=== PATIENT | male | born 1950 | race Caucasian/White ===

== ENCOUNTER 2021-08-15 19:56 | Emergency (ER) | payer MEDICARE, OTHER, SELFPAY ==
[2021-08-15 19:56] VITALS: O2SAT 96
[2021-08-15 19:57] VITALS: BP 183/82; PULSE 117; RESP 25; TEMP 37.1; O2SAT 86; BMI 25.9
--- NOTE | 2021-08-15 20:15 | EKG12_ITS ---
Test Reason : CP Blood Pressure : / mmHG Vent. Rate : 101 BPM Atrial Rate : 101 BPM P-R Int : 126 ms QRS Dur : 088 ms QT Int : 340 ms P-R-T Axes : 077 084 077 degrees QTc Int : 440 ms Sinus tachycardia with occasional Premature ventricular complexes and Fusion complexes Otherwise normal ECG Confirmed by RULA HAND, NABIL ([id number]), news videotape editor JEN TORRES ([id number]) on 08/18/2021 11:39:58 AM Referred By: CINDY Confirmed By:NABIL HORTA MD
--- NOTE | 2021-08-15 20:15 | CT_ITS ---
STUDY: CTA CHEST REASON FOR EXAM: Male, 70 years old. chest pain RADIATION DOSAGE (If Supplied By Facility): CTDIvol = ( 11.62 ) mGy, DLP = ( 501.28 ) mGycm TECHNIQUE: The examination was performed with the intravenous administration of IV 100mL Isovue-370. Post-processing of the angiographic images was performed, with multiplanar reformation and 3D reconstruction. Individualized dose optimization techniques were used for this CT. COMPARISON: None. FINDINGS: Adequate density of contrast in pulmonary arteries but with moderate motion; limited, but diagnostic exam. No pulmonary artery filling defect to suggest pulmonary embolism. There is no evidence of right heart strain. Normal size heart. No pericardial fluid. No mediastinal or hilar lymphadenopathy. No mass or filling defect. No bronchiectasis. No peribronchial thickening. There are increased lung volumes with flattening of the diaphragms suggesting air trapping. There is advanced centrilobular emphysematous disease seen throughout the lungs. While assessment is limited by motion, there is a roughly 6.5 cm area of ill-defined groundglass attenuation in the left lower lobe. In the right upper lobe, axial image 198 of 270, there is a 5 x 7 mm suspicious nodule. Consider pulmonary consultation and three-month follow-up CT chest. Thyroid gland and base of the neck are within normal limits. No axillary lymphadenopathy. No fracture or focal osseous lesion. Upper abdomen is notable for a 10 mm hypodensity left hepatic lobe. CT/CTA Chest W/WO Contrast IMPRESSION: No pulmonary embolism. Suspicious 5 x 7 mm nodule right upper lobe. Consider pulmonary consultation and three-month follow-up CT chest. Left lower lobe roughly 6.5 cm diameter area of ill-defined groundglass attenuation. Assessment is limited due to motion. This may represent asymmetric atelectasis however infectious etiology is not excluded. Electronically Signed: Tanner uJdd DO at 23:35 EST ,
--- NOTE | 2021-08-15 20:18 | EDS_ITS ---
HPI History of Present Illness Chief Complaint: Chest Pain Narrative Narrative: Patient is a 70-year-old male with past medical history of COPD/emphysema who wears oxygen at night. He also has a history of paroxysmal atrial fibrillation and takes Xarelto. Patient states that over the past 2 to 3 days has been having to wear his oxygen throughout the day because if he does not his pulse ox will drop into the 80s. He states approximate 1 hour prior to arrival he developed sharp right sided chest pain. He states that there is no radiation of the pain and he denies any nausea vomiting or diaphoresis associated with this. He states that he is fully vaccinated against Covid and has no known exposures and states he has not been sick in any way prior to the symptoms beginning. At this time based on the sudden onset of pain in the worsening shortness of breath requiring oxygen 24/01 he presents for evaluation. [facility] Medical History Abdominal pain Arthritis History of prostate cancer Home Medications Lactobacills gasseri-Bifidobac bifidum,longum 1.5 billion cell capsule cap PO DAILY cap 03/22/19 [History Last Taken Unknown] beta carotene 10,000 unit capsule 10,000 unit PO DAILY 03/22/19 [History Last Taken Unknown] multivitamin 1 cap PO DAILY 03/22/19 [History Last Taken Unknown] [id number] [Breztri Aerosphere] 2 inh INHALATION BID 08/15/21 [History Last Taken Unknown] metoprolol succinate 50 mg PO DAILY 08/15/21 [History Last Taken Unknown] rivaroxaban [Xarelto] 20 mg PO DAILY 08/15/21 [History Last Taken Unknown] roflumilast [Daliresp] 500 mcg PO DAILY 08/15/21 [History Last Taken Unknown] doxycycline hyclate 100 mg PO BID 10 Days #20 cap 08/16/21 [Rx Last Taken Unknown] oxycodone-acetaminophen [Percocet] 1 tab PO Q6H PRN 3 Days #12 tab 08/16/21 [Rx Last Taken Unknown] Allergy/AdvReac Type Severity Reaction Status Date / Time gabapentin AdvReac Other Verified 08/15/21 21:18 melatonin AdvReac Other Verified 08/15/21 21:18 Surgical History (Updated 03/22/19 @ 13:32 by Beatriz Gurrola) History of appendectomy History of hernia repair History of prostatectomy History of tonsillectomy Social History (Updated 03/23/19 @ 12:[address] Agusto Lima MD) Smoking Status: Former smoker alcohol intake: never substance use type: does not use ROS ROS ED Constitutional Constitutional ED: Denies chills or fever(s) ENT ENT ED: Denies sore throat Cardiovascular Cardiovascular: Reports chest pain Respiratory/Chest Respiratory/Chest: Reports cough and dyspnea Gastrointestinal Gastrointestinal: Denies abdominal pain, diarrhea, nausea or vomiting Genitourinary Genitourinary ED: Denies dysuria Musculoskeletal Musculoskeletal: Denies myalgias Integumentary Denies rash Neurologic Neurologic: Denies headache(s) Hematologic/Lymphatic Hematologic/Lymphatic: Reports easy bleeding and easy bruising EXAM Physical Exam Const Vital Signs: 08/15/21 19:56 08/15/21 19:57 08/15/21 20:14 Temperature 98.7 F Temperature Source Temporal Pulse Rate 117 H Respiratory Rate 25 H Respiratory Effort Short of Breath Labored Respiratory Pattern Tachypnea Blood Pressure 183/82 H Blood Pressure Mean 115 Pulse Ox 96 86 Oxygen Delivery Method Nasal Cannula Nasal Cannula Oxygen Flow Rate (L/min) 3 2 08/15/21 20:32 08/15/21 20:38 08/15/21 21:19 Temperature Temperature Source Pulse Rate 97 101 H 94 Respiratory Rate 97 H 27 H Respiratory Effort Respiratory Pattern Normal Blood Pressure 134/80 H 131/67 H Blood Pressure Mean 88 Pulse Ox 94 Oxygen Delivery Method Nasal Cannula Oxygen Flow Rate (L/min) 3 08/15/21 23:08 Temperature Temperature Source Pulse Rate 94 Respiratory Rate 26 H Respiratory Effort Respiratory Pattern Blood Pressure 95/64 Blood Pressure Mean 74 Pulse Ox 96 Oxygen Delivery Method Nasal Cannula Oxygen Flow Rate (L/min) 3 Positive well nourished and well developed General Appearance ED: well developed HEENT Reports moist mucous membranes HEENT Narrative: No tongue or lip swelling no oral lesions no airway edema or compromise Eyes PERRL and EOMs intact bilaterally Neck supple and no JVD Resp Resp Narrative: Patient is in moderate respiratory distress with tachypnea and accessory muscle use. Breath sounds are diminished throughout with diffuse expiratory wheeze. Cardio regular rhythm Rate: tachycardic and other Other Details: Tachycardic rate with regular rhythm. There is an occasional ectopic beat noted. Radial pulses are +2-4 bilaterally GI normal to inspection, nondistended, normoactive bowel sounds, non-tender, non- distended and no masses GI Narrative: No voluntary guarding or rigidity no pulsatile mass or fluid wave noted. Auscultation: normoactive bowel sounds Palpation: soft Extremity normal to inspection Extremity Narrative: No asymmetric edema no pitting edema negative Homans' sign bilaterally Neuro oriented x3 and CN's II-XII intact bilaterally Sensorium / Orientation: alert Motor Exam: strength 5/5 throughout Psych mental status grossly normal Skin no rashes or lesions noted MDM MDM MDM Narrative Medical decision making narrative: Patient presented to the ER with a low pulse ox but states that he does wear oxygen at night and has been wearing it during the day secondary to severe COPD/emphysema. He has a history of paroxysmal A. fib and is currently on a blood thinner. He denied any trauma or sick symptoms but had right-sided chest pain and there was concern that he has a breakthrough pulmonary embolus or dissection or even a pneumothorax from a ruptured bleb because of his history of emphysema/COPD. I performed basic laboratory studies which show no clinically significant findings with a normal initial and delta troponin. The CTA revealed no pulmonary embolus dissection or pneumothorax. It did show a right sided lung nodule in the area where he has pain as well as groundglass opacities in the left lower lobe. Because of the groundglass opacities I did check a Covid test which is negative. At this time he is satting well on his oxygen and does not have physical exam changes or vital sign changes to suggest sepsis. We discussed possible admission to the hospital because of his recurrent chest pain despite negative troponins. Patient states that he is feeling better at this time after the pain medication and would prefer to go home at this time and follow-up with his facility attendant as the work- up today does not show a pneumothorax pulmonary embolus dissection or obvious cardiac damage. Therefore patient will be placed on doxycycline because of the groundglass opacities concerning for bacterial pneumonia but as he has oxygen at home to keep his pulse ox greater than 90% and states he has had improvement of his pain he will be discharged and can return if symptoms are not controlled with outpatient therapy Lab Data Attestation: I reviewed the patient's lab results. Labs: Laboratory Results - last 24 hr 08/15/21 08/15/21 08/15/21 20:00 20:00 20:00 WBC 11.4 H RBC 5.11 Hgb 15.4 Hct 43.8 MCV 85.7 MCH 30.1 MCHC 35.2 RDW Std Deviation 45.3 H RDW Coeff of Gladis 14.6 Plt Count 330 MPV 8.8 Immature Gran % (Auto) 0.400 Neut % (Auto) 77.4 H Lymph % (Auto) 11.9 L [place] % (Auto) 7.8 Eos % (Auto) 2.2 Baso % (Auto) 0.3 Absolute Neuts (auto) 8.8 H Absolute Lymphs (auto) 1.36 Nucleated RBC % 0 PT 13.7 INR 1.1 APTT 39.6 H Sodium 137 Potassium 4.2 Chloride 101 Carbon Dioxide 32.0 Anion Gap 4 L BUN 18 Creatinine 1.03 Estim Creat Clear Calc 75.34 Est GFR (MDRD) Af Amer 92 Est GFR (MDRD) Non-Af 76 BUN/Creatinine Ratio 17.5 Glucose 107 H Calcium 9.6 Troponin I High Sens 5 B-Natriuretic Peptide 08/15/21 08/15/21 20:00 21:56 WBC RBC Hgb Hct MCV MCH MCHC RDW Std Deviation RDW Coeff of Gladis Plt Count MPV Immature Gran % (Auto) Neut % (Auto) Lymph % (Auto) [place] % (Auto) Eos % (Auto) Baso % (Auto) Absolute Neuts (auto) Absolute Lymphs (auto) Nucleated RBC % PT INR APTT Sodium Potassium Chloride Carbon Dioxide Anion Gap BUN Creatinine Estim Creat Clear Calc Est GFR (MDRD) Af Amer Est GFR (MDRD) Non-Af BUN/Creatinine Ratio Glucose Calcium Troponin I High Sens 4 B-Natriuretic Peptide 84.0 Radiography Diagnostic Testing: Clinical Impression(s) from Imaging Studies Chest CTA 08/15/21 20:15 IMPRESSION: No pulmonary embolism. Suspicious 5 x 7 mm nodule right upper lobe. Consider pulmonary consultation and three-month follow-up CT chest. Left lower lobe roughly 6.5 cm diameter area of ill-defined groundglass attenuation. Assessment is limited due to motion. This may represent asymmetric atelectasis however infectious etiology is not excluded. Electronically Signed: Tanner Judd DO at 23:35 EST , Discharge Plan Triage Chief Complaint: Chest Pain ED Provider: Campos Eaton Dx/Rx/DC Orders Clinical Impression: Lung mass, Nonspecific chest pain Instructions: ED Chest Pain, Uncertain Cause, ED Pulmonary Nodule, Solitary Prescriptions: New doxycycline hyclate 100 mg capsule 100 mg PO BID 10 Days Qty: 20 RF: 0 oxycodone-acetaminophen [Percocet] 5-325 mg tablet 1 tab PO Q6H PRN (Reason: pain) 3 Days Qty: 12 RF: 0 No Action multivitamin capsule capsule 1 cap PO DAILY RF: 0 beta carotene 10,000 unit capsule 10,000 unit PO DAILY RF: 0 Trusper 1.5 billion cell capsule PO DAILY RF: 0 Daliresp 500 mcg Tablet 500 mcg PO DAILY RF: 0 Xarelto 20 mg Tablet 20 mg PO DAILY RF: 0 metoprolol succinate 50 mg Capsule,Sprinkle,Er 24hr 50 mg PO DAILY RF: 0 Breztri Aerosphere 160-9-4.8 mcg/actuation Hfa Aerosol Inhaler 2 inh INHALATION BID RF: 0 Primary Care Provider: London Ltot Referrals: London Lott MD [Primary Care Provider] - Disposition Disposition: Home, Self Care
[2021-08-15 20:24] LABS: Absolute Lymphocyte Count 1.36 X10^3/uL (0.83-4.51); Absolute Neutrophil Count 8.8 X10^3/uL (2.0-7.7); Basophil# 0.03 X10^3/uL; Basophil% 0.3 % (0-1); Eosinophil# 0.25 X10^3/uL; Eosinophils% 2.2 % (0-5); Hematocrit 43.8 % (40-54); Hemoglobin 15.4 g/dL (13.0-16.5); Lymphocyte # 1.36 X10^3/ul (0.83-4.51); Lymphocyte % 11.9 % (19-41); Mean Corp Hgb Conc 35.2 g/dL (32-36); Mean Corpuscular Hgb 30.1 pg (27.0-32.0); Mean Corpuscular Volume 85.7 fL (80-94); Mean Platelet Vol. 8.8 fl (6.2-12.0); Monocyte# 0.89 X10^3/uL; Monocyte% 7.8 % (0-10); NRBC Flagged by Analyzer 0 % (0-5); Neutrophil # 8.84 X10^3/uL (2.7-7.7); Neutrophil % 77.4 % (47-70); Platelet Count 330 K/mm3 (150-450); RBC Distribution Width CV 14.6 % (11.6-14.6); RBC Distribution Width SD 45.3 fl (35.1-43.9); Red Blood Count 5.11 M/mm3 (4.6-6.2); White Blood Count 11.4 K/mm3 (4.4-11.0)
[2021-08-15] MEDS: Albuterol 2.5 MG/3 ML VIAL.NEB. INHALATION (20:27)
[2021-08-15] MEDS: MethylPREDNISolone 125 MG/2 ML Vial IV (20:27)
[2021-08-15] MEDS: Ipratropium/Albuterol Sulfate 3 ML AMPUL.NEB INHALATION (20:27)
[2021-08-15 20:28] LABS: International Normalized Ratio 1.1; Prothrombin Time (Protime)PT. 13.7 SECONDS (11.7-14.9)
[2021-08-15 20:30] LABS: Partial Thromboplast Time 39.6 Seconds (24.1-36.2)
[2021-08-15 20:32] VITALS: PULSE 97; RESP 97
[2021-08-15 20:36] LABS: Anion Gap 4 (5-15); BUN 18 mg/dL (7-18); BUN/Creat Ratio 17.5 RATIO (10-20); Calcium,Total 9.6 mg/dL (8.5-10.1); Chloride 101 mmol/L (98-107); Creatinine, Serum 1.03 mg/dL (0.70-1.30); EST Glomerular Filtration Rate 76 mL/min (>60); Est Glom Filt Rate - Afr Amer 92 mL/min (>60); Estimated Creatinine Clearance 75.34 ml/min; Glucose 107 mg/dL (74-106); Potassium 4.2 mmol/L (3.5-5.1); Sodium Level 137 mmol/L (136-145); Troponin-I HS 5 pg/mL (3.0-78.0)
[2021-08-15 20:38] VITALS: BP 134/80; PULSE 101
[2021-08-15] MEDS: Nitroglycerin SL (ED/IMG/CATH) 0.4 MG TABLET SL (20:38)
[2021-08-15] MEDS: Ondansetron 4 MG/2 ML Vial IV (21:14)
[2021-08-15] MEDS: Morphine 4 MG/ML Syringe IV ×2 (21:16→23:07)
[2021-08-15 21:19] VITALS: BP 131/67; PULSE 94; RESP 27; O2SAT 94
[2021-08-15 22:24] LABS: Troponin-I HS 4 pg/mL (3.0-78.0)
[2021-08-15 23:08] VITALS: BP 95/64; PULSE 94; RESP 26; O2SAT 96
[2021-08-16] MEDS: Ondansetron 4 MG/2 ML Vial IV (00:04)
[2021-08-16] MEDS: HYDROmorphone 1 MG/ML Syringe IV (00:06)
[2021-08-16 01:46] VITALS: BP 100/84; PULSE 78; RESP 18; O2SAT 95
[2021-08-16] MEDS: Doxycycline 100 MG CAPSULE PO (01:46)
== END 2021-08-16 01:56 | disposition home or self-care (01) ==
PROVIDERS: Emergency Provider Emergency Medicine; PCP Family Medicine; Visit Provider Emergency Medicine
DX: R91.8 Other nonspecific abnormal finding of lung field (principal); J43.9 Emphysema, unspecified; I48.0 Paroxysmal atrial fibrillation; R07.9 Chest pain, unspecified; R06.02 Shortness of breath; M19.90 Unspecified osteoarthritis, unspecified site; Z79.01 Long term (current) use of anticoagulants; Z79.899 Other long term (current) drug therapy; Z87.891 Personal history of nicotine dependence
CPT/HCPCS: 71275; 80048; 83880; 84484; 85025; 85610; 85730; 87426; 93005; 94640; 96361; 96374; 96375; 96376; 99285; J7040; Q9967; A4216; J2405

== ENCOUNTER 2021-12-27 22:44 | Inpatient (IN) | payer MEDICARE, OTHER, SELFPAY ==
[2021-12-27 22:45] VITALS: BP 137/86; PULSE 99; RESP 20; TEMP 36.6; O2SAT 96; BMI 24.4
--- NOTE | 2021-12-27 23:29 | CT_ITS ---
EXAM: CT ABDOMEN AND PELVIS WITH INTRAVENOUS CONTRAST CLINICAL INDICATION: diffuse abd pain, n/v TECHNIQUE: Helically acquired images were obtained of the abdomen and pelvis with intravenous contrast. This CT exam was performed using one or more of the following dose reduction techniques: automated exposure control, adjustment of the mA and/or kV according to patient size, and/or use of iterative reconstruction technique. This report was created using COTA report generation technology. CONTRAST: IV 75mL Isovue-300 COMPARISON: None. FINDINGS: LOWER THORAX: Unremarkable. Lung bases are clear. No cardiomegaly. No significant pericardial effusion. ABDOMEN: LIVER: Unremarkable. Homogeneous. No focal mass. GALLBLADDER AND BILE DUCTS: Multiple gallstones. No gallbladder distention or wall edema. No intra- or extrahepatic biliary ductal dilation. PANCREAS: Stranding/fluid adjacent to the body and tail of the pancreas tracking down the retroperitoneum. No focal cystic or solid mass. SPLEEN: Unremarkable. Normal size without focal cystic or solid mass. ADRENALS: Unremarkable. No nodules. KIDNEYS AND URETERS: Unremarkable. Normal renal size and position. No hydronephrosis. STOMACH AND BOWEL: Partial colectomy, with a left abdominal wall colostomy. No stomach or bowel distention. PELVIS: APPENDIX: Appendectomy. BLADDER: Unremarkable. REPRODUCTIVE: Prostatectomy. ABDOMEN and PELVIS: INTRAPERITONEAL SPACE: Unremarkable. No ascites or other fluid collection. No free air. BONES/JOINTS: Unremarkable. No suspicious lytic or blastic abnormality. SOFT TISSUES: Unremarkable. No discrete abdominal or pelvic wall hernia. VASCULATURE: Unremarkable. Abdominal aorta is non-dilated. LYMPH NODES: Unremarkable. No enlarged lymph nodes. CT/Abdomen/Pelvis W IV Cont ONLY IMPRESSION: 1. Stranding/fluid adjacent to the body and tail of the pancreas tracking down the retroperitoneum. Findings likely indicate mild pancreatitis. 2. Partial colectomy, with a left abdominal wall colostomy. 3. Multiple gallstones. Electronically Signed: Dashawn Coronado MD at 0:39 EDT ,
--- NOTE | 2021-12-27 23:30 | EDS_ITS ---
HPI HPI - GI History of Present Illness Chief Complaint: Abd Pain Informant: patient Abdominal Pain/Flank Pain Onset: Today (Around 20 hours) Context: Sudden Onset (While sleeping, woke him up) Timing: Continuous Quality: Aching Location: Diffuse (More lower abdomen) Current Severity: Moderate Maximum Severity: Moderate Worsened by: Nothing Relieved by: Nothing Nausea/Vomiting/Emesis GI Symptom: Positive for Nausea and Vomiting Onset: Today (Earlier in the course of pain) Quality: Positive for Nonbilious; Negative for Blood streaks, Coffee ground or Hematemesis Diarrhea/Melena/Hematochezia GI Symptom: Negative for Diarrhea, Melena or Hematochezia Associated Symptoms Associated Symptoms: Positive for Dysuria; Negative for Frequency, Hematuria or Urgency Narrative Narrative: Patient has had lower abdominal pain all day it has progressively worsened, he is on Xarelto but has had no bleeding in his colostomy bag nor emesis. Had colostomy because of diverticulitis and had to have about 20 cm of colon removed last year as a result. He states tonight, it hurts worse in his lower abdomen to urinate, with a little bit of burning, no hematuria. Has only had a small amount of output from his colostomy today, this is unusual for him. Not passing flatus into it. Diagnosed with a COPD exacerbation recently, he has been on prednisone and an antibiotic for the past 2 or 3 days, slowly improving, no symptoms are getting worse, had a chest x-ray that was negative for pneumonia. [facility] Medical History Abdominal pain Arthritis History of prostate cancer Home Medications multivitamin 1 cap PO DAILY 03/22/19 [History Last Taken Unknown] budesonide 160 mcg-glycopyr 9 mcg-formot 4.8 mcg/actuation HFA inhaler (Breztri Aerosphere) 2 inh inhalation BID 08/15/21 [History Last Taken Unknown] metoprolol succinate 50 mg capsule sprinkle, ext. release 24 hr 50 mg PO DAILY 08/15/21 [History Last Taken Unknown] rivaroxaban 20 mg tablet (Xarelto) 20 mg PO DAILY 08/15/21 [History Last Taken Unknown] roflumilast 500 mcg tablet (Daliresp) 500 mcg PO DAILY 08/15/21 [History Last Taken Unknown] amoxicillin 875 mg-potassium clavulanate 125 mg tablet 1 tab PO BID 12/27/21 [History Last Taken Unknown] prednisone 10 mg tablet 60 mg PO DAILY 12/27/21 [History Last Taken Unknown] Allergy/AdvReac Type Severity Reaction Status Date / Time gabapentin AdvReac Other Verified 12/27/21 22:47 melatonin AdvReac Other Verified 12/27/21 22:47 Surgical History History of appendectomy History of hernia repair History of prostatectomy History of tonsillectomy Social History Smoking Status: Former smoker alcohol intake: never substance use type: does not use ROS ROS ED Constitutional Constitutional ED: Denies chills or fever(s) Eyes Eyes: Denies change in vision or diplopia ENT ENT ED: Denies rhinorrhea or sore throat Cardiovascular Cardiovascular: Denies chest pain or palpitations Respiratory/Chest Respiratory/Chest: Reports cough, dyspnea on exertion and wheezing Gastrointestinal Gastrointestinal: Reports abdominal pain, nausea, vomiting and other Details: Decreased colostomy output today ; Denies diarrhea Genitourinary Genitourinary ED: Reports dysuria; Denies hematuria Musculoskeletal Musculoskeletal: Denies back pain or neck pain Integumentary Denies abscess or rash Neurologic Neurologic: Denies headache(s), paresthesias or weakness Psychiatric Psychiatric: Denies anxiety or suicidal thoughts EXAM Physical Exam Const Vital Signs: 12/27/21 22:45 12/28/21 01:11 Temperature 97.8 F Temperature Source Temporal Pulse Rate 99 66 Respiratory Rate 20 H 18 Blood Pressure 137/86 H 163/87 H Blood Pressure Mean 103 112 Pulse Ox 96 97 Oxygen Delivery Method Nasal Cannula Room Air Oxygen Flow Rate (L/min) 3 Positive well nourished and well developed General Appearance ED: well developed and NAD HEENT Reports moist mucous membranes normocephalic and atraumatic Eyes PERRL and EOMs intact bilaterally Neck full ROM and supple Resp normal respiratory effort and clear to auscultation bilaterally Resp Narrative: Diminished breath sounds throughout, symmetric, trachea midline, no distress Effort and Inspection: able to speak in complete sentences Cardio regular rate, regular rhythm and no murmurs GI GI Narrative: Mild distention. Diffusely tender. No guarding or rebound tenderness. Colostomy site benign. Auscultation: hypoactive bowel sounds Palpation: soft Back/Spine no CVA tenderness General Back: other FROM Extremity normal to inspection General Extremety ED: Negative for edema, pulses abnormal or tenderness General Extremity: Negative for edema or pulses abnormal Neuro oriented x3, CN's II-XII intact bilaterally and no sensory deficits noted Sensorium / Orientation: awake and alert Motor Exam: strength 5/5 throughout Skin no rashes or lesions noted and no wounds MDM MDM MDM Narrative Medical decision making narrative: Labs show significant leukocytosis of 24.9 in addition to elevated liver enzymes and a lipase of 3880, I obtained a CT before knowing any of these results more because I was worried about the possibility of a small bowel obstruction but instead it shows signs of pancreatitis as well as cholelithiasis. His bilirubin is 1.2 which is slightly abnormal, I do not have an old measurement for him, but I suspect this is most likely gallstone pancreatitis. Patient was empirically given Zosyn after his pain improved with morphine. Also treated with IV fluids and Zofran. Discussed w/ surgery Dr. Bruno, who will see the patient in consultation and suggest that if the patient truly does not have acute cholecystitis, then treating his pancreatitis medically and having an ERCP done initially would be indicated and then he typically offers a cholecystectomy to the patient during this hospitalization. Right now GI is not on-call but it is 1 AM and we confirmed that they will be available later today for consultation for ERCP. Discussed with hospitalist. Lab Data Attestation: I reviewed the patient's lab results. Labs: Laboratory Results - last 24 hr 12/27/21 12/27/21 12/27/21 23:10 23:10 23:10 WBC 24.9 H RBC 5.13 Hgb 15.3 Hct 46.6 MCV 90.8 MCH 29.8 MCHC 32.8 RDW Std Deviation 49.0 H RDW Coeff of Gladis 14.8 H Plt Count 321 MPV 9.6 Immature Gran % (Auto) 0.600 Neut % (Auto) 92.8 H Lymph % (Auto) 1.5 L [place] % (Auto) 4.9 Eos % (Auto) 0.0 Baso % (Auto) 0.2 Absolute Neuts (auto) 23.1 H Absolute Lymphs (auto) 0.37 L Nucleated RBC % 0 Anisocytosis 1+ Sodium 139 Potassium 4.4 Chloride 105 Carbon Dioxide 25.0 Anion Gap 9 BUN 35 H Creatinine 1.47 H Estim Creat Clear Calc 52.06 Est GFR (MDRD) Af Amer 61 Est GFR (MDRD) Non-Af 50 L BUN/Creatinine Ratio 23.8 H Glucose 180 H Calcium 9.6 Total Bilirubin 1.20 H AST 237 H ALT 887 H Alkaline Phosphatase 139 H Total Protein 7.7 Albumin 3.9 Globulin 3.8 Albumin/Globulin Ratio 1.0 Lipase 3880 H Urine Color Yellow Urine Clarity Clear Urine pH 5.0 Ur Specific [place] 1.020 Urine Protein 30 H Urine Glucose (UA) Normal Urine Ketones 5 H Urine Occult Blood 10 H Urine Nitrite Negative Urine Bilirubin 1 H Urine Urobilinogen Normal Ur Leukocyte Esterase 25 H Urine RBC 0-5 SEEN Urine WBC 0-5 SEEN Ur Squamous Epith Cells 0 SEEN Urine Bacteria 1+ Urine Mucus 0 SEEN Radiography Diagnostic Testing: Clinical Impression(s) from Imaging Studies Abdomen/Pelvis CT 12/27/21 23:29 IMPRESSION: 1. Stranding/fluid adjacent to the body and tail of the pancreas tracking down the retroperitoneum. Findings likely indicate mild pancreatitis. 2. Partial colectomy, with a left abdominal wall colostomy. 3. Multiple gallstones. Electronically Signed: Dashawn Coronado MD at 0:39 EDT , Discharge Plan Triage Chief Complaint: Abd Pain ED Provider: Faustino Muhammad Dx/Rx/DC Orders Clinical Impression: Acute gallstone pancreatitis, Cholelithiasis, FANTASMA (acute kidney injury) Prescriptions: No Action multivitamin capsule capsule 1 cap PO DAILY Daliresp 500 mcg Tablet 500 mcg PO DAILY Xarelto 20 mg Tablet 20 mg PO DAILY metoprolol succinate 50 mg Capsule,Sprinkle,Er 24hr 50 mg PO DAILY Breztri Aerosphere 160-9-4.8 mcg/actuation Hfa Aerosol Inhaler 2 inh INHALATION BID prednisone 10 mg tablet 60 mg PO DAILY Label Comments: take 60 mg daily x 4 days amoxicillin-pot clavulanate 875-125 mg tablet 1 tab PO BID Label Comments: TAKE 1 TABLET BY MOUTH TWICE A DAY FOR 10 DAYS Rx Instructions: started 6/24 for 5 days Primary Care Provider: London Lott Referrals: London Lott MD [Primary Care Provider] - Disposition Disposition: Acute Care Hospital [facility]
[2021-12-27 23:36] LABS: Mucous, Urine 0 SEEN /hpf (<or=2+); Squamous Epithelial Cells - UA 0 SEEN /hpf (0-5)
[2021-12-27] MEDS: 0.9% Normal Saline 1,000 ML 1000 ML IV (23:41)
[2021-12-27] MEDS: Morphine 4 MG/ML Syringe IV (23:41)
[2021-12-27] MEDS: Ondansetron 4 MG/2 ML Vial IV (23:41)
[2021-12-27 23:49] LABS: Color, Urine Yellow (Yellow); Glucose, Dipstick Normal (Normal); Ketone-Dipstick 5 mg/dl (Negative); Leukocyte Esterase-Dipstick 25 /ul (Negative); Nitrite-Dipstick Negative (Negative); Occult Blood-Urine 10 /ul (Negative); Protein-Dipstick 30 mg/dl (Negative); Urine Clarity Clear (Clear); Urine Urobilinogen Normal (Normal)
[2021-12-27 23:52] LABS: Absolute Lymphocyte Count 0.37 X10^3/uL (0.83-4.51); Absolute Neutrophil Count 23.1 X10^3/uL (2.0-7.7); Basophil# 0.04 X10^3/uL; Basophil% 0.2 % (0-1); Eosinophil# 0.01 X10^3/uL; Hematocrit 46.6 % (40-54); Hemoglobin 15.3 g/dL (13.0-16.5); Lymphocyte # 0.37 X10^3/ul (0.83-4.51); Lymphocyte % 1.5 % (19-41); Mean Corp Hgb Conc 32.8 g/dL (32-36); Mean Corpuscular Hgb 29.8 pg (27.0-32.0); Mean Corpuscular Volume 90.8 fL (80-94); Mean Platelet Vol. 9.6 fl (6.2-12.0); Monocyte# 1.21 X10^3/uL; Monocyte% 4.9 % (0-10); NRBC Flagged by Analyzer 0 % (0-5); Neutrophil # 23.07 X10^3/uL (2.7-7.7); Neutrophil % 92.8 % (47-70); POSITIVE DIFFERENTIAL YES; Platelet Count 321 K/mm3 (150-450); RBC Distribution Width CV 14.8 % (11.6-14.6); Red Blood Count 5.13 M/mm3 (4.6-6.2); White Blood Count 24.9 K/mm3 (4.4-11.0)
[2021-12-27 23:58] LABS: AST(SGOT) 237 U/L (15-37); Alanine Aminotransfer ALT/SGPT 887 U/L (16-61); Albumin, Serum 3.9 g/dL (3.2-5.0); Alkaline Phosphatase 139 U/L (45-117); Anion Gap 9 (5-15); BUN 35 mg/dL (7-18); BUN/Creat Ratio 23.8 RATIO (10-20); Calcium,Total 9.6 mg/dL (8.5-10.1); Chloride 105 mmol/L (98-107); Creatinine, Serum 1.47 mg/dL (0.70-1.30); EST Glomerular Filtration Rate 50 mL/min (>60); Est Glom Filt Rate - Afr Amer 61 mL/min (>60); Estimated Creatinine Clearance 52.06 ml/min; Globulin 3.8 g/dL (2.2-4.2); Glucose 180 mg/dL (74-106); Lipase 3880 U/L (73-393); Potassium 4.4 mmol/L (3.5-5.1); Protein, Total 7.7 g/dL (6.4-8.2); Sodium Level 139 mmol/L (136-145)
[2021-12-28] VITALS (14 sets, daily range): BP systolic 123–163; BP diastolic 75–97; PULSE 63–103; RESP 18–24; TEMP 36.6–36.8; O2SAT 94–98; BMI 24.5
[2021-12-28 00:01] LABS: Differential Indicated SCAN CRITERIA MET
[2021-12-28 00:02] LABS: Urine Bilirubin Dipstick 1 mg/dL (Negative)
[2021-12-28 00:07] LABS: Anisocytosis 1+
[2021-12-28 00:11] LABS: White Blood Cells 0-5 SEEN /hpf (0-5)
[2021-12-28 00:12] LABS: Bacteria 1+ /hpf (None Seen); Red Blood Cells-Urine 0-5 SEEN /hpf (0-5)
[2021-12-28] MEDS: Morphine 4 MG/ML Syringe IV (01:39)
--- NOTE | 2021-12-28 01:59 | PCM.HP.STD ---
HPI - General General Date of Admission: 12/28/21 Date of Service: 12/28/21 Chief Complaint: Abdominal pain HPI Narrative NABIL SORENSEN, is a 71 M who presents with abdominal pain. Pain began 3 AM on the . Described it as umbilical. Was hoping it would go away but when it did not he eventually sought attention in the emergency room. He had a CAT scan that showed stranding/fluid adjacent to the body and tail of the pancreas tracking down the retroperitoneum. Findings likely indicative of pancreatitis. Did show multiple gallstones but no mention of cholecystitis. Emergency room physician spoke with Dr. Bruno, general surgery, and recommended ultrasound. Patient has never had pancreatitis before that he is aware of. His last consumption of alcohol was about a week ago and typically drinks very sporadically. Patient was seen in the [facility] emergency room this past Tuesday for a COPD flare and was started on Augmentin as well as 60 mg of prednisone. Recently patient underwent a trial procedure [facility] for a pulmonary procedure where they sprayed something in his oxygen. Patient thinks he received therapy but he does not know if he got the placebo or not. Patient is on oxygen and does get short of breath with activity but he feels that he is at his baseline. Patient is on 3 L of oxygen at home continuously. [facility] Medical History (Updated 12/28/21 @ 02:[address] Sanjay Patel, ) Abdominal pain Arthritis COPD (chronic obstructive pulmonary disease) History of prostate cancer Paroxysmal atrial fibrillation Home Medications multivitamin 1 cap PO DAILY 03/22/19 [History Last Taken Unknown] budesonide 160 mcg-glycopyr 9 mcg-formot 4.8 mcg/actuation HFA inhaler (Breztri Aerosphere) 2 inh inhalation BID 08/15/21 [History Last Taken Unknown] metoprolol succinate 50 mg capsule sprinkle, ext. release 24 hr 50 mg PO DAILY 08/15/21 [History Last Taken Unknown] rivaroxaban 20 mg tablet (Xarelto) 20 mg PO DAILY 08/15/21 [History Last Taken Unknown] roflumilast 500 mcg tablet (Daliresp) 500 mcg PO DAILY 08/15/21 [History Last Taken Unknown] amoxicillin 875 mg-potassium clavulanate 125 mg tablet 1 tab PO BID 12/27/21 [History Last Taken Unknown] prednisone 10 mg tablet 60 mg PO DAILY 12/27/21 [History Last Taken Unknown] Allergy/AdvReac Type Severity Reaction Status Date / Time gabapentin AdvReac Other Verified 12/27/21 22:47 melatonin AdvReac Other Verified 12/27/21 22:47 Family History (Updated 12/28/21 @ 02:[address] Sanjay Patel DO) Father COPD (chronic obstructive pulmonary disease) Surgical History (Updated 12/28/21 @ 02:[address] Sanjay Patel DO) History of appendectomy History of colostomy History of hernia repair History of prostatectomy History of tonsillectomy S/P partial colectomy Social History (Updated 12/28/21 @ 02:[address] Sanjay Ptael DO) Smoking Status: Former smoker alcohol intake: current alcohol intake frequency: holidays/special occasions only Alcohol type: beer substance use type: does not use ROS ROS Narrative All review of systems were negative except as mentioned above in the history of present illness and the other review of systems. Vital Signs Vital Signs Vital Signs: 12/27/21 22:45 12/28/21 01:11 12/28/21 01:40 Temperature 36.6 C 36.7 C Temperature Source Temporal Oral Pulse Rate 99 66 87 Respiratory Rate 20 H 18 20 H Blood Pressure 137/86 H 163/87 H 141/75 H Blood Pressure Mean 103 112 97 Pulse Ox 96 97 98 Oxygen Delivery Method Nasal Cannula Room Air Nasal Cannula Oxygen Flow Rate (L/min) 3 3 Weight Weight: 81.647 kg Body Mass Index (BMI) 24.4 Physical Exam Const alert and no apparent distress Constitutional Narrative: No respiratory distress. No conversational dyspnea. General Appearance: cooperative HEENT normocephalic and head/scalp atraumatic Eyes Eyes Narrative: No icterus Neck no lymphadenopathy Neck Narrative: No thyromegaly Resp Resp Narrative: Diminished throughout but clear. Cardio regular rate, regular rhythm, S1 normal heart sound and S2 normal heart sound GI GI Narrative: Slightly distended but not taut. Normal bowel sounds. Diffuse mild tenderness but more prominent in the epigastrium. Extremity normal to inspection Skin Skin Narrative: No rashes, sores. Neuro moves all extremities Sensorium / Orientation: awake and alert Psych affect normal Results Lab / Micro Data Attestation: I reviewed the patient's lab results. Result Diagrams: 12/27/21 23:10 12/27/21 23:10 Labs: Laboratory Results - last 24 hr 12/27/21 23:10: WBC 24.9 H, RBC 5.13, Hgb 15.3, Hct 46.6, MCV 90.8, MCH 29.8, MCHC 32.8, RDW Std Deviation 49.0 H, RDW Coeff of Gladis 14.8 H, Plt Count 321, MPV 9.6, Immature Gran % (Auto) 0.600, Neut % (Auto) 92.8 H, Lymph % (Auto) 1.5 L, [place] % (Auto) 4.9, Eos % (Auto) 0.0, Baso % (Auto) 0.2, Absolute Neuts (auto) 23.1 H, Absolute Lymphs (auto) 0.37 L, Nucleated RBC % 0, Anisocytosis 1+ 12/27/21 23:10: Sodium 139, Potassium 4.4, Chloride 105, Carbon Dioxide 25.0, Anion Gap 9, BUN 35 H, Creatinine 1.47 H, Estim Creat Clear Calc 52.06, Est GFR (MDRD) Af Amer 61, Est GFR (MDRD) Non-Af 50 L, BUN/Creatinine Ratio 23.8 H, Glucose 180 H, Calcium 9.6, Total Bilirubin 1.20 H, AST 237 H, ALT 887 H, Alkaline Phosphatase 139 H, Total Protein 7.7, Albumin 3.9, Globulin 3.8, Albumin/Globulin Ratio 1.0, Lipase 3880 H 12/27/21 23:10: Urine Color Yellow, Urine Clarity Clear, Urine pH 5.0, Ur Specific [place] 1.020, Urine Protein 30 H, Urine Glucose (UA) Normal, Urine Ketones 5 H, Urine Occult Blood 10 H, Urine Nitrite Negative, Urine Bilirubin 1 H, Urine Urobilinogen Normal, Ur Leukocyte Esterase 25 H, Urine RBC 0-5 SEEN, Urine WBC 0-5 SEEN, Ur Squamous Epith Cells 0 SEEN, Urine Bacteria 1+, Urine Mucus 0 SEEN Radiology Impression Abdomen/Pelvis CT 12/27/21 23:29 IMPRESSION: 1. Stranding/fluid adjacent to the body and tail of the pancreas tracking down the retroperitoneum. Findings likely indicate mild pancreatitis. 2. Partial colectomy, with a left abdominal wall colostomy. 3. Multiple gallstones. Electronically Signed: Dashawn Coronado MD at 0:39 EDT , Assessment & Plan Assessment/Plan (1) Acute gallstone pancreatitis: (2) Leukocytosis: (3) COPD (chronic obstructive pulmonary disease): PLAN: Plan 1. Acute pancreatitis Suspect gallstone but no clear evidence at this time of choledocholithiasis. Doubtful that this is alcohol but the patient and his state that he does not drink often at all. Plan: IV fluids Pain control, antiemetics Dr. Bruno was contacted through the emergency room and recommended ultrasound. Ultrasound will be ordered. Consultations to gastroenterology as well as general surgery. There is no acute surgical needs at this time. Did discuss with the patient and his depending on the results of the ultrasound he may require an MRCP, and ERCP and a possible cholecystectomy. 2. Leukocytosis Patient was treated for COPD exacerbation at [facility] and was put on Augmentin as well as 60 mg of prednisone. I suspect this is related with the steroids but will follow-up with labs. 3. COPD Unclear stage but patient is on chronic oxygen. He does have dyspnea on exertion but this is his baseline. Patient is medically stabilized from a COPD perspective to proceed with procedures. He is certainly high risk for intubation given his COPD. I did review his CAT scan of his abdomen pelvis and cut the lower portions of his lungs and he does have significant bleb formation due to COPD. Patient states that he has never taken 60 mg prednisone in the past and actually reached out to his windows architect who stated that would be okay to continue. Plan: Continue with his home meds I will change prednisone to 40mg daily. Patient is already taking 2 days worth of 60 mg prednisone for patient 3 more days of 40 mg prednisone and then afterwards you can discontinue the prednisone. As needed albuterol. 4. Paroxysmal atrial fibrillation Stable Plan: Continue with metoprolol Hold rivaroxaban in anticipation of potential procedures. His last dose of rivaroxaban was in the morning on the 26. 5. VTE prophylaxis: SCDs 6. CODE STATUS: Addressed with the patient. Patient is full CODE STATUS. Charges/Coding Visit Charges Inpatient E&M: 33101 Init Hosp L3
--- NOTE | 2021-12-28 02:03 | US_ITS ---
STUDY: ABDOMINAL ULTRASOUND - RIGHT UPPER QUADRANT REASON FOR VISIT: Male, 71 years old pancreatitis. History of gallstones. TECHNIQUE: Ultrasound evaluation of the right upper quadrant was performed with real-time and static steen-scale imaging. TECHNICAL QUALITY: Adequate. COMPARISON: Comparison is made with prior CT scan dated 12/28/2021. FINDINGS: Liver: The liver measures 17.1 cm. There is a heterogeneous echogenicity of the liver. The bile ducts are within normal limits. There is hepatic color flow. The direction of portal flow is hepatopetal. There is no demonstrated mass lesion. Gallbladder: There is a distended gallbladder. The gallbladder wall is thickened and measures 6 mm. There is a negative sonographic Mota''s sign. There is no pericholecystic fluid. There are multiple echogenic structures within the gallbladder, consistent with multiple gallstones. Common Bile Duct (C.B.D.): The common bile duct measures 7 mm. Pancreas: Normal size of the head, body and tail of the pancreas. There is increased echogenicity of the pancreas. There is no demonstrated pancreatic mass or cyst. Right Kidney: Normal size of the right kidney. The right kidney measures 11.3 cm x 5.9 cm x 5.3 cm. Normal renal cortex. The right cortex measures 1.5 cm. There is no demonstrated renal mass or cyst. There is no right hydronephrosis. US/Abdomen Limited IMPRESSION: Distended gallbladder with multiple gallstones in the gallbladder wall thickening. Heterogeneous echotexture of the liver. Electronically Signed: Lexx Nguyen MD at 10:00 EDT ,
[2021-12-28] MEDS: oxyCODONE 5 MG Tablet 10 MG PO ×2 (02:25→12:44)
[2021-12-28] MEDS: Acetaminophen 325 MG Tablet 650 MG PO ×2 (02:25→12:44)
[2021-12-28] MEDS: 0.9% Normal Saline 1,000 ML 150 ML IV ×3 (02:29→15:39)
[2021-12-28] MEDS: Morphine 2 MG/ML Syringe IV ×5 (05:09→23:34)
[2021-12-28] MEDS: Ipratropium/Albuterol Sulfate 3 ML AMPUL.NEB INHALATION ×3 (05:14→19:29)
[2021-12-28 06:09] LABS: Absolute Neutrophil Count 23.3 X10^3/uL (2.0-7.7); Basophil# 0.04 X10^3/uL; Basophil% 0.2 % (0-1); Hematocrit 45.6 % (40-54); Hemoglobin 14.6 g/dL (13.0-16.5); Lymphocyte % 1.2 % (19-41); Mean Corpuscular Hgb 29.4 pg (27.0-32.0); Mean Corpuscular Volume 91.8 fL (80-94); Mean Platelet Vol. 9.2 fl (6.2-12.0); Monocyte% 4.8 % (0-10); NRBC Flagged by Analyzer 0 % (0-5); Neutrophil # 23.32 X10^3/uL (2.7-7.7); POSITIVE DIFFERENTIAL YES; Platelet Count 265 K/mm3 (150-450); RBC Distribution Width CV 14.8 % (11.6-14.6); Red Blood Count 4.97 M/mm3 (4.6-6.2); White Blood Count 25.1 K/mm3 (4.4-11.0)
[2021-12-28 06:15] LABS: Differential Indicated SCAN CRITERIA MET
[2021-12-28 06:39] LABS: ALB/GLOB Ratio 0.9 RATIO (0.9-2.4); AST(SGOT) 148 U/L (15-37); Alanine Aminotransfer ALT/SGPT 706 U/L (16-61); Albumin, Serum 3.4 g/dL (3.2-5.0); Alkaline Phosphatase 123 U/L (45-117); Anion Gap 8 (5-15); BUN 31 mg/dL (7-18); BUN/Creat Ratio 30.1 RATIO (10-20); Calcium,Total 8.8 mg/dL (8.5-10.1); Chloride 108 mmol/L (98-107); Creatinine, Serum 1.03 mg/dL (0.70-1.30); EST Glomerular Filtration Rate 76 mL/min (>60); Est Glom Filt Rate - Afr Amer 92 mL/min (>60); Estimated Creatinine Clearance 74.29 ml/min; Globulin 3.6 g/dL (2.2-4.2); Glucose 137 mg/dL (74-106); Potassium 4.4 mmol/L (3.5-5.1); Sodium Level 139 mmol/L (136-145)
[2021-12-28] MEDS: Metoprolol(XL)Succ 50 MG Tablet PO (08:10)
[2021-12-28] MEDS: predniSONE 20 MG Tablet 40 MG PO (08:10)
[2021-12-28] MEDS: Ondansetron 4 MG/2 ML Vial IV (08:36)
--- NOTE | 2021-12-28 09:14 | CON.PCM.SX_ITS ---
Assessment & Plan Assessment/Plan (1) Acute gallstone pancreatitis: PLAN: I have been consulted in conjunction with Dr. Bruno, who evaluated the patient in conjunction with myself present. Patient has an extensive abdominal surgical history. He presented with abdominal pain secondary to gallstone pancreatitis for which he has never been symptomatic from. He has a significant pulmonary history for which he wears 3 L of oxygen for. It is in the patient's best interest to have a cholecystectomy once he is resolved of the pancreatitis to avoid future episodes. Patient is a high risk operative candidate with his last abdominal surgery lasting [address] Bruno will decide if the patient is a good surgical candidate for a cholecystectomy during this hospitalization or electively in the future. Plan for NPO status until abdominal pain has resolved than will proceed with clear liquids. Proceed with bowel rest and monitored IV fluids. We will continue to closely monitor this patient. Patient has had the opportunity to ask and have questions answered. Patient verbally understands and agrees with the plan. Thank you for allowing us to participate in this patient's care. HPI Consult Data Date of Consult: 12/28/21 HPI Narrative Reason for Consultation: Gallstone pancreatitis HPI Narrative: NABIL SORENSEN, is a 71 M who presents to the ED with abdominal pain. Patient stated the onset of his abdominal pain was approximately 0300 AM on Tuesday morning. He noted that he vomited around 0700 AM after he attempted to eat solid food. He noted vomiting again around 0900 AM following eating. He noted the remaining of the day he ate section supervisor foods and liquids and was tolerating well. He noted the abdominal pain continued to increase in intensity enough to proceed to the ED. Patient denies previous having abdominal pain such as this. He denies history of gallbladder disease. He is currently in a COPD cryotherapy treatment trial and is unsure if he is receiving the treatment or a placebo. He was evaluated in the ED at [facility] on 12/25 for chest pain and worsening shortness of breath. He was diagnosed with exacerbation of COPD and treated with 60 mg prednisone and Augmentin currently. 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 He stated to their office that he was having abdominal pain and was unsure if this was related to the trial or the prednisone he was taking. Pulmonology office denies either of those and agreed with the COPD exacerbation. They had recommended if his abdominal pain worsens to proceed to the ED. Patient is currently on 3 liters of O2 at home via nasal canula. Patient's orange picker machine operator is at [facility] [place]. Patient states he does all of his doctoring at [facility]. Patient recently had a large surgical procedure for diverticulitis with a [address] Mcnela at [facility] had performed a laparoscopic converted to open left colectomy and low anterior resection with end colostomy. Laparoscopic mobilization of the splenic flexure. Extensive lysis of adhesions. Cystoscopy and bilateral ureteral stent placement on 05/18/21 for recurrent diverticulitis with high-grade rectosigmoid obstruction. This procedure was 7 hours in length. Patient states he has recovered well from the surgery. Patient states for the last day, he has not noted any stool or flatus within the stoma bag. He notes other abdominal surgeries include open prostatectomy in 2004, in the early 70's an appendectomy, and he believes an inguinal hernia repair. Patient also notes a cardiac history of Atrial flutter and atrial fibrillation. His vice president of contracts is in [place]. He has recently had a transthoracic ECHO co mpleted on 12/24/21 which demonstrated technically difficult exam due to body habitus and COPD/SOB, left ventricle is small. EF 55%. Indeterminate left ventricular diastolic dysfunction. Right ventricle normal in size and systolic function. Patient is currently maintained on Xarelto. His last dose of the medication was on Tuesday. he stated he took the medication yesterday morning, however he vomited the medication up. CT scan of the ab/pel demonstrated Mild pancreatitis with stranding/fluid adjacent to the body and tail of the pancreas tracking down the retroperitoneum. multiple gallstones. partial colectomy with left abdominal wall colostomy. RUQ u/s completed and demonstrated distended gallbladder with thickened wall at 6 mm. Negative Mota's sign. No pericholecystic fluid. Multiple gallstones. WBC 24.9-->25.1, Neut 92.8--> 93.0, Total Bili 1.20--> 1.10, AST 237--> 148, ALT 887--> 706, Alk phos 139--> 123. Lipase on admission 3880. [facility] Medical History Abdominal pain Arthritis COPD (chronic obstructive pulmonary disease) History of prostate cancer Paroxysmal atrial fibrillation Home Medications multivitamin 1 cap PO DAILY vitamin 03/22/19 [History Last Taken 12/27/21] budesonide 160 mcg-glycopyr 9 mcg-formot 4.8 mcg/actuation HFA inhaler (Breztri Aerosphere) 2 inh inhalation BID copd 08/15/21 [History Last Taken 12/27/21] metoprolol succinate 50 mg capsule sprinkle, ext. release 24 hr 50 mg PO DAILY heart 08/15/21 [History Last Taken 12/27/21] rivaroxaban 20 mg tablet (Xarelto) 20 mg PO DAILY blood thinner 08/15/21 [History Last Taken 12/27/21] roflumilast 500 mcg tablet (Daliresp) 500 mcg PO DAILY Check with primary doctor 08/15/21 [History Last Taken 12/27/21] amoxicillin 875 mg-potassium clavulanate 125 mg tablet 1 tab PO BID atb 12/27/21 [History Last Taken 12/27/21] prednisone 10 mg tablet 60 mg PO DAILY steroid 12/27/21 [History Last Taken 12/27/21] Allergy/AdvReac Type Severity Reaction Status Date / Time gabapentin AdvReac Other Verified 12/27/21 22:47 melatonin AdvReac Other Verified 12/27/21 22:47 Family History (Updated 12/28/21 @ 02:[address] Sanjay Patle DO) Father COPD (chronic obstructive pulmonary disease) Surgical History History of appendectomy History of colostomy History of hernia repair History of prostatectomy History of tonsillectomy S/P partial colectomy Social History (Updated 12/28/21 @ 02:[address] Sanjay Patel DO) Smoking Status: Former smoker alcohol intake: current alcohol intake frequency: holidays/special occasions only Alcohol type: beer substance use type: does not use ROS Constitutional Constitutional: Reports fatigue; Denies anorexia, chills, fever(s), headache(s), weight gain or weight loss Eyes Eyes: Reports systems reviewed and no addt'l complaints, except as documented ENT HEENT: Reports systems reviewed and no addt'l complaints, except as documented; Denies abnormal hearing, dysphagia, epistaxis, facial pain, hearing loss, nasal congestion, nasal discharge, neck pain, sinus pain or sinus pressure Cardiovascular Cardiovascular: Reports systems reviewed and no addt'l complaints, except as documented; Denies chest pain, chest pain at rest, chest pain with activity, dyspnea, palpitations or syncope Respiratory/Chest Respiratory/Chest: Reports systems reviewed and no addt'l complaints, except as documented, shortness of breath at rest and shortness of breath with exertion; Denies cough, dyspnea, productive cough or wheezing Gastrointestinal Gastrointestinal: Reports systems reviewed and no addt'l complaints, except as documented, abdominal pain, change in bowel habits, nausea and vomiting; Denies bloating, coffee ground emesis, constipation, diarrhea, dysphagia, hematemesis, hematochezia, melena or rectal bleeding Genitourinary Genitourinary: Reports systems reviewed and no addt'l complaints, except as documented, dysuria and hematuria; Denies change in urinary stream, difficulty urinating, flank pain, genital pain, urinary frequency, urinary incontinence or urinary urgency Musculoskeletal Musculoskeletal: Reports systems reviewed and no addt'l complaints, except as documented; Denies abnormal gait, back pain, difficulty walking, joint pain, joint swelling, limited range of motion, muscle spasms, muscle weakness or numbness Integumentary Integumentary: Reports systems reviewed and no addt'l complaints, except as documented; Denies jaundice, new lesions, non-healing lesions, rash or skin ulcer Neurologic Neurologic: Reports systems reviewed and no addt'l complaints, except as documented; Denies abnormal gait, dizziness, focal weakness, loss of vision, num bness, paresthesias, tingling or weakness Psychiatric Psychiatric: Reports systems reviewed and no addt'l complaints, except as documented; Denies anxiety or depression Endocrine Endocrinology: Reports systems reviewed and no addt'l complaints, except as documented; Denies flushing, heat intolerance or palpitations Hematologic/Lymphatic Hematologic/Lymphatic: Reports systems reviewed and no addt'l complaints, except as documented, easy bleeding and easy bruising Allergic/Immunologic Allergic/Immunologic: Reports systems reviewed and no addt'l complaints, except as documented Physical Exam Const alert and oriented x3 Constitutional Narrative: Patient laying in bed having pain. HEENT normocephalic Eyes PERRL Neck full ROM, supple and no JVD Lymph Lymphatic: no lymphadenopathy noted Resp Resp Narrative: Short of breath with sentences. On oxygen via nasal canula 3L. Auscultation: diminished lung sounds bilateral lower Cardio Rate: regular rate Rhythm: regular rhythm GI Inspection: abdominal distention and ostomy present Auscultation: hypoactive bowel sounds Palpation: tender other (generalized) and guarding Back/Spine no CVA tenderness Extremity normal to inspection Skin no rashes or lesions noted Neuro CN's II-XII intact bilaterally Psych mental status grossly normal and affect normal Lab / Micro Data Result Diagrams: 12/28/21 05:35 12/28/21 05:35 Labs: Laboratory Results - last 24 hr 12/27/21 23:10: WBC 24.9 H, RBC 5.13, Hgb 15.3, Hct 46.6, MCV 90.8, MCH 29.8, MCHC 32.8, RDW Std Deviation 49.0 H, RDW Coeff of Gladis 14.8 H, Plt Count 321, MPV 9.6, Immature Gran % (Auto) 0.600, Neut % (Auto) 92.8 H, Lymph % (Auto) 1.5 L, [place] % (Auto) 4.9, Eos % (Auto) 0.0, Baso % (Auto) 0.2, Absolute Neuts (auto) 23.1 H, Absolute Lymphs (auto) 0.37 L, Nucleated RBC % 0, Anisocytosis 1+ 12/27/21 23:10: Sodium 139, Potassium 4.4, Chloride 105, Carbon Dioxide 25.0, Anion Gap 9, BUN 35 H, Creatinine 1.47 H, Estim Creat Clear Calc 52.06, Est GFR (MDRD) Af Amer 61, Est GFR (MDRD) Non-Af 50 L, BUN/Creatinine Ratio 23.8 H, Glucose 180 H, Calcium 9.6, Total Bilirubin 1.20 H, AST 237 H, ALT 887 H, Alkaline Phosphatase 139 H, Total Protein 7.7, Albumin 3.9, Globulin 3.8, Albumin/Globulin Ratio 1.0, Lipase 3880 H 12/27/21 23:10: Urine Color Yellow, Urine Clarity Clear, Urine pH 5.0, Ur Specific [place] 1.020, Urine Protein 30 H, Urine Glucose (UA) Normal, Urine Ketones 5 H, Urine Occult Blood 10 H, Urine Nitrite Negative, Urine Bilirubin 1 H, Urine Urobilinogen Normal, Ur Leukocyte Esterase 25 H, Urine RBC 0-5 SEEN, Urine WBC 0-5 SEEN, Ur Squamous Epith Cells 0 SEEN, Urine Bacteria 1+, Urine Mucus 0 SEEN 12/28/21 05:35: WBC 25.1 H, RBC 4.97, Hgb 14.6, Hct 45.6, MCV 91.8, MCH 29.4, MCHC 32.0, RDW Std Deviation 50.0 H, RDW Coeff of Gladis 14.8 H, Plt Count 265, MPV 9.2, Immature Gran % (Auto) 0.800, Neut % (Auto) 93.0 H, Lymph % (Auto) 1.2 L, [place] % (Auto) 4.8, Eos % (Auto) 0.0, Baso % (Auto) 0.2, Absolute Neuts (auto) 23.3 H, Absolute Lymphs (auto) 0.30 L, Nucleated RBC % 0 12/28/21 05:35: Sodium 139, Potassium 4.4, Chloride 108 H, Carbon Dioxide 23.0, Anion Gap 8, BUN 31 H, Creatinine 1.03, Estim Creat Clear Calc 74.29, Est GFR (MDRD) Af Amer 92, Est GFR (MDRD) Non-Af 76, BUN/Creatinine Ratio 30.1 H, Glucose 137 H, Calcium 8.8, Total Bilirubin 1.10 H, AST 148 H, ALT 706 H, Alkaline Phosphatase 123 H, Total Protein 7.0, Albumin 3.4, Globulin 3.6, Albumin/Globulin Ratio 0.9 Radiology Impression Abdomen/Pelvis CT 12/27/21 23:29 IMPRESSION: 1. Stranding/fluid adjacent to the body and tail of the pancreas tracking down the retroperitoneum. Findings likely indicate mild pancreatitis. 2. Partial colectomy, with a left abdominal wall colostomy. 3. Multiple gallstones. Electronically Signed: Dashawn Coronado MD at 0:39 EDT ,
[2021-12-28] MEDS: ROFLUMILAST 500 MCG TABLET PO (09:21)
--- NOTE | 2021-12-28 10:54 | PCM.PN.HOSP ---
Subjective Subjective Doing well today, no issues overnight. Belly pain is little bit better today. Total bilirubin and AST and ALT are improving slowly Objective Data Objective Data Vital Signs: Vital Signs Temp Pulse Resp BP Pulse Ox 98.2 F 98 22 H 141/97 H 95 12/28/21 09:24 12/28/21 09:24 12/28/21 09:24 12/28/21 09:24 12/28/21 09:24 Oxygen Flow Rate (L/min) 3 Oxygen Delivery Method Nasal Cannula Weight: 181 lb 3 oz Body Mass Index (BMI) 24.5 Intake & Output: Intake and Output for Last 24 Hours 12/27/21 12/28/21 12/29/21 03:59 03:59 03:59 Intake Total 1050 / 1050 980 / 980 Output Total 500 / 500 Balance 1050 / 1050 480 / 480 Lab / Micro Data Result Diagrams: 12/28/21 05:35 12/28/21 05:35 Labs: Laboratory Results - last 24 hr 12/27/21 23:10: WBC 24.9 H, RBC 5.13, Hgb 15.3, Hct 46.6, MCV 90.8, MCH 29.8, MCHC 32.8, RDW Std Deviation 49.0 H, RDW Coeff of Gladis 14.8 H, Plt Count 321, MPV 9.6, Immature Gran % (Auto) 0.600, Neut % (Auto) 92.8 H, Lymph % (Auto) 1.5 L, [place] % (Auto) 4.9, Eos % (Auto) 0.0, Baso % (Auto) 0.2, Absolute Neuts (auto) 23.1 H, Absolute Lymphs (auto) 0.37 L, Nucleated RBC % 0, Anisocytosis 1+ 12/27/21 23:10: Sodium 139, Potassium 4.4, Chloride 105, Carbon Dioxide 25.0, Anion Gap 9, BUN 35 H, Creatinine 1.47 H, Estim Creat Clear Calc 52.06, Est GFR (MDRD) Af Amer 61, Est GFR (MDRD) Non-Af 50 L, BUN/Creatinine Ratio 23.8 H, Glucose 180 H, Calcium 9.6, Total Bilirubin 1.20 H, AST 237 H, ALT 887 H, Alkaline Phosphatase 139 H, Total Protein 7.7, Albumin 3.9, Globulin 3.8, Albumin/Globulin Ratio 1.0, Lipase 3880 H 12/27/21 23:10: Urine Color Yellow, Urine Clarity Clear, Urine pH 5.0, Ur Specific [place] 1.020, Urine Protein 30 H, Urine Glucose (UA) Normal, Urine Ketones 5 H, Urine Occult Blood 10 H, Urine Nitrite Negative, Urine Bilirubin 1 H, Urine Urobilinogen Normal, Ur Leukocyte Esterase 25 H, Urine RBC 0-5 SEEN, Urine WBC 0-5 SEEN, Ur Squamous Epith Cells 0 SEEN, Urine Bacteria 1+, Urine Mucus 0 SEEN 12/28/21 05:35: WBC 25.1 H, RBC 4.97, Hgb 14.6, Hct 45.6, MCV 91.8, MCH 29.4, MCHC 32.0, RDW Std Deviation 50.0 H, RDW Coeff of Gladis 14.8 H, Plt Count 265, MPV 9.2, Immature Gran % (Auto) 0.800, Neut % (Auto) 93.0 H, Lymph % (Auto) 1.2 L, [place] % (Auto) 4.8, Eos % (Auto) 0.0, Baso % (Auto) 0.2, Absolute Neuts (auto) 23.3 H, Absolute Lymphs (auto) 0.30 L, Nucleated RBC % 0 12/28/21 05:35: Sodium 139, Potassium 4.4, Chloride 108 H, Carbon Dioxide 23.0, Anion Gap 8, BUN 31 H, Creatinine 1.03, Estim Creat Clear Calc 74.29, Est GFR (MDRD) Af Amer 92, Est GFR (MDRD) Non-Af 76, BUN/Creatinine Ratio 30.1 H, Glucose 137 H, Calcium 8.8, Total Bilirubin 1.10 H, AST 148 H, ALT 706 H, Alkaline Phosphatase 123 H, Total Protein 7.0, Albumin 3.4, Globulin 3.6, Albumin/Globulin Ratio 0.9 Radiography Diagnostic Testing: Radiology Impression Abdomen/Pelvis CT 12/27/21 23:29 IMPRESSION: 1. Stranding/fluid adjacent to the body and tail of the pancreas tracking down the retroperitoneum. Findings likely indicate mild pancreatitis. 2. Partial colectomy, with a left abdominal wall colostomy. 3. Multiple gallstones. Electronically Signed: Dashawn Coronado MD at 0:39 EDT , Abdomen Ultrasound 12/28/21 02:03 IMPRESSION: Distended gallbladder with multiple gallstones in the gallbladder wall thickening. Heterogeneous echotexture of the liver. Electronically Signed: Lexx Nguyen MD at 10:00 EDT , Physical Exam Const alert, oriented x3 and no apparent distress General Appearance: cooperative HEENT normocephalic and moist oral mucous membranes Eyes PERRL, EOMs intact bilaterally and conjunctivae normal Neck supple and no JVD Resp normal respiratory effort, no retractions, no use of accessory muscles and clear to auscultation bilaterally Auscultation: Negative for crackles, rales, rhonchi or wheezes Cardio regular rate, regular rhythm, S1 normal heart sound, S2 normal heart sound and no murmurs GI soft to palpation and non-distended; Negative for hepatosplenomegaly GI Narrative: Ostomy in place Palpation: tender epigastric Extremity no clubbing, cyanosis or edema Skin no rashes or lesions noted Neuro no focal motor deficits and no sensory deficits noted Psych affect normal Appearance: appropriate Assessment & Plan Assessment/Plan (1) Acute gallstone pancreatitis: (2) Leukocytosis: (3) COPD (chronic obstructive pulmonary disease): PLAN: Plan 1 pancreatitis likely secondary to gallstones ? On CT scan there are multiple gallstones and sludge in his gallbladder ? Abdominal ultrasound is pending ? Continue with IV fluids as well as pain medications ? GI and general surgery have been consulted no immediate plans for surgical intervention at this time ? Currently on Zosyn secondary to a leukocytosis and possible source of cholecystitis 2. COPD ? He is on chronic oxygen at 3 L nasal cannula ? He is on prednisone as an outpatient, continue with 40 mg p.o. daily, he was on 60 mg of prednisone as an outpatient for 2 days which may explain why he has such an elevated white count ? Continue with breathing treatments 3. Paroxysmal A. fib ? Can continue his metoprolol ? Have to hold his Xarelto secondary to possible intervention DVT: SCDs Charges/Coding Visit Charges Inpatient E&M: 48441 Subs Hosp L2
--- NOTE | 2021-12-28 12:35 | CASEMGMT ---
KATI RAMIREZ Assessment: Face to Face with pt for initial transition planning/care coordination assessment. KATI RAMIREZ introduced self and role at [facility], pt voices understanding and consents to assessment. Pt is A/O x4 and answers all questions appropriately at this time. Pt lying in bed with eye mask on and oxygen in no distress. at bedside. Care providers, pharmacy, and demographics verified/updated. Admitting Dx: pancreatitis PCP:Kaylie Specialists:Casimiro cardio [facility]; matt Chandler who is the head of the treatment trial he is part of at [facility]; CHOLO Nava; matt Mac Preferred Pharmacy: [facility] Insurance: [employer] Prescription Benefit: yes LW/HPOA: Pt has a LW/DPOA and his DPOA is Glory Hart. LNOK: Glory Hart, ; Luis Daniel Quiroz, brother Living Arrangements: Pt lives with in a two story house with 2-3 steps to enter with a rail. Pt reports he is I in ADL's and denies concerns at home. Transportation: Pt drives self and denies concerns with transportation. DME/HHC/SNF: Pt has oxygen through [employer], states he wears 3L cont. Will call to verify. Pt has an [employer] portable concentrator as well as a portable tank. Pt also has a w/c that he uses when out and about. Pt denies hx of HHC of SNF stays. Pt states no concerns with going home at time of dc. Pt is agreement. Pt states no further concerns/needs. CM to follow. Advised pt to ask CM if any further question/concerns/needs arise, voices understanding. Pt Goal: Home Plan: Home
[2021-12-28] MEDS: HYDROmorphone 1 MG/ML Syringe IV ×2 (12:59→17:03)
--- NOTE | 2021-12-28 13:40 | PCM.CONS.GEN ---
Assessment & Plan Assessment/Plan (1) Acute gallstone pancreatitis: PLAN: The differential diagnosis for his pancreatitis would include choledocholithiasis resulting from cholecystitis causing obstruction at the level of the common bile duct. His LFTs are improving along with his liver enzymes so I suspect that he likely passed a stone. Also on a different diagnosis would be prednisone induced pancreatitis. His hematocrit is improving slowly and we have 40 to 24 hours to get it down 30% therefore I will increase his IV fluids up to 200 cc an hour. I would recommend stopping prednisone therapy and caution anticoagulation in the setting of moderate to severe acute pancreatitis. (2) Cholelithiasis: PLAN: He is seeing surgery regarding need for cholecystectomy. I will let them decide when to perform a cholecystectomy. (3) Leukocytosis: PLAN: Leukocytosis in the setting of acute pancreatitis in a patient on prednisone therapy is higher risk for pancreatic necrosis. I recommend to continue antibiotic therapy. Repeat CT scan to evaluate his pancreatitis. Monitor lipase, amylase, CRP, lactate, ESR and LDH. HPI Consult Data Date of Consult: 12/28/21 HPI Narrative Reason for Consultation: pancreatitis HPI Narrative: NABIL SORENSEN, is a 71 M who presents with abdominal pain. ?He has a past medical history of COPD/emphysema who wears oxygen at night.? He also has a history of paroxysmal atrial fibrillation and takes Xarelto.? Patient has had lower abdominal pain all day it has progressively worsened, he is on Xarelto but has had no bleeding in his colostomy bag nor emesis.? Had colostomy because of diverticulitis and had to have about 20 cm of colon removed last year as a result.? He has a colostomy as a result of that perforation. He states tonight, it hurts worse in his lower abdomen to urinate, with a little bit of burning, no hematuria.? Has only had a small amount of output from his colostomy today, this is unusual for him.? Not passing flatus into it. Diagnosed with a COPD exacerbation recently, he has been on prednisone and an antibiotic for the past 2 or 3 days, slowly improving, no symptoms are getting worse, had a chest x-ray that was negative for pneumonia. His laboratory analysis did show a cholestatic hepatitis with elevated bilirubin, AST, ALT and alkaline phosphatase. Today his liver enzymes and liver function tests are improving. He had a CT scan of the abdomen pelvis that showed multiple stones in his gallbladder without ductal dilation. It did show a double duct sign on his CT scan abdomen pelvis along with pancreatitis. Also noted was that his white blood cell count was significantly elevated at 24.9 with a normal platelet count and hemoglobin. His hematocrit was 40% and BUN over creatinine ratio was 32 to 0.8. Patient does not drink any alcohol except on a rare occasion. He was recently started on prednisone therapy. At this time he still having a lot of pain and he rates it at a 8 out of 10 in the left upper and left lower quadrant radiating into the midline. [facility] Medical History Abdominal pain Arthritis COPD (chronic obstructive pulmonary disease) History of prostate cancer Paroxysmal atrial fibrillation Home Medications multivitamin 1 cap PO DAILY vitamin 03/22/19 [History Last Taken 12/27/21] budesonide 160 mcg-glycopyr 9 mcg-formot 4.8 mcg/actuation HFA inhaler (Breztri Aerosphere) 2 inh inhalation BID copd 08/15/21 [History Last Taken 12/27/21] metoprolol succinate 50 mg capsule sprinkle, ext. release 24 hr 50 mg PO DAILY heart 08/15/21 [History Last Taken 12/27/21] rivaroxaban 20 mg tablet (Xarelto) 20 mg PO DAILY blood thinner 08/15/21 [History Last Taken 12/27/21] roflumilast 500 mcg tablet (Daliresp) 500 mcg PO DAILY Check with primary doctor 08/15/21 [History Last Taken 12/27/21] amoxicillin 875 mg-potassium clavulanate 125 mg tablet 1 tab PO BID atb 12/27/21 [History Last Taken 12/27/21] prednisone 10 mg tablet 60 mg PO DAILY steroid 12/27/21 [History Last Taken 12/27/21] Allergy/AdvReac Type Severity Reaction Status Date / Time gabapentin AdvReac Other Verified 12/27/21 22:47 melatonin AdvReac Other Verified 12/27/21 22:47 Family History (Updated 12/28/21 @ 02:[address] Sanjay Patel DO) Father COPD (chronic obstructive pulmonary disease) Surgical History History of appendectomy History of colostomy History of hernia repair History of prostatectomy History of tonsillectomy S/P partial colectomy Social History (Updated 12/28/21 @ 02:[address] Sanjay Patel, DO) Smoking Status: Former smoker alcohol intake: current alcohol intake frequency: holidays/special occasions only Alcohol type: beer substance use type: does not use ROS Constitutional Constitutional: Reports fatigue; Denies anorexia, chills, fever(s), headache(s), weight gain or weight loss Eyes Eyes: Reports systems reviewed and no addt'l complaints, except as documented ENT HEENT: Reports systems reviewed and no addt'l complaints, except as documented; Denies abnormal hearing, dysphagia, epistaxis, facial pain, hearing loss, nasal congestion, nasal discharge, neck pain, sinus pain or sinus pressure Cardiovascular Cardiovascular: Reports systems reviewed and no addt'l complaints, except as documented; Denies chest pain, chest pain at rest, chest pain with activity, dyspnea, palpitations or syncope Respiratory/Chest Respiratory/Chest: Reports systems reviewed and no addt'l complaints, except as documented, shortness of breath at rest and shortness of breath with exertion; Denies cough, dyspnea, productive cough or wheezing Gastrointestinal Gastrointestinal: Reports systems reviewed and no addt'l complaints, except as documented, abdominal pain, change in bowel habits, nausea and vomiting; Denies bloating, coffee ground emesis, constipation, diarrhea, dysphagia, hematemesis, hematochezia, melena or rectal bleeding Genitourinary Genitourinary: Reports systems reviewed and no addt'l complaints, except as documented, dysuria and hematuria; Denies change in urinary stream, difficulty urinating, flank pain, genital pain, urinary frequency, urinary incontinence or urinary urgency Musculoskeletal Musculoskeletal: Reports systems reviewed and no addt'l complaints, except as documented; Denies abnormal gait, back pain, difficulty walking, joint pain, joint swelling, limited range of motion, muscle spasms, muscle weakness or numbness Integumentary Integumentary: Reports systems reviewed and no addt'l complaints, except as documented; Denies jaundice, new lesions, non-healing lesions, rash or skin ulcer Neurologic Neurologic: Reports systems reviewed and no addt'l complaints, except as documented; Denies abnormal gait, dizziness, focal weakness, loss of vision, numbness, paresthesias, tingling or weakness Psychiatric Psychiatric: Reports systems reviewed and no addt'l complaints, except as documented; Denies anxiety or depression Endocrine Endocrinology: Reports systems reviewed and no addt'l complaints, except as documented; Denies flushing, heat intolerance or palpitations Hematologic/Lymphatic Hematologic/Lymphatic: Reports systems reviewed and no addt'l complaints, except as documented, easy bleeding and easy bruising Allergic/Immunologic Allergic/Immunologic: Reports systems reviewed and no addt'l complaints, except as documented Physical Exam Const alert, oriented x3 and no apparent distress General Appearance: cooperative HEENT normocephalic and moist oral mucous membranes Eyes PERRL, EOMs intact bilaterally and conjunctivae normal Neck supple and no JVD Resp normal respiratory effort, no retractions, no use of accessory muscles and clear to auscultation bilaterally Auscultation: Negative for crackles, rales, rhonchi or wheezes Cardio regular rate, regular rhythm, S1 normal heart sound, S2 normal heart sound and no murmurs GI soft to palpation and non-distended; Negative for hepatosplenomegaly GI Narrative: Ostomy in place Palpation: tender epigastric Extremity no clubbing, cyanosis or edema Skin no rashes or lesions noted Neuro no focal motor deficits and no sensory deficits noted Psych affect normal Appearance: appropriate Lab / Micro Data Result Diagrams: 12/28/21 05:35 12/28/21 05:35 Labs: Laboratory Results - last 24 hr 12/27/21 23:10: WBC 24.9 H, RBC 5.13, Hgb 15.3, Hct 46.6, MCV 90.8, MCH 29.8, MCHC 32.8, RDW Std Deviation 49.0 H, RDW Coeff of Gladis 14.8 H, Plt Count 321, MPV 9.6, Immature Gran % (Auto) 0.600, Neut % (Auto) 92.8 H, Lymph % (Auto) 1.5 L, [place] % (Auto) 4.9, Eos % (Auto) 0.0, Baso % (Auto) 0.2, Absolute Neuts (auto) 23.1 H, Absolute Lymphs (auto) 0.37 L, Nucleated RBC % 0, Anisocytosis 1+ 12/27/21 23:10: Sodium 139, Potassium 4.4, Chloride 105, Carbon Dioxide 25.0, Anion Gap 9, BUN 35 H, Creatinine 1.47 H, Estim Creat Clear Calc 52.06, Est GFR (MDRD) Af Amer 61, Est GFR (MDRD) Non-Af 50 L, BUN/Creatinine Ratio 23.8 H, Glucose 180 H, Calcium 9.6, Total Bilirubin 1.20 H, AST 237 H, ALT 887 H, Alkaline Phosphatase 139 H, Total Protein 7.7, Albumin 3.9, Globulin 3.8, Albumin/Globulin Ratio 1.0, Lipase 3880 H 12/27/21 23:10: Urine Color Yellow, Urine Clarity Clear, Urine pH 5.0, Ur Specific [place] 1.020, Urine Protein 30 H, Urine Glucose (UA) Normal, Urine Ketones 5 H, Urine Occult Blood 10 H, Urine Nitrite Negative, Urine Bilirubin 1 H, Urine Urobilinogen Normal, Ur Leukocyte Esterase 25 H, Urine RBC 0-5 SEEN, Urine WBC 0-5 SEEN, Ur Squamous Epith Cells 0 SEEN, Urine Bacteria 1+, Urine Mucus 0 SEEN 12/28/21 05:35: WBC 25.1 H, RBC 4.97, Hgb 14.6, Hct 45.6, MCV 91.8, MCH 29.4, MCHC 32.0, RDW Std Deviation 50.0 H, RDW Coeff of Gladis 14.8 H, Plt Count 265, MPV 9.2, Immature Gran % (Auto) 0.800, Neut % (Auto) 93.0 H, Lymph % (Auto) 1.2 L, [place] % (Auto) 4.8, Eos % (Auto) 0.0, Baso % (Auto) 0.2, Absolute Neuts (auto) 23.3 H, Absolute Lymphs (auto) 0.30 L, Nucleated RBC % 0 12/28/21 05:35: Sodium 139, Potassium 4.4, Chloride 108 H, Carbon Dioxide 23.0, Anion Gap 8, BUN 31 H, Creatinine 1.03, Estim Creat Clear Calc 74.29, Est GFR (MDRD) Af Amer 92, Est GFR (MDRD) Non-Af 76, BUN/Creatinine Ratio 30.1 H, Glucose 137 H, Calcium 8.8, Total Bilirubin 1.10 H, AST 148 H, ALT 706 H, Alkaline Phosphatase 123 H, Total Protein 7.0, Albumin 3.4, Globulin 3.6, Albumin/Globulin Ratio 0.9 Radiology Impression Abdomen/Pelvis CT 12/27/21 23:29 IMPRESSION: 1. Stranding/fluid adjacent to the body and tail of the pancreas tracking down the retroperitoneum. Findings likely indicate mild pancreatitis. 2. Partial colectomy, with a left abdominal wall colostomy. 3. Multiple gallstones. Electronically Signed: Dashawn Coronado MD at 0:39 EDT , Abdomen Ultrasound 12/28/21 02:03 IMPRESSION: Distended gallbladder with multiple gallstones in the gallbladder wall thickening. Heterogeneous echotexture of the liver. Electronically Signed: Lexx Nguyen MD at 10:00 EDT , Charges/Coding Visit Charges Inpatient E&M: 28045 Init Hosp L3
[2021-12-28] MEDS: 0.9% Saline Lock 10 ML Syringe IV ×2 (20:31→23:34)
[2021-12-28] MEDS: 0.9% Normal Saline 1,000 ML 125 ML IV (20:34)
[2021-12-28] MEDS: Albuterol 2.5 MG/3 ML VIAL.NEB. INHALATION (23:06)
[2021-12-29] VITALS (20 sets, daily range): BP systolic 97–149; BP diastolic 69–90; PULSE 58–162; RESP 17–30; TEMP 36.5–36.9; O2SAT 92–100
[2021-12-29] MEDS: Ondansetron 4 MG/2 ML Vial IV ×2 (00:08→19:27)
[2021-12-29] MEDS: 0.9% Saline Lock 10 ML Syringe IV ×3 (00:08→08:54)
[2021-12-29] MEDS: Morphine 2 MG/ML Syringe IV ×2 (02:27→08:54)
[2021-12-29] MEDS: 0.9% Normal Saline 1,000 ML 125 ML IV ×2 (04:39→17:27)
[2021-12-29] MEDS: Acetaminophen 325 MG Tablet 650 MG PO ×2 (04:47→14:35)
[2021-12-29] MEDS: oxyCODONE 5 MG Tablet 10 MG PO ×2 (04:48→14:35)
[2021-12-29] MEDS: Albuterol 2.5 MG/3 ML VIAL.NEB. INHALATION (05:08)
[2021-12-29 06:11] LABS: Absolute Lymphocyte Count 0.31 X10^3/uL (0.83-4.51); Basophil# 0.08 X10^3/uL; Basophil% 0.2 % (0-1); Hematocrit 44.9 % (40-54); Hemoglobin 14.2 g/dL (13.0-16.5); Lymphocyte # 0.31 X10^3/ul (0.83-4.51); Lymphocyte % 0.8 % (19-41); Mean Corp Hgb Conc 31.6 g/dL (32-36); Mean Corpuscular Hgb 29.8 pg (27.0-32.0); Mean Corpuscular Volume 94.3 fL (80-94); Mean Platelet Vol. 9.5 fl (6.2-12.0); Monocyte% 5.3 % (0-10); NRBC Flagged by Analyzer 0 % (0-5); Neutrophil # 35.04 X10^3/uL (2.7-7.7); Neutrophil % 92.4 % (47-70); POSITIVE COUNT YES; POSITIVE DIFFERENTIAL YES; Platelet Count 282 K/mm3 (150-450); RBC Distribution Width CV 15.2 % (11.6-14.6); RBC Distribution Width SD 52.6 fl (35.1-43.9); Red Blood Count 4.76 M/mm3 (4.6-6.2); White Blood Count 37.9 K/mm3 (4.4-11.0)
[2021-12-29 06:14] LABS: Differential Indicated SCAN CRITERIA MET
[2021-12-29 06:28] LABS: Anisocytosis 1+
[2021-12-29 06:37] LABS: ALB/GLOB Ratio 0.8 RATIO (0.9-2.4); AST(SGOT) 46 U/L (15-37); Alanine Aminotransfer ALT/SGPT 414 U/L (16-61); Albumin, Serum 3.1 g/dL (3.2-5.0); Alkaline Phosphatase 95 U/L (45-117); Anion Gap 5 (5-15); BUN 25 mg/dL (7-18); Calcium,Total 8.7 mg/dL (8.5-10.1); Chloride 113 mmol/L (98-107); Creatinine, Serum 0.93 mg/dL (0.70-1.30); EST Glomerular Filtration Rate 86 mL/min (>60); Est Glom Filt Rate - Afr Amer 104 mL/min (>60); Estimated Creatinine Clearance 82.28 ml/min; Globulin 3.9 g/dL (2.2-4.2); Glucose 179 mg/dL (74-106); Potassium 4.5 mmol/L (3.5-5.1); Sodium Level 143 mmol/L (136-145)
--- NOTE | 2021-12-29 07:36 | CT_ITS ---
STUDY: CT ABDOMEN AND PELVIS WITH CONTRAST REASON FOR EXAM: Male, 71 years old. Severe pancreatitis. Elevated liver enzymes. Prior partial colectomy and colostomy. RADIATION DOSAGE (If Supplied By Facility): CTDIvol = ( 14.69 ) mGy, DLP = ( 998.51 ) mGycm TECHNIQUE: Transaxial images were obtained from the dome of the diaphragm to the symphysis pubis without oral contrast. IV 75mL Isovue-370 was administered. Sagittal and coronal images were reconstructed. Individualized dose optimization techniques were used for this CT. COMPARISON: Comparison is made with prior study dated 12/28/2021. FINDINGS: Mild increased markings at the lung bases suggest bibasilar atelectasis. Tiny left pleural effusion. Coronary artery calcification. There is decreased attenuation of the liver consistent with steatosis. Small amount of perihepatic fluid. There are multiple gallstones. Normal spleen. There is diffuse enlargement of the pancreas with ruben-pancreatic edema suggesting acute pancreatitis. Normal bilateral adrenal glands. Normal right kidney. Normal left kidney. Normal visualized stomach. Normal small intestine. A colostomy is seen in the mid anterior abdominal wall. Fat herniation is seen at the level of the stoma. There is non-visualization of the appendix. There is diffuse atherosclerotic calcification of the abdominal aorta, without a demonstrated aneurysm. Normal inferior vena cava. Normal retroperitoneum. Normal urinary bladder. Small amount of free fluid is seen in the pelvis. The patient is status post prostatectomy. Normal abdominal wall. There are mild degenerative changes of the visualized lumbar spine. CT/Abdomen/Pelvis W IV Cont ONLY IMPRESSION: Pancreatic enlargement with diffuse increased markings in the surrounding peripancreatic fat in keeping with acute pancreatitis. The inflammatory changes of progressed as compared to prior study. Fatty infiltration of the liver. Cholelithiasis. 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 Electronically Signed: Lexx Nguyen MD at 9:11 EDT ,
--- NOTE | 2021-12-29 08:03 | PN_ITS ---
Subjective Subjective Patient still has a lot of abdominal pain. His pain medicine was increased overnight in increased his IV fluids. He is still urinating well but he not had any bowel movements. Objective Data Objective Data Vital Signs: Vital Signs Temp Pulse Resp BP Pulse Ox 97.7 F L 99 20 H 154/91 H 98 12/29/21 02:24 12/29/21 05:09 12/29/21 05:09 12/28/21 20:18 12/29/21 02:24 Oxygen Flow Rate (L/min) 3 Oxygen Delivery Method Nasal Cannula Weight: 181 lb 3 oz Body Mass Index (BMI) 24.5 Intake & Output: Intake and Output for Last 24 Hours 12/27/21 12/28/21 12/29/21 23:59 23:59 23:59 Intake Total 3803.75 / 3803.75 1060 / 1060 Output Total 1350 / 1700 650 / 650 Balance 2453.75 / 2103.75 410 / 410 Lab / Micro Data Result Diagrams: 12/29/21 05:36 12/29/21 05:36 Labs: Laboratory Results - last 24 hr 12/29/21 05:36: WBC 37.9 H*, RBC 4.76, Hgb 14.2, Hct 44.9, MCV 94.3 H, MCH 29.8, MCHC 31.6 L, RDW Std Deviation 52.6 H, RDW Coeff of Gladis 15.2 H, Plt Count 282, MPV 9.5, Immature Gran % (Auto) 1.300 H, Neut % (Auto) 92.4 H, Lymph % (Auto) 0.8 L, [place] % (Auto) 5.3, Eos % (Auto) 0.0, Baso % (Auto) 0.2, Absolute Neuts (auto) 35.0 H, Absolute Lymphs (auto) 0.31 L, Nucleated RBC % 0, Diff Path Review May foll, Anisocytosis 1+ 12/29/21 05:36: Sodium 143, Potassium 4.5, Chloride 113 H, Carbon Dioxide 25.0, Anion Gap 5, BUN 25 H, Creatinine 0.93, Estim Creat Clear Calc 82.28, Est GFR (MDRD) Af Amer 104, Est GFR (MDRD) Non-Af 86, BUN/Creatinine Ratio 27.0 H, Glucose 179 H, Calcium 8.7, Total Bilirubin 1.10 H, AST 46 H, ALT 414 H, Alkaline Phosphatase 95, Total Protein 7.0, Albumin 3.1 L, Globulin 3.9, Albumin/Globulin Ratio 0.8 L Radiography Diagnostic Testing: Radiology Impression Abdomen Ultrasound 12/28/21 02:03 IMPRESSION: Distended gallbladder with multiple gallstones in the gallbladder wall thickening. Heterogeneous echotexture of the liver. Electronically Signed: Lexx Nguyen MD at 10:00 EDT , Physical Exam Const alert, oriented x3 and no apparent distress General Appearance: cooperative HEENT normocephalic and moist oral mucous membranes Eyes PERRL, EOMs intact bilaterally and conjunctivae normal Neck supple and no JVD Resp normal respiratory effort, no retractions, no use of accessory muscles and clear to auscultation bilaterally Auscultation: Negative for crackles, rales, rhonchi or wheezes Cardio regular rate, regular rhythm, S1 normal heart sound, S2 normal heart sound and no murmurs GI soft to palpation and non-distended; Negative for hepatosplenomegaly GI Narrative: Ostomy in place Palpation: tender epigastric Extremity no clubbing, cyanosis or edema Skin no rashes or lesions noted Neuro no focal motor deficits and no sensory deficits noted Psych affect normal Appearance: appropriate Assessment & Plan Assessment/Plan (1) Acute gallstone pancreatitis: PLAN: Acute gallstone pancreatitis of the working diagnosis for his pancreatitis. Also on the differential diagnosis would be prednisone induced acute pancreatitis., Hemorrhagic transformation (due to his underlying anticoagulation need) and increased IV fluids we will order repeat CAT scan today to look for any signs of necrosis or abscess. (2) Cholelithiasis: PLAN: Patient is being seen by general surgery for management of his c holelithiasis. He remains on the biotic therapy. (3) Leukocytosis: PLAN: Significant increase in leukocytosis. I do not think this reaction. Multiple SIRS criteria and possible sepsis criteria. We will need to get blood cultures and I agree with including a CT of the chest Or chest x-ray (4) FANTASMA (acute kidney injury): PLAN: Acute kidney injury in the setting of chronic kidney disease secondary to SIRS reaction from acute pancreatitis, steroid and volume depletion. Charges/Coding Visit Charges Inpatient E&M: 32790 Subs Hosp L3
--- NOTE | 2021-12-29 08:25 | RAD_ITS ---
STUDY: X-RAY CHEST REASON FOR EXAM: Male, 71 years old. Tachypnea TECHNIQUE: AP and lateral views of the chest. COMPARISON: None. FINDINGS: There is blunting of the left costophrenic angle suggestive of a tiny left pleural effusion. Increased markings in the lingular segment of the left upper lobe as well as in the right midlung suggestive of possible scarring and/or atelectasis. Hyperinflation. Normal size heart. Normal mediastinum and marychuy. Normal visualized pulmonary arteries. There is atherosclerotic calcification of the aortic arch with tortuosity. Normal visualized thoracic spine. Normal visualized ribs, clavicles, and shoulders. There is no demonstrated abnormality of the visualized soft tissue structures of the upper abdomen. RAD/Chest PA and Lateral IMPRESSION: Blunting of the left costophrenic angle with increased markings in the lingular segment of the left upper lobe as well as in the right midlung. This is suggestive of scarring and/or atelectasis. Electronically Signed: Lexx Nguyen MD at 8:47 EDT ,
[2021-12-29] MEDS: predniSONE 20 MG Tablet 40 MG PO (09:00)
[2021-12-29] MEDS: ROFLUMILAST 500 MCG TABLET PO (09:00)
[2021-12-29] MEDS: Metoprolol(XL)Succ 50 MG Tablet PO (09:00)
[2021-12-29 10:27] LABS: LDH 428 U/L (87-241); Lipase 297 U/L (73-393)
[2021-12-29 10:31] LABS: Erythrocyte Sedimentation Rate 34 mm/hr (0-20)
--- NOTE | 2021-12-29 10:58 | PN.HOSP_ITS ---
Subjective Subjective Had some worsening with symptoms and his white count jumped to 37.9, he feels well from a breathing standpoint and so we will stop his steroids of this can worsen pancreatitis Objective Data Objective Data Vital Signs: Vital Signs Temp Pulse Resp BP Pulse Ox 97.7 F L 93 20 H 149/69 H 97 12/29/21 09:06 12/29/21 09:06 12/29/21 09:06 12/29/21 09:06 12/29/21 09:06 Oxygen Flow Rate (L/min) 3 Oxygen Delivery Method Nasal Cannula Weight: 181 lb 3 oz Body Mass Index (BMI) 24.5 Intake & Output: Intake and Output for Last 24 Hours 12/28/21 12/29/21 12/30/21 03:59 03:59 03:59 Intake Total 1050 / 1050 2753.75 / 2753.75 1751.17 / 1751.17 Output Total 1700 / 1700 550 / 550 Balance 1050 / 1050 1053.75 / 1053.75 1201.17 / 1201.17 Lab / Micro Data Result Diagrams: 12/29/21 05:36 12/29/21 05:36 Labs: Laboratory Results - last 24 hr 12/29/21 05:36: WBC 37.9 H*, RBC 4.76, Hgb 14.2, Hct 44.9, MCV 94.3 H, MCH 29.8, MCHC 31.6 L, RDW Std Deviation 52.6 H, RDW Coeff of Gladis 15.2 H, Plt Count 282, MPV 9.5, Immature Gran % (Auto) 1.300 H, Neut % (Auto) 92.4 H, Lymph % (Auto) 0.8 L, [place] % (Auto) 5.3, Eos % (Auto) 0.0, Baso % (Auto) 0.2, Absolute Neuts (auto) 35.0 H, Absolute Lymphs (auto) 0.31 L, Nucleated RBC % 0, Diff Path Review May foll, Anisocytosis 1+ 12/29/21 05:36: Sodium 143, Potassium 4.5, Chloride 113 H, Carbon Dioxide 25.0, Anion Gap 5, BUN 25 H, Creatinine 0.93, Estim Creat Clear Calc 82.28, Est GFR (MDRD) Af Amer 104, Est GFR (MDRD) Non-Af 86, BUN/Creatinine Ratio 27.0 H, Glucose 179 H, Calcium 8.7, Total Bilirubin 1.10 H, AST 46 H, ALT 414 H, Alkaline Phosphatase 95, Total Protein 7.0, Albumin 3.1 L, Globulin 3.9, Albumin/Globulin Ratio 0.8 L 12/29/21 05:36: ESR 34 H 12/29/21 05:36: Lactate Dehydrogenase 428 H, C-React Prot Ext Range 211.00 H, Lipase 297 Radiography Diagnostic Testing: Radiology Impression Abdomen/Pelvis CT 12/29/21 07:36 IMPRESSION: Pancreatic enlargement with diffuse increased markings in the surrounding peripancreatic fat in keeping with acute pancreatitis. The inflammatory changes of progressed as compared to prior study. Fatty infiltration of the liver. Cholelithiasis. 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 Electronically Signed: Lexx Nguyen MD at 9:11 EDT , Chest X-Ray 12/29/21 08:25 IMPRESSION: Blunting of the left costophrenic angle with increased markings in the lingular segment of the left upper lobe as well as in the right midlung. This is suggestive of scarring and/or atelectasis. Electronically Signed: Lexx Nguyen MD at 8:47 EDT , Physical Exam Narrative Const alert, oriented x3 and no apparent distress General Appearance: cooperative HEENT normocephalic and moist oral mucous membranes Eyes PERRL, EOMs intact bilaterally and conjunctivae normal Neck supple and no JVD Resp normal respiratory effort, no retractions, no use of accessory muscles Auscultation: Diminished, negative for crackles, rales, rhonchi or wheezes Cardio regular rate, regular rhythm, S1 normal heart sound, S2 normal heart sound and no murmurs GI soft to palpation and non-distended; Negative for hepatosplenomegaly GI Narrative: Ostomy in place Palpation: tender epigastric Extremity no clubbing, cyanosis or edema Skin no rashes or lesions noted Neuro no focal motor deficits and no sensory deficits noted Psych affect normal Appearance: appropriate Assessment & Plan Assessment/Plan (1) Acute gallstone pancreatitis: (2) Leukocytosis: (3) COPD (chronic obstructive pulmonary disease): PLAN: Plan 1 pancreatitis likely secondary to gallstones ? On CT scan there are multiple gallstones and sludge in his gallbladder, repeat CT scan shows slightly worsening pancreatitis ? Ultrasound with gallbladder wall thickening ? Continue with meropenem ? Given the level of inflammation would not be surprised if he has some ileus going forward ? Continue with IV fluids as well as pain medications ? GI and general surgery have been consulted no immediate plans for surgical intervention at this time 2. COPD ? He is on chronic oxygen at 3 L nasal cannula ? Given the worsening in his pancreatitis we will hold his prednisone and continue with DuoNebs ? Continue with breathing treatments 3. Paroxysmal A. fib ? Can continue his metoprolol ? Have to hold his Xarelto secondary to possible intervention DVT: SCDs Charges/Coding Visit Charges Inpatient E&M: 16867 Subs Hosp L2
[2021-12-29 11:07] LABS: Bacteria 0 SEEN /hpf (None Seen); Mucous, Urine 0 SEEN /hpf (<or=2+); Red Blood Cells-Urine 0 SEEN /hpf (0-5); Squamous Epithelial Cells - UA 0 SEEN /hpf (0-5); White Blood Cells 0 SEEN /hpf (0-5)
[2021-12-29 11:08] LABS: Color, Urine Yellow (Yellow); Glucose, Dipstick Normal (Normal); Ketone-Dipstick Negative (Negative); Leukocyte Esterase-Dipstick Negative /ul (Negative); Nitrite-Dipstick Negative (Negative); Occult Blood-Urine 50 /ul (Negative); Protein-Dipstick 100 mg/dl (Negative); Urine Bilirubin Dipstick Negative (Negative); Urine Clarity Clear (Clear); Urine Urobilinogen Normal (Normal)
[2021-12-29] MEDS: HYDROmorphone 1 MG/ML Syringe IV (11:22)
[2021-12-29] MEDS: DiphenhydrAMINE 50 MG/ML Syringe 12.5 MG IV (11:23)
--- NOTE | 2021-12-29 11:24 | PN.SURG_ITS ---
Subjective Subjective Patient seen and examined during AM rounds. He is found sitting upright in bed, but complains of progression of his abdominal pain. He characterizes this as the worst in his life. He denies any true respiratory difficulty, but states when he takes a deep breath his abdomen tightens and this forces him to take more shallow breaths. He denies any bowel movements overnight. Objective Data Objective Data Vital Signs: Vital Signs Temp Pulse Resp BP Pulse Ox 97.7 F L 93 20 H 149/69 H 97 12/29/21 09:06 12/29/21 09:06 12/29/21 09:06 12/29/21 09:06 12/29/21 09:06 Oxygen Flow Rate (L/min) 3 Oxygen Delivery Method Nasal Cannula Weight: 181 lb 3 oz Body Mass Index (BMI) 24.5 Intake & Output: Intake and Output for Last 24 Hours 12/27/21 12/28/21 12/29/21 23:59 23:59 23:59 Intake Total 3803.75 / 3803.75 1751.17 / 1751.17 Output Total 1350 / 1700 900 / 900 Balance 2453.75 / 2103.75 851.17 / 851.17 Lab / Micro Data Result Diagrams: 12/29/21 05:36 12/29/21 05:36 Labs: Laboratory Results - last 24 hr 12/29/21 05:36: WBC 37.9 H*, RBC 4.76, Hgb 14.2, Hct 44.9, MCV 94.3 H, MCH 29.8, MCHC 31.6 L, RDW Std Deviation 52.6 H, RDW Coeff of Gladis 15.2 H, Plt Count 282, MPV 9.5, Immature Gran % (Auto) 1.300 H, Neut % (Auto) 92.4 H, Lymph % (Auto) 0.8 L, [place] % (Auto) 5.3, Eos % (Auto) 0.0, Baso % (Auto) 0.2, Absolute Neuts (auto) 35.0 H, Absolute Lymphs (auto) 0.31 L, Nucleated RBC % 0, Diff Path Review May foll, Anisocytosis 1+ 12/29/21 05:36: Sodium 143, Potassium 4.5, Chloride 113 H, Carbon Dioxide 25.0, Anion Gap 5, BUN 25 H, Creatinine 0.93, Estim Creat Clear Calc 82.28, Est GFR (MDRD) Af Amer 104, Est GFR (MDRD) Non-Af 86, BUN/Creatinine Ratio 27.0 H, Glucose 179 H, Calcium 8.7, Total Bilirubin 1.10 H, AST 46 H, ALT 414 H, Alkaline Phosphatase 95, Total Protein 7.0, Albumin 3.1 L, Globulin 3.9, Albumin/Globulin Ratio 0.8 L 12/29/21 05:36: ESR 34 H 12/29/21 05:36: Lactate Dehydrogenase 428 H, C-React Prot Ext Range 211.00 H, Lipase 297 12/29/21 10:55: Urine Color Yellow, Urine Clarity Clear, Urine pH 5.0, Ur Specific [place] 1.020, Urine Protein 100 H, Urine Glucose (UA) Normal, Urine Ketones Negative, Urine Occult Blood 50 H, Urine Nitrite Negative, Urine Bilirubin Negative, Urine Urobilinogen Normal, Ur Leukocyte Esterase Negative, Urine RBC 0 SEEN, Urine WBC 0 SEEN, Ur Squamous Epith Cells 0 SEEN, Urine Bacteria 0 SEEN, Urine Mucus 0 SEEN Radiography Diagnostic Testing: Radiology Impression Abdomen/Pelvis CT 12/29/21 07:36 IMPRESSION: Pancreatic enlargement with diffuse increased markings in the surrounding peripancreatic fat in keeping with acute pancreatitis. The inflammatory changes of progressed as compared to prior study. Fatty infiltration of the liver. Cholelithiasis. 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 Electronically Signed: Lexx Nguyen MD at 9:11 EDT , Chest X-Ray 12/29/21 08:25 IMPRESSION: Blunting of the left costophrenic angle with increased markings in the lingular segment of the left upper lobe as well as in the right midlung. This is suggestive of scarring and/or atelectasis. Electronically Signed: Lexx Nguyen MD at 8:47 EDT , Physical Exam Const oriented x3 Constitutional Narrative: Mild to moderate distress from abdominal discomfort Resp Resp Narrative: Tachypneic, but all lung hou are clear of any wheezes rales or rhonchi's with auscultation GI GI Narrative: Mild abdominal distention, tender to palpation primarily in right lower and right upper quadrants. Patient has mild voluntary guarding. Assessment & Plan Assessment/Plan (1) Acute gallstone pancreatitis: PLAN: This is a 71-year-old male hospital day 2 for management of gallstone pancreatitis. Over the last 24 hours he has experienced an acute exacerbation of his abdominal discomfort. This has been met with a rise of his white count to now 38,000. In discussions with gastroenterology, we shared a mutual concern for development of pancreatic necrosis. Therefore a CT of the abdomen and pelvi s was obtained stat. This returned as consistent with progression of his pancreatitis, but in my independent review of the imaging the pancreas parenchyma all appears viable. There is some corresponding progression of his abdominal ascites along with this finding. He has some gastric distention, but the small bowel does not exhibit an ileus pattern. There is some distention of the gallbladder, but there is not a significant area of edema immediately about it. Lastly he does have some stool within the cecum and ascending colon. Given these developments, we will hold off any plans for surgical intervention at this time and we will continue to follow patient's abdominal exams. Recommend: ? Continued empiric antibiotic coverage for enterics ? Continue judicious fluid resuscitation ? Continue n.p.o. status ? Repeat CMP and CBC in a.m.
[2021-12-29 11:25] LABS: Lactic Acid 1.5 mmol/L (0.4-1.9)
--- NOTE | 2021-12-29 12:11 | CHAPLAIN ---
Type of Pastoral Visit _x__ Initial Visit ___ Follow-up Visit ___ On-call Visit ___ General Patient Visit ___ Spiritual Assessment ___ Family Conference ___ Bereavement ___ Rapid Response ___ Code Blue ___ Other (describe below) Pastoral Care Referral From _x__ Patient _x__ Family ___ Nurse ___ Physician ___ Lead Enterprise Architect ___ [place] _x__ Other (describe below) Sacrament/Intervention _x__ Active listening ___ Anointing ___ Restorationism ___ Bereavement ___ Communion ___ Valentina exploration ___ _x__ Life review _x__ Prayer ___ Reconciliation ___ Sacrament of Sick _x__ Supportive presence ___ Wedding ___ Other (describe below) Pastoral Comments contacted by spouse and by clergy of patient to make visit; gave presence and prayer; spouse was in the room and more interactive as patient stated I just can't talk much right now; pt concern is for reduced pain and need for sleep
[2021-12-29 13:20] LABS: Pathologist Review Reviewed
[2021-12-29] MEDS: Ipratropium/Albuterol Sulfate 3 ML AMPUL.NEB INHALATION (14:44)
[2021-12-29] MEDS: 0.9% Normal Saline 1,000 ML 999 ML IV (16:10)
--- NOTE | 2021-12-29 16:52 | EKG12_ITS ---
Test Reason : V TACH Blood Pressure : / mmHG Vent. Rate : 164 BPM Atrial Rate : 250 BPM P-R Int : 000 ms QRS Dur : 098 ms QT Int : 280 ms P-R-T Axes : 000 052 090 degrees QTc Int : 462 ms Atrial fibrillation with premature ventricular or aberrantly conducted complexes Poor R wave progression Abnormal ECG Confirmed by RULA HAND, NABIL ([id number]), photographic editor JEN TORRES ([id number]) on 12/31/2021 11:10:18 AM Referred By: JANIS Confirmed By:NABIL HORTA MD
--- NOTE | 2021-12-29 16:53 | EKG12_ITS ---
Test Reason : V TACH Blood Pressure : / mmHG Vent. Rate : 259 BPM Atrial Rate : 259 BPM P-R Int : 000 ms QRS Dur : 098 ms QT Int : 170 ms P-R-T Axes : 231 059 203 degrees QTc Int : 353 ms Atrial flutter Poor R wave progression Abnormal ECG Confirmed by RULA HAND, NABIL ([id number]), video tape editor JEN TORRES ([id number]) on 12/31/2021 11:10:43 AM Referred By: JANIS Confirmed By:NABIL HORTA MD
--- NOTE | 2021-12-29 16:57 | PCM.PN.BLA ---
Progress Note Called to patient's bedside secondary to not feeling well and increased work of breathing. On arrival he his lower extremities were mottled and it we had difficulty getting a pulse so immediate bolus was started and we attempt to get a second IV. We continue to try to get blood pressures which we were unable to get reliably including with manual cuff. We placed him on telemetry and it looks like he was on V. tach however at this time he was still awake and talking so we trialed him with adenosine both 6 mg and then 12 mg without any effect. At this point the decision was made to move him to the ICU to potentially cardiovert and to make it easier to obtain airway however prior to moving he was also given a bolus of amiodarone which did slow his heart rate down and it did appear to be in A. fib with RVR. He was transferred to the ICU and started on an amiodarone drip and cardiology was consulted. He states that he is improved with the amiodarone and the improvement of his heart rate. Critical care time: 40 minutes Procedures Hospitalists Procedures: [id number] Critial Care 1st Hr
--- NOTE | 2021-12-29 17:12 | NURSING ---
entered [address] Jimenez texted pt working harder to breathe, extremities ice cold, had breathing treatment - didnt help with SOB. new orders obtained. Dr. Jimenez at bedside ABGs/EKG ordered CPS at bedside. unable to obtain BP on right arm. 2nd IV being started on left arm.. ESL INSTRUCTOR called d/t no change in pt. PT then transferred to ICU
--- NOTE | 2021-12-29 18:21 | ECHOCS_ITS ---
Reason For Study: Afib, Aflutter Procedure This was a 2D Doppler, Color Flow transthoracic echocardiogram. The study was technically difficult. Contrast injection was performed. Exam performed portable in ICU/CCU. Left Ventricle Mild concentric left ventricular hypertrophy. Based upon the 2D echocardiographic and contrast enhanced images obtained there appears to be grossly normal left ventricular size, wall motion, and systolic function. The estimated ejection fraction is 60 %. There is evidence of diastolic dysfunction. Right Ventricle Normal RV size. Normal systolic function. Atria Normal left atrium. Normal right atrium. No doppler evidence for ASD. Mitral Valve There is no mitral annular calcification. Normal mitral valve. Mild (1+) mitral valve insufficiency. Tricuspid Valve Normal tricuspid valve. Trivial tricuspid valve insufficiency. Right ventricular systolic pressure estimated to be 61 mmHg. Aortic Valve Trisinus/trileaflet aortic valve. Mild focal aortic valve calcification. Mild aortic stenosis. Pulmonic Valve The pulmonic valve is not well visualized. Great Vessels Normal sized aortic root. Pericardium/Pleural No pericardial effusion. Medication Diluted definity 2ml given slow IV push to enhance endocardial definition. MMode/2D Measurements & Calculations LVIDd: 5.3 cm IVSd: 1.3 cm LVOT diam: 2.1 cm LVIDs: 4.0 cm LVPWd: 1.3 cm RVDd: 3.7 cm FS: 24.0 % LVOT area: 3.6 cm2 Ao root diam: 3.3 cm LAV(MOD-bp): 41.9 ml LA A4 area: 14.5 cm2 LAV(MOD-bp) Indexed: 20.5 ml/m2 LAV(MOD-sp2): 42.8 ml LAV(MOD-sp4): 34.6 ml LA dimension(2D): 3.6 cm RA A4 area: 14.6 cm2 Doppler Measurements & Calculations MV E max zachary: 69.9 cm/sec Lat Peak E' Zachary: 10.5 cm/sec Med Peak E' Zachary: 4.1 cm/sec MV A max zachary: 79.5 cm/sec E/E' lat: 6.7 E/E' med: 17.2 MV E/A: 0.88 Ao V2 max: 213.8 cm/sec LV V1 max: 104.6 cm/sec SV(LVOT): 58.6 ml Ao max P.3 mmHg LV V1 max P.4 mmHg Ao V2 mean: 152.6 cm/sec LV V1 mean P.3 mmHg Ao mean P.2 mmHg LV V1 mean: 71.8 cm/sec Ao V2 VTI: 36.0 cm LV V1 VTI: 16.2 cm JACOBO(I,D): 1.6 cm2 JACOBO(V,D): 1.8 cm2 PA V2 max: 108.3 cm/sec TR max zachary: 364.8 cm/sec TR max P.2 mmHg ECHO/Echo Complete W/ Contrast Interpretation Summary The study was technically difficult. Contrast injection was performed. Based upon the 2D echocardiographic and contrast enhanced images obtained there appears to be grossly normal left ventricular size, wall motion, and systolic function. The estimated ejection fraction is 60 %. Mild concentric left ventricular hypertrophy. Mild (1+) mitral valve insufficiency. Trivial tricuspid valve insufficiency. Mild aortic stenosis. Right ventricular systolic pressure estimated to be 61 mmHg. There is evidence of diastolic dysfunction. Ordering Physician: Marcos David Referring Physician: London Lott Performed By: Carla Vera, TRU, RVT
--- NOTE | 2021-12-29 18:22 | CON.PCM.CA_ITS ---
Assessment & Plan Assessment/Plan (1) Atrial fibrillation: PLAN: The patient has a history of paroxysmal atrial fibrillation. At the present time, it appears he has returned to atrial fibrillation with RVR, which may be exacerbated by his underlying acute noncardiac conditions with his acute pancreatitis superimposed upon his underlying chronic pulmonary condition. At the moment he is in the ICU being monitored. Additional laboratory studies are pending. He is being treated with rate control therapy/antiarrhythmic therapy with IV amiodarone. He is going to receive additional rate control therapy with IV digitalis and attempt to bring his rate under better control and hopefully avoid the hypotensive effects that he may receive with beta-rena therapy or calcium channel antagonist therapy. He is temporarily without his anticoagulant therapy secondary to his acute pancreatitis and attempt to avoid the development of hemorrhagic pancreatitis. If he continues with a rapid rate with concerns of associated symptoms or h emodynamic compromise he may need to be considered, despite the lack of anticoagulant therapy, with synchronized biphasic DC cardioversion to regain sinus rhythm. In the interim an attempt will be made to retrieve additional cardiovascular records from the [facility] system. Also he will be asked to have a transthoracic echocardiogram to further assess his atrial size and ventricular size, wall motion, and systolic function. (2) Acute gallstone pancreatitis: PLAN: The patient has been diagnosed with cholelithiasis and pancreatitis leading to acute gallstone pancreatitis. At the moment he will continue evaluation care by return to medicine and general surgery. (3) COPD (chronic obstructive pulmonary disease): PLAN: The patient has a history of underlying COPD. He states that his COPD worsens when he is in atrial fibrillation with rapid ventricular response. Thus his underlying pulmonary condition will need to be monitored for any significant changes that would warrant the need for additional pulmonary evaluation and care. PLAN: Plan The above was discussed and reviewed with the patient, his spouse, and Dr. Jimenez. This note was generated using a voice recognition system and there may be incorrect words, spelling or punctuation that were not noted when reviewing the office note prior to saving. HPI Consult Data Date of Consult: 12/29/21 HPI Narrative HPI Narrative: NABIL SORENSEN, is a 71 year old white male who presents for cardiovascular consultation based upon concerns of atrial fibrillation/flutter with RVR superimposed upon concerns of acute pancreatitis with a past cardiovascular history which is included underlying COPD. Patient states he was originally diagnosed approximately 2 years ago while living in [place] with underlying atrial fibrillation. He states he underwent a variety of noninvasive studies. He also recalls undergoing a synchronized biphasic DC cardioversion procedure to regain sinus rhythm at one point in time. He states he is followed more locally with a [facility] income tax preparer in [place], [place]. He notes overall he feels his rhythm has been relatively controlled knowing that he does have intermittent episodes of his atrial fibrillation. He states for the most part he does not know his heart rate goes fast until it goes at least above 120 bpm. At that time what he seems to sounds is increased shortness of breath and dyspnea. He states at times he does feel that he gets chest discomfort but relates that to his underlying COPD process as he uses inhalers, etc., and then he will feel better. He does not complain of acute orthopnea or PND nor does he have ongoing peripheral pitting edema. There has been no report of near syncope or syncope. He presented to the hospital based upon concerns of abdominal discomfort. He has subsequently been diagnosed with acute pancreatitis. He has been undergoing evaluation care by internal medicine and general surgery. Today he was noted to have recurrence of his atrial fibrillation. He became more short of breath and was reported as hypotensive. An ECG was performed. It appeared that he had an underlying relatively narrow relatively regular tachycardia at approximately 270 bpm. This raise concern as to whether or not this was his atrial fibrillation versus an atrial flutter versus a form of supraventricular tachycardia-reentry mechanism. He was evaluated by internal medicine and treated with IV adenosine with no positive impact. He was then treated with IV amiodarone and was noted to have subsequent slowing of his ventricular rate to approximately 150 bpm. At that time he was noted to have an underlying rhythm appearing compatible with atrial fibrillation. His ECGs demonstrated what appeared to be poor R wave progression and nonspecific ST/T wave abnormality. There are no previous ECGs available for review at this time. He was subsequently placed in the ICU. He has continued to be monitored. He is continued with IV amiodarone infusion. He is also continuing IV fluids to assist with his blood pressure. At the moment he is not complaining of ongoing chest discomfort. He does have chronic shortness of breath and dyspnea. There has been no acute nausea or emesis or diaphoresis. He does have ongoing chronic abdominal discomfort. He has had laboratory studies performed. His potassium level was within normal limits. A magnesium level and thyroid level/TSH is pending. [facility] Medical History (Updated 12/29/21 @ 18:[address] Nabil David MD) Abdominal pain Arthritis COPD (chronic obstructive pulmonary disease) History of prostate cancer Paroxysmal atrial fibrillation Home Medications multivitamin 1 cap PO DAILY vitamin 03/22/19 [History Last Taken 12/27/21] budesonide 160 mcg-glycopyr 9 mcg-formot 4.8 mcg/actuation HFA inhaler (Breztri Aerosphere) 2 inh inhalation BID copd 08/15/21 [History Last Taken 12/27/21] metoprolol succinate 50 mg capsule sprinkle, ext. release 24 hr 50 mg PO DAILY heart 08/15/21 [History Last Taken 12/27/21] rivaroxaban 20 mg tablet (Xarelto) 20 mg PO DAILY blood thinner 08/15/21 [History Last Taken 12/27/21] roflumilast 500 mcg tablet (Daliresp) 500 mcg PO DAILY Check with primary doctor 08/15/21 [History Last Taken 12/27/21] amoxicillin 875 mg-potassium clavulanate 125 mg tablet 1 tab PO BID atb 12/27/21 [History Last Taken 12/27/21] prednisone 10 mg tablet 60 mg PO DAILY steroid 12/27/21 [History Last Taken 12/27/21] Allergy/AdvReac Type Severity Reaction Status Date / Time gabapentin AdvReac Other Verified 12/27/21 22:47 melatonin AdvReac Other Verified 12/27/21 22:47 Family History (Updated 12/28/21 @ 02:[address] Sanjay Patel DO) Father COPD (chronic obstructive pulmonary disease) Surgical History History of appendectomy History of colostomy History of hernia repair History of prostatectomy History of tonsillectomy S/P partial colectomy Social History (Updated 12/28/21 @ 02:[address] Sanjay Patel DO) Smoking Status: Former smoker alcohol intake: current alcohol intake frequency: holidays/special occasions only Alcohol type: beer substance use type: does not use ROS Constitutional Constitutional: Reports as per HPI Eyes Eyes: Reports as per HPI ENT HEENT: Reports as per HPI Cardiovascular Cardiovascular: Reports dyspnea Respiratory/Chest Respiratory/Chest: Reports dyspnea Gastrointestinal Gastrointestinal: Reports abdominal pain Genitourinary Genitourinary: Reports as per HPI Musculoskeletal Musculoskeletal: Reports as per HPI Integumentary Integumentary: Reports as per HPI Neurologic Neurologic: Reports as per HPI Physical Exam Const alert, oriented x3 and no apparent distress HEENT normocephalic, head/scalp atraumatic and hearing grossly normal bilaterally Eyes PERRL, EOMs intact bilaterally and conjunctivae normal Neck full ROM, supple and no JVD Carotids: normal carotid upstroke Resp clear to auscultation bilaterally Cardio Rhythm: abnormal rhythm irregularly irregular Heart Sounds: S1 normal, S2 normal and other Other Details: Distant heart tones GI GI Narrative: Diminished bowel sounds; tender to palpation Extremity no pedal edema Skin no rashes or lesions noted Psych mental status grossly normal Risk Stratification Risk Stratification Applicable: No Procedure Criteria Type of Procedure Procedure Type: Elective Elective Risks - COVID COVID Risk Discussion: The surgeon/proceduralist and patient have discussed in detail the risk of exposure to and/or potential harm posed by the COVID-19 virus with having a surgery/procedure at this time versus the risk of delaying the surger y/procedure. It is not possible to know either the risk of delaying the surgery or procedure or chance of getting an infection with perfect accuracy, but a joint decision was made between the patient and the surgeon/proceduralist to proceed at this time with the scheduled surgery/procedure as indicated on the consent form. Objective Data Vital Signs: Vital Signs Temp Pulse Resp BP Pulse Ox FiO2 98.4 F 157 H 17 99/83 H 95 100 12/29/21 16:56 12/29/21 18:00 12/29/21 18:00 12/29/21 18:00 12/29/21 18:00 12/29/21 17:00 Oxygen Flow Rate (L/min) 3 Oxygen Delivery Method Nasal Cannula Weight: 181 lb 3 oz Body Mass Index (BMI) 24.5 Intake & Output: Intake and Output for Last 24 Hours 12/27/21 12/28/21 12/29/21 23:59 23:59 23:59 Intake Total 3803.75 / 3803.75 3289.92 / 3289.92 Output Total 1350 / 1700 1000 / 1000 Balance 2453.75 / 2103.75 2289.92 / 2289.92 Lab / Micro Data Result Diagrams: 12/29/21 05:36 12/29/21 05:36 Labs: Laboratory Results - last 24 hr 12/29/21 05:36: WBC 37.9 H*, RBC 4.76, Hgb 14.2, Hct 44.9, MCV 94.3 H, MCH 29.8, MCHC 31.6 L, RDW Std Deviation 52.6 H, RDW Coeff of Gladis 15.2 H, Plt Count 282, MPV 9.5, Immature Gran % (Auto) 1.300 H, Neut % (Auto) 92.4 H, Lymph % (Auto) 0.8 L, [place] % (Auto) 5.3, Eos % (Auto) 0.0, Baso % (Auto) 0.2, Absolute Neuts (auto) 35.0 H, Absolute Lymphs (auto) 0.31 L, Nucleated RBC % 0, Diff Path Review Reviewed, Anisocytosis 1+ 12/29/21 05:36: Sodium 143, Potassium 4.5, Chloride 113 H, Carbon Dioxide 25.0, Anion Gap 5, BUN 25 H, Creatinine 0.93, Estim Creat Clear Calc 82.28, Est GFR (MDRD) Af Amer 104, Est GFR (MDRD) Non-Af 86, BUN/Creatinine Ratio 27.0 H, Glucose 179 H, Calcium 8.7, Total Bilirubin 1.10 H, AST 46 H, ALT 414 H, Alkaline Phosphatase 95, Total Protein 7.0, Albumin 3.1 L, Globulin 3.9, Albumin/Globulin Ratio 0.8 L 12/29/21 05:36: ESR 34 H 12/29/21 05:36: Lactate Dehydrogenase 428 H, C-React Prot Ext Range 211.00 H, Lipase 297 12/29/21 10:27: Lactic Acid 1.5 12/29/21 10:55: Urine Color Yellow, Urine Clarity Clear, Urine pH 5.0, Ur Specific [place] 1.020, Urine Protein 100 H, Urine Glucose (UA) Normal, Urine Ketones Negative, Urine Occult Blood 50 H, Urine Nitrite Negative, Urine Bilirubin Negative, Urine Urobilinogen Normal, Ur Leukocyte Esterase Negative, Urine RBC 0 SEEN, Urine WBC 0 SEEN, Ur Squamous Epith Cells 0 SEEN, Urine Bacteria 0 SEEN, Urine Mucus 0 SEEN Cardiology Labs/Tests 12/29/21 05:36: WBC 37.9 H*, RBC 4.76, Hgb 14.2, Hct 44.9, MCV 94.3 H, MCH 29.8, MCHC 31.6 L, Plt Count 282, MPV 9.5, Immature Gran % (Auto) 1.300 H, Neut % (Auto) 92.4 H, Lymph % (Auto) 0.8 L, [place] % (Auto) 5.3, Eos % (Auto) 0.0, Baso % (Auto) 0.2, Absolute Neuts (auto) 35.0 H, Nucleated RBC % 0 12/29/21 05:36: Sodium 143, Potassium 4.5, Chloride 113 H, Carbon Dioxide 25.0, Anion Gap 5, BUN 25 H, Creatinine 0.93, Est GFR (MDRD) Af Amer 104, Est GFR (MDRD) Non-Af 86, BUN/Creatinine Ratio 27.0 H, Glucose 179 H, Calcium 8.7, Total Bilirubin 1.10 H 12/29/21 10:27: Lactic Acid 1.5 12/29/21 10:55: Urine Color Yellow, Urine Clarity Clear, Urine pH 5.0, Ur Speci fic [place] 1.020, Urine Protein 100 H, Urine Glucose (UA) Normal, Urine Ketones Negative, Urine Occult Blood 50 H, Urine Nitrite Negative, Urine Bilirubin Negative, Urine Urobilinogen Normal, Ur Leukocyte Esterase Negative, Urine RBC 0 SEEN, Urine WBC 0 SEEN Rhythm: Atrial fibrillation EKG: ECGs as noted above Radiography Diagnostic Testing: Radiology Impression Abdomen/Pelvis CT 12/29/21 07:36 IMPRESSION: Pancreatic enlargement with diffuse increased markings in the surrounding peripancreatic fat in keeping with acute pancreatitis. The inflammatory changes of progressed as compared to prior study. Fatty infiltration of the liver. Cholelithiasis. 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 Electronically Signed: Lexx Nguyen MD at 9:11 EDT , Chest X-Ray 12/29/21 08:25 IMPRESSION: Blunting of the left costophrenic angle with increased markings in the lingular segment of the left upper lobe as well as in the right midlung. This is suggestive of scarring and/or atelectasis. Electronically Signed: Lexx Nguyen MD at 8:47 EDT ,
--- NOTE | 2021-12-29 18:23 | CASEMGMT ---
Social Work Note [facility] called and pt's Glory present in pt's room. This worker and Mariama GROSS met with Glory and provided much emotional support. Fide Knight [employer] TEACHER, [employer]IC SUPERVISOR
[2021-12-29] MEDS: Digoxin 250 MCG/ML Ampul 500 MCG IV (18:30)
[2021-12-29 18:36] LABS: Magnesium 2.3 mg/dL (1.6-2.6); Thyroid Stim Hormone (TSH) 0.37 uIU/mL (0.358-3.74)
--- NOTE | 2021-12-29 19:24 | NURSING ---
EkG obtained and sent to Dr David concerning for acute [place]/ Stemi. Dr David to floor to evaluate pt. EKG images sent to Dr Garza per Dr David request. Family at bedside.
--- NOTE | 2021-12-29 20:18 | RAD_ITS ---
STUDY: X-RAY - ABDOMEN/PELVIS REASON FOR EXAM: Male, 71 years old. NG tube placement. TECHNIQUE: Single AP view of the abdomen / pelvis. COMPARISON: None. FINDINGS: Normal visualized lung bases. There is an NG tube with its tip at the level of the diaphragm. This should be advanced at least 15 cm to ensure the upper port lies within the gastric lumen. There is an unremarkable bowel gas pattern. There is no demonstrated free abdominal air. The visualized liver, spleen and kidneys are grossly normal in size and morphology. Normal soft tissue structures. Normal visualized osseous structures. RAD/Abdomen Single View IMPRESSION: NG tube with its tip at the level the diaphragm. Electronically Signed: Boo Chavarria DO at 21:35 EDT ,
[2021-12-29] MEDS: Metoprolol Tartrate 5 MG/5 ML Vial IV (20:21)
[2021-12-29 21:35] LABS: Troponin-I HS 616 pg/mL (3.0-78.0)
[2021-12-29 22:16] LABS: Troponin-I HS 968 pg/mL (3.0-78.0)
[2021-12-29] MEDS: Digoxin 250 MCG/ML Ampul IV (22:22)
[2021-12-29] MEDS: traZODone 50 MG Tablet 25 MG PO (22:26)
--- NOTE | 2021-12-29 23:10 | RAD_ITS ---
STUDY: X-RAY - ABDOMEN/PELVIS REASON FOR EXAM: Male, 71 years old. Verification of NG tube placement. TECHNIQUE: Single AP view lower chest and upper abdomen. COMPARISON: 12/29/2021 (2043) FINDINGS: Normal visualized lung bases. There is been advancement of the NG tube. Both ports overlying the gastric air bubble. Remainder of the findings appear unchanged. RAD/Abdomen Single View (Portable) IMPRESSION: Advancement of the NG tube into the gastric lumen. Electronically Signed: Boo Chavarria DO at 23:24 EDT ,
--- NOTE | 2021-12-29 23:44 | NURSING ---
Nasogastric tube placed at 2009. KUB ordered per protocol for placement verification. Official reading back at around 2200 indicating need for 15cm advancement. NG advanced 15cm and repeat KUB ordered. Draining green fluid. Set to low-intermittent suction. Flushed with 60cc tap water.
[2021-12-30] VITALS (37 sets, daily range): BP systolic 119–148; BP diastolic 60–104; PULSE 95–166; RESP 19–27; TEMP 36.2–37; O2SAT 88–100
[2021-12-30] MEDS: Phenol/Sodium Phenolate 180ML 5 SPRAY MUCOUS MEM ×3 (01:42→06:16)
[2021-12-30] MEDS: 0.9% Normal Saline 1,000 ML 125 ML IV ×3 (02:14→18:18)
[2021-12-30 02:50] LABS: Troponin-I HS 1184 pg/mL (3.0-78.0)
[2021-12-30] MEDS: dilTIAZem 25 MG/5 ML Vial 10 MG IV BOLUS (03:43)
[2021-12-30 04:23] LABS: Absolute Lymphocyte Count 0.41 X10^3/uL (0.83-4.51); Absolute Neutrophil Count 27.1 X10^3/uL (2.0-7.7); Basophil# 0.03 X10^3/uL; Basophil% 0.1 % (0-1); Hemoglobin 13.1 g/dL (13.0-16.5); Lymphocyte # 0.41 X10^3/ul (0.83-4.51); Lymphocyte % 1.4 % (19-41); Mean Corp Hgb Conc 31.2 g/dL (32-36); Mean Corpuscular Hgb 29.5 pg (27.0-32.0); Mean Corpuscular Volume 94.6 fL (80-94); Mean Platelet Vol. 9.3 fl (6.2-12.0); Monocyte# 0.82 X10^3/uL; Monocyte% 2.9 % (0-10); NRBC Flagged by Analyzer 0 % (0-5); Neutrophil # 27.07 X10^3/uL (2.7-7.7); Neutrophil % 94.9 % (47-70); POSITIVE DIFFERENTIAL YES; Platelet Count 236 K/mm3 (150-450); RBC Distribution Width CV 15.3 % (11.6-14.6); RBC Distribution Width SD 52.8 fl (35.1-43.9); Red Blood Count 4.44 M/mm3 (4.6-6.2); White Blood Count 28.5 K/mm3 (4.4-11.0)
[2021-12-30 04:25] LABS: Differential Indicated SCAN CRITERIA MET
[2021-12-30 04:41] LABS: Anisocytosis 1+
[2021-12-30 05:28] LABS: ALB/GLOB Ratio 0.8 RATIO (0.9-2.4); AST(SGOT) 1798 U/L (15-37); Alanine Aminotransfer ALT/SGPT 2171 U/L (16-61); Albumin, Serum 2.7 g/dL (3.2-5.0); Alkaline Phosphatase 82 U/L (45-117); Anion Gap 7 (5-15); BUN 43 mg/dL (7-18); BUN/Creat Ratio 42.6 RATIO (10-20); Calcium,Total 8.5 mg/dL (8.5-10.1); Chloride 113 mmol/L (98-107); Creatinine, Serum 1.01 mg/dL (0.70-1.30); EST Glomerular Filtration Rate 78 mL/min (>60); Est Glom Filt Rate - Afr Amer 94 mL/min (>60); Estimated Creatinine Clearance 75.76 ml/min; Globulin 3.5 g/dL (2.2-4.2); Glucose 117 mg/dL (74-106); Potassium 4.5 mmol/L (3.5-5.1); Protein, Total 6.2 g/dL (6.4-8.2); Sodium Level 146 mmol/L (136-145)
[2021-12-30 05:29] LABS: Troponin-I HS 1025 pg/mL (3.0-78.0)
--- NOTE | 2021-12-30 05:55 | EKG12_ITS ---
Test Reason : A FIB/FLUTTER Blood Pressure : / mmHG Vent. Rate : 156 BPM Atrial Rate : 312 BPM P-R Int : 000 ms QRS Dur : 098 ms QT Int : 324 ms P-R-T Axes : -80 062 266 degrees QTc Int : 522 ms Atrial flutter Poor R wave progression Abnormal ECG Confirmed by RULA HAND, NABIL ([id number]), electronic news gathering editor JEN TORRES ([id number]) on 12/31/2021 11:13:18 AM Referred By: PM Confirmed By:ANBIL HORTA MD
[2021-12-30] MEDS: Ondansetron 4 MG/2 ML Vial IV (07:21)
--- NOTE | 2021-12-30 08:42 | EKG12_ITS ---
Test Reason : RHYTHM CHANGE Blood Pressure : / mmHG Vent. Rate : 157 BPM Atrial Rate : 314 BPM P-R Int : 000 ms QRS Dur : 098 ms QT Int : 328 ms P-R-T Axes : 081 060 074 degrees QTc Int : 530 ms Atrial flutter with variable A-V block Poor R wave progression Abnormal ECG Confirmed by RULA HAND, NABIL ([id number]), videotape editor JEN TORRES ([id number]) on 12/31/2021 11:13:41 AM Referred By: Erica HORTA Confirmed By:NABIL HORTA MD
--- NOTE | 2021-12-30 08:56 | PCM.PN.SRG ---
Subjective Subjective Patient seen and examined during AM rounds. He is found resting in his new ICU bed. The acute events of the preceding 12 hours were reviewed. According to bedside nursing, cardiology plans for DC cardioversion later this morning as patient's heart rate has been refractory to medical therapy. For his part, Mr. Smith denies chest pain and states that his abdominal discomfort is somewhat improved. This followed placement of a nasogastric tube which nursing reports has had some 1300 mL output since placement. Mr. Smith continues to deny any bowel function. Objective Data Objective Data Vital Signs: Vital Signs Temp Pulse Resp BP Pulse Ox FiO2 97.1 F L 155 H 23 H 127/95 H 92 100 12/30/21 04:00 12/30/21 06:00 12/30/21 06:00 12/30/21 06:00 12/30/21 06:00 12/29/21 17:00 Oxygen Flow Rate (L/min) 3 Oxygen Delivery Method Nasal Cannula Weight: 188 lb Body Mass Index (BMI) 24.5 Intake & Output: Intake and Output for Last 24 Hours 12/28/21 12/29/21 12/30/21 23:59 23:59 23:59 Intake Total 3803.75 / 3803.75 3659.17 / 3659.17 1141.33 / 1141.33 Output Total 1350 / 1700 1000 / 1225 1175 / 1175 Balance 2453.75 / 2103.75 2659.17 / 2434.17 -33.67 / -33.67 Lab / Micro Data Result Diagrams: 12/30/21 04:15 12/30/21 04:15 Labs: Laboratory Results - last 24 hr 12/29/21 05:36: Diff Path Review Reviewed 12/29/21 05:36: ESR 34 H 12/29/21 05:36: Lactate Dehydrogenase 428 H, C-React Prot Ext Range 211.00 H, Lipase 297 12/29/21 05:36: Magnesium 2.3, TSH 0.37 12/29/21 10:27: Lactic Acid 1.5 12/29/21 10:55: Urine Color Yellow, Urine Clarity Clear, Urine pH 5.0, Ur Specific [place] 1.020, Urine Protein 100 H, Urine Glucose (UA) Normal, Urine Ketones Negative, Urine Occult Blood 50 H, Urine Nitrite Negative, Urine Bilirubin Negative, Urine Urobilinogen Normal, Ur Leukocyte Esterase Negative, Urine RBC 0 SEEN, Urine WBC 0 SEEN, Ur Squamous Epith Cells 0 SEEN, Urine Bacteria 0 SEEN, Urine Mucus 0 SEEN 12/29/21 19:55: Troponin I High Sens 616 H* 12/29/21 21:45: Troponin I High Sens 968 H* 12/30/21 01:37: Troponin I High Sens 1184 H* 12/30/21 04:15: WBC 28.5 H, RBC 4.44 L, Hgb 13.1, Hct 42.0, MCV 94.6 H, MCH 29.5, MCHC 31.2 L, RDW Std Deviation 52.8 H, RDW Coeff of Gladis 15.3 H, Plt Count 236, MPV 9.3, Immature Gran % (Auto) 0.700, Neut % (Auto) 94.9 H, Lymph % (Auto) 1.4 L, [place] % (Auto) 2.9, Eos % (Auto) 0.0, Baso % (Auto) 0.1, Absolute Neuts (auto) 27.1 H, Absolute Lymphs (auto) 0.41 L, Nucleated RBC % 0, Anisocytosis 1+ 12/30/21 04:15: Sodium 146 H, Potassium 4.5, Chloride 113 H, Carbon Dioxide 26.0, Anion Gap 7, BUN 43 H, Creatinine 1.01, Estim Creat Clear Calc 75.76, Est GFR (MDRD) Af Amer 94, Est GFR (MDRD) Non-Af 78, BUN/Creatinine Ratio 42.6 H, Glucose 117 H, Calcium 8.5, Total Bilirubin 0.80, AST 1798 H, ALT 2171 H, Alkaline Phosphatase 82, Total Protein 6.2 L, Albumin 2.7 L, Globulin 3.5, Albumin/Globulin Ratio 0.8 L 12/30/21 04:15: Troponin I High Sens 1025 H* Radiography Diagnostic Testing: Radiology Impression Abdomen/Pelvis CT 12/29/21 07:36 IMPRESSION: Pancreatic enlargement with diffuse increased markings in the surrounding peripancreatic fat in keeping with acute pancreatitis. The inflammatory changes of progressed as compared to prior study. Fatty infiltration of the liver. Cholelithiasis. 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 Electronically Signed: Lexx Nguyen MD at 9:11 EDT , KUB X-Ray 12/29/21 20:18 IMPRESSION: NG tube with its tip at the level the diaphragm. Electronically Signed: Boo ChavarriaDO at 21:35 EDT , KUB X-Ray 12/29/21 23:10 IMPRESSION: Advancement of the NG tube into the gastric lumen. Electronically Signed: Boo AuraDO at 23:24 EDT , Physical Exam Const oriented x3 Constitutional Narrative: Appears to be resting better than yesterday morning Resp Resp Narrative: Tachypneic but less labored GI GI Narrative: Less distended, soft, less tenderness to palpation. Patient's area of greatest discomfort seems to be right upper quadrant. Nasogastric tube functioning appropriately with output of green bilious material. Assessment & Plan Assessment/Plan (1) Acute gallstone pancreatitis: PLAN: This is a 71-year-old male hospital day 3 for management of gallstone pancreatitis. Over the last 24 hours he has experienced cardiac dysrhythmia, type II NSTEMI, and manifestation of an adynamic ileus. Encouragingly, his leukocytosis is improving and CT imaging performed yesterday for this issue demonstrated simple progression of his pancreatitis without any evidence of pancreatic necrosis. He is currently pending a DC cardioversion procedure to treat his tachyarrhythmia. Overall, patient's abdominal exam is improved today. There has been a very significant elevation of patient's LFTs which more likely represents shock liver as patient did have a period of time where staffing was unable to obtain a reliable blood pressure. Taken together, patient requires medical optimization and we will hold off any surgical intervention at this time. Recommend: ? Continued empiric antibiotic coverage for enterics ? Continue n.p.o. status with NG tube to low intermittent wall suction (pay careful attention to sump tubing to be sure it is clear fluid) ? Repeat CMP and CBC in a.m. (2) Adynamic ileus: PLAN: Patient with adynamic ileus related to acute pancreatitis. Nasogastric tube placed yesterday appears to be in good position with review of KUB imaging. Function was assessed at bedside, and sump line was found partially occluded with fluid. It is now working well. Continue to monitor for return of bowel function. We will continue to follow serial abdominal exams. Protonix 40 mg IV every 24 hours ordered for stress ulcer prophylaxis.
--- NOTE | 2021-12-30 09:00 | PN.HOSP_ITS ---
Subjective Subjective Feels better today compared to last night, heart rate is better controlled but he did have to go onto Cardizem overnight secondary to his rate still not being controlled with just the amiodarone and the digoxin. Underlying rhythm appears to continue to be A. fib. Overnight he had an NG tube placed as well as having some dark potentially bilious drainage but he says that his abdomen feels better as well. Objective Data Objective Data Vital Signs: Vital Signs Temp Pulse Resp BP Pulse Ox FiO2 97.1 F L 155 H 23 H 127/95 H 92 100 12/30/21 04:00 12/30/21 06:00 12/30/21 06:00 12/30/21 06:00 12/30/21 06:00 12/29/21 17:00 Oxygen Flow Rate (L/min) 3 Oxygen Delivery Method Nasal Cannula Weight: 188 lb Body Mass Index (BMI) 24.5 Intake & Output: Intake and Output for Last 24 Hours 12/29/21 12/30/21 12/31/21 03:59 03:59 03:59 Intake Total 2753.75 / 2753.75 4779.17 / 4780.50 21.33 / 21.33 Output Total 1700 / 1700 875 / 875 950 / 950 Balance 1053.75 / 1053.75 3904.17 / 3905.50 -928.67 / -928.67 Lab / Micro Data Result Diagrams: 12/30/21 04:15 12/30/21 04:15 Labs: Laboratory Results - last 24 hr 12/29/21 05:36: Diff Path Review Reviewed 12/29/21 05:36: ESR 34 H 12/29/21 05:36: Lactate Dehydrogenase 428 H, C-React Prot Ext Range 211.00 H, Lipase 297 12/29/21 05:36: Magnesium 2.3, TSH 0.37 12/29/21 10:27: Lactic Acid 1.5 12/29/21 10:55: Urine Color Yellow, Urine Clarity Clear, Urine pH 5.0, Ur Sp ecific [place] 1.020, Urine Protein 100 H, Urine Glucose (UA) Normal, Urine K etones Negative, Urine Occult Blood 50 H, Urine Nitrite Negative, Urine Bilir ubin Negative, Urine Urobilinogen Normal, Ur Leukocyte Esterase Negative, Urine RBC 0 SEEN, Urine WBC 0 SEEN, Ur Squamous Epith Cells 0 SEEN, Urine Bacteria 0 SEEN, Urine Mucus 0 SEEN 12/29/21 19:55: Troponin I High Sens 616 H* 12/29/21 21:45: Troponin I High Sens 968 H* 12/30/21 01:37: Troponin I High Sens 1184 H* 12/30/21 04:15: WBC 28.5 H, RBC 4.44 L, Hgb 13.1, Hct 42.0, MCV 94.6 H, MCH 29.5, MCHC 31.2 L, RDW Std Deviation 52.8 H, RDW Coeff of [place] 15.3 H, Plt Count 236, MPV 9.3, Immature Gran % (Auto) 0.700, Neut % (Auto) 94.9 H, Lymph % (Auto) 1.4 L, [place] % (Auto) 2.9, Eos % (Auto) 0.0, Baso % (Auto) 0.1, Absolute Neuts (auto) 27.1 H, Absolute Lymphs (auto) 0.41 L, Nucleated RBC % 0, Anisocytosis 1+ 12/30/21 04:15: Sodium 146 H, Potassium 4.5, Chloride 113 H, Carbon Dioxide 26.0, Anion Gap 7, BUN 43 H, Creatinine 1.01, Estim Creat Clear Calc 75.76, Est GFR (MDRD) Af Amer 94, Est GFR (MDRD) Non-Af 78, BUN/Creatinine Ratio 42.6 H, Glucose 117 H, Calcium 8.5, Total Bilirubin 0.80, AST 1798 H, ALT 2171 H, [place] line Phosphatase 82, Total Protein 6.2 L, Albumin 2.7 L, Globulin 3.5, Albumin/Globulin Ratio 0.8 L 12/30/21 04:15: Troponin I High Sens 1025 H* Radiography Diagnostic Testing: Radiology Impression Abdomen/Pelvis CT 12/29/21 07:36 IMPRESSION: Pancreatic enlargement with diffuse increased markings in the surrounding peripancreatic fat in keeping with acute pancreatitis. The inflammatory changes of progressed as compared to prior study. Fatty infiltration of the liver. Cholelithiasis. 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 Electronically Signed: Lexx Nguyen MD at 9:11 EDT , KUB X-Ray 12/29/21 20:18 IMPRESSION: NG tube with its tip at the level the diaphragm. Electronically Signed: Boo Chavarria DO at 21:35 EDT Reading Location ID and State: [facility] / [place] Tel [phone], Service support , KUB X-Ray 12/29/21 23:10 IMPRESSION: Advancement of the NG tube into the gastric lumen. Electronically Signed: Boo Chavarria DO at 23:24 EDT Reading Location ID and State: [facility] / [place] Tel [phone], Service support , Physical Exam Narrative Const alert, oriented x3 and no apparent distress General Appearance: cooperative HEENT normocephalic and moist oral mucous membranes Eyes PERRL, EOMs intact bilaterally and conjunctivae normal Neck supple and no JVD Resp normal respiratory effort, no retractions, no use of accessory muscles Auscultation: Diminished, negative for crackles, rales, rhonchi or wheezes Cardio Abnormal rate and rhythm, S1 normal heart sound, S2 normal heart sound and no murmurs GI soft to palpation and non-distended; Negative for hepatosplenomegaly GI Narrative: Ostomy in place Palpation: Minimally tender in the epigastric region Extremity no clubbing, cyanosis or edema Skin no rashes or lesions noted Neuro no focal motor deficits and no sensory deficits noted Psych affect normal Appearance: appropriate Const alert, oriented x3 and no apparent distress Constitutional Narrative: No respiratory distress. No conversational dyspnea. General Appearance: cooperative HEENT normocephalic, head/scalp atraumatic and moist oral mucous membranes Eyes PERRL, EOMs intact bilaterally and conjunctivae normal Eyes Narrative: No icterus Neck no lymphadenopathy, supple and no JVD Neck Narrative: No thyromegaly Resp normal respiratory effort, no retractions, no use of accessory muscles and clear to auscultation bilaterally Resp Narrative: Diminished throughout but clear. Auscultation: Negative for crackles, rales, rhonchi or wheezes Cardio regular rate, regular rhythm, S1 normal heart sound, S2 normal heart sound and no murmurs GI soft to palpation and non-distended; Negative for hepatosplenomegaly GI Narrative: Ostomy in place Palpation: tender epigastric Extremity normal to inspection and no clubbing, cyanosis or edema Skin no rashes or lesions noted Skin Narrative: No rashes, sores. Neuro moves all extremities, no focal motor deficits and no sensory deficits noted Sensorium / Orientation: awake and alert Psych affect normal Appearance: appropriate Assessment & Plan Assessment/Plan (1) Acute gallstone pancreatitis: (2) Leukocytosis: (3) COPD (chronic obstructive pulmonary disease): PLAN: Plan 1 pancreatitis likely secondary to gallstones/elevated LFTs ? On CT scan there are multiple gallstones and sludge in his gallbladder, repeat CT scan shows slightly worsening pancreatitis ? Ultrasound with gallbladder wall thickening ? Continue with meropenem ? Given the level of inflammation would not be surprised if he has some ileus going forward ? Continue with IV fluids as well as pain medications ? GI and general surgery have been consulted no immediate plans for surgical intervention at this time ? Elevation in his LFTs is likely secondary to shock liver from his tachycardia event leading to significant hypotension for short period of time. We will continue with NG tube 2. COPD ? He is on chronic oxygen at 3 L nasal cannula ? Given the worsening in his pancreatitis we will hold his prednisone and continue with DuoNebs ? Continue with breathing treatments 3. Paroxysmal A. fib with RVR ? Had a rapid response called last evening secondary to A. fib with RVR heart rates were in the 270s. Blood pressures were unobtainable but he was alert so he was given 2 doses of adenosine without reaction and then the dose of amiodarone which did slow his heart rate down considerably and he felt much better. ? He does have an elevation in his troponin this was likely a type II event with demand ischemia from his tachycardia yesterday however also given his significant hypotension his liver functions have worsened but his bilirubin is better DVT: SCDs Charges/Coding Visit Charges Inpatient E&M: 20858 Subs Hosp L2
--- NOTE | 2021-12-30 09:01 | PN.CARD_ITS ---
Subjective Subjective The patient is in the ICU. He has noted on and off lower sternal/epigastric discomfort. He states he has received relief status post NG tube drainage. Objective Data Vital Signs: Vital Signs Temp Pulse Resp BP Pulse Ox FiO2 97.1 F L 155 H 23 H 127/95 H 92 100 12/30/21 04:00 12/30/21 06:00 12/30/21 06:00 12/30/21 06:00 12/30/21 06:00 12/29/21 17:00 Oxygen Flow Rate (L/min) 3 Oxygen Delivery Method Nasal Cannula Weight: 188 lb Body Mass Index (BMI) 24.5 Intake & Output: Intake and Output for Last 24 Hours 12/28/21 12/29/21 12/30/21 23:59 23:59 23:59 Intake Total 3803.75 / 3803.75 3659.17 / 3659.17 1141.33 / 1141.33 Output Total 1350 / 1700 1000 / 1225 1175 / 1175 Balance 2453.75 / 2103.75 2659.17 / 2434.17 -33.67 / -33.67 Lab / Micro Data Result Diagrams: 12/30/21 04:15 12/30/21 04:15 Labs: Laboratory Results - last 24 hr 12/29/21 05:36: Diff Path Review Reviewed 12/29/21 05:36: ESR 34 H 12/29/21 05:36: Lactate Dehydrogenase 428 H, C-React Prot Ext Range 211.00 H, Lipase 297 12/29/21 05:36: Magnesium 2.3, TSH 0.37 12/29/21 10:27: Lactic Acid 1.5 12/29/21 10:55: Urine Color Yellow, Urine Clarity Clear, Urine pH 5.0, Ur Specific [place] 1.020, Urine Protein 100 H, Urine Glucose (UA) Normal, Urine Ketones Negative, Urine Occult Blood 50 H, Urine Nitrite Negative, Urine Bilirubin Negative, Urine Urobilinogen Normal, Ur Leukocyte Esterase Negative, Urine RBC 0 SEEN, Urine WBC 0 SEEN, Ur Squamous Epith Cells 0 SEEN, Urine Bacteria 0 SEEN, Urine Mucus 0 SEEN 12/29/21 19:55: Troponin I High Sens 616 H* 12/29/21 21:45: Troponin I High Sens 968 H* 12/30/21 01:37: Troponin I High Sens 1184 H* 12/30/21 04:15: WBC 28.5 H, RBC 4.44 L, Hgb 13.1, Hct 42.0, MCV 94.6 H, MCH 29.5, MCHC 31.2 L, RDW Std Deviation 52.8 H, RDW Coeff of Gladis 15.3 H, Plt Count 236, MPV 9.3, Immature Gran % (Auto) 0.700, Neut % (Auto) 94.9 H, Lymph % (Auto) 1.4 L, [place] % (Auto) 2.9, Eos % (Auto) 0.0, Baso % (Auto) 0.1, Absolute Neuts ( auto) 27.1 H, Absolute Lymphs (auto) 0.41 L, Nucleated RBC % 0, Anisocytosis 1+ 12/30/21 04:15: Sodium 146 H, Potassium 4.5, Chloride 113 H, Carbon Dioxide 26.0, Anion Gap 7, BUN 43 H, Creatinine 1.01, Estim Creat Clear Calc 75.76, Est GFR (MDRD) Af Amer 94, Est GFR (MDRD) Non-Af 78, BUN/Creatinine Ratio 42.6 H, Glucose 117 H, Calcium 8.5, Total Bilirubin 0.80, AST 1798 H, ALT 2171 H, Alkaline Phosphatase 82, Total Protein 6.2 L, Albumin 2.7 L, Globulin 3.5, Albumin/Globulin Ratio 0.8 L 12/30/21 04:15: Troponin I High Sens 1025 H* Cardiology Labs/Tests 12/29/21 05:36: Magnesium 2.3 12/29/21 10:27: Lactic Acid 1.5 12/29/21 10:55: Urine Color Yellow, Urine Clarity Clear, Urine pH 5.0, Ur Specific [place] 1.020, Urine Protein 100 H, Urine Glucose (UA) Normal, Urine Ketones Negative, Urine Occult Blood 50 H, Urine Nitrite Negative, Urine Bilirubin Negative, Urine Urobilinogen Normal, Ur Leukocyte Esterase Negative, Urine RBC 0 SEEN, Urine WBC 0 SEEN 12/30/21 04:15: WBC 28.5 H, RBC 4.44 L, Hgb 13.1, Hct 42.0, MCV 94.6 H, MCH 29.5, MCHC 31.2 L, Plt Count 236, MPV 9.3, Immature Gran % (Auto) 0.700, Neut % (Auto) 94.9 H, Lymph % (Auto) 1.4 L, [place] % (Auto) 2.9, Eos % (Auto) 0.0, Baso % (Auto) 0.1, Absolute Neuts (auto) 27.1 H, Nucleated RBC % 0 12/30/21 04:15: Sodium 146 H, Potassium 4.5, Chloride 113 H, Carbon Dioxide 26.0, Anion Gap 7, BUN 43 H, Creatinine 1.01, Est GFR (MDRD) Af Amer 94, Est GFR (MDRD) Non-Af 78, BUN/Creatinine Ratio 42.6 H, Glucose 117 H, Calcium 8.5, Total Bilirubin 0.80 Rhythm: Atrial fibrillation/flutter with rapid ventricular response EKG: Atrial flutter Radiography Diagnostic Testing: Radiology Impression Abdomen/Pelvis CT 12/29/21 07:36 IMPRESSION: Pancreatic enlargement with diffuse increased markings in the surrounding peripancreatic fat in keeping with acute pancreatitis. The inflammatory changes of progressed as compared to prior study. Fatty infiltration of the liver. Cholelithiasis. 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 Electronically Signed: Lexx Nguyen MD at 9:11 EDT , KUB X-Ray 12/29/21 20:18 IMPRESSION: NG tube with its tip at the level the diaphragm. Electronically Signed: Boo Chavarria DO at 21:35 EDT Reading Location ID and State: [facility] / [place] Tel [phone], Service support , KUB X-Ray 12/29/21 23:10 IMPRESSION: Advancement of the NG tube into the gastric lumen. Electronically Signed: Boo Chavarria DO at 23:24 EDT Reading Location ID and State: [facility] / [place] Tel [phone], Service support , Physical Exam Const alert and oriented x3 HEENT normocephalic, head/scalp atraumatic and hearing grossly normal bilaterally Eyes PERRL, EOMs intact bilaterally and conjunctivae normal Neck full ROM, supple and no JVD Resp clear to auscultation bilaterally Cardio Rate: tachycardic Rhythm: regular rhythm Heart Sounds: S1 normal and S2 normal GI GI Narrative: Diminished bowel sounds Extremity no pedal edema Skin no rashes or lesions noted Psych mental status grossly normal Assessment & Plan Assessment/Plan (1) Atrial fibrillation: PLAN: The patient continues with atrial fibrillation/flutter with RVR despite multiple attempts at rate limiting medication/antiarrhythmic medication. At the present time, based upon the ongoing atrial dysrhythmia with RVR superimposed upon the patient's noncardiac comorbidities, it has been recommended to consider further attempt at regaining sinus rhythm with synchronized biphasic DC cardioversion. The patient is still not an ideal candidate for anticoagulant therapy based upon his noncardiac comorbidities. His cardiac dysrhythmia was documented yesterday afternoon. Thus that is less than 24 hours since he has believed to enter his atrial dysrhythmia. Thus hopefully the risks of the development of thrombosis and subsequent thromboembo lic events from his atrial dysrhythmia or synchronized biphasic DC cardioversion remains low. The above was discussed with the patient. He states that his previous DC cardioversion procedure performed in [place] was done without anticoagulant therapy at the time. He had no obvious adverse events. The procedure and risks were discussed with the patient. He was agreeable to this approach. (2) Acute gallstone pancreatitis: PLAN: The patient is continuing evaluation care per internal medicine, gastroenterology, and general surgery. (3) COPD (chronic obstructive pulmonary disease): PLAN: The patient will continue evaluation by internal medicine and pulmonology/critical care medicine as deemed appropriate. PLAN: Plan The above was discussed and reviewed with the patient. Again he was agreeable to this approach. This note was generated using a voice recognition system and there may be in correct words, spelling or punctuation that were not noted when reviewing the office note prior to saving.
[2021-12-30] MEDS: oxyCODONE 5 MG Tablet 10 MG PO (09:45)
[2021-12-30] MEDS: Metoprolol(XL)Succ 50 MG Tablet PO (09:45)
[2021-12-30] MEDS: ROFLUMILAST 500 MCG TABLET PO (09:46)
--- NOTE | 2021-12-30 11:13 | EKG12_ITS ---
Test Reason : AM EKG Blood Pressure : / mmHG Vent. Rate : 070 BPM Atrial Rate : 070 BPM P-R Int : 126 ms QRS Dur : 104 ms QT Int : 470 ms P-R-T Axes : 078 020 205 degrees QTc Int : 507 ms Normal sinus rhythm Biatrial enlargement Anterior infarct , age undetermined , cannot be excluded ST & T wave abnormality, consider anterolateral ischemia Prolonged QT Abnormal ECG Confirmed by RULA HAND, NABIL ([id number]), publishing editor JEN TORRES ([id number]) on 01/06/2022 8:26:20 AM Referred By: Confirmed By:NABIL HORTA MD
[2021-12-30] MEDS: HYDROmorphone 1 MG/ML Syringe IV ×2 (12:14→21:24)
--- NOTE | 2021-12-30 13:40 | CHAPLAIN ---
Type of Pastoral Visit ___ Initial Visit _x__ Follow-up Visit ___ On-call Visit ___ General Patient Visit ___ Spiritual Assessment ___ Family Conference ___ Bereavement ___ Rapid Response ___ Code Blue ___ Other (describe below) Pastoral Care Referral From _x__ Patient _x__ Family ___ Nurse ___ Physician ___ Clinical Lab Scientist ___ Staff Registered Nurse ___ Other (describe below) Sacrament/Intervention _x__ Active listening ___ Anointing ___ Yarsani ___ Bereavement ___ Communion ___ Valentina exploration ___ ___ Life review _x__ Prayer ___ Reconciliation ___ Sacrament of Sick _x__ Supportive presence ___ Wedding ___ Other (describe below) Pastoral Comments follow up to this patient seen yesterday but who had a difficult evening and night, now in ICU; spouse is with him; both welcome spiritual care support, presence, and prayer
--- NOTE | 2021-12-30 16:51 | PCM.PROGNOTE ---
Subjective Subjective Patient was transferred to the ICU yesterday night After being discovered to have A. fib with RVR. Objective Data Objective Data Vital Signs: Vital Signs Temp Pulse Resp BP Pulse Ox O2 Del Method O2 Flow Rate 98.4 F 99 22 H 148/66 H 91 Nasal Cannula 5 12/30/21 12:00 12/30/21 15:27 12/30/21 15:00 12/30/21 15:00 12/30/21 15:00 12/30/21 16:13 12/30/21 16:13 FiO2 100 12/29/21 17:00 Oxygen Flow Rate (L/min) 5 Oxygen Delivery Method Nasal Cannula Weight: 188 lb Body Mass Index (BMI) 24.5 Intake & Output: Intake and Output for Last 24 Hours 12/28/21 12/29/21 12/30/21 23:59 23:59 23:59 Intake Total 3803.75 / 3803.75 3659.17 / 3659.17 2995.16 / 2995.16 Output Total 1350 / 1700 1000 / 1225 3950 / 3950 Balance 2453.75 / 2103.75 2659.17 / 2434.17 -954.84 / -954.84 Lab / Micro Data Result Diagrams: 12/31/21 04:20 12/31/21 04:20 Labs: Laboratory Results - last 24 hr 12/29/21 05:36: Magnesium 2.3, TSH 0.37 12/29/21 19:55: Troponin I High Sens 616 H* 12/29/21 21:45: Troponin I High Sens 968 H* 12/30/21 01:37: Troponin I High Sens 1184 H* 12/30/21 04:15: WBC 28.5 H, RBC 4.44 L, Hgb 13.1, Hct 42.0, MCV 94.6 H, MCH 29.5, MCHC 31.2 L, RDW Std Deviation 52.8 H, RDW Coeff of Gladis 15.3 H, Plt Count 236, MPV 9.3, Immature Gran % (Auto) 0.700, Neut % (Auto) 94.9 H, Lymph % (Auto) 1.4 L, [place] % (Auto) 2.9, Eos % (Auto) 0.0, Baso % (Auto) 0.1, Absolute Neuts (auto) 27.1 H, Absolute Lymphs (auto) 0.41 L, Nucleated RBC % 0, Anisocytosis 1+ 12/30/21 04:15: Sodium 146 H, Potassium 4.5, Chloride 113 H, Carbon Dioxide 26.0, Anion Gap 7, BUN 43 H, Creatinine 1.01, Estim Creat Clear Calc 75.76, Est GFR (MDRD) Af Amer 94, Est GFR (MDRD) Non-Af 78, BUN/Creatinine Ratio 42.6 H, Glucose 117 H, Calcium 8.5, Total Bilirubin 0.80, AST 1798 H, ALT 2171 H, Alkaline Phosphatase 82, Total Protein 6.2 L, Albumin 2.7 L, Globulin 3.5, Albumin/Globulin Ratio 0.8 L 12/30/21 04:15: Troponin I High Sens 1025 H* Radiography Diagnostic Testing: Radiology Impression Echocardiogram 12/29/21 18:21 Interpretation Summary The study was technically difficult. Contrast injection was performed. Based upon the 2D echocardiographic and contrast enhanced images obtained there appears to be grossly normal left ventricular size, wall motion, and systolic function. The estimated ejection fraction is 60 %. Mild concentric left ventricular hypertrophy. Mild (1+) mitral valve insufficiency. Trivial tricuspid valve insufficiency. Mild aortic stenosis. Right ventricular systolic pressure estimated to be 61 mmHg. There is evidence of diastolic dysfunction. Ordering Physician: Marcos David Referring Physician: London Lott Performed By: Carla Vera, TRU, RVT X-Ray 12/29/21 20:18 IMPRESSION: NG tube with its tip at the level the diaphragm. Electronically Signed: Boo Chavarria DO at 21:35 EDT , KUB X-Ray 12/29/21 23:10 IMPRESSION: Advancement of the NG tube into the gastric lumen. Electronically Signed: Boo Chavarria, DO at 23:24 EDT Reading Location ID and State: [facility] / [place] Tel [phone], Service support , Physical Exam Const alert and oriented x3 HEENT normocephalic, head/scalp atraumatic and hearing grossly normal bilaterally Eyes PERRL, EOMs intact bilaterally and conjunctivae normal Neck full ROM, supple and no JVD Resp clear to auscultation bilaterally Cardio Rate: tachycardic Rhythm: regular rhythm Heart Sounds: S1 normal and S2 normal GI GI Narrative: Diminished bowel sounds Extremity no pedal edema Skin no rashes or lesions noted Psych mental status grossly normal Assessment & Plan Assessment/Plan (1) Acute gallstone pancreatitis: PLAN: Patient is in less pain than he was yesterday. He does have an NG tube placed. His white blood cell count is decreasing. I agree with going off of steroids for now. He denies any chest pain or shortness of breath. Recommend to continue conservative therapy he was supposed to also get his MRCP today , this is on hold. Biochemical profile continue to improve we may not need MRI Charges/Coding Visit Charges Inpatient E&M: 49350 Subs Hosp L2
[2021-12-30] MEDS: Morphine 2 MG/ML Syringe IV (18:15)
[2021-12-30] MEDS: traZODone 50 MG Tablet 25 MG PO (21:24)
[2021-12-30] MEDS: 0.9% Saline Lock 10 ML Syringe IV (21:24)
[2021-12-31] VITALS (56 sets, daily range): BP systolic 103–146; BP diastolic 63–93; PULSE 72–173; RESP 15–211; TEMP 36.4–37; O2SAT 92–99
[2021-12-31] MEDS: HYDROmorphone 1 MG/ML Syringe IV ×2 (00:37→03:45)
[2021-12-31] MEDS: 0.9% Normal Saline 1,000 ML 125 ML IV ×3 (02:18→18:10)
[2021-12-31 04:35] LABS: Absolute Lymphocyte Count 0.36 X10^3/uL (0.83-4.51); Absolute Neutrophil Count 17.1 X10^3/uL (2.0-7.7); Basophil% 0.2 % (0-1); Eosinophils% 0.1 % (0-5); Hematocrit 39.6 % (40-54); Hemoglobin 12.7 g/dL (13.0-16.5); Lymphocyte # 0.36 X10^3/ul (0.83-4.51); Lymphocyte % 1.9 % (19-41); Mean Corp Hgb Conc 32.1 g/dL (32-36); Mean Corpuscular Hgb 30.1 pg (27.0-32.0); Mean Corpuscular Volume 93.8 fL (80-94); Mean Platelet Vol. 9.1 fl (6.2-12.0); Monocyte# 1.09 X10^3/uL; Monocyte% 5.8 % (0-10); Neutrophil # 17.12 X10^3/uL (2.7-7.7); Neutrophil % 91.5 % (47-70); POSITIVE DIFFERENTIAL YES; Platelet Count 194 K/mm3 (150-450); RBC Distribution Width SD 52.1 fl (35.1-43.9); Red Blood Count 4.22 M/mm3 (4.6-6.2); White Blood Count 18.7 K/mm3 (4.4-11.0)
[2021-12-31 04:36] LABS: Basophil# 0.03 X10^3/uL; Eosinophil# 0.02 X10^3/uL; NRBC Flagged by Analyzer 0 % (0-5)
[2021-12-31 04:51] LABS: Anisocytosis 1+; Differential Indicated SCAN CRITERIA MET
[2021-12-31] MEDS: Albuterol 2.5 MG/3 ML VIAL.NEB. INHALATION ×2 (04:51→23:36)
[2021-12-31 05:19] LABS: ALB/GLOB Ratio 0.7 RATIO (0.9-2.4); AST(SGOT) 928 U/L (15-37); Alanine Aminotransfer ALT/SGPT 2492 U/L (16-61); Albumin, Serum 2.5 g/dL (3.2-5.0); Alkaline Phosphatase 88 U/L (45-117); Anion Gap 3 (5-15); BUN 34 mg/dL (7-18); BUN/Creat Ratio 42.6 RATIO (10-20); Calcium,Total 8.3 mg/dL (8.5-10.1); Chloride 113 mmol/L (98-107); EST Glomerular Filtration Rate 102 mL/min (>60); Est Glom Filt Rate - Afr Amer 124 mL/min (>60); Estimated Creatinine Clearance 95.65 ml/min; Globulin 3.4 g/dL (2.2-4.2); Glucose 107 mg/dL (74-106); Potassium 3.8 mmol/L (3.5-5.1); Protein, Total 5.9 g/dL (6.4-8.2); Sodium Level 148 mmol/L (136-145)
--- NOTE | 2021-12-31 08:17 | PN.CARD_ITS ---
Subjective Subjective The patient is awake and alert. He denies ongoing chest discomfort. He states his epigastric/abdominal discomfort has improved since the NG tube has been in place and draining. Objective Data Vital Signs: Vital Signs Temp Pulse Resp BP Pulse Ox O2 Del Method O2 Flow Rate 97.8 F 103 H 17 130/75 H 95 Nasal Cannula 5 12/31/21 04:00 12/31/21 07:00 12/31/21 07:00 12/31/21 07:00 12/31/21 07:00 12/31/21 07:00 12/31/21 07:00 FiO2 100 12/29/21 17:00 Oxygen Flow Rate (L/min) 5 Oxygen Delivery Method Nasal Cannula Weight: 188 lb 7.924 oz Body Mass Index (BMI) 24.5 Intake & Output: Intake and Output for Last 24 Hours 12/29/21 12/30/21 12/31/21 23:59 23:59 23:59 Intake Total 3659.17 / 3659.17 4643.24 / 5396.35 1919.86 / 1919.86 Output Total 1000 / 1225 5525 / 6225 1375 / 1375 Balance 2659.17 / 2434.17 -881.76 / -828.65 544.86 / 544.86 Lab / Micro Data Result Diagrams: 12/31/21 04:20 12/31/21 04:20 Labs: Laboratory Results - last 24 hr 12/31/21 04:20: WBC 18.7 H, RBC 4.22 L, Hgb 12.7 L, Hct 39.6 L, MCV 93.8, MCH 30.1, MCHC 32.1, RDW Std Deviation 52.1 H, RDW Coeff of Gladis 15.0 H, Plt Count 194, MPV 9.1, Immature Gran % (Auto) 0.500, Neut % (Auto) 91.5 H, Lymph % (Auto) 1.9 L, [place] % (Auto) 5.8, Eos % (Auto) 0.1, Baso % (Auto) 0.2, Absolute Neuts (auto) 17.1 H, Absolute Lymphs (auto) 0.36 L, Nucleated RBC % 0, Anisocytosis 1+ 12/31/21 04:20: Sodium 148 H, Potassium 3.8, Chloride 113 H, Carbon Dioxide 32.0, Anion Gap 3 L, BUN 34 H, Creatinine 0.80, Estim Creat Clear Calc 95.65, Est GFR (MDRD) Af Amer 124, Est GFR (MDRD) Non-Af 102, BUN/Creatinine Ratio 42.6 H, Glucose 107 H, Calcium 8.3 L, Total Bilirubin 0.70, AST 928 H, ALT 2492 H, Alkaline Phosphatase 88, Total Protein 5.9 L, Albumin 2.5 L, Globulin 3.4, Albumin/Globulin Ratio 0.7 L Cardiology Labs/Tests 12/31/21 04:20: WBC 18.7 H, RBC 4.22 L, Hgb 12.7 L, Hct 39.6 L, MCV 93.8, MCH 30.1, MCHC 32.1, Plt Count 194, MPV 9.1, Immature Gran % (Auto) 0.500, Neut % (Auto) 91.5 H, Lymph % (Auto) 1.9 L, [place] % (Auto) 5.8, Eos % (Auto) 0.1, Baso % (Auto) 0.2, Absolute Neuts (auto) 17.1 H, Nucleated RBC % 0 12/31/21 04:20: Sodium 148 H, Potassium 3.8, Chloride 113 H, Carbon Dioxide 32.0, Anion Gap 3 L, BUN 34 H, Creatinine 0.80, Est GFR (MDRD) Af Amer 124, Est GFR (MDRD) Non-Af 102, BUN/Creatinine Ratio 42.6 H, Glucose 107 H, Calcium 8.3 L , Total Bilirubin 0.70 Rhythm: Sinus rhythm; PACs Radiography Diagnostic Testing: Radiology Impression Echocardiogram 12/29/21 18:21 Interpretation Summary The study was technically difficult. Contrast injection was performed. Based upon the 2D echocardiographic and contrast enhanced images obtained there appears to be grossly normal left ventricular size, wall motion, and systolic function. The estimated ejection fraction is 60 %. Mild concentric left ventricular hypertrophy. Mild (1+) mitral valve insufficiency. Trivial tricuspid valve insufficiency. Mild aortic stenosis. Right ventricular systolic pressure estimated to be 61 mmHg. There is evidence of diastolic dysfunction. Ordering Physician: Marcos David Referring Physician: London Lott Performed By: Carla Vera, TRU, RVT Physical Exam Const alert and oriented x3 HEENT normocephalic, head/scalp atraumatic and hearing grossly normal bilaterally Eyes PERRL, EOMs intact bilaterally and conjunctivae normal Neck full ROM, supple and no JVD Resp clear to auscultation bilaterally Cardio Rate: tachycardic Rhythm: regular rhythm Heart Sounds: S1 normal and S2 normal GI GI Narrative: Diminished bowel sounds Extremity no pedal edema Skin no rashes or lesions noted Psych mental status grossly normal Assessment & Plan Assessment/Plan (1) Atrial fibrillation: PLAN: The patient, prior to proceeding with synchronized biphasic DC cardioversion yesterday, had spontaneous return to sinus rhythm/sinus tachycardia with PACs. He is remained in sinus rhythm with a underlying ectopy since that time. At the present time he will continue to be monitored. He will continue medical therapy with his oral beta-rena as tolerated. An attempt will be made to wean his IV diltiazem off. He will continue with IV amiodarone at this time. Depending upon his gastroin testinal system and ability to successfully take oral medications an attempt will be made to alter his IV amiodarone to oral amiodarone. He remains without anticoagulation therapy at this time secondary to his gastrointestinal related issues. (2) Abnormal cardiac enzyme level: PLAN: The patient does have abnormal cardiac enzymes. At the moment this appears compatible with a type II non-STEMI secondary to his atrial dysrhythmia with atrial fibrillation/flutter with RVR superimposed upon his noncardiac gastrointestinal related issues. He did undergo evaluation with transthoracic echocardiogram. The results are as noted. At the moment he will continue to be monitored and continue medical management as deemed appropriate. At some point in time in the future, depending upon his overall case, he may need to be considered for further cardiac evaluation for the possibility of CAD with either noninvasive or invasive studies. (3) Acute gallstone pancreatitis: PLAN: The patient is continuing evaluation care per internal medicine, gastroent erology, and general surgery. (4) COPD (chronic obstructive pulmonary disease): PLAN: The patient will continue evaluation by internal medicine and pulmonology/critical care medicine as deemed appropriate. PLAN: Plan The above was discussed and reviewed with the patient. Again he was agreeable to this approach. This note was generated using a voice recognition system and there may be incorrect words, spelling or punctuation that were not noted when reviewing the office note prior to saving. Addt'l Comments The patient's case was discussed and reviewed with the patient, Dr. Ruiz, and the ICU staff. This note was generated using a voice recognition system and there may be incorrect words, spelling or punctuation that were not noted when reviewing the office note prior to saving.
[2021-12-31] MEDS: dilTIAZem 25 MG/5 ML Vial 20 MG IV BOLUS (09:24)
[2021-12-31] MEDS: TITRATION PARAMETER CHANGE 1 EACH IV (09:27)
[2021-12-31] MEDS: ROFLUMILAST 500 MCG TABLET PO (10:22)
[2021-12-31] MEDS: Metoprolol(XL)Succ 50 MG Tablet PO (10:22)
--- NOTE | 2021-12-31 11:12 | PN.SURG_ITS ---
Subjective Subjective Patient seen and examined during AM rounds. He notes that he had a more restful night last night. He also notes some improvement in his abdominal discomfort. He continues to deny any return of bowel function. He states he is leery to restart a diet too soon as this was attempted after his colon surgery in [facility] and he felt like he would have done better to just wait things out. Objective Data Objective Data Vital Signs: Vital Signs Temp Pulse Resp BP Pulse Ox O2 Del Method O2 Flow Rate 98.6 F 162 H 25 H 130/66 H 99 Nasal Cannula 5 12/31/21 08:00 12/31/21 10:45 12/31/21 10:00 12/31/21 10:22 12/31/21 10:00 12/31/21 10:00 12/31/21 10:00 FiO2 100 12/29/21 17:00 Oxygen Flow Rate (L/min) 5 Oxygen Delivery Method Nasal Cannula Weight: 188 lb 7.924 oz Body Mass Index (BMI) 24.5 Intake & Output: Intake and Output for Last 24 Hours 12/29/21 12/30/21 12/31/21 23:59 23:59 23:59 Intake Total 3659.17 / 3659.17 4643.24 / 5396.35 3015.43 / 3015.43 Output Total 1000 / 1225 5525 / 6225 1375 / 1375 Balance 2659.17 / 2434.17 -881.76 / -828.65 1640.43 / 1640.43 Lab / Micro Data Result Diagrams: 12/31/21 04:20 12/31/21 04:20 Labs: Laboratory Results - last 24 hr 12/31/21 04:20: WBC 18.7 H, RBC 4.22 L, Hgb 12.7 L, Hct 39.6 L, MCV 93.8, MCH 30.1, MCHC 32.1, RDW Std Deviation 52.1 H, RDW Coeff of Gladis 15.0 H, Plt Count 194, MPV 9.1, Immature Gran % (Auto) 0.500, Neut % (Auto) 91.5 H, Lymph % (Auto) 1.9 L, [place] % (Auto) 5.8, Eos % (Auto) 0.1, Baso % (Auto) 0.2, Absolute Neuts (auto) 17.1 H, Absolute Lymphs (auto) 0.36 L, Nucleated RBC % 0, Anisocytosis 1+ 12/31/21 04:20: Sodium 148 H, Potassium 3.8, Chloride 113 H, Carbon Dioxide 32.0, Anion Gap 3 L, BUN 34 H, Creatinine 0.80, Estim Creat Clear Calc 95.65, Est GFR (MDRD) Af Amer 124, Est GFR (MDRD) Non-Af 102, BUN/Creatinine Ratio 42.6 H, Glucose 107 H, Calcium 8.3 L, Total Bilirubin 0.70, AST 928 H, ALT 2492 H, Alkaline Phosphatase 88, Total Protein 5.9 L, Albumin 2.5 L, Globulin 3.4, Al bumin/Globulin Ratio 0.7 L Radiography Diagnostic Testing: Radiology Impression Echocardiogram 12/29/21 18:21 Interpretation Summary The study was technically difficult. Contrast injection was performed. Based upon the 2D echocardiographic and contrast enhanced images obtained there appears to be grossly normal left ventricular size, wall motion, and systolic function. The estimated ejection fraction is 60 %. Mild concentric left ventricular hypertrophy. Mild (1+) mitral valve insufficiency. Trivial tricuspid valve insufficiency. Mild aortic stenosis. Right ventricular systolic pressure estimated to be 61 mmHg. There is evidence of diastolic dysfunction. Ordering Physician: Marcos David Referring Physician: London Lott Performed By: Carla Vera, SAIRACS, RVT Physical Exam Const oriented x3 and no apparent distress Constitutional Narrative: Appears to be resting again better than yesterday morning Resp Resp Narrative: Less labored breathing GI GI Narrative: Less distended, soft, less tenderness to palpation?now patient states this is greatest in the right lower quadrant. Negative Mota sign. Nasogastric tube functioning appropriately with output of green bilious material, but lesser volume. No output to patient's colostomy appliance. Assessment & Plan Assessment/Plan (1) Acute gallstone pancreatitis: PLAN: This is a 71-year-old male hospital day 4 for management of gallstone pancreatitis. Patient appears to have stabilized somewhat from a clinical perspective. His heart rate is much improved and so has his abdominal exam. From a biochemical perspective, he has a number of improvements as well?including his LFTs and leukocytosis. Still he has not had return of bowel function. Recommend: ? Continued empiric antibiotic coverage for enterics ? Continue n.p.o. status with NG tube to low intermittent wall suction (pay careful attention to sump tubing to be sure it is clear fluid) ? Repeat CMP and CBC in a.m. (2) Adynamic ileus: PLAN: Patient with adynamic ileus related to acute pancreatitis. Nasogastric tube placed 2 days ago. Patient with less output today. With the improvement of patient's abdominal exam, once he would demonstrate return of bowel function, would consider initiation of a clear liquid diet to provide some source of nutrition. Protonix 40 mg IV every 24 hours ordered for stress ulcer prophylaxis. Charges/Coding Visit Charges Inpatient E&M: 60684 Init Hosp L2
[2021-12-31] MEDS: Propofol 200 MG/20 ML Vial 40 MG IV BOLUS (12:44)
[2021-12-31] MEDS: Propofol 200 MG/20 ML Vial 20 MG IV BOLUS (12:47)
[2021-12-31] MEDS: Metoprolol Tartrate 5 MG/5 ML Vial IV (12:59)
--- NOTE | 2021-12-31 13:08 | CARDIOVERS_ITS ---
Cardioversion Cardioversion: Date: 12-31-2021 Procedure: Synchronized Biphasic DC Cardioversion Indications: Atrial fibrillation/flutter with RVR Consent: Per the Patient Anesthesia: per Dr. Davalos of pulmonology and critical care medicine with propofol 60 mg IV push total Procedure: Synchronized Biphasic DC Cardioversion: 200 J x 1: Result: Sinus rhythm with return to atrial fibrillation/flutter with RVR Synchronized Biphasic DC cardioversion: 300 J x 1: Result: Sinus rhythm with return to atrial fibrillation/flutter with RVR Synchronized Biphasic DC cardioversion: 360 J x 1: Result: Sinus rhythm with return to atrial fibrillation/flutter with RVR Complications: no apparent complications This note was generated with [employer] dictation software. It may contain incorrect words, spelling, and punctuation that were not noted in checking the note before signing.
--- NOTE | 2021-12-31 13:20 | PCM.OP.PRO ---
Procedure Report Date of Procedure: 12/31/21 CONSCIOUS SEDATION REPORT DATE OF SERVICE: December 31, 2021 BRIEF HISTORY OF PRESENT ILLNESS: The patient is a 71-year-old male, currently admitted to the hospital with gallstone pancreatitis and atrial fibrillation with RVR. The patient also has a history of COPD and chronic hypoxemic respiratory failure. The patient denies any prior anesthetic complications. He is currently being managed by cardiology and general surgery. The patient's echocardiogram demonstrated an ejection fraction of 60%. PHYSICAL EXAMINATION: VITAL SIGNS: Reviewed and were acceptable. GENERAL: The patient is a male, in no apparent distress, speaking in full sentences. HEENT: Normocephalic, atraumatic. Mucous membranes are moist and pink. Good mouth opening noted. Trachea is midline. Good neck mobility. CHEST: S1, S2 irregularly irregular. No murmurs, rubs or gallops were noted. LUNGS: Clear to auscultation bilaterally without appreciable wheezes, rales or rhonchi. ABDOMEN: Soft, nontender, nondistended. Positive bowel sounds. EXTREMITIES: There is no clubbing, cyanosis or edema. ASA Class: II DESCRIPTION OF PROCEDURE: After confirmation of informed consent, the patient's anesthesia plan was reviewed in detail. Propofol was chosen. Risks and benefits were reviewed and the patient agreed to proceed. At 1244, the patient was given the patient was given his first bolus of propofol. In total, the patient required 60 mg of propofol throughout the entire procedure to facilitate 3 attempts at cardioversion, the first at 200 J, the second at 300 J and a third at 360 J. None of these attempts were successful in restoring normal sinus rhythm. The patient was monitored until 1258, at which time he reached his baseline mental status and function. The patient tolerated the procedure well. COMPLICATIONS: None ESTIMATED BLOOD LOSS: None RECOMMENDATIONS: Okay to recover in usual fashion. Procedures Pulmonary 9xxxx: [id number] Con Sedation
--- NOTE | 2021-12-31 13:34 | NURSING ---
1240:Dr. casillas and Dr. David at the bedside to speak to patient and his regarding cardioversion and answer questions 1244: Propofol 40mg IV given by Dr. Casillas 1245: synchronized cardioversion at 200J performed by Dr. David, patient remained in afib RVR with HR 160's 1246: synchronized cardioversion at 300J performed by Dr. David, patient remained in afib RVR with HR 160's 1247: Propofol 20mg IV given by Dr. Casillas 1248: synchronized cardioversion at 360J performed by Dr. David, patient remained in afib RVR with HR 150's 1250: patient alert and talking to Dr. Casillas and Dr. David. Dr. David updated on attempted cardioversion and plan of care
[2021-12-31] MEDS: Acetaminophen 325 MG Tablet 650 MG PO (16:33)
--- NOTE | 2021-12-31 17:27 | PCM.PROGNOTE ---
Subjective Subjective Patient is still in the amount of atrial fibrillation with RVR. He has NG tube placed in has had about 400 mL out in 24 hours. He is not having any abdominal pain, nausea or bloating with NG tube in place. Objective Data Objective Data Vital Signs: Vital Signs Temp Pulse Resp BP Pulse Ox O2 Del Method O2 Flow Rate 98.1 F 94 25 H 128/69 H 95 Nasal Cannula 3 12/31/21 12:00 12/31/21 15:00 12/31/21 15:00 12/31/21 15:00 12/31/21 15:00 12/31/21 16:00 12/31/21 16:00 FiO2 100 12/29/21 17:00 Oxygen Flow Rate (L/min) 3 Oxygen Delivery Method Nasal Cannula Weight: 188 lb 7.924 oz Body Mass Index (BMI) 24.5 Intake & Output: Intake and Output for Last 24 Hours 12/29/21 12/30/21 12/31/21 23:59 23:59 23:59 Intake Total 3659.17 / 3659.17 4643.24 / 5396.35 3319.18 / 3319.18 Output Total 1000 / 1225 5525 / 6225 3025 / 3025 Balance 2659.17 / 2434.17 -881.76 / -828.65 294.18 / 294.18 Lab / Micro Data Result Diagrams: 12/31/21 04:20 12/31/21 04:20 Labs: Laboratory Results - last 24 hr 12/31/21 04:20: WBC 18.7 H, RBC 4.22 L, Hgb 12.7 L, Hct 39.6 L, MCV 93.8, MCH 30.1, MCHC 32.1, RDW Std Deviation 52.1 H, RDW Coeff of Gladis 15.0 H, Plt Count 194, MPV 9.1, Immature Gran % (Auto) 0.500, Neut % (Auto) 91.5 H, Lymph % (Auto) 1.9 L, [place] % (Auto) 5.8, Eos % (Auto) 0.1, Baso % (Auto) 0.2, Absolute Neuts (auto) 17.1 H, Absolute Lymphs (auto) 0.36 L, Nucleated RBC % 0, Anisocytosis 1+ 12/31/21 04:20: Sodium 148 H, Potassium 3.8, Chloride 113 H, Carbon Dioxide 32.0, Anion Gap 3 L, BUN 34 H, Creatinine 0.80, Estim Creat Clear Calc 95.65, Est GFR (MDRD) Af Amer 124, Est GFR (MDRD) Non-Af 102, BUN/Creatinine Ratio 42.6 H, Glucose 107 H, Calcium 8.3 L, Total Bilirubin 0.70, AST 928 H, ALT 2492 H, Alkaline Phosphatase 88, Total Protein 5.9 L, Albumin 2.5 L, Globulin 3.4, Albumin/Globulin Ratio 0.7 L Micro: Microbiology 12/29/21 10:38 Blood Culture (Wb) - Arm Right Blood Culture - Preliminary No growth in 48 hours. 12/29/21 10:27 Blood Culture (Wb) - Anticubital Right Blood Culture - Preliminary No growth in 48 hours. Physical Exam Const oriented x3 and no apparent distress Constitutional Narrative: Appears to be resting again better than yesterday morning Resp Resp Narrative: Less labored breathing GI GI Narrative: Less distended, soft, less tenderness to palpation?now patient states this is greatest in the right lower quadrant. Negative Mota sign. Nasogastric tube functioning appropriately with output of green bilious material, but lesser volume. No output to patient's colostomy appliance. Assessment & Plan Assessment/Plan (1) Adynamic ileus: PLAN: Ileus secondary to acute pancreatitis also complicated by gastroparesis secondary to acute pancreatitis. He is still having voided 300 mL output per NG tube over 24 hours. The goal is to start tube feedings through the NG tube tomorrow. (2) Acute gallstone pancreatitis: PLAN: White blood cell count is decreasing with meropenem IV for severe pancreatitis thought to be secondary to choledocholithiasis and cholecystitis. Continue medical therapy. Patient does not need H&P at this time due to his unstable supraventricular tachycardia. Charges/Coding Visit Charges Inpatient E&M: 77773 Subs Hosp L2
--- NOTE | 2021-12-31 18:06 | PCM.PN.HOSP ---
Subjective Subjective Patient was seen and examined today in ICU, he is alert and appropriate. I talked with cardiology about his care, he underwent cardioversion today and subsequently converted after being given IV metoprolol. Patient's white blood cell count today was 18.7, liver enzymes are still elevated with AST 928 and ALT 2492. Patient's alkaline phosphatase was normal. Objective Data Objective Data Vital Signs: Vital Signs Temp Pulse Resp BP Pulse Ox O2 Del Method O2 Flow Rate 98.1 F 95 25 H 128/69 H 95 Nasal Cannula 3 12/31/21 12:00 12/31/21 16:00 12/31/21 15:00 12/31/21 15:00 12/31/21 15:00 12/31/21 16:00 12/31/21 16:00 FiO2 100 12/29/21 17:00 Oxygen Flow Rate (L/min) 3 Oxygen Delivery Method Nasal Cannula Weight: 85.5 kg Body Mass Index (BMI) 24.5 Intake & Output: Intake and Output for Last 24 Hours 12/29/21 12/30/21 12/31/21 23:59 23:59 23:59 Intake Total 3659.17 / 3659.17 4643.24 / 5396.35 3319.18 / 3319.18 Output Total 1000 / 1225 5525 / 6225 3765 / 3765 Balance 2659.17 / 2434.17 -881.76 / -828.65 -445.82 / -445.82 Lab / Micro Data Result Diagrams: 12/31/21 04:20 12/31/21 04:20 Labs: Laboratory Results - last 24 hr 12/31/21 04:20: WBC 18.7 H, RBC 4.22 L, Hgb 12.7 L, Hct 39.6 L, MCV 93.8, MCH 30.1, MCHC 32.1, RDW Std Deviation 52.1 H, RDW Coeff of Gladis 15.0 H, Plt Count 194, MPV 9.1, Immature Gran % (Auto) 0.500, Neut % (Auto) 91.5 H, Lymph % (Auto) 1.9 L, [place] % (Auto) 5.8, Eos % (Auto) 0.1, Baso % (Auto) 0.2, Absolute Neuts (auto) 17.1 H, Absolute Lymphs (auto) 0.36 L, Nucleated RBC % 0, Anisocytosis 1+ 12/31/21 04:20: Sodium 148 H, Potassium 3.8, Chloride 113 H, Carbon Dioxide 32.0, Anion Gap 3 L, BUN 34 H, Creatinine 0.80, Estim Creat Clear Calc 95.65, Est GFR (MDRD) Af Amer 124, Est GFR (MDRD) Non-Af 102, BUN/Creatinine Ratio 42.6 H, Glucose 107 H, Calcium 8.3 L, Total Bilirubin 0.70, AST 928 H, ALT 2492 H, Alkaline Phosphatase 88, Total Protein 5.9 L, Albumin 2.5 L, Globulin 3.4, Albumin/Globulin Ratio 0.7 L Micro: Microbiology 12/29/21 10:38 Blood Culture (Wb) - Arm Right Blood Culture - Preliminary No growth in 48 hours. 12/29/21 10:27 Blood Culture (Wb) - Anticubital Right Blood Culture - Preliminary No growth in 48 hours. Physical Exam Const alert, oriented x3 and no apparent distress Constitutional Narrative: Patient has an NG tube General Appearance: cooperative, well kempt and well developed Orientation / Consciousness: awake, oriented to person, oriented to place and oriented to time HEENT normocephalic, head/scalp atraumatic and moist oral mucous membranes Eyes PERRL, EOMs intact bilaterally and conjunctivae normal Neck nuchal rigidity, supple, no JVD, thyroid normal and no carotid bruits General: trachea midline Resp normal respiratory effort, no retractions, no use of accessory muscles and clear to auscultation bilaterally Auscultation: Negative for rales, rhonchi or wheezes Cardio regular rate, regular rhythm, S1 normal heart sound, S2 normal heart sound, no murmurs, no rub and no gallops GI soft to palpation and non-tender GI Narrative: Patient has colostomy present in the left lower extremity Auscultation: hypoactive bowel sounds Extremity normal to inspection and no clubbing, cyanosis or edema Skin no rashes or lesions noted General Skin Exam: no breakdown Neuro oriented x3, CN's II-XII intact bilaterally, no focal motor deficits and no sensory deficits noted Sensorium / Orientation: awake and alert Speech: speech normal Psych affect normal Assessment & Plan Assessment/Plan (1) Adynamic ileus: PLAN: Plan 1. Gallstone pancreatitis-surgery is participating in his care as well as GI, continue present medications #2 paroxysmal atrial fibrillation with RVR-now converted to sinus rhythm, cardiology is participating in his care #3 chronic obstructive pulmonary disease-patient is currently on nasal cannula O2 #4 adynamic ileus-patient has an NG tube in, continue care per general surgery #5 chronic hypoxic respiratory failure-patient is on chronic oxygen at home, pulse ox will be monitored here Charges/Coding Visit Charges Inpatient E&M: 90111 Subs Hosp L2
[2021-12-31] MEDS: CHLORHEXIDINE GLUC 2% CLOTH 1 EACH TOWELETTE TOPICAL (20:00)
[2021-12-31] MEDS: traZODone 50 MG Tablet 25 MG PO (21:16)
[2021-12-31] MEDS: Metoprolol Tartrate 50 MG Tablet PO (21:17)
[2021-12-31] MEDS: 0.9% Saline Lock 10 ML Syringe IV (21:17)
[2022-01-01] VITALS (34 sets, daily range): BP systolic 100–149; BP diastolic 45–96; PULSE 69–98; RESP 16–27; TEMP 36.3–37.1; O2SAT 90–99
--- NOTE | 2022-01-01 | IMM_PTH ---
PATIENT: NABIL SORENSEN LOC: [facility] U#:[id number] AGE/SX: 71/M ROOM: [facility] RE12/28/[address]: Dr. Sanjay Patel DO : 1950 BED: 1 DIS: 01/08/2022 SPEC #: [id number] RECD: 01/06/22 13:17 STATUS: RICARDO REQ #: [id number] BRITTANIE: 01/01/22 00:[address]: Ra Leydihsaan DEPT: IMMUNOHISTOCHEMISTRY RECD BY: Corrie Trujillo ENTERED: 01/06/22 13:18 SP TYPE: IMMUNO OTHR DR: DO Dr. London Napier MD Dr. Michael Bortz, MD Dr. Mark Tereletsky, DO Dr. Nicholas F Kotsonis, MD Dr. Paul Moodispaw, MD Tissues: Esophageal mucous membrane Procedures: P53 (initial) KI-67 (add) PHYSICIAN & [place] [id number] SPECIMEN INFORMATION: Tissue Source: Distal esophagus biopsy Clinical Info: Acute gallstone pancreatitis, adynamic ileus, upper GI bleeding Specimen Number: [id number] CPT code: 69982, 11995 METHODOLOGY: Deparaffinized sections of prefer/formalin-fixed tissue or PAP/DQ stained slides are incubated with monoclonal/polyclonal antibodies/oligonucleotide probes. Localization is made via biotin free immunoperoxidase method. Appropriate controls are performed and reacted as expected. Results on target cell population are indicated in the following table: RESULTS: ANTIBODY / CLONE RESULT P53 (DO-7) negative Ki-67 (30-9) positive, low These tests were developed and their performance characteristics determined by [facility]. They may not have been cleared or approved by the U.[place]. Food and Drug Administration. The FDA has determined that such clearance or approval is not necessary. The above immunohistochemical/dualISH markers are ordered and reviewed by the Pathologist. INTERPRETATION: Distal esophagus, biopsy: No evidence of dysplasia. AM:skinny 01/07/2022
[2022-01-01] MEDS: 0.9% Normal Saline 1,000 ML 125 ML IV ×3 (02:19→18:35)
[2022-01-01 04:35] LABS: Absolute Lymphocyte Count 0.33 X10^3/uL (0.83-4.51); Absolute Neutrophil Count 11.7 X10^3/uL (2.0-7.7); Basophil# 0.02 X10^3/uL; Basophil% 0.2 % (0-1); Differential Indicated SCAN CRITERIA MET; Eosinophil# 0.04 X10^3/uL; Eosinophils% 0.3 % (0-5); Hematocrit 32.1 % (40-54); Hemoglobin 10.3 g/dL (13.0-16.5); Lymphocyte # 0.33 X10^3/ul (0.83-4.51); Lymphocyte % 2.5 % (19-41); Mean Corp Hgb Conc 32.1 g/dL (32-36); Mean Corpuscular Hgb 29.9 pg (27.0-32.0); Mean Platelet Vol. 9.2 fl (6.2-12.0); Monocyte# 0.92 X10^3/uL; NRBC Flagged by Analyzer 0 % (0-5); Neutrophil # 11.72 X10^3/uL (2.7-7.7); Neutrophil % 89.2 % (47-70); POSITIVE DIFFERENTIAL YES; Platelet Count 155 K/mm3 (150-450); RBC Distribution Width CV 14.5 % (11.6-14.6); RBC Distribution Width SD 49.1 fl (35.1-43.9); Red Blood Count 3.45 M/mm3 (4.6-6.2); White Blood Count 13.1 K/mm3 (4.4-11.0)
[2022-01-01 05:41] LABS: ALB/GLOB Ratio 0.7 RATIO (0.9-2.4); AST(SGOT) 242 U/L (15-37); Alanine Aminotransfer ALT/SGPT 1254 U/L (16-61); Albumin, Serum 1.7 g/dL (3.2-5.0); Alkaline Phosphatase 59 U/L (45-117); Anion Gap 5 (5-15); BUN 19 mg/dL (7-18); BUN/Creat Ratio 54.1 RATIO (10-20); Chloride 120 mmol/L (98-107); Creatinine, Serum 0.35 mg/dL (0.70-1.30); EST Glomerular Filtration Rate 263 mL/min (>60); Est Glom Filt Rate - Afr Amer 319 mL/min (>60); Estimated Creatinine Clearance 76.52 ml/min; Globulin 2.5 g/dL (2.2-4.2); Glucose 99 mg/dL (74-106); Potassium 2.5 mmol/L (3.5-5.1); Protein, Total 4.2 g/dL (6.4-8.2); Sodium Level 150 mmol/L (136-145)
[2022-01-01] MEDS: Calcium Gluconate 1 GM/10 ML Vial IVP (06:48)
[2022-01-01 07:02] LABS: Magnesium 1.5 mg/dL (1.6-2.6); Phosphorus 1.3 mg/dL (2.5-4.9)
[2022-01-01] MEDS: Potassium Chloride 10mEq/100mL 10 MEQ/100 ML IV.SOLN. 100 MEQ IV BOLUS ×4 (07:02→10:54)
--- NOTE | 2022-01-01 08:32 | PCM.PN.CARD ---
Subjective Subjective The patient states he feels better this morning. He states that his colostomy is working. He states he has an improved outlook on life. Objective Data Vital Signs: Vital Signs Temp Pulse Resp BP Pulse Ox O2 Del Method O2 Flow Rate 98.1 F 87 26 H 137/76 H 93 Nasal Cannula 3 01/01/22 04:00 01/01/22 07:00 01/01/22 07:00 01/01/22 07:00 01/01/22 07:30 01/01/22 07:30 01/01/22 07:30 FiO2 100 12/29/21 17:00 Oxygen Flow Rate (L/min) 3 Oxygen Delivery Method Nasal Cannula Weight: 186 lb 8.177 oz Body Mass Index (BMI) 24.5 Intake & Output: Intake and Output for Last 24 Hours 12/30/21 12/31/21 01/01/22 23:59 23:59 23:59 Intake Total 4643.24 / 5396.35 4777.26 / 5789.54 2239.23 / 2239.23 Output Total 5525 / 6225 4665 / 4665 1850 / 1850 Balance -881.76 / -828.65 112.26 / 1124.54 389.23 / 389.23 Lab / Micro Data Result Diagrams: 01/01/22 04:20 01/01/22 04:20 Labs: Laboratory Results - last 24 hr 01/01/22 04:20: WBC 13.1 H, RBC 3.45 L, Hgb 10.3 L, Hct 32.1 L, MCV 93.0, MCH 29.9, MCHC 32.1, RDW Std Deviation 49.1 H, RDW Coeff of Gladis 14.5, Plt Count 155, MPV 9.2, Immature Gran % (Auto) 0.800, Neut % (Auto) 89.2 H, Lymph % (Auto) 2.5 L, [place] % (Auto) 7.0, Eos % (Auto) 0.3, Baso % (Auto) 0.2, Absolute Neuts (auto) 11.7 H, Absolute Lymphs (auto) 0.33 L, Nucleated RBC % 0 01/01/22 04:20: Sodium 150 H, Potassium 2.5 L*, Chloride 120 H, Carbon Dioxide 25.0, Anion Gap 5, BUN 19 H, Creatinine 0.35 L, Estim Creat Clear Calc 76.52, Est GFR (MDRD) Af Amer 319, Est GFR (MDRD) Non-Af 263, BUN/Creatinine Ratio 54.1 H, Glucose 99, Calcium 6.0 L*, Total Bilirubin 0.60, AST 242 H, ALT 1254 H, Alkaline Phosphatase 59, Total Protein 4.2 L, Albumin 1.7 L, Globulin 2.5, Albumin/Globulin Ratio 0.7 L 01/01/22 04:20: Phosphorus 1.3 L, Magnesium 1.5 L Micro: Microbiology 12/29/21 10:38 Blood Culture (Wb) - Arm Right Blood Culture - Preliminary No growth in 48 hours. 12/29/21 10:27 Blood Culture (Wb) - Anticubital Right Blood Culture - Preliminary No growth in 48 hours. Cardiology Labs/Tests 01/01/22 04:20: WBC 13.1 H, RBC 3.45 L, Hgb 10.3 L, Hct 32.1 L, MCV 93.0, MCH 29.9, MCHC 32.1, Plt Count 155, MPV 9.2, Immature Gran % (Auto) 0.800, Neut % (Auto) 89.2 H, Lymph % (Auto) 2.5 L, [place] % (Auto) 7.0, Eos % (Auto) 0.3, Baso % (Auto) 0.2, Absolute Neuts (auto) 11.7 H, Nucleated RBC % 0 01/01/22 04:20: Sodium 150 H, Potassium 2.5 L*, Chloride 120 H, Carbon Dioxide 25.0, Anion Gap 5, BUN 19 H, Creatinine 0.35 L, Est GFR (MDRD) Af Amer 319, Est GFR (MDRD) Non-Af 263, BUN/Creatinine Ratio 54.1 H, Glucose 99, Calcium 6.0 L*, Total Bilirubin 0.60 01/01/22 04:20: Phosphorus 1.3 L, Magnesium 1.5 L Rhythm: Sinus rhythm; paroxysmal atrial fibrillation/flutter Physical Exam Const alert and oriented x3 HEENT normocephalic, head/scalp atraumatic and hearing grossly normal bilaterally Eyes PERRL, EOMs intact bilaterally and conjunctivae normal Neck full ROM, supple and no JVD Resp clear to auscultation bilaterally Cardio Rhythm: regular rhythm Heart Sounds: S1 normal and S2 normal GI GI Narrative: Diminished bowel sounds Extremity no pedal edema Skin no rashes or lesions noted Psych mental status grossly normal Assessment & Plan Assessment/Plan (1) Atrial fibrillation: PLAN: The patient did have return to his atrial fibrillation/flutter. He received additional IV diltiazem and IV amiodarone. He appeared to continue with his atrial dysrhythmia. Thus he underwent synchronized biphasic DC cardioversion x3. It was noted he would regain sinus rhythm and then quickly returned to atrial fibrillation/flutter with RVR. He was then given additional rate limiting medication with IV beta-rena/metoprolol. He was noted later to have returned to sinus rhythm. Since that time it appears he has had a brief episode of paroxysmal atrial fibrillation. At the moment he will continue his rate limiting therapy with his oral beta-blockers which have been adjusted. He will continue IV diltiazem and IV amiodarone. When he is able to take oral medications that hopefully are being dissolved/absorbed and effective then these medications can be switched to oral medications as deemed appropriate at the time. Also when he is able to be considered for anticoagulation therapy this will need to be discussed. (2) Abnormal cardiac enzyme level: PLAN: The patient does have abnormal cardiac enzymes. At the moment this appears compatible with a type II non-STEMI secondary to his atrial dysrhythmia with atrial fibrillation/flutter with RVR superimposed upon his noncardiac gastrointestinal related issues. He did undergo evaluation with transthoracic echocardiogram. The results are as noted. At the moment he will continue to be monitored and continue medical management as deemed appropriate. At some point in time in the future, depending upon his overall case, he may need to be considered for further cardiac evaluation for the possibility of CAD with either noninvasive or invasive studies. (3) Acute gallstone pancreatitis: PLAN: The patient is continuing evaluation care per internal medicine, gastroenterology, and general surgery. (4) COPD (chronic obstructive pulmonary disease): PLAN: The patient will continue evaluation by internal medicine and pulmonology/critical care medicine as deemed appropriate. PLAN: Plan The above was discussed and reviewed with the patient. Again he was agreeable to this approach. This note was generated using a voice recognition system and there may be incorrect words, spelling or punctuation that were not noted when reviewing the office note prior to saving. Addt'l Comments The patient's case has been discussed and reviewed with the patient and his spouse. This note was generated using a voice recognition system and there may be incorrect words, spelling or punctuation that were not noted when reviewing the office note prior to saving.
--- NOTE | 2022-01-01 08:48 | PCM.PROGNOTE ---
Subjective Subjective Patient did well overnight without any tachycardia. He also had a bowel movement in his colostomy bag. He is not have any abdominal pain and wants to eat. Objective Data Objective Data Vital Signs: Vital Signs Temp Pulse Resp BP Pulse Ox O2 Del Method O2 Flow Rate 98.1 F 87 26 H 137/76 H 93 Nasal Cannula 3 01/01/22 04:00 01/01/22 07:00 01/01/22 07:00 01/01/22 07:00 01/01/22 07:30 01/01/22 07:30 01/01/22 07:30 FiO2 100 12/29/21 17:00 Oxygen Flow Rate (L/min) 3 Oxygen Delivery Method Nasal Cannula Weight: 186 lb 8.177 oz Body Mass Index (BMI) 24.5 Intake & Output: Intake and Output for Last 24 Hours 12/30/21 12/31/21 01/01/22 23:59 23:59 23:59 Intake Total 4643.24 / 5396.35 4777.26 / 5789.54 2239.23 / 2239.23 Output Total 5525 / 6225 4665 / 4665 1850 / 1850 Balance -881.76 / -828.65 112.26 / 1124.54 389.23 / 389.23 Lab / Micro Data Result Diagrams: 01/01/22 04:20 01/01/22 04:20 Labs: Laboratory Results - last 24 hr 01/01/22 04:20: WBC 13.1 H, RBC 3.45 L, Hgb 10.3 L, Hct 32.1 L, MCV 93.0, MCH 29.9, MCHC 32.1, RDW Std Deviation 49.1 H, RDW Coeff of Gladis 14.5, Plt Count 155, MPV 9.2, Immature Gran % (Auto) 0.800, Neut % (Auto) 89.2 H, Lymph % (Auto) 2.5 L, [place] % (Auto) 7.0, Eos % (Auto) 0.3, Baso % (Auto) 0.2, Absolute Neuts (auto) 11.7 H, Absolute Lymphs (auto) 0.33 L, Nucleated RBC % 0 01/01/22 04:20: Sodium 150 H, Potassium 2.5 L*, Chloride 120 H, Carbon Dioxide 25.0, Anion Gap 5, BUN 19 H, Creatinine 0.35 L, Estim Creat Clear Calc 76.52, Est GFR (MDRD) Af Amer 319, Est GFR (MDRD) Non-Af 263, BUN/Creatinine Ratio 54.1 H, Glucose 99, Calcium 6.0 L*, Total Bilirubin 0.60, AST 242 H, ALT 1254 H, Alkaline Phosphatase 59, Total Protein 4.2 L, Albumin 1.7 L, Globulin 2.5, Albumin/Globulin Ratio 0.7 L 01/01/22 04:20: Phosphorus 1.3 L, Magnesium 1.5 L Micro: Microbiology 12/29/21 10:38 Blood Culture (Wb) - Arm Right Blood Culture - Preliminary No growth in 48 hours. 12/29/21 10:27 Blood Culture (Wb) - Anticubital Right Blood Culture - Preliminary No growth in 48 hours. Physical Exam Const alert and oriented x3 HEENT normocephalic, head/scalp atraumatic and hearing grossly normal bilaterally Eyes PERRL, EOMs intact bilaterally and conjunctivae normal Neck full ROM, supple and no JVD Resp clear to auscultation bilaterally Cardio Rhythm: regular rhythm Heart Sounds: S1 normal and S2 normal GI GI Narrative: Diminished bowel sounds Extremity no pedal edema Skin no rashes or lesions noted Psych mental status grossly normal Assessment & Plan Assessment/Plan (1) Acute gallstone pancreatitis: PLAN: He is responding very well to meropenem, bowel rest and IV fluids. I am okay with him advancing his diet to a clear liquid diet. If he can tolerate a clear liquid diet then we can remove the NG tube and give him a full liquid diet. Continue antibiotic therapy for acute pancreatitis (2) Adynamic ileus: PLAN: It is a very good sign that his bowels are moving. This is suggesting that his ileus from acute severe pancreatitis is resolving Charges/Coding Visit Charges Inpatient E&M: 73981 Subs Hosp L2
--- NOTE | 2022-01-01 09:01 | PN.SURG_ITS ---
Subjective Subjective Patient seen and examined during AM rounds. He reports significant improvement in his abdominal discomfort. He also reports return of bowel function and states he has already emptied his ostomy appliance. Objective Data Objective Data Vital Signs: Vital Signs Temp Pulse Resp BP Pulse Ox O2 Del Method O2 Flow Rate 98.1 F 87 26 H 137/76 H 93 Nasal Cannula 3 01/01/22 04:00 01/01/22 07:00 01/01/22 07:00 01/01/22 07:00 01/01/22 07:30 01/01/22 07:30 01/01/22 07:30 FiO2 100 12/29/21 17:00 Oxygen Flow Rate (L/min) 3 Oxygen Delivery Method Nasal Cannula Weight: 186 lb 8.177 oz Body Mass Index (BMI) 24.5 Intake & Output: Intake and Output for Last 24 Hours 12/30/21 12/31/21 01/01/22 23:59 23:59 23:59 Intake Total 4643.24 / 5396.35 4777.26 / 5789.54 2239.23 / 2239.23 Output Total 5525 / 6225 4665 / 4665 1850 / 1850 Balance -881.76 / -828.65 112.26 / 1124.54 389.23 / 389.23 Lab / Micro Data Result Diagrams: 01/01/22 11:50 01/01/22 11:50 Labs: Laboratory Results - last 24 hr 01/01/22 04:20: WBC 13.1 H, RBC 3.45 L, Hgb 10.3 L, Hct 32.1 L, MCV 93.0, MCH 29.9, MCHC 32.1, RDW Std Deviation 49.1 H, RDW Coeff of Gladis 14.5, Plt Count 155, MPV 9.2, Immature Gran % (Auto) 0.800, Neut % (Auto) 89.2 H, Lymph % (Auto) 2.5 L, [place] % (Auto) 7.0, Eos % (Auto) 0.3, Baso % (Auto) 0.2, Absolute Neuts (auto) 11.7 H, Absolute Lymphs (auto) 0.33 L, Nucleated RBC % 0 01/01/22 04:20: Sodium 150 H, Potassium 2.5 L*, Chloride 120 H, Carbon Dioxide 25.0, Anion Gap 5, BUN 19 H, Creatinine 0.35 L, Estim Creat Clear Calc 76.52, Est GFR (MDRD) Af Amer 319, Est GFR (MDRD) Non-Af 263, BUN/Creatinine Ratio 54.1 H, Glucose 99, Calcium 6.0 L*, Total Bilirubin 0.60, AST 242 H, ALT 1254 H, Alkaline Phosphatase 59, Total Protein 4.2 L, Albumin 1.7 L, Globulin 2.5, Albumin/Globulin Ratio 0.7 L 01/01/22 04:20: Phosphorus 1.3 L, Magnesium 1.5 L Micro: Microbiology 12/29/21 10:38 Blood Culture (Wb) - Arm Right Blood Culture - Preliminary No growth in 48 hours. 12/29/21 10:27 Blood Culture (Wb) - Anticubital Right Blood Culture - Preliminary No growth in 48 hours. Physical Exam Const oriented x3 and no apparent distress Resp normal respiratory effort GI GI Narrative: Nasogastric tube in place with red-tinged output concerning for bleeding. Abdomen less distended and much less tender. Patient's greatest area of tenderness is localized to the right upper quadrant this morning. Ostomy appliance is distended with gas. Assessment & Plan Assessment/Plan (1) Acute gallstone pancreatitis: PLAN: This is a 71-year-old male hospital day 5 for management of gallstone pancreatitis. Patient appears significantly better today. His heart rate is much improved after cardioversion and so has his abdominal exam positive return of bowel function. From a biochemical perspective, he has a number of improvements as well?including his LFTs and leukocytosis. Recommend: ? Continued empiric antibiotic coverage for enterics ? From a surgical standpoint, would recommend initiation of a diet (starting with clear liquids) and discontinuation of nasogastric tube. Patient relates that he already has a plan in place from gastroenterology and will defer to Dr. Holley for this advancement. ? Repeat CMP and CBC in a.m. (2) Adynamic ileus: PLAN: Patient with adynamic ileus related to acute pancreatitis that is now resolved. Recommend diet advancement. Unfortunately patient appears to have developed bleeding via his nasogastric tube, but patient wishes to keep this until he has had a chance to try his diet. Charges/Coding Visit Charges Inpatient E&M: 31793 Subs Hosp L2
[2022-01-01] MEDS: ROFLUMILAST 500 MCG TABLET PO (10:59)
[2022-01-01] MEDS: Metoprolol Tartrate 50 MG Tablet PO ×2 (10:59→21:06)
[2022-01-01 12:30] LABS: Anion Gap 5 (5-15); BUN 21 mg/dL (7-18); BUN/Creat Ratio 35.1 RATIO (10-20); Calcium,Total 8.1 mg/dL (8.5-10.1); Chloride 109 mmol/L (98-107); EST Glomerular Filtration Rate 142 mL/min (>60); Est Glom Filt Rate - Afr Amer 172 mL/min (>60); Estimated Creatinine Clearance 76.52 ml/min; Glucose 98 mg/dL (74-106); Potassium 3.6 mmol/L (3.5-5.1); Sodium Level 146 mmol/L (136-145)
[2022-01-01 12:31] LABS: Hematocrit 40.4 % (40-54); Hemoglobin 12.7 g/dL (13.0-16.5)
--- NOTE | 2022-01-01 13:46 | CASEMGMT ---
KATI RAMIREZ NOTE: Pt states family can bring portable O2 concentrator in for him to go home on @ D/C. Jana SORTO RN, CM
--- NOTE | 2022-01-01 16:30 | PN.HOSP_ITS ---
Subjective Subjective Patient was seen and examined today in ICU, he has been having some reddish drainage from his NG tube, initially this was not thought to be blood but later on today I was notified by nursing that it appears that it is blood. I talked to gastroenterology about this today and at the time of this dictation they are planning on performing EGD later today. Patient remains in sinus rhythm at this time, I talked briefly with cardiology about his care. Patient had a repeat H&H done today at around 12 noon which showed his hemoglobin to be 12.7-this appears to be stable. Patient has had some output in his ostomy since yesterday, gastroenterology initially today was going to give him liquids and clamp his NG tube before it was noted that he had bleeding from his NG tube. Objective Data Objective Data Vital Signs: Vital Signs Temp Pulse Resp BP Pulse Ox O2 Del Method O2 Flow Rate 98.8 F 98 23 H 136/69 H 98 Nasal Cannula 3 01/01/22 12:00 01/01/22 12:00 01/01/22 12:00 01/01/22 12:00 01/01/22 12:00 01/01/22 12:00 01/01/22 12:00 FiO2 100 12/29/21 17:00 Oxygen Flow Rate (L/min) 3 Oxygen Delivery Method Nasal Cannula Weight: 84.6 kg Body Mass Index (BMI) 24.5 Intake & Output: Intake and Output for Last 24 Hours 12/30/21 12/31/21 01/01/22 23:59 23:59 23:59 Intake Total 4643.24 / 5396.35 4777.26 / 5789.54 3892.04 / 3892.04 Output Total 5525 / 6225 4665 / 4665 3250 / 3250 Balance -881.76 / -828.65 112.26 / 1124.54 642.04 / 642.04 Lab / Micro Data Result Diagrams: 01/01/22 11:50 01/01/22 11:50 Labs: Laboratory Results - last 24 hr 01/01/22 04:20: WBC 13.1 H, RBC 3.45 L, Hgb 10.3 L, Hct 32.1 L, MCV 93.0, MCH 29.9, MCHC 32.1, RDW Std Deviation 49.1 H, RDW Coeff of Gladis 14.5, Plt Count 155, MPV 9.2, Immature Gran % (Auto) 0.800, Neut % (Auto) 89.2 H, Lymph % (Auto) 2.5 L, [place] % (Auto) 7.0, Eos % (Auto) 0.3, Baso % (Auto) 0.2, Absolute Neuts (auto) 11.7 H, Absolute Lymphs (auto) 0.33 L, Nucleated RBC % 0 01/01/22 04:20: Sodium 150 H, Potassium 2.5 L*, Chloride 120 H, Carbon Dioxide 25.0, Anion Gap 5, BUN 19 H, Creatinine 0.35 L, Estim Creat Clear Calc 76.52, Est GFR (MDRD) Af Amer 319, Est GFR (MDRD) Non-Af 263, BUN/Creatinine Ratio 54.1 H, Glucose 99, Calcium 6.0 L*, Total Bilirubin 0.60, AST 242 H, ALT 1254 H, Alkaline Phosphatase 59, Total Protein 4.2 L, Albumin 1.7 L, Globulin 2.5, Albumin/Globulin Ratio 0.7 L 01/01/22 04:20: Phosphorus 1.3 L, Magnesium 1.5 L 01/01/22 11:50: Sodium 146 H, Potassium 3.6, Chloride 109 H, Carbon Dioxide 32.0, Anion Gap 5, BUN 21 H, Creatinine 0.60 L, Estim Creat Clear Calc 76.52, Est GFR (MDRD) Af Amer 172, Est GFR (MDRD) Non-Af 142, BUN/Creatinine Ratio 35.1 H, Glucose 98, Calcium 8.1 L 01/01/22 11:50: Hgb 12.7 L, Hct 40.4 Micro: Microbiology 12/29/21 10:38 Blood Culture (Wb) - Arm Right Blood Culture - Preliminary No growth in 48 hours. 12/29/21 10:27 Blood Culture (Wb) - Anticubital Right Blood Culture - Prel iminary No growth in 48 hours. Physical Exam Narrative Const alert, oriented x3 and no apparent distress General Appearance: cooperative, NG tube is in place HEENT normocephalic and moist oral mucous membranes Eyes PERRL, EOMs intact bilaterally and conjunctivae normal Neck supple and no JVD Resp normal respiratory effort, no retractions, no use of accessory muscles Auscultation: Diminished, negative for crackles, rales, rhonchi or wheezes Cardio Abnormal rate and rhythm, S1 normal heart sound, S2 normal heart sound and no murmurs GI soft to palpation and non-distended; Negative for hepatosplenomegaly GI Narrative: Ostomy in place Palpation: Minimally tender in the epigastric region Extremity no clubbing, cyanosis or edema Skin no rashes or lesions noted Neuro no focal motor deficits and no sensory deficits noted Psych affect normal Appearance: appropriate Const alert, oriented x3 and no apparent distress Constitutional Narrative: Patient has an NG tube General Appearance: cooperative, well kempt and well developed Orientation / Consciousness: awake, oriented to person, oriented to place and oriented to time HEENT normocephalic, head/scalp atraumatic and moist oral mucous membranes Eyes PERRL, EOMs intact bilaterally and conjunctivae normal Eyes Narrative: No icterus Neck nuchal rigidity, no lymphadenopathy, supple, no JVD, thyroid normal and no carotid bruits Neck Narrative: No thyromegaly General: trachea midline Resp normal respiratory effort, no retractions, no use of accessory muscles and clear to auscultation bilaterally Resp Narrative: Diminished throughout but clear. Auscultation: Negative for crackles, rales, rhonchi or wheezes Cardio regular rate, regular rhythm, S1 normal heart sound, S2 normal heart sound, no murmurs, no rub and no gallops GI soft to palpation, non-tender and non-distended; Negative for hepatosplenomegaly GI Narrative: Patient has colostomy present in the left lower extremity Auscultation: hypoactive bowel sounds Palpation: tender epigastric Extremity normal to inspection and no clubbing, cyanosis or edema Skin no rashes or lesions noted Skin Narrative: No rashes, sores. General Skin Exam: no breakdown Neuro oriented x3, CN's II-XII intact bilaterally, moves all extremities, no focal motor deficits and no sensory deficits noted Sensorium / Orientation: awake and alert Speech: speech normal Psych affect normal Appearance: appropriate Assessment & Plan Assessment/Plan (1) Atrial fibrillation: PLAN: Plan 1. Gallstone pancreatitis-surgery is participating in his care as well as GI, continue present medications #2 paroxysmal atrial fibrillation with RVR-now converted to sinus rhythm, cardiology is participating in his care #3 chronic obstructive pulmonary disease-patient is currently on nasal cannula O2 #4 adynamic ileus-patient has an NG tube in, continue care per general surgery and gastroenterology #5 chronic hypoxic respiratory failure-patient is on chronic oxygen at home, pulse ox will be monitored here #6 blood in NG tube-patient will undergo an EGD today by gastroenterology. Patient's hemoglobin appears to be stable #7 [id number] II-cardiology is participating in his care, current medications will be continued Charges/Coding Visit Charges Inpatient E&M: 07709 Subs Hosp L2
--- NOTE | 2022-01-01 17:04 | NURSING ---
Pt. off unit to endo
--- NOTE | 2022-01-01 17:45 | EGD_PTH ---
PATIENT: NABIL SORENSEN LOC: [facility] U#:[id number] AGE/SX: 71/M ROOM: [facility] RE12/28/[address]: Dr. Sanjay Patel DO : 1950 BED: 1 DIS: 01/08/2022 SPEC #: [id number] RECD: 01/01/22 18:24 STATUS: RICARDO RECyrus #: [id number] BRITTANIE: 01/01/22 17:[address]: Blaine Holley DEPT: SURGICAL PATHOLOGY RECD BY: Isidro Genao ENTERED: 01/05/22 10:12 SP TYPE: EGD BIOPSY OTHR DR: DO Dr. London Napier MD Dr. Michael Bortz, MD Dr. Mark Tereletsky, DO Dr. Nicholas F Kotsonis, MD Dr. Paul Moodispaw, MD Tissues: Esophagus, NOS Procedures: Special Stain Group II Surgery Specimen Level IV Alcian Blue/PAS (control) HEADER OPERATION: EGD (MAC) PRE-OP DIAGNOSIS: Acute gallstone pancreatitis, adynamic ileus, upper GI bleeding TISSUE SUBMITTED: Distal esophagus biopsy MICROSCOPIC DIAGNOSIS Distal esophagus, biopsy: Gastroesophageal junctional mucosa with mild chronic inflammation. 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 No evidence of dysplasia. AM:skinny 01/06/2022 COMMENT Immunohistochemistry ([id number]) for P53 and Ki-67 will be performed and results will be reported separately. Alcian blue/PAS stain with matched control supports the above diagnosis. MICROSCOPIC DESCRIPTION Slides are reviewed. GROSS DESCRIPTION Received in fixative is one container labeled with the patient's name and designated biopsy distal esophagus. The specimen consists of one irregular fragment of light bajwa soft tissue that measures 0.3 x 0.2 x 0.1 cm. The specimen is totally submitted in one cassette. / SJ:skinny 01/05/2022 TC:3 CPT: 20721, 43392
--- NOTE | 2022-01-01 18:08 | OP.EGD_ITS ---
Patient Name: Marcos Ruiz Procedure Date: 01/01/2022 5:38 PM Date of : 1950 Age: 71 Procedure: Upper GI endoscopy Indications: Hematemesis Providers: Blaine Holley DO Medicines: Monitored Anesthesia Care Patient Profile: This is a 71 year old male. Refer to note in patient chart for documentation of history and physical. Patient has symptoms. The symptoms first began 01,. Complications: No immediate complications. Procedure: Pre-Anesthesia Assessment: - Prior to the procedure, a History and Physical was performed, and patient medications and allergies were reviewed. The patient is competent. The risks and benefits of the procedure and the sedation options and risks were discussed with the patient. All questions were answered and informed consent was obtained. Patient identification and proposed procedure were verified by the physician in the pre-procedure area. Mental Status Examination: alert and oriented. Airway Examination: normal oropharyngeal airway and neck mobility. Respiratory Examination: clear to auscultation. CV Examination: normal. Prophylactic Antibiotics: The patient does not require prophylactic antibiotics. Prior Anticoagulants: The patient has taken no previous anticoagulant or antiplatelet agents. ASA Grade Assessment: II - A patient with mild systemic disease. After reviewing the risks and benefits, the patient was deemed in satisfactory condition to undergo the procedure. The anesthesia plan was to use moderate sedation / analgesia (conscious sedation). Immediately prior to administration of medications, the patient was re-assessed for adequacy to receive sedatives. The heart rate, respiratory rate, oxygen saturations, blood pressure, adequacy of pulmonary ventilation, and response to care were monitored throughout the procedure. The physical status of the patient was re-assessed after the procedure. After obtaining informed consent, the endoscope was passed under direct vision. Throughout the procedure, the patient's blood pressure, pulse, and oxygen saturations were monitored continuously. The gastroscope was introduced through the mouth, and advanced to the second part of duodenum. The upper GI endoscopy was accomplished without difficulty. The patient tolerated the procedure well. Scope In: 5:53:42 PM Scope Out: 5:59:00 PM Total Procedure Duration Time 0 hours 5 minutes 18 seconds Findings: LA Grade D (one or more mucosal breaks involving at least 75% of esophageal circumference) esophagitis with bleeding was found 35 to 39 cm from the incisors. Coagulation for hemostasis using heater probe was successful. Estimated blood loss was minimal. Biopsies were taken with a cold forceps for histology. Biopsies were taken with a cold forceps for histology. Verification of patient identification for the specimen was done. Estimated blood loss was minimal. Diffuse severe inflammation characterized by congestion (edema), erosions, erythema and shallow ulcerations was found in the entire examined stomach. Coagulation for hemostasis using heater probe was successful. Estimated blood loss was minimal. No gross lesions were noted in the first portion of the duodenum. Impression: - LA Grade D acute esophagitis. Treated with a heater probe. Biopsied. - Gastritis. Treated with a heater probe. - No gross lesions in the first portion of the duodenum. Recommendation: - Return patient to ICU for ongoing care. - Give Protonix (pantoprazole): initiate therapy with 80 mg IV bolus, then 8 mg/hr IV by continuous infusion for 2 days. - Continue present medications. Procedure Code(s): --- Professional --- 27756, 59, Esophagogastroduodenoscopy, flexible, transoral; with control of bleeding, any method 58553, 51, Esophagogastroduodenoscopy, flexible, transoral; with biopsy, single or multiple CPT copyright 2017 [employer]. All rights reserved. The codes documented in this report are preliminary and upon retail pos specialist review may be revised to meet current compliance requirements. Blaine Holley DO 01/01/2022 6:07:54 PM This report has been signed electronically. Number of Addenda: 1 Note Initiated On: 01/01/2022 5:38 PM Addendum Number: 1 Addendum Date: 04/07/2022 6:33:03 AM MAC was used as sedation for this procedure. Blaine Holley DO 04/07/2022 6:33:07 AM This report has been signed electronically.
--- NOTE | 2022-01-01 18:08 | OP.CCLET_ITS ---
04/07/2022 [place]ott Re : Upper GI endoscopy procedure for Marcos Ruiz Dear Kaylie This procedure was performed on Saturday, January 01, 2022. My impressions and recommendations are as follows: Impressions : - LA Grade D acute esophagitis. Treated with a heater probe. Biopsied. - Gastritis. Treated with a heater probe. - No gross lesions in the first portion of the duodenum. Recommendations : - Return patient to ICU for ongoing care. - Give Protonix (pantoprazole): initiate therapy with 80 mg IV bolus, then 8 mg/hr IV by continuous infusion for 2 days. - Continue present medications. My findings are described in the full procedure note, which is enclosed. If I can be of further assistance, please feel free to contact me at . Sincerely, Blaine Friend, 01/01/2022 6:07:54 PM This report has been signed electronically.
[2022-01-02] VITALS (29 sets, daily range): BP systolic 105–130; BP diastolic 64–93; PULSE 60–84; RESP 15–27; TEMP 36.4–36.6; O2SAT 85–100
[2022-01-02] MEDS: 0.9% Normal Saline 1,000 ML 125 ML IV (02:28)
[2022-01-02] MEDS: Ondansetron 4 MG/2 ML Vial IV (02:51)
[2022-01-02 03:39] LABS: Absolute Lymphocyte Count 0.38 X10^3/uL (0.83-4.51); Absolute Neutrophil Count 18.8 X10^3/uL (2.0-7.7); Basophil# 0.09 X10^3/uL; Basophil% 0.4 % (0-1); Eosinophil# 0.16 X10^3/uL; Eosinophils% 0.8 % (0-5); Hemoglobin 13.6 g/dL (13.0-16.5); Lymphocyte # 0.38 X10^3/ul (0.83-4.51); Lymphocyte % 1.8 % (19-41); Mean Corp Hgb Conc 30.9 g/dL (32-36); Mean Corpuscular Hgb 29.4 pg (27.0-32.0); Mean Platelet Vol. 9.2 fl (6.2-12.0); Monocyte# 1.62 X10^3/uL; Monocyte% 7.6 % (0-10); NRBC Flagged by Analyzer 0 % (0-5); Neutrophil # 18.77 X10^3/uL (2.7-7.7); Neutrophil % 87.9 % (47-70); POSITIVE DIFFERENTIAL YES; Platelet Count 245 K/mm3 (150-450); RBC Distribution Width CV 14.5 % (11.6-14.6); RBC Distribution Width SD 50.8 fl (35.1-43.9); Red Blood Count 4.63 M/mm3 (4.6-6.2); White Blood Count 21.3 K/mm3 (4.4-11.0)
--- NOTE | 2022-01-02 03:40 | PCM.HOSP.N ---
Hospitalist Note Patient with increasing oxygen requirements, crackles on respiratory evaluation. Currently allowed clears per GI. Will d/c IVFs. Will administer IV lasix x 1.
[2022-01-02 03:42] LABS: Differential Indicated SCAN CRITERIA MET
[2022-01-02] MEDS: 0.9% Saline Lock 10 ML Syringe IV (04:12)
[2022-01-02] MEDS: Furosemide 40 MG/4 ML Vial IV ×3 (04:12→17:43)
[2022-01-02 04:14] LABS: ALB/GLOB Ratio 0.6 RATIO (0.9-2.4); AST(SGOT) 116 U/L (15-37); Alanine Aminotransfer ALT/SGPT 1127 U/L (16-61); Albumin, Serum 2.3 g/dL (3.2-5.0); Alkaline Phosphatase 88 U/L (45-117); Anion Gap 3 (5-15); BUN 23 mg/dL (7-18); BUN/Creat Ratio 37.6 RATIO (10-20); Calcium,Total 8.1 mg/dL (8.5-10.1); Chloride 111 mmol/L (98-107); Creatinine, Serum 0.61 mg/dL (0.70-1.30); EST Glomerular Filtration Rate 139 mL/min (>60); Est Glom Filt Rate - Afr Amer 168 mL/min (>60); Estimated Creatinine Clearance 76.52 ml/min; Globulin 3.6 g/dL (2.2-4.2); Glucose 115 mg/dL (74-106); Magnesium 2.2 mg/dL (1.6-2.6); Phosphorus 2.5 mg/dL (2.5-4.9); Potassium 4.2 mmol/L (3.5-5.1); Protein, Total 5.9 g/dL (6.4-8.2); Sodium Level 144 mmol/L (136-145)
[2022-01-02 05:47] LABS: Differential Comment SCANNED
--- NOTE | 2022-01-02 08:25 | RAD_ITS ---
EXAM: XR CHEST, 1 VIEW CLINICAL INDICATION: CHF. TECHNIQUE: Frontal view of the chest. This report was created using [employer] report generation technology. COMPARISON: 12/29/2021. FINDINGS: LUNGS AND PLEURAL SPACES: No suspicious infiltrates and no suspicious pulmonary nodules. Probable cysts in both lungs. No pneumothorax. No effusion. HEART: Unremarkable. Cardiac silhouette not enlarged. MEDIASTINUM: Central airways and mediastinal contour are unremarkable. BONES/JOINTS: Unremarkable. SOFT TISSUES: Unremarkable. RAD/Chest 1 View (Portable) IMPRESSION: 1. No acute findings in the chest. 2. Probable cysts in both lungs. 3. No interval change when compared to 12/29/2021. Electronically Signed: Abdi Holcomb MD at 9:02 EDT ,
--- NOTE | 2022-01-02 08:39 | CT_ITS ---
EXAM: CT ABDOMEN AND PELVIS WITH INTRAVENOUS CONTRAST CLINICAL INDICATION: Pancreatitis. Unexplained leukocytosis. TECHNIQUE: Helically acquired images were obtained of the abdomen and pelvis with intravenous contrast. This CT exam was performed using one or more of the following dose reduction techniques: automated exposure control, adjustment of the mA and/or kV according to patient size, and/or use of iterative reconstruction technique. This report was created using [employer] report generation technology. CONTRAST: IV 75mL [id number]-370 RADIATION DOSE: CTDIvol = 17.33 mGy, DLP = 1181.45 mGy-cm COMPARISON: CT abdomen and pelvis with contrast 12/29/2021. FINDINGS: LOWER THORAX: Mild bilateral posterior pleural fluid are new findings. Cysts in both lungs are unchanged. Trace anterior pericardial fluid. Normal cardiac size. ABDOMEN: LIVER: Small nonenhancing cyst in the left hepatic lobe is unchanged. GALLBLADDER AND BILE DUCTS: Multiple gallstones inside the nondilated gallbladder fossa are unchanged. No gallbladder distention or wall edema. PANCREAS: Edema of the peripancreatic fat has increased. No suspicious mass in the pancreas. Mild increase edema in both anterior pararenal spaces. SPLEEN: Unremarkable. Normal size without focal cystic or solid mass. ADRENALS: Unremarkable. No nodules. KIDNEYS AND URETERS: Unremarkable. Normal renal size and position. No hydronephrosis. STOMACH AND BOWEL: Left anterior colostomy is unchanged. No stomach or bowel distention. No focal inflammatory change. PELVIS: APPENDIX: The appendix is not visualized. BLADDER: Unremarkable. REPRODUCTIVE: Unremarkable as visualized. No mass. ABDOMEN and PELVIS: INTRAPERITONEAL SPACE: Small ascites overlying the liver surface. Moderate ascites in the central pelvis. No free air. BONES/JOINTS: Old central compression fracture of the upper L3 vertebral body is unchanged. No suspicious lytic or blastic abnormality. SOFT TISSUES: Unremarkable. No discrete abdominal or pelvic wall hernia. VASCULATURE: Unremarkable. Abdominal aorta is non-dilated. LYMPH NODES: Unremarkable. No enlarged lymph nodes. CT/Abdomen/Pelvis W IV Cont ONLY IMPRESSION: 1. Multiple gallstones are unchanged. 2. Increasing edema along the peripancreatic fat and increase edema/fluid in both anterior pararenal spaces. 3. Increase ascites overlying the liver and in the central pelvis. 4. Nonenhancing benign cyst in the left hepatic lobe is unchanged. 5. Mild bilateral posterior pleural fluid are new findings. 6. No other additional findings or changes when compared to 12/29/2021. Electronically Signed: Abdi Holcomb MD at 10:59 EDT ,
--- NOTE | 2022-01-02 08:50 | PCM.PN.CARD ---
Subjective Subjective The patient is awake and alert. He did note concerns of shortness of breath yesterday evening. He has denied chest discomfort or obvious palpitations. He states he has been taking liquids without any obvious issues or emesis. Objective Data Vital Signs: Vital Signs Temp Pulse Resp BP Pulse Ox O2 Del Method O2 Flow Rate 97.8 F 72 24 H 119/69 96 Nasal Cannula 3 01/02/22 05:00 01/02/22 07:00 01/02/22 07:00 01/02/22 07:00 01/02/22 07:44 01/02/22 08:00 01/02/22 08:00 FiO2 100 12/29/21 17:00 Oxygen Flow Rate (L/min) 3 Oxygen Delivery Method Nasal Cannula Weight: 188 lb 3 oz Body Mass Index (BMI) 24.5 Intake & Output: Intake and Output for Last 24 Hours 12/31/21 01/01/22 01/02/22 23:59 23:59 23:59 Intake Total 4777.26 / 5789.54 5351.51 / 5809.94 2141.34 / 2141.34 Output Total 4665 / 4665 3500 / 3850 1525 / 1525 Balance 112.26 / 1124.54 1851.51 / 1959.94 616.34 / 616.34 Lab / Micro Data Result Diagrams: 01/02/22 03:25 01/02/22 03:25 Labs: Laboratory Results - last 24 hr 01/01/22 11:50: Sodium 146 H, Potassium 3.6, Chloride 109 H, Carbon Dioxide 32.0, Anion Gap 5, BUN 21 H, Creatinine 0.60 L, Estim Creat Clear Calc 76.52, Est GFR (MDRD) Af Amer 172, Est GFR (MDRD) Non-Af 142, BUN/Creatinine Ratio 35.1 H, Glucose 98, Calcium 8.1 L 01/01/22 11:50: Hgb 12.7 L, Hct 40.4 01/02/22 03:25: WBC 21.3 H, RBC 4.63, Hgb 13.6, Hct 44.0, MCV 95.0 H, MCH 29.4, MCHC 30.9 L, RDW Std Deviation 50.8 H, RDW Coeff of Gladis 14.5, Plt Count 245, MPV 9.2, Immature Gran % (Auto) 1.500 H, Neut % (Auto) 87.9 H, Lymph % (Auto) 1.8 L, [place] % (Auto) 7.6, Eos % (Auto) 0.8, Baso % (Auto) 0.4, Absolute Neuts (auto) 18.8 H, Absolute Lymphs (auto) 0.38 L, Nucleated RBC % 0, Differential Comment SCANNED, Diff Path Review November01/02/22 03:25: Sodium 144, Potassium 4.2, Chloride 111 H, Carbon Dioxide 30.0, Anion Gap 3 L, BUN 23 H, Creatinine 0.61 L, Estim Creat Clear Calc 76.52, Est GFR (MDRD) Af Amer 168, Est GFR (MDRD) Non-Af 139, BUN/Creatinine Ratio 37.6 H, Glucose 115 H, Calcium 8.1 L, Phosphorus 2.5, Magnesium 2.2, Total Bilirubin 0.80, AST 116 H, ALT 1127 H, Alkaline Phosphatase 88, Total Protein 5.9 L, Albumin 2.3 L, Globulin 3.6, Albumin/Globulin Ratio 0.6 L Cardiology Labs/Tests 01/01/22 11:50: Sodium 146 H, Potassium 3.6, Chloride 109 H, Carbon Dioxide 32.0, Anion Gap 5, BUN 21 H, Creatinine 0.60 L, Est GFR (MDRD) Af Amer 172, Est GFR (MDRD) Non-Af 142, BUN/Creatinine Ratio 35.1 H, Glucose 98, Calcium 8.1 L 01/01/22 11:50: Hgb 12.7 L, Hct 40.4 01/02/22 03:25: WBC 21.3 H, RBC 4.63, Hgb 13.6, Hct 44.0, MCV 95.0 H, MCH 29.4, MCHC 30.9 L, Plt Count 245, MPV 9.2, Immature Gran % (Auto) 1.500 H, Neut % (Auto) 87.9 H, Lymph % (Auto) 1.8 L, [place] % (Auto) 7.6, Eos % (Auto) 0.8, Baso % (Auto) 0.4, Absolute Neuts (auto) 18.8 H, Nucleated RBC % 0 01/02/22 03:25: Sodium 144, Potassium 4.2, Chloride 111 H, Carbon Dioxide 30.0, Anion Gap 3 L, BUN 23 H, Creatinine 0.61 L, Est GFR (MDRD) Af Amer 168, Est GFR (MDRD) Non-Af 139, BUN/Creatinine Ratio 37.6 H, Glucose 115 H, Calcium 8.1 L, Phosphorus 2.5, Magnesium 2.2, Total Bilirubin 0.80 Rhythm: Sinus rhythm; 1 brief episode appearing compatible with PAF Physical Exam Const alert and oriented x3 HEENT normocephalic, head/scalp atraumatic and hearing grossly normal bilaterally Eyes PERRL, EOMs intact bilaterally and conjunctivae normal Neck full ROM, supple and no JVD Resp Auscultation: wheezes scattered wheezes and breath sounds absent bilateral Cardio regular rate, regular rhythm, S1 normal heart sound and S2 normal heart sound Rhythm: regular rhythm Heart Sounds: S1 normal and S2 normal GI GI Narrative: Positive bowel sounds Extremity no pedal edema Skin no rashes or lesions noted Psych mental status grossly normal Assessment & Plan Assessment/Plan (1) Atrial fibrillation: PLAN: The patient appears to to be remaining in sinus rhythm with the exception of a brief episode of atrial fibrillation each day over the last 2 days. He is continuing rate control. He is continued IV antiarrhythmic therapy. He is not on anticoagulant therapy secondary to his underlying gastrointestinal related issues. An attempt will be made to increase his beta-rena dose and subsequently decrease and discontinue his IV diltiazem. If he remains stable with respect to his cardiac rhythm hopefully his IV amiodarone can be converted to oral amiodarone. Based upon his findings of upper GI bleed thought secondary to esophagitis/gastritis and concerns of his underlying pancreatitis he remains without anticoagulant therapy. (2) Abnormal cardiac enzyme level: PLAN: The patient does have abnormal cardiac enzymes. At the moment this appears compatible with a type II non-STEMI secondary to his atrial dysrhythmia with atrial fibrillation/flutter with RVR superimposed upon his noncardiac gastrointestinal related issues. He did undergo evaluation with transthoracic echocardiogram. The results are as noted. At the moment he will continue to be monitored and continue medical management as deemed appropriate. At some point in time in the future, depending upon his overall case, he may need to be considered for further cardiac evaluation for the possibility of CAD with either noninvasive or invasive studies. (3) CHF (congestive heart failure): PLAN: The patient appears to have developed symptoms compatible with CHF . This may be, based on his transthoracic echocardiogram, an element of heart failure with preserved ejection fraction. He did receive IV diuretics yesterday evening. Today he will receive additional IV diuretics. He will be having a follow-up chest x-ray as well to reassess his pulmonary status. (4) GI bleed: PLAN: The patient was noted to have concerns of an upper GI bleed. He underwent endoscopy. He was found to have esophagitis and gastritis treated with heater probe therapy and subsequently IV PPI. He will need to be monitored for any recurrent issues regarding this. Again this is another issue while he cannot initiate anticoagulant therapy at this time. (5) Acute gallstone pancreatitis: PLAN: The patient is continuing evaluation care per internal medicine, gastroenterology, and general surgery. (6) COPD (chronic obstructive pulmonary disease): PLAN: The patient will continue evaluation by internal medicine and pulmonology/critical care medicine as deemed appropriate. PLAN: Plan The above was discussed and reviewed with the patient. Again he was agreeable to this approach. This note was generated using a voice recognition system and there may be incorrect words, spelling or punctuation that were not noted when reviewing the office note prior to saving. Addt'l Comments The patient's case was discussed and reviewed with the patient and Dr. Ruiz. This note was generated using a voice recognition system and there may be incorrect words, spelling or punctuation that were not noted when reviewing the office note prior to saving.
[2022-01-02] MEDS: Amiodarone 360 MG in Dextrose 5% Viaflo Bag 192.8 ML 16.7 MG CONT INF (09:11)
[2022-01-02] MEDS: ROFLUMILAST 500 MCG TABLET PO (09:12)
[2022-01-02] MEDS: CHLORHEXIDINE GLUC 2% CLOTH 1 EACH TOWELETTE TOPICAL (09:14)
[2022-01-02] MEDS: Metoprolol Tartrate 100 MG Tablet PO ×2 (09:14→21:25)
[2022-01-02 09:25] LABS: Erythrocyte Sedimentation Rate 53 mm/hr (0-20)
[2022-01-02 09:44] LABS: Lactic Acid 1.5 mmol/L (0.4-1.9)
--- NOTE | 2022-01-02 11:37 | PCM.PN.SRG ---
Subjective Subjective patient denies abdominal pain surrounded by family this morning Objective Data Objective Data Vital Signs: Vital Signs Temp Pulse Resp BP Pulse Ox O2 Del Method O2 Flow Rate 97.8 F 84 18 126/80 H 97 Nasal Cannula 3 01/02/22 05:00 01/02/22 10:00 01/02/22 10:00 01/02/22 10:00 01/02/22 10:00 01/02/22 10:00 01/02/22 10:00 FiO2 100 12/29/21 17:00 Oxygen Flow Rate (L/min) 3 Oxygen Delivery Method Nasal Cannula Weight: 85.36 kg Body Mass Index (BMI) 24.5 Intake & Output: Intake and Output for Last 24 Hours 12/31/21 01/01/22 01/02/22 23:59 23:59 23:59 Intake Total 4777.26 / 5789.54 5351.51 / 5809.94 2311.01 / 2311.01 Output Total 4665 / 4665 3500 / 3850 2525 / 2525 Balance 112.26 / 1124.54 1851.51 / 1959.94 -213.99 / -213.99 Lab / Micro Data Attestation: I reviewed the patient's lab results. Result Diagrams: 01/02/22 03:25 01/02/22 03:25 Labs: Laboratory Results - last 24 hr 01/01/22 11:50: Sodium 146 H, Potassium 3.6, Chloride 109 H, Carbon Dioxide 32.0, Anion Gap 5, BUN 21 H, Creatinine 0.60 L, Estim Creat Clear Calc 76.52, Est GFR (MDRD) Af Amer 172, Est GFR (MDRD) Non-Af 142, BUN/Creatinine Ratio 35.1 H, Glucose 98, Calcium 8.1 L 01/01/22 11:50: Hgb 12.7 L, Hct 40.4 01/02/22 03:25: WBC 21.3 H, RBC 4.63, Hgb 13.6, Hct 44.0, MCV 95.0 H, MCH 29.4, MCHC 30.9 L, RDW Std Deviation 50.8 H, RDW Coeff of Gladis 14.5, Plt Count 245, MPV 9.2, Immature Gran % (Auto) 1.500 H, Neut % (Auto) 87.9 H, Lymph % (Auto) 1.8 L, [place] % (Auto) 7.6, Eos % (Auto) 0.8, Baso % (Auto) 0.4, Absolute Neuts (auto) 18.8 H, Absolute Lymphs (auto) 0.38 L, Nucleated RBC % 0, Differential Comment SCANNED, Diff Path Review November01/02/22 03:25: Sodium 144, Potassium 4.2, Chloride 111 H, Carbon Dioxide 30.0, Anion Gap 3 L, BUN 23 H, Creatinine 0.61 L, Estim Creat Clear Calc 76.52, Est GFR (MDRD) Af Amer 168, Est GFR (MDRD) Non-Af 139, BUN/Creatinine Ratio 37.6 H, Glucose 115 H, Calcium 8.1 L, Phosphorus 2.5, Magnesium 2.2, Total Bilirubin 0.80, AST 116 H, ALT 1127 H, Alkaline Phosphatase 88, Total Protein 5.9 L, Albumin 2.3 L, Globulin 3.6, Albumin/Globulin Ratio 0.6 L 01/02/22 09:00: ESR 53 H 01/02/22 09:00: C-React Prot Ext Range 95.10 H 01/02/22 09:00: Lactic Acid 1.5 Micro: Microbiology 12/29/21 10:38 Blood Culture (Wb) - Arm Right Blood Culture - Preliminary No growth in 48 hours. 12/29/21 10:27 Blood Culture (Wb) - Anticubital Right Blood Culture - Preliminary No growth in 48 hours. Radiography Diagnostic Testing: Radiology Impression Chest X-Ray 01/02/22 08:25 IMPRESSION: 1. No acute findings in the chest. 2. Probable cysts in both lungs. 3. No interval change when compared to 12/29/2021. Electronically Signed: Abdi Holcomb MD at 9:02 EDT , Abdomen/Pelvis CT 01/02/22 08:39 IMPRESSION: 1. Multiple gallstones are unchanged. 2. Increasing edema along the peripancreatic fat and increase edema/fluid in both anterior pararenal spaces. 3. Increase ascites overlying the liver and in the central pelvis. 4. Nonenhancing benign cyst in the left hepatic lobe is unchanged. 5. Mild bilateral posterior pleural fluid are new findings. 6. No other additional findings or changes when compared to 12/29/2021. Electronically Signed: Abdi Holcomb MD at 10:59 EDT , Physical Exam Const alert and oriented x3 Resp normal respiratory effort Effort and Inspection: able to speak in complete sentences GI GI Narrative: abdomen - soft and benign Assessment & Plan Assessment/Plan (1) Acute gallstone pancreatitis: PLAN: s/p recent OR Surgery postponed for now
--- NOTE | 2022-01-02 11:48 | PCM.PN.HOSP ---
Subjective Subjective Patient was seen and examined this rhythm at this time, he appears dyspneic at rest but his pulse ox is above 90%. I talked with cardiology about his care today, they recommended giving him IV Lasix and increasing his metoprolol. Patient's NG tube was removed yesterday by gastroenterology. Patient had a chest x-ray today which did not show any evidence of CHF or acute infiltrate. Objective Data Objective Data Vital Signs: Vital Signs Temp Pulse Resp BP Pulse Ox O2 Del Method O2 Flow Rate 97.8 F 84 18 126/80 H 97 Nasal Cannula 3 01/02/22 05:00 01/02/22 10:00 01/02/22 10:00 01/02/22 10:00 01/02/22 10:00 01/02/22 10:00 01/02/22 10:00 FiO2 100 12/29/21 17:00 Oxygen Flow Rate (L/min) 3 Oxygen Delivery Method Nasal Cannula Weight: 85.36 kg Body Mass Index (BMI) 24.5 Intake & Output: Intake and Output for Last 24 Hours 12/31/21 01/01/22 01/02/22 23:59 23:59 23:59 Intake Total 4777.26 / 5789.54 5351.51 / 5809.94 2311.01 / 2311.01 Output Total 4665 / 4665 3500 / 3850 2525 / 2525 Balance 112.26 / 1124.54 1851.51 / 1959.94 -213.99 / -213.99 Lab / Micro Data Result Diagrams: 01/02/22 03:25 01/02/22 03:25 Labs: Laboratory Results - last 24 hr 01/01/22 11:50: Sodium 146 H, Potassium 3.6, Chloride 109 H, Carbon Dioxide 32.0, Anion Gap 5, BUN 21 H, Creatinine 0.60 L, Estim Creat Clear Calc 76.52, Est GFR (MDRD) Af Amer 172, Est GFR (MDRD) Non-Af 142, BUN/Creatinine Ratio 35.1 H, Glucose 98, Calcium 8.1 L 01/01/22 11:50: Hgb 12.7 L, Hct 40.4 01/02/22 03:25: WBC 21.3 H, RBC 4.63, Hgb 13.6, Hct 44.0, MCV 95.0 H, MCH 29.4, MCHC 30.9 L, RDW Std Deviation 50.8 H, RDW Coeff of Gladis 14.5, Plt Count 245, MPV 9.2, Immature Gran % (Auto) 1.500 H, Neut % (Auto) 87.9 H, Lymph % (Auto) 1.8 L, [place] % (Auto) 7.6, Eos % (Auto) 0.8, Baso % (Auto) 0.4, Absolute Neuts (auto) 18.8 H, Absolute Lymphs (auto) 0.38 L, Nucleated RBC % 0, Differential Comment SCANNED, Diff Path Review November01/02/22 03:25: Sodium 144, Potassium 4.2, Chloride 111 H, Carbon Dioxide 30.0, Anion Gap 3 L, BUN 23 H, Creatinine 0.61 L, Estim Creat Clear Calc 76.52, Est GFR (MDRD) Af Amer 168, Est GFR (MDRD) Non-Af 139, BUN/Creatinine Ratio 37.6 H, Glucose 115 H, Calcium 8.1 L, Phosphorus 2.5, Magnesium 2.2, Total Bilirubin 0.80, AST 116 H, ALT 1127 H, Alkaline Phosphatase 88, Total Protein 5.9 L, Albumin 2.3 L, Globulin 3.6, Albumin/Globulin Ratio 0.6 L 01/02/22 09:00: ESR 53 H 01/02/22 09:00: C-React Prot Ext Range 95.10 H 01/02/22 09:00: Lactic Acid 1.5 Micro: Microbiology 12/29/21 10:38 Blood Culture (Wb) - Arm Right Blood Culture - Preliminary No growth in 48 hours. 12/29/21 10:27 Blood Culture (Wb) - Anticubital Right Blood Culture - Preliminary No growth in 48 hours. Radiography Diagnostic Testing: Radiology Impression Chest X-Ray 01/02/22 08:25 IMPRESSION: 1. No acute findings in the chest. 2. Probable cysts in both lungs. 3. No interval change when compared to 12/29/2021. Electronically Signed: Abdi Holcomb MD at 9:02 EDT , Abdomen/Pelvis CT 01/02/22 08:39 IMPRESSION: 1. Multiple gallstones are unchanged. 2. Increasing edema along the peripancreatic fat and increase edema/fluid in both anterior pararenal spaces. 3. Increase ascites overlying the liver and in the central pelvis. 4. Nonenhancing benign cyst in the left hepatic lobe is unchanged. 5. Mild bilateral posterior pleural fluid are new findings. 6. No other additional findings or changes when compared to 12/29/2021. Electronically Signed: Abdi Holcomb MD at 10:59 EDT , Physical Exam Const alert and oriented x3 Constitutional Narrative: Patient appears to be in mild respiratory distress at rest General Appearance: cooperative, well kempt and well developed Orientation / Consciousness: awake, oriented to person, oriented to place and oriented to time HEENT normocephalic, head/scalp atraumatic and moist oral mucous membranes Eyes PERRL, EOMs intact bilaterally and conjunctivae normal Eyes Narrative: No icterus Neck no lymphadenopathy, supple, no JVD and thyroid normal Neck Narrative: No thyromegaly General: trachea midline Resp normal respiratory effort, no retractions, no use of accessory muscles and clear to auscultation bilaterally Resp Narrative: Diminished throughout but clear. Auscultation: Negative for crackles, rales, rhonchi or wheezes Cardio regular rate, regular rhythm, S1 normal heart sound, S2 normal heart sound, no murmurs, no rub and no gallops GI soft to palpation, non-tender and non-distended; Negative for hepatosplenomegaly GI Narrative: Patient has colostomy present in the left lower extremity Auscultation: hypoactive bowel sounds Palpation: tender epigastric Extremity normal to inspection and no clubbing, cyanosis or edema Skin no rashes or lesions noted Skin Narrative: No rashes, sores. General Skin Exam: no breakdown Neuro oriented x3, CN's II-XII intact bilaterally, moves all extremities, no focal motor deficits and no sensory deficits noted Sensorium / Orientation: awake and alert Speech: speech normal Psych affect normal Appearance: appropriate Assessment & Plan Assessment/Plan (1) Atrial fibrillation: PLAN: Plan 1. Gallstone pancreatitis-surgery is participating in his care as well as GI, continue present medications #2 paroxysmal atrial fibrillation with RVR-now converted to sinus rhythm, cardiology is participating in his care #3 chronic obstructive pulmonary disease-patient is currently on nasal cannula O2 #4 adynamic ileus-resolved at this time #5 chronic hypoxic respiratory failure-patient is on chronic oxygen at home, pulse ox will be monitored here #6 Leukocytosis-etiology unclear, patient remains on IV antibiotics, CBC will be repeated tomorrow #7 [id number] II-cardiology is participating in his care, current medications will be continued Charges/Coding Visit Charges Inpatient E&M: 69496 Subs Hosp L2
[2022-01-02] MEDS: Amiodarone 200 MG Tablet PO ×2 (16:09→21:25)
[2022-01-02] MEDS: Acetaminophen 325 MG Tablet 650 MG PO (23:45)
[2022-01-03] VITALS (22 sets, daily range): BP systolic 104–124; BP diastolic 55–70; PULSE 55–70; RESP 17–27; TEMP 36.2–36.7; O2SAT 95–100
[2022-01-03] MEDS: Amiodarone 200 MG Tablet PO ×3 (05:00→21:50)
[2022-01-03 05:17] LABS: Absolute Lymphocyte Count 0.76 X10^3/uL (0.83-4.51); Absolute Neutrophil Count 16.3 X10^3/uL (2.0-7.7); Basophil% 0.5 % (0-1); Eosinophil# 0.32 X10^3/uL; Eosinophils% 1.6 % (0-5); Hematocrit 41.1 % (40-54); Hemoglobin 13.3 g/dL (13.0-16.5); Lymphocyte # 0.76 X10^3/ul (0.83-4.51); Lymphocyte % 3.9 % (19-41); Mean Corp Hgb Conc 32.4 g/dL (32-36); Mean Corpuscular Hgb 29.4 pg (27.0-32.0); Mean Corpuscular Volume 90.9 fL (80-94); Mean Platelet Vol. 9.1 fl (6.2-12.0); Monocyte# 1.68 X10^3/uL; Monocyte% 8.6 % (0-10); NRBC Flagged by Analyzer 0 % (0-5); Neutrophil # 16.32 X10^3/uL (2.7-7.7); Neutrophil % 83.5 % (47-70); POSITIVE DIFFERENTIAL YES; Platelet Count 217 K/mm3 (150-450); RBC Distribution Width CV 14.3 % (11.6-14.6); RBC Distribution Width SD 48.1 fl (35.1-43.9); Red Blood Count 4.52 M/mm3 (4.6-6.2); White Blood Count 19.6 K/mm3 (4.4-11.0)
[2022-01-03 05:22] LABS: Differential Indicated SCAN CRITERIA MET
[2022-01-03 05:36] LABS: ALB/GLOB Ratio 0.7 RATIO (0.9-2.4); AST(SGOT) 63 U/L (15-37); Alanine Aminotransfer ALT/SGPT 680 U/L (16-61); Albumin, Serum 2.2 g/dL (3.2-5.0); Alkaline Phosphatase 96 U/L (45-117); Anion Gap 5 (5-15); BUN 24 mg/dL (7-18); BUN/Creat Ratio 32.3 RATIO (10-20); Calcium,Total 8.1 mg/dL (8.5-10.1); Chloride 103 mmol/L (98-107); Creatinine, Serum 0.74 mg/dL (0.70-1.30); EST Glomerular Filtration Rate 111 mL/min (>60); Est Glom Filt Rate - Afr Amer 134 mL/min (>60); Estimated Creatinine Clearance 76.52 ml/min; Globulin 3.3 g/dL (2.2-4.2); Glucose 133 mg/dL (74-106); Phosphorus 2.4 mg/dL (2.5-4.9); Potassium 3.3 mmol/L (3.5-5.1); Protein, Total 5.5 g/dL (6.4-8.2); Sodium Level 144 mmol/L (136-145)
--- NOTE | 2022-01-03 05:55 | EKG12_ITS ---
Test Reason : AFIB Blood Pressure : / mmHG Vent. Rate : 095 BPM Atrial Rate : 095 BPM P-R Int : 146 ms QRS Dur : 098 ms QT Int : 346 ms P-R-T Axes : 000 042 231 degrees QTc Int : 434 ms Sinus rhythm with Premature supraventricular complexes Low voltage QRS (Limb Leads) Left atrial enlargement Poor R wave progression Anteroseptal NE, age undetermined, cannot be excluded Confirmed by RULA HAND, NABIL ([id number]), features editor JEN TORRES ([id number]) on 01/06/2022 8:39:22 AM Referred By: RULA Confirmed By:NABIL HORTA MD
[2022-01-03 06:46] LABS: Differential Comment SCANNED
--- NOTE | 2022-01-03 09:02 | PN.HOSP_ITS ---
Subjective Subjective Patient was seen and examined today, he remains in sinus rhythm, he does not appear to have any respiratory distress and is resting quietly. Patient's potassium this morning was slightly low at 3.3, liver enzymes appear to be trending downward. Patient's phosphorus was slightly low at 2.4. Patient is currently on 3 L of oxygen. White blood cell count today is improved but still elevated. I talked briefly with Dr. David about the patient's care this morning. Objective Data Objective Data Vital Signs: Vital Signs Temp Pulse Resp BP Pulse Ox O2 Del Method O2 Flow Rate 98.1 F 64 17 122/63 H 97 Nasal Cannula 3 01/03/22 00:00 01/03/22 08:00 01/03/22 08:00 01/03/22 08:00 01/03/22 08:00 01/03/22 08:00 01/03/22 08:00 FiO2 100 12/29/21 17:00 Oxygen Flow Rate (L/min) 3 Oxygen Delivery Method Nasal Cannula Weight: 83.7 kg Body Mass Index (BMI) 24.5 Intake & Output: Intake and Output for Last 24 Hours 01/01/22 01/02/22 01/03/22 23:59 23:59 23:59 Intake Total 5351.51 / 5809.94 3586.34 / 3586.34 240 / 240 Output Total 3500 / 3850 4600 / 5150 700 / 700 Balance 1851.51 / 1959.94 -1013.66 / -1563.66 -460 / -460 Lab / Micro Data Result Diagrams: 01/03/22 05:05 01/03/22 05:05 Labs: Laboratory Results - last 24 hr 01/02/22 09:00: ESR 53 H 01/02/22 09:00: C-React Prot Ext Range 95.10 H 01/02/22 09:00: Lactic Acid 1.5 01/03/22 05:05: WBC 19.6 H, RBC 4.52 L, Hgb 13.3, Hct 41.1, MCV 90.9, MCH 29.4, MCHC 32.4, RDW Std Deviation 48.1 H, RDW Coeff of Gladis 14.3, Plt Count 217, MPV 9.1, Immature Gran % (Auto) 1.900 H, Neut % (Auto) 83.5 H, Lymph % (Auto) 3.9 L, [place] % (Auto) 8.6, Eos % (Auto) 1.6, Baso % (Auto) 0.5, Absolute Neuts (auto) 16.3 H, Absolute Lymphs (auto) 0.76 L, Nucleated RBC % 0, Differential Comment SCANNED, Diff Path Review November01/03/22 05:05: Sodium 144, Potassium 3.3 L, Chloride 103, Carbon Dioxide 36.0 H , Anion Gap 5, BUN 24 H, Creatinine 0.74, Estim Creat Clear Calc 76.52, Est GFR (MDRD) Af Amer 134, Est GFR (MDRD) Non-Af 111, BUN/Creatinine Ratio 32.3 H, Glucose 133 H, Calcium 8.1 L, Phosphorus 2.4 L, Magnesium 2.0, Total Bilirubin 0.90, AST 63 H, ALT 680 H, Alkaline Phosphatase 96, Total Protein 5.5 L, Albumin 2.2 L, Globulin 3.3, Albumin/Globulin Ratio 0.7 L Micro: Microbiology 12/29/21 10:38 Blood Culture (Wb) - Arm Right Blood Culture - Preliminary No growth in 48 hours. 12/29/21 10:27 Blood Culture (Wb) - Anticubital Right Blood Culture - Preliminary No growth in 48 hours. Radiography Diagnostic Testing: Radiology Impression Chest X-Ray 01/02/22 08:25 IMPRESSION: 1. No acute findings in the chest. 2. Probable cysts in both lungs. 3. No interval change when compared to 12/29/2021. Electronically Signed: Abdi Holcomb MD at 9:02 EDT , Abdomen/Pelvis CT 01/02/22 08:39 IMPRESSION: 1. Multiple gallstones are unchanged. 2. Increasing edema along the peripancreatic fat and increase edema/fluid in both anterior pararenal spaces. 3. Increase ascites overlying the liver and in the central pelvis. 4. Nonenhancing benign cyst in the left hepatic lobe is unchanged. 5. Mild bilateral posterior pleural fluid are new findings. 6. No other additional findings or changes when compared to 12/29/2021. Electronically Signed: Abdi Holcomb MD at 10:59 EDT , Physical Exam Const alert, oriented x3 and no apparent distress General Appearance: cooperative, well kempt and well developed Orientation / Consciousness: awake, oriented to person, oriented to place and oriented to time HEENT normocephalic, head/scalp atraumatic and moist oral mucous membranes Eyes PERRL, EOMs intact bilaterally and conjunctivae normal Eyes Narrative: No icterus Neck nuchal rigidity, no lymphadenopathy, supple, no JVD, thyroid normal and no carotid bruits Neck Narrative: No thyromegaly General: trachea midline Resp normal respiratory effort, no retractions, no use of accessory muscles and clear to auscultation bilaterally Resp Narrative: Diminished throughout but clear. Auscultation: Negative for crackles, rales, rhonchi or wheezes Cardio regular rate, regular rhythm, S1 normal heart sound, S2 normal heart sound, no murmurs, no rub and no gallops GI soft to palpation, non-tender and non-distended; Negative for hepatosplenomegaly GI Narrative: Patient has colostomy present in the left lower abdominal area Auscultation: hypoactive bowel sounds Palpation: tender epigastric Extremity normal to inspection and no clubbing, cyanosis or edema Skin no rashes or lesions noted Skin Narrative: No rashes, sores. General Skin Exam: no breakdown Neuro oriented x3, CN's II-XII intact bilaterally, moves all extremities, no focal motor deficits and no sensory deficits noted Sensorium / Orientation: awake and alert Speech: speech normal Psych affect normal Appearance: appropriate Assessment & Plan Assessment/Plan (1) Atrial fibrillation: PLAN: Plan 1. Gallstone pancreatitis-surgery is participating in his care as well as GI, continue present medications, patient appears stable for transfer to PCU, I will advance patient's diet #2 paroxysmal atrial fibrillation with RVR-now converted to sinus rhythm, cardiology is participating in his care #3 chronic obstructive pulmonary disease-patient is currently on nasal cannula O2 #4 adynamic ileus-resolved at this time #5 chronic hypoxic respiratory failure-patient is on chronic oxygen at home, pulse ox will be monitored here #6 Leukocytosis-etiology unclear, patient remains on IV antibiotics, CBC will be repeated tomorrow #7 [id number] II-cardiology is participating in his care, current medications will be continued #8 hypokalemia-patient will be given potassium replacement, labs will be repeated tomorrow Charges/Coding Visit Charges Inpatient E&M: 48759 Subs Hosp L2
[2022-01-03] MEDS: 0.9% Saline Lock 10 ML Syringe IV ×2 (09:29→21:50)
[2022-01-03] MEDS: Potassium Chloride Oral Tablet 20 MEQ PO (09:29)
[2022-01-03] MEDS: Furosemide 40 MG Tablet PO (09:29)
[2022-01-03] MEDS: ROFLUMILAST 500 MCG TABLET PO (09:30)
[2022-01-03] MEDS: Metoprolol Tartrate 100 MG Tablet PO ×2 (09:30→21:50)
[2022-01-03] MEDS: Pantoprazole Sodium 40 MG Tablet PO ×2 (09:30→21:50)
[2022-01-03] MEDS: Amox/Clavulanate 875 MG Tablet PO ×2 (11:42→21:50)
--- NOTE | 2022-01-03 12:43 | PN.SURG_ITS ---
Subjective Subjective patient denies abdominal pain Passing flatus Objective Data Objective Data Vital Signs: Vital Signs Temp Pulse Resp BP Pulse Ox O2 Del Method O2 Flow Rate 97.8 F 64 24 H 114/58 L 100 Nasal Cannula 3 01/03/22 09:00 01/03/22 11:52 01/03/22 09:00 01/03/22 09:00 01/03/22 12:12 01/03/22 12:12 01/03/22 12:12 FiO2 100 12/29/21 17:00 Oxygen Flow Rate (L/min) 3 Oxygen Delivery Method Nasal Cannula Weight: 83.7 kg Body Mass Index (BMI) 24.5 Intake & Output: Intake and Output for Last 24 Hours 01/01/22 01/02/22 01/03/22 23:59 23:59 23:59 Intake Total 5351.51 / 5809.94 3586.34 / 3586.34 813.5 / 813.5 Output Total 3500 / 3850 4600 / 5150 950 / 950 Balance 1851.51 / 1959.94 -1013.66 / -1563.66 -136.5 / -136.5 Lab / Micro Data Attestation: I reviewed the patient's lab results. Result Diagrams: 01/03/22 05:05 01/03/22 05:05 Labs: Laboratory Results - last 24 hr 01/03/22 05:05: WBC 19.6 H, RBC 4.52 L, Hgb 13.3, Hct 41.1, MCV 90.9, MCH 29.4, MCHC 32.4, RDW Std Deviation 48.1 H, RDW Coeff of Gladis 14.3, Plt Count 217, MPV 9.1, Immature Gran % (Auto) 1.900 H, Neut % (Auto) 83.5 H, Lymph % (Auto) 3.9 L, [place] % (Auto) 8.6, Eos % (Auto) 1.6, Baso % (Auto) 0.5, Absolute Neuts (auto) 16.3 H, Absolute Lymphs (auto) 0.76 L, Nucleated RBC % 0, Differential Comment SCANNED, Diff Path Review November01/03/22 05:05: Sodium 144, Potassium 3.3 L, Chloride 103, Carbon Dioxide 36.0 H , Anion Gap 5, BUN 24 H, Creatinine 0.74, Estim Creat Clear Calc 76.52, Est GFR (MDRD) Af Amer 134, Est GFR (MDRD) Non-Af 111, BUN/Creatinine Ratio 32.3 H, Glucose 133 H, Calcium 8.1 L, Phosphorus 2.4 L, Magnesium 2.0, Total Bilirubin 0.90, AST 63 H, ALT 680 H, Alkaline Phosphatase 96, Total Protein 5.5 L, Albumin 2.2 L, Globulin 3.3, Albumin/Globulin Ratio 0.7 L Micro: Microbiology 12/29/21 10:27 Blood Culture (Wb) - Anticubital Right Blood Culture - Final No growth in 5 days. 12/29/21 10:38 Blood Culture (Wb) - Arm Right Blood Culture - Final No growth in 5 days. Physical Exam Const alert and oriented x3 General Appearance: cooperative HEENT normocephalic Neck full ROM Resp normal respiratory effort Effort and Inspection: able to speak in complete sentences GI GI Narrative: abdomen - soft and benign Assessment & Plan Assessment/Plan (1) Acute gallstone pancreatitis: PLAN: Patient denies abdominal pain Continues with leukocytosis - is on IV antibiotics Doubt gallbladder etiology, given no abdominal pain, may consider HIDA scan to determine if any cholecystitis and if positive may require cholecystotomy placed by IR Continue present therapy
--- NOTE | 2022-01-03 13:16 | PN.CARD_ITS ---
Subjective Subjective The patient is awake and alert. He has been up in the bedside chair. He looks [place] with his respiratory status today. He states he believes overall he feels his breathing has improved. He denies ongoing chest discomfort. There is been no obvious palpitations. Objective Data Vital Signs: Vital Signs Temp Pulse Resp BP Pulse Ox O2 Del Method O2 Flow Rate 97.8 F 64 24 H 114/58 L 100 Nasal Cannula 3 01/03/22 09:00 01/03/22 11:52 01/03/22 09:00 01/03/22 09:00 01/03/22 12:12 01/03/22 12:12 01/03/22 12:12 FiO2 100 12/29/21 17:00 Oxygen Flow Rate (L/min) 3 Oxygen Delivery Method Nasal Cannula Weight: 184 lb 8.43 oz Body Mass Index (BMI) 24.5 Intake & Output: Intake and Output for Last 24 Hours 01/01/22 01/02/22 01/03/22 23:59 23:59 23:59 Intake Total 5351.51 / 5809.94 3586.34 / 3586.34 813.5 / 813.5 Output Total 3500 / 3850 4600 / 5150 950 / 950 Balance 1851.51 / 1959.94 -1013.66 / -1563.66 -136.5 / -136.5 Lab / Micro Data Result Diagrams: 01/03/22 05:05 01/03/22 05:05 Labs: Laboratory Results - last 24 hr 01/03/22 05:05: WBC 19.6 H, RBC 4.52 L, Hgb 13.3, Hct 41.1, MCV 90.9, MCH 29.4, MCHC 32.4, RDW Std Deviation 48.1 H, RDW Coeff of Gladis 14.3, Plt Count 217, MPV 9.1, Immature Gran % (Auto) 1.900 H, Neut % (Auto) 83.5 H, Lymph % (Auto) 3.9 L, [place] % (Auto) 8.6, Eos % (Auto) 1.6, Baso % (Auto) 0.5, Absolute Neuts (auto) 16.3 H, Absolute Lymphs (auto) 0.76 L, Nucleated RBC % 0, Differential Comment SCANNED, Diff Path Review November01/03/22 05:05: Sodium 144, Potassium 3.3 L, Chloride 103, Carbon Dioxide 36.0 H , Anion Gap 5, BUN 24 H, Creatinine 0.74, Estim Creat Clear Calc 76.52, Est GFR (MDRD) Af Amer 134, Est GFR (MDRD) Non-Af 111, BUN/Creatinine Ratio 32.3 H, Glucose 133 H, Calcium 8.1 L, Phosphorus 2.4 L, Magnesium 2.0, Total Bilirubin 0.90, AST 63 H, ALT 680 H, Alkaline Phosphatase 96, Total Protein 5.5 L, Albumin 2.2 L, Globulin 3.3, Albumin/Globulin Ratio 0.7 L Micro: Microbiology 12/29/21 10:27 Blood Culture (Wb) - Anticubital Right Blood Culture - Final No growth in 5 days. 12/29/21 10:38 Blood Culture (Wb) - Arm Right Blood Culture - Final No growth in 5 days. Rhythm Strip Rhythm Strip: Sinus Rhythm Cardiology Labs/Tests 01/03/22 05:05: WBC 19.6 H, RBC 4.52 L, Hgb 13.3, Hct 41.1, MCV 90.9, MCH 29.4, MCHC 32.4, Plt Count 217, MPV 9.1, Immature Gran % (Auto) 1.900 H, Neut % (Auto) 83.5 H, Lymph % (Auto) 3.9 L, [place] % (Auto) 8.6, Eos % (Auto) 1.6, Baso % (Auto) 0.5, Absolute Neuts (auto) 16.3 H, Nucleated RBC % 0 01/03/22 05:05: Sodium 144, Potassium 3.3 L, Chloride 103, Carbon Dioxide 36.0 H , Anion Gap 5, BUN 24 H, Creatinine 0.74, Est GFR (MDRD) Af Amer 134, Est GFR (MDRD) Non-Af 111, BUN/Creatinine Ratio 32.3 H, Glucose 133 H, Calcium 8.1 L, Phosphorus 2.4 L, Magnesium 2.0, Total Bilirubin 0.90 Rhythm: Sinus rhythm EKG: Sinus rhythm/sinus bradycardia; poor R wave progression; anteroseptal [place] of indeterminate age cannot be excluded; T wave abnormality: Consider: Myocardial ischemia-anterior lateral; prolonged QT interval ECHO: Interpretation Summary The study was technically difficult. Contrast injection was performed. ? Based upon the 2D echocardiographic and contrast enhanced images obtained there appears to be grossly normal left ventricular size, wall motion, and systolic function. The estimated ejection fraction is 60 %. Mild concentric left ventricular hypertrophy. Mild (1+) mitral valve insufficiency. Trivial tricuspid valve insufficiency. Mild aortic stenosis. Right ventricular systolic pressure estimated to be 61 mmHg. There is evidence of diastolic dysfunction. Physical Exam Const alert, oriented x3 and no apparent distress HEENT normocephalic, head/scalp atraumatic and hearing grossly normal bilaterally Eyes PERRL, EOMs intact bilaterally and conjunctivae normal Neck full ROM, supple and no JVD Resp Auscultation: wheezes scattered wheezes (Less prominent than yesterday) and breath sounds absent bilateral (Less prominent than yesterday) Cardio regular rate, regular rhythm, S1 normal heart sound and S2 normal heart sound Rhythm: regular rhythm Heart Sounds: S1 normal and S2 normal GI GI Narrative: Positive bowel sounds Extremity no pedal edema Skin no rashes or lesions noted Psych mental status grossly normal Assessment & Plan Assessment/Plan (1) Atrial fibrillation: PLAN: The patient appears to to be remaining in sinus rhythm. He is continuing rate control with beta-rena. His IV amiodarone has been transitioned to oral amiodarone with plans for a tapering dose. He is not on anticoagulant therapy secondary to his upper GI bleed process and concerns of his underlying pancreatitis. (2) Abnormal cardiac enzyme level: PLAN: The patient does have abnormal cardiac enzymes. At the moment this appears compatible with a type II non-STEMI secondary to his atrial dysrhythmia with atrial fibrillation/flutter with RVR superimposed upon his noncardiac gastrointestinal related issues. His ECG this day has demonstrated T wave abnormality potentially compatible with myocardial ischemia in the anterolateral distribution. He did undergo evaluation with transthoracic echocardiogram. The results are as noted. At the moment he will continue to be monitored and continue medical management as deemed appropriate. At the moment he is not an ideal candidate, based on his multiple noncardiac comorbidities and medication limitations, to undergo additional noninvasive or invasive cardiovascular testing. This may have to be considered in the future depending upon his overall clinical course. (3) CHF (congestive heart failure): PLAN: The patient appears to have developed symptoms compatible with CHF . This may be, based on his transthoracic echocardiogram, an element of heart failure with preserved ejection fraction. He did receive IV diuresis with increased urinary output. He appears to be improved based on symptoms and examination. He will continue diuretic therapy with potassium supplementation. (4) GI bleed: PLAN: The patient was noted to have concerns of an upper GI bleed. He underwent endoscopy. He was found to have esophagitis and gastritis treated with heater probe therapy and subsequently IV PPI. He will need to be monitored for any recurrent issues regarding this. Again this is another issue while he cannot initiate anticoagulant therapy at this time. (5) Acute gallstone pancreatitis: PLAN: The patient is continuing evaluation care per internal medicine, gastroenterology, and general surgery. (6) COPD (chronic obstructive pulmonary disease): PLAN: The patient will continue evaluation by internal medicine and pulmonology/critical care medicine as deemed appropriate. PLAN: Plan The above was discussed and reviewed with the patient and his family members present. The patient's case was also discussed and reviewed with Dr. Ruiz. This note was generated using a voice recognition system and there may be incorrect words, spelling or punctuation that were not noted when reviewing the office note prior to saving. Procedure Criteria Type of Procedure Procedure Type: Elective Elective Risks - COVID COVID Risk Discussion: The surgeon/proceduralist and patient have discussed in detail the risk of exposure to and/or potential harm posed by the COVID-19 virus with having a surgery/procedure at this time versus the risk of delaying the surgery/procedure. It is not possible to know either the risk of delaying the surgery or procedure or chance of getting an infection with perfect accuracy, but a joint decision was made between the patient and the surgeon/proceduralist to proceed at this time with the scheduled surgery/procedure as indicated on the consent form.
[2022-01-03] MEDS: Acetaminophen 325 MG Tablet 650 MG PO (14:12)
[2022-01-03] MEDS: Mag Hydrox/Al Hydrox/Simeth 30 ML UDC PO (16:17)
[2022-01-04] VITALS (13 sets, daily range): BP systolic 124–133; BP diastolic 57–69; PULSE 64–82; RESP 18–20; TEMP 36.4–36.6; O2SAT 96–99
[2022-01-04] MEDS: Amiodarone 200 MG Tablet PO ×2 (05:29→20:57)
--- NOTE | 2022-01-04 05:55 | EKG12_ITS ---
Test Reason : AM EKG Blood Pressure : / mmHG Vent. Rate : 057 BPM Atrial Rate : 057 BPM P-R Int : 130 ms QRS Dur : 104 ms QT Int : 562 ms P-R-T Axes : 026 016 224 degrees QTc Int : 547 ms Sinus bradycardia with sinus arrhythmia Anteroseptal infarct , age undetermined ST & T wave abnormality, consider anterolaterl ischemia Prolonged QT Abnormal ECG Confirmed by RULA HAND, NABIL ([id number]), television news video editor JEN TORRES ([id number]) on 01/06/2022 8:39:54 AM Referred By: PALOMO Confirmed By:NABIL HORTA MD
[2022-01-04 06:40] LABS: Absolute Lymphocyte Count 0.88 X10^3/uL (0.83-4.51); Absolute Neutrophil Count 16.4 X10^3/uL (2.0-7.7); Basophil# 0.14 X10^3/uL; Basophil% 0.7 % (0-1); Eosinophil# 0.22 X10^3/uL; Eosinophils% 1.1 % (0-5); Hematocrit 43.3 % (40-54); Hemoglobin 14.2 g/dL (13.0-16.5); Lymphocyte # 0.88 X10^3/ul (0.83-4.51); Lymphocyte % 4.5 % (19-41); Mean Corp Hgb Conc 32.8 g/dL (32-36); Mean Corpuscular Hgb 29.4 pg (27.0-32.0); Mean Corpuscular Volume 89.6 fL (80-94); Mean Platelet Vol. 9.6 fl (6.2-12.0); Monocyte# 1.46 X10^3/uL; Monocyte% 7.4 % (0-10); NRBC Flagged by Analyzer 0 % (0-5); Neutrophil # 16.41 X10^3/uL (2.7-7.7); Neutrophil % 83.7 % (47-70); Platelet Count 230 K/mm3 (150-450); RBC Distribution Width CV 14.2 % (11.6-14.6); RBC Distribution Width SD 46.5 fl (35.1-43.9); Red Blood Count 4.83 M/mm3 (4.6-6.2); White Blood Count 19.6 K/mm3 (4.4-11.0)
[2022-01-04 07:17] LABS: ALB/GLOB Ratio 0.6 RATIO (0.9-2.4); AST(SGOT) 45 U/L (15-37); Alanine Aminotransfer ALT/SGPT 472 U/L (16-61); Albumin, Serum 2.2 g/dL (3.2-5.0); Alkaline Phosphatase 104 U/L (45-117); Anion Gap 2 (5-15); BUN 21 mg/dL (7-18); BUN/Creat Ratio 31.4 RATIO (10-20); Calcium,Total 8.4 mg/dL (8.5-10.1); Chloride 104 mmol/L (98-107); Creatinine, Serum 0.67 mg/dL (0.70-1.30); EST Glomerular Filtration Rate 125 mL/min (>60); Est Glom Filt Rate - Afr Amer 152 mL/min (>60); Estimated Creatinine Clearance 76.52 ml/min; Globulin 3.5 g/dL (2.2-4.2); Glucose 117 mg/dL (74-106); Magnesium 1.9 mg/dL (1.6-2.6); Phosphorus 1.9 mg/dL (2.5-4.9); Potassium 3.6 mmol/L (3.5-5.1); Protein, Total 5.7 g/dL (6.4-8.2); Sodium Level 141 mmol/L (136-145)
--- NOTE | 2022-01-04 07:19 | PN.CARD_ITS ---
Subjective Subjective The patient appears to be resting comfortably at this time with no new acute cardiovascular complaints. He believe he is his breathing has improved overall, although, he states he knows he has chronic underlying pulmonary disease and always has some element of respiratory concerns. Objective Data Vital Signs: Vital Signs Temp Pulse Resp BP Pulse Ox O2 Del Method O2 Flow Rate 97.8 F 67 18 124/69 H 97 Nasal Cannula 3 01/04/22 03:58 01/04/22 03:58 01/04/22 03:58 01/04/22 03:58 01/04/22 03:58 01/04/22 03:58 01/04/22 03:58 FiO2 100 12/29/21 17:00 Oxygen Flow Rate (L/min) 3 Oxygen Delivery Method Nasal Cannula Weight: 182 lb 15.739 oz Body Mass Index (BMI) 24.5 Intake & Output: Intake and Output for Last 24 Hours 01/02/22 01/03/22 01/04/22 23:59 23:59 23:59 Intake Total 3586.34 / 3586.34 1053.5 / 1053.5 220 / 220 Output Total 4600 / 5150 1450 / 1450 500 / 500 Balance -1013.66 / -1563.66 -396.5 / -396.5 -280 / -280 Lab / Micro Data Result Diagrams: 01/04/22 05:45 01/04/22 05:45 Labs: Laboratory Results - last 24 hr 01/04/22 05:45: WBC 19.6 H, RBC 4.83, Hgb 14.2, Hct 43.3, MCV 89.6, MCH 29.4, MCHC 32.8, RDW Std Deviation 46.5 H, RDW Coeff of Gladis 14.2, Plt Count 230, MPV 9.6, Immature Gran % (Auto) 2.600 H, Neut % (Auto) 83.7 H, Lymph % (Auto) 4.5 L, [place] % (Auto) 7.4, Eos % (Auto) 1.1, Baso % (Auto) 0.7, Absolute Neuts (auto) 16.4 H, Absolute Lymphs (auto) 0.88, Nucleated RBC % 0 01/04/22 05:45: Sodium 141, Potassium 3.6, Chloride 104, Carbon Dioxide 35.0 H, Anion Gap 2 L, BUN 21 H, Creatinine 0.67 L, Estim Creat Clear Calc 76.52, Est GFR (MDRD) Af Amer 152, Est GFR (MDRD) Non-Af 125, BUN/Creatinine Ratio 31.4 H, Glucose 117 H, Calcium 8.4 L, Phosphorus 1.9 L, Magnesium 1.9, Total Bilirubin 0.80, AST 45 H, ALT 472 H, Alkaline Phosphatase 104, Total Protein 5.7 L, Albumin 2.2 L, Globulin 3.5, Albumin/Globulin Ratio 0.6 L Micro: Microbiology 12/29/21 10:27 Blood Culture (Wb) - Anticubital Right Blood Culture - Final No growth in 5 days. 12/29/21 10:38 Blood Culture (Wb) - Arm Right Blood Culture - Final No growth in 5 days. Rhythm Strip Rhythm Strip: Sinus Rhythm Cardiology Labs/Tests 01/04/22 05:45: WBC 19.6 H, RBC 4.83, Hgb 14.2, Hct 43.3, MCV 89.6, MCH 29.4, MCHC 32.8, Plt Count 230, MPV 9.6, Immature Gran % (Auto) 2.600 H, Neut % (Auto) 83.7 H, Lymph % (Auto) 4.5 L, [place] % (Auto) 7.4, Eos % (Auto) 1.1, Baso % (Auto) 0.7, Absolute Neuts (auto) 16.4 H, Nucleated RBC % 0 01/04/22 05:45: Sodium 141, Potassium 3.6, Chloride 104, Carbon Dioxide 35.0 H, Anion Gap 2 L, BUN 21 H, Creatinine 0.67 L, Est GFR (MDRD) Af Amer 152, Est GFR (MDRD) Non-Af 125, BUN/Creatinine Ratio 31.4 H, Glucose 117 H, Calcium 8.4 L, Phosphorus 1.9 L, Magnesium 1.9, Total Bilirubin 0.80 Rhythm: Sinus rhythm EKG: Sinus rhythm; poor R wave progression; anteroseptal AR of indeterminate age cannot be excluded; T wave abnormality: Consider: Myocardial ischemia: Anterior lateral; comment: QT interval appears to be decreased compared to the previous ECG Physical Exam Const alert, oriented x3 and no apparent distress HEENT normocephalic, head/scalp atraumatic and hearing grossly normal bilaterally Eyes PERRL, EOMs intact bilaterally and conjunctivae normal Neck full ROM, supple and no JVD Resp Auscultation: wheezes scattered wheezes (Less prominent than yesterday) and breath sounds absent bilateral (Less prominent than yesterday) Cardio regular rate, regular rhythm, S1 normal heart sound and S2 normal heart sound Rhythm: regular rhythm Heart Sounds: S1 normal and S2 normal GI GI Narrative: Positive bowel sounds Extremity no pedal edema Skin no rashes or lesions noted Psych mental status grossly normal Assessment & Plan Assessment/Plan (1) Atrial fibrillation: PLAN: The patient appears to to be remaining in sinus rhythm. He is continuing rate control with beta-rena. He is on IV amiodarone therapy. His dose will be decreased. He is not on anticoagulant therapy secondary to his upper GI bleed process and concerns of his underlying pancreatitis. (2) Abnormal cardiac enzyme level: PLAN: The patient does have abnormal cardiac enzymes. At the moment this appears compatible with a type II non-STEMI secondary to his atrial dysrhythmia with atrial fibrillation/flutter with RVR superimposed upon his noncardiac gastrointestinal related issues. His ECG has demonstrated T wave abnormality potentially compatible with myocardial ischemia in the anterolateral distribution. He did undergo evaluation with transthoracic echocardiogram. His overall LV wall motion/systolic function appeared to be preserved. At the moment he will continue to be monitored and continue medical management as deemed appropriate. At the moment he is not an ideal candidate, based on his multiple noncardiac comorbidities and medication limitations, to undergo additional noninvasive or invasive cardiovascular testing. This may have to be considered in the future depending upon his overall clinical course. (3) CHF (congestive heart failure): PLAN: The patient appears to have developed symptoms compatible with CHF . This may be, based on his transthoracic echocardiogram, an element of heart failure with preserved ejection fraction. He did receive IV diuresis with increased urinary output. He has been transitioned to oral diuretics. Overall, he appears to be improved based on symptoms and examination. (4) GI bleed: PLAN: The patient was noted to have concerns of an upper GI bleed. He underwent endoscopy. He was found to have esophagitis and gastritis treated with heater probe therapy and subsequently IV PPI. He will need to be monitored for any recurrent issues regarding this. Again this is another issue while he cannot initiate anticoagulant therapy at this time. (5) Acute gallstone pancreatitis: PLAN: The patient is continuing evaluation care per internal medicine, gastroenterology, and general surgery. (6) COPD (chronic obstructive pulmonary disease): PLAN: The patient will continue evaluation by internal medicine and pulmonology/critical care medicine as deemed appropriate. PLAN: Plan The patient's balance and other family members are here at this time. They state that he ate the breakfast he was allowed to eat without obvious difficulty and conversed with them coherently prior to returning to sleep. The above was discussed and reviewed with the patient, his spouse, and his other family members present, previously with Dr. Ruiz, and also with Dr. Smith. This note was generated using a voice recognition system and there may be in correct words, spelling or punctuation that were not noted when reviewing the office note prior to saving. Procedure Criteria Type of Procedure Procedure Type: Elective Elective Risks - COVID COVID Risk Discussion: The surgeon/proceduralist and patient have discussed in detail the risk of exposure to and/or potential harm posed by the COVID-19 virus with having a surgery/procedure at this time versus the risk of delaying the surgery/procedure. It is not possible to know either the risk of delaying the surgery or procedure or chance of getting an infection with perfect accuracy, but a joint decision was made between the patient and the surgeon/proceduralist to proceed at this time with the scheduled surgery/procedure as indicated on the consent form.
[2022-01-04] MEDS: Potassium Chloride Oral Tablet 20 MEQ PO (10:41)
[2022-01-04] MEDS: Amox/Clavulanate 875 MG Tablet PO ×2 (10:41→20:55)
[2022-01-04] MEDS: ROFLUMILAST 500 MCG TABLET PO (10:42)
[2022-01-04] MEDS: Furosemide 40 MG Tablet PO (10:43)
[2022-01-04] MEDS: Metoprolol Tartrate 100 MG Tablet PO ×2 (10:43→20:58)
[2022-01-04] MEDS: Pantoprazole Sodium 40 MG Tablet PO ×2 (10:43→20:55)
--- NOTE | 2022-01-04 13:32 | PN.HOSP_ITS ---
Documented by User: Lisa Reese NP, STATISTICAL CONSULTANT-C 01/04/22 14:13 Subjective Subjective Patient seen and examined. Family at bedside. Denies nausea, vomiting, abdominal pain. States state he feels full after very little oral intake. Denies fever, chills. Denies shortness of breath. Objective Data Objective Data Vital Signs: Vital Signs Temp Pulse Resp BP Pulse Ox O2 Del Method O2 Flow Rate 97.9 F 82 18 133/61 H 97 Nasal Cannula 3 01/04/22 10:40 01/04/22 10:43 01/04/22 10:40 01/04/22 10:43 01/04/22 10:40 01/04/22 10:40 01/04/22 10:40 FiO2 100 12/29/21 17:00 Oxygen Flow Rate (L/min) 3 Oxygen Delivery Method Nasal Cannula Weight: 182 lb 15.739 oz Body Mass Index (BMI) 24.5 Intake & Output: Intake and Output for Last 24 Hours 01/02/22 01/03/22 01/04/22 23:59 23:59 23:59 Intake Total 3586.34 / 3586.34 1053.5 / 1053.5 220 / 220 Output Total 4600 / 5150 1450 / 1450 500 / 500 Balance -1013.66 / -1563.66 -396.5 / -396.5 -280 / -280 Lab / Micro Data Result Diagrams: 01/04/22 05:45 01/04/22 05:45 Labs: Laboratory Results - last 24 hr 01/04/22 05:45: WBC 19.6 H, RBC 4.83, Hgb 14.2, Hct 43.3, MCV 89.6, MCH 29.4, MCHC 32.8, RDW Std Deviation 46.5 H, RDW Coeff of Gladis 14.2, Plt Count 230, MPV 9.6, Immature Gran % (Auto) 2.600 H, Neut % (Auto) 83.7 H, Lymph % (Auto) 4.5 L, [place] % (Auto) 7.4, Eos % (Auto) 1.1, Baso % (Auto) 0.7, Absolute Neuts (auto) 16.4 H, Absolute Lymphs (auto) 0.88, Nucleated RBC % 0 01/04/22 05:45: Sodium 141, Potassium 3.6, Chloride 104, Carbon Dioxide 35.0 H, Anion Gap 2 L, BUN 21 H, Creatinine 0.67 L, Estim Creat Clear Calc 76.52, Est GFR (MDRD) Af Amer 152, Est GFR (MDRD) Non-Af 125, BUN/Creatinine Ratio 31.4 H, Glucose 117 H, Calcium 8.4 L, Phosphorus 1.9 L, Magnesium 1.9, Total Bilirubin 0.80, AST 45 H, ALT 472 H, Alkaline Phosphatase 104, Total Protein 5.7 L, Albumin 2.2 L, Globulin 3.5, Albumin/Globulin Ratio 0.6 L Micro: Microbiology 12/29/21 10:27 Blood Culture (Wb) - Anticubital Right Blood Culture - Final No growth in 5 days. 12/29/21 10:38 Blood Culture (Wb) - Arm Right Blood Culture - Final No growth in 5 days. Rhythm Strip Rhythm Strip: Sinus Rhythm Physical Exam Const alert, oriented x3 and no apparent distress Constitutional Narrative: Appears fatigued. Orientation / Consciousness: awake, oriented to person, oriented to place and oriented to time HEENT normocephalic Mouth: dry mucous membranes Eyes PERRL, EOMs intact bilaterally and conjunctivae normal Neck no lymphadenopathy Resp Auscultation: wheezes and diminished lung sounds Cardio regular rate, regular rhythm and no murmurs Peripheral Pulses: pulses 2+ throughout GI normal to inspection, nondistended, normoactive bowel sounds, non-tender and non-distended Extremity normal to inspection Skin no rashes or lesions noted Lesions: no lesions Rashes: no rashes Trauma: no lacerations or abrasions Neuro CN's II-XII intact bilaterally, no focal motor deficits, no sensory deficits noted and deep tendon reflexes 2+ bilaterally Psych Mood & Affect: flat affect Assessment & Plan Assessment/Plan (1) CHF (congestive heart failure): (2) GI bleed: (3) Acute gallstone pancreatitis: (4) Atrial fibrillation: PLAN: Plan 1. Acute gallstone pancreatitis- surgery following. Transition from IV antibiotics to oral Augmentin. Blood cultures with no growth. Per surgery, no current plans for plans for surgery. Continue diet as tolerated. MRCP ordered. 2. Paroxysmal atrial fibrillation with RVR-cardiology following. On metoprolol, amiodarone. Anticoagulation on hold due to GI bleed. 3. Acute heart failure with preserved ejection fraction-initially placed on IV Lasix. Transition to oral regimen. Echocardiogram demonstrated an EF of 60%, RVSP estimated to be 61 mmHg. 4. GI bleed-GI consulted. Underwent upper GI which demonstrated acute esophagi tis, treated with heater probe. Gastritis. Continue PPI twice daily. 5. Adynamic ileus-resolved. 6. Chronic COPD with chronic hypoxic respiratory failure-on baseline home O2. As needed albuterol aerosol. 7. NTEMI-type II demand ischemia. Echo per above. DVT prophylaxis-SCDs, xarelto on hold This patient was seen by BARRY Zaidi under the supervision of Dr. Patel. Time spent examining patient, reviewing data and subsequent management of care: 16 minutes Documented by User: Dr. Sanjay Patel DO 01/04/22 15:19 Objective Data Lab / Micro Data Result Diagrams: 01/04/22 05:45 01/04/22 05:45 Assessment & Plan Assessment/Plan (1) CHF (congestive heart failure): (2) GI bleed: (3) Acute gallstone pancreatitis: (4) Atrial fibrillation: Charges/Coding Addendum Addendum: Patient seen and examined independently. Data and vitals reviewed. I agree with the above note by the nurse practitioner. Feeling well. Denies any abdominal pain. No acute stress and afebrile. Heart rate regular rate and rhythm plus S1-S2 without murmurs gallops or rubs. Lungs are clear to auscultation bilaterally. Abdomen is soft nontender nondistended normal bowel sounds. Legs are any lower extremity edema. Assessment & Plan Assessment/Plan (1) Acute gallstone pancreatitis: (2) Leukocytosis: (3) COPD (chronic obstructive pulmonary disease): PLAN: Plan 1.? Acute pancreatitis Suspect gallstone but no clear evidence at this time of choledocholithiasis. Doubtful that this is alcohol but the patient and his state that he does not drink often at all. Plan: * IV fluids * Pain control, antiemetics * Dr. Bruno was contacted through the emergency room and recommended ultr asound.? Ultrasound will be ordered. * Consultations to gastroenterology as well as general surgery.? There is no acute surgical needs at this time. * MRCP ordered * May need to consider HIDA scan per general surgery. Hold off at this time as MRCP is already ordered. 2.? Atrial flutter with RVR Currently normal sinus rhythm Status post cardioversion Plan: Continue with metoprolol and amiodarone. Anticoagulation held for now given anemia. 3. Type II non-STEMI Secondary to atrial fibrillation/flutter with RVR Cardiology following No additional work-up at this time 4. GI bleed * EGD performed on the first showing esophagitis that was treated with heater probe and biopsied. Gastritis that was also treated with heater probe. * Continue with pantoprazole 4. leukocytosis Patient was treated for COPD exacerbation at [facility] and was put on Augmentin as well as 60 mg of prednisone. I suspect this is related with the steroids but will follow-up with labs.? 5.? COPD Unclear stage but patient is on chronic oxygen.? He does have dyspnea on exertion but this is his baseline.? Patient is medically stabilized from a COPD perspective to proceed with procedures.? He is certainly high risk for intubation given his COPD.? I did review his CAT scan of his abdomen pelvis and cut the lower portions of his lungs and he does have significant bleb formation due to COPD.? Patient states that he has never taken 60 mg prednisone in the past and actually reached out to his central supply worker who stated that would be okay to continue. Plan: * Continue with his home meds * Prednisone completed * As needed albuterol. 6.? Paroxysmal atrial fibrillation Stable Plan: * Continue with metoprolol * Hold rivaroxaban in anticipation of potential procedures.? His last dose of rivaroxaban was in the morning on the 26. 7.? VTE prophylaxis: SCDs 8.? CODE STATUS: Addressed with the patient.? Patient is full CODE STATUS. Discussed with the patient's family at bedside. Discussed with Dr. David. Visit Charges Inpatient E&M: 69729 Subs Hosp L2
[2022-01-04] MEDS: Mag Hydrox/Al Hydrox/Simeth 30 ML UDC PO (16:17)
[2022-01-04] MEDS: Acetaminophen 325 MG Tablet 650 MG PO (21:07)
[2022-01-05] VITALS (14 sets, daily range): BP systolic 103–130; BP diastolic 50–67; PULSE 65–79; RESP 18; TEMP 36.6–36.9; O2SAT 95–99
[2022-01-05] MEDS: oxyCODONE 5 MG Tablet PO (01:51)
[2022-01-05] MEDS: Mag Hydrox/Al Hydrox/Simeth 30 ML UDC PO ×2 (01:52→08:22)
[2022-01-05 05:57] LABS: Absolute Lymphocyte Count 0.87 X10^3/uL (0.83-4.51); Absolute Neutrophil Count 17.4 X10^3/uL (2.0-7.7); Basophil# 0.01 X10^3/uL; Hematocrit 46.2 % (40-54); Hemoglobin 13.7 g/dL (13.0-16.5); Lymphocyte # 0.87 X10^3/ul (0.83-4.51); Lymphocyte % 4.3 % (19-41); Mean Corp Hgb Conc 29.7 g/dL (32-36); Mean Corpuscular Hgb 29.4 pg (27.0-32.0); Mean Corpuscular Volume 99.1 fL (80-94); Mean Platelet Vol. 9.5 fl (6.2-12.0); Monocyte# 1.21 X10^3/uL; NRBC Flagged by Analyzer 0 % (0-5); Neutrophil # 17.39 X10^3/uL (2.7-7.7); Neutrophil % 86.2 % (47-70); POSITIVE MORPHOLOGY YES; Platelet Count 205 K/mm3 (150-450); RBC Distribution Width CV 14.5 % (11.6-14.6); RBC Distribution Width SD 53.1 fl (35.1-43.9); Red Blood Count 4.66 M/mm3 (4.6-6.2); White Blood Count 20.2 K/mm3 (4.4-11.0)
[2022-01-05 06:13] LABS: Differential Indicated SCAN CRITERIA MET
[2022-01-05 07:16] LABS: Differential Comment SCANNED
--- NOTE | 2022-01-05 08:00 | MRI_ITS ---
STUDY: MR MRCP WITHOUT CONTRAST REASON FOR EXAM: Male, 71 years old. Abd. pain, pancreatitis TECHNIQUE: Standard MRCP technique was utilized. COMPARISON: 01/02/2022 FINDINGS: Gall Bladder: Numerous gallstones. Cystic duct: Normal with no demonstrated fixed filling defect. Intrahepatic ducts: Normal visualized intrahepatic ducts with no demonstrated fixed filling defect, dilation or stricture. Common hepatic duct: Normal with no demonstrated fixed filling defect, dilation or stricture. Common bile duct: Normal with no demonstrated fixed filling defect, dilation or stricture. Pancreatic duct: Normal with no demonstrated fixed filling defect, dilation or stricture. Stranding/edema of the upper abdomen predominantly adjacent to the pancreas, as seen on CT from 01/02/2022. No walled off/focal fluid collections identified. Mild ascites is seen adjacent to the liver, stable. MRI/MRCP Abdomen without Contrast IMPRESSION: 1. No choledocholithiasis/biliary obstruction. 2. Cholelithiasis. 3. Pancreatitis as described on CT 01/02/2022. No walled off/focal fluid collections. Upper abdominal edema and perihepatic ascites. Electronically Signed: Juan Ordaz MD (Brooks) at 10:48 EDT Reading Location ID and State: [address] [place] [address] , Service support ,
[2022-01-05] MEDS: Acetaminophen 325 MG Tablet 650 MG PO ×2 (08:22→17:04)
[2022-01-05] MEDS: Pantoprazole Sodium 40 MG Tablet PO ×2 (08:26→22:45)
[2022-01-05] MEDS: Furosemide 40 MG Tablet PO (08:26)
[2022-01-05 08:27] LABS: Anion Gap 8 (5-15); BUN 19 mg/dL (7-18); BUN/Creat Ratio 40.7 RATIO (10-20); Calcium,Total 8.1 mg/dL (8.5-10.1); Chloride 101 mmol/L (98-107); Creatinine, Serum 0.47 mg/dL (0.70-1.30); EST Glomerular Filtration Rate 189 mL/min (>60); Est Glom Filt Rate - Afr Amer 229 mL/min (>60); Estimated Creatinine Clearance 76.52 ml/min; Glucose 73 mg/dL (74-106); Potassium 3.9 mmol/L (3.5-5.1); Sodium Level 142 mmol/L (136-145)
[2022-01-05] MEDS: Amox/Clavulanate 875 MG Tablet PO ×2 (08:27→22:44)
[2022-01-05] MEDS: Potassium Chloride Oral Tablet 20 MEQ PO (08:27)
[2022-01-05] MEDS: ROFLUMILAST 500 MCG TABLET PO (08:43)
[2022-01-05] MEDS: Amiodarone 200 MG Tablet PO ×2 (08:43→22:44)
[2022-01-05] MEDS: Metoprolol Tartrate 50 MG Tablet PO (08:53)
[2022-01-05 09:17] LABS: Amylase 167 U/L (25-115); LDH 307 U/L (87-241); Lipase 439 U/L (73-393)
[2022-01-05 09:21] LABS: Lactic Acid 1.1 mmol/L (0.4-1.9)
--- NOTE | 2022-01-05 09:36 | NURSING ---
Spoke with daughters regarding concerns of not keeping them informed of their dad's condition stating they were told he's great while pt was in ICU. Both daughters are from out of town and informed this RN that their father had just moved to [place] recently and got . Expressed concerns for not being informed, and information on how to stay informed in the long run. Advised both daughters that it is up to father if he wants them to be POA and have information provided to them; both voiced understanding. CM updated who is following. Primary RN also updated.
--- NOTE | 2022-01-05 10:20 | CASEMGMT ---
Social Work Consult: Resources Referral source: Nursing staff Met with patient and patient daughters, Rosio Irvin and Maria Luisa Pemberton. Introduced self and group social worker role. Patient agreeable to speak with this group social worker and provided verbal permission for this group social worker to speak with patient daughters. Patient daughter, Rosio with multiple questions about being able to be updated by medical team. Patient states that main customer contact sales associate is patient spouse, Glory. Patient has been to [place] for the past year per Maria Luisa. Patient states to be comfortable with patient daughters being updated on patient medical care/treatment plan. This group social worker communicating to Rosio and Maria Luisa that per patient choice Glory will remain to be main contact for person but that Rosio and Maria Luisa can be added to patient chart so that medical team is aware that Rosio and Maria Luisa are able to obtain medical information about patient. This group social worker communicating that medical team will only be reaching out to one person and that person is Gl[place] but that Rosio and Maria Luisa are able to call in for updates. All parties are agreeable to above information. This group social worker noting that patient daughters information is already listed on chart. No further questions. Patient plans to return to home with spouse when medically cleared. No further needs requested or indicated at this time. Dom Mckeon MSW, GINNY
--- NOTE | 2022-01-05 11:43 | PN.HOSP_ITS ---
Documented by User: Lisa Reese NP, [facility] 01/05/22 12:05 Subjective Subjective Patient seen and examined. Reports increased abdominal pain overnight with nausea. Denies emesis. Denies other symptoms or complaints. Objective Data Objective Data Vital Signs: Vital Signs Temp Pulse Resp BP Pulse Ox O2 Del Method O2 Flow Rate 98.2 F 68 18 118/54 L 96 Nasal Cannula 3 01/05/22 11:13 01/05/22 11:13 01/05/22 11:13 01/05/22 11:13 01/05/22 11:13 01/05/22 11:13 01/05/22 11:13 FiO2 100 12/29/21 17:00 Oxygen Flow Rate (L/min) 3 Oxygen Delivery Method Nasal Cannula Weight: 178 lb 9.191 oz Body Mass Index (BMI) 24.5 Intake & Output: Intake and Output for Last 24 Hours 01/03/22 01/04/22 01/05/22 23:59 23:59 23:59 Intake Total 1053.5 / 1053.5 460 / 460 Output Total 1450 / 1450 1575 / 1850 525 / 525 Balance -396.5 / -396.5 -1115 / -1390 -525 / -525 Lab / Micro Data Result Diagrams: 01/05/22 05:09 01/05/22 05:09 Labs: Laboratory Results - last 24 hr 01/05/22 05:09: WBC 20.2 H, RBC 4.66, Hgb 13.7, Hct 46.2, MCV 99.1 H D, MCH 29.4, MCHC 29.7 L D, RDW Std Deviation 53.1 H, RDW Coeff of Gladis 14.5, Plt Count 205, MPV 9.5, Immature Gran % (Auto) 2.500 H, Neut % (Auto) 86.2 H, Lymph % (Auto) 4.3 L, [place] % (Auto) 6.0, Eos % (Auto) 1.0, Baso % (Auto) 0.0, Absolute Neuts (auto) 17.4 H, Absolute Lymphs (auto) 0.87, Nucleated RBC % 0, Differential Comment SCANNED 01/05/22 05:09: Sodium 142, Potassium 3.9, Chloride 101, Carbon Dioxide 33.0 H, Anion Gap 8, BUN 19 H, Creatinine 0.47 L, Estim Creat Clear Calc 76.52, Est GFR (MDRD) Af Amer 229, Est GFR (MDRD) Non-Af 189, BUN/Creatinine Ratio 40.7 H, Glucose 73 L, Calcium 8.1 L 01/05/22 08:38: Lactate Dehydrogenase 307 H, C-React Prot Ext Range 70.00 H, Amylase 167 H, Lipase 439 H 01/05/22 08:38: Lactic Acid 1.1 Micro: Microbiology 12/29/21 10:27 Blood Culture (Wb) - Anticubital Right Blood Culture - Final No growth in 5 days. 12/29/21 10:38 Blood Culture (Wb) - Arm Right Blood Culture - Final No growth in 5 days. Radiography Diagnostic Testing: Radiology Impression MRCP 01/05/22 08:00 IMPRESSION: 1. No choledocholithiasis/biliary obstruction. 2. Cholelithiasis. 3. Pancreatitis as described on CT 01/02/2022. No walled off/focal fluid collections. Upper abdominal edema and perihepatic ascites. Electronically Signed: Juan Ordaz MD ([facility]) at 10:48 EDT Reading Location ID and State: [address] [place] [address] , Service support , Rhythm Strip Rhythm Strip: Sinus Rhythm Physical Exam Const alert and oriented x3 Constitutional Narrative: Fatigued appearing. HEENT normocephalic Mouth: dry mucous membranes Eyes PERRL, EOMs intact bilaterally and conjunctivae normal Neck no lymphadenopathy Resp Auscultation: wheezes and diminished lung sounds Cardio regular rate, regular rhythm and no murmurs Peripheral Pulses: pulses 2+ throughout GI normal to inspection, nondistended, normoactive bowel sounds and non-distended GI Narrative: Ostomy present Palpation: tender Extremity normal to inspection Skin no rashes or lesions noted Lesions: no lesions Rashes: no rashes Trauma: no lacerations or abrasions Neuro CN's II-XII intact bilaterally, no focal motor deficits, no sensory deficits noted and deep tendon reflexes 2+ bilaterally Psych Mood & Affect: flat affect Assessment & Plan Assessment/Plan (1) Acute gallstone pancreatitis: PLAN: Plan 1.? Acute pancreatitis, suspected gallstone- surgery following. Per surgery, no current plans for plans for surgery. MRCP without choledocholithiasis/biliary obstruction. Cholelithiasis. Pancreatitis as described on CT 01/02/2022. Upper abdominal edema and perihepatic ascites. Await further recommendations per surgery/GI. 2. Paroxysmal atrial fibrillation/atrial flutter with RVR-cardiology following.? On metoprolol, amiodarone.? Anticoagulation on hold due to GI bleed. 3. Acute heart failure with preserved ejection fraction-initially placed on IV Lasix.? Transition to oral regimen.? Echocardiogram demonstrated an EF of 60%, RVSP estimated to be 61 mmHg. 4. GI bleed-GI consulted.? Underwent upper GI which demonstrated acute esophagitis, treated with heater probe.? Gastritis.? Continue PPI twice daily. 5. Adynamic ileus-resolved. 6. Chronic COPD with chronic hypoxic respiratory failure-on baseline home O2.? As needed albuterol aerosol. Recently completed prednisone taper. 7. NTEMI-type II demand ischemia. Echo per above. DVT prophylaxis-SCDs, xarelto on hold This patient was seen by BARRY Zaidi under the supervision of Dr. Patel. Time spent examining patient, reviewing data and subsequent management of care: 12 minutes Documented by User: Dr. Sanjay Patel, 01/05/22 17:56 Objective Data Lab / Micro Data Result Diagrams: 01/05/22 05:09 01/05/22 05:09 Assessment & Plan Assessment/Plan (1) Acute gallstone pancreatitis: PLAN: Plan 1.? Acute pancreatitis, suspected gallstone- surgery following. Per surgery, no current plans for plans for surgery. MRCP without choledocholithiasis/biliary obstruction. Cholelithiasis. Pancreatitis as described on CT 01/02/2022. Upper abdominal edema and perihepatic ascites. Await further recommendations per surgery/GI. 2. Paroxysmal atrial fibrillation/atrial flutter with RVR-cardiology following.? On metoprolol, amiodarone.? Anticoagulation on hold due to GI bleed. 3. Acute heart failure with preserved ejection fraction-initially placed on IV Lasix.? Transition to oral regimen.? Echocardiogram demonstrated an EF of 60%, RVSP estimated to be 61 mmHg. 4. GI bleed-GI consulted.? Underwent upper GI which demonstrated acute esophagitis, treated with heater probe.? Gastritis.? Continue PPI twice daily. 5. Adynamic ileus-resolved. 6. Chronic COPD with chronic hypoxic respiratory failure-on baseline home O2.? As needed albuterol aerosol. Recently completed prednisone taper. 7. NTEMI-type II demand ischemia. Echo per above. DVT prophylaxis-SCDs, xarelto on hold This patient was seen by BARRY Zaidi under the supervision of Dr. Patel. Time spent examining patient, reviewing data and subsequent management of care: 12 minutes Patient seen and examined independently. Data and vitals reviewed. I agree with the above note by the nurse practitioner. Patient still with abdominal pain worse when he eats. No acute distress and afebrile. Heart rate regular rate and rhythm plus S1-S2 with a soft rubs. Lungs are clear to auscultation bilaterally but diminished. Abdomen is slightly distended tender no rebound. Extremities are without any signs clubbing or edema. Assessment/Plan (1) Acute gallstone pancreatitis: (2) Leukocytosis: (3) COPD (chronic obstructive pulmonary disease): PLAN: Plan 1.? Acute pancreatitis Suspect gallstone but no clear evidence at this time of choledocholithiasis. Doubtful that this is alcohol but the patient and his state that he does not drink often at all. Plan: * IV fluids * Pain control, antiemetics * Dr. Bruno was contacted through the emergency room and recommended ultrasound.? Ultrasound will be ordered. * Consultations to gastroenterology as well as general surgery.? There is no acute surgical needs at this time. * MRCP showed no choledocholithiasis/biliary obstruction. Cholelithiasis. Pancreatitis with no walled off focal fluid collections. Upper abdominal edema and perihepatic ascites. * Changed over to clear diet today. Monitor 2.? Atrial flutter with RVR Currently normal sinus rhythm Status post cardioversion Plan: Continue with metoprolol and amiodarone.? Anticoagulation held for now given anemia. 3.? Type II non-STEMI Secondary to atrial fibrillation/flutter with RVR Cardiology following No additional work-up at this time ?4. GI bleed * EGD performed on the first showing esophagitis that was treated with heater probe and biopsied.? Gastritis that was also treated with heater probe. * Continue with pantoprazole 4. leukocytosis Patient was treated for COPD exacerbation at [facility] and was put on Augmentin as well as 60 mg of prednisone. I suspect this is related with the steroids but will follow-up with labs.? 5.? COPD Unclear stage but patient is on chronic oxygen.? He does have dyspnea on exertion but this is his baseline.? Patient is medically stabilized from a COPD perspective to proceed with procedures.? He is certainly high risk for intubation given his COPD.? I did review his CAT scan of his abdomen pelvis and cut the lower portions of his doris gs and he does have significant bleb formation due to COPD.? 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 Plan: * Continue with his home meds * Prednisone completed * As needed albuterol. 6.? Paroxysmal atrial fibrillation Stable Plan: * Continue with metoprolol * Hold rivaroxaban in anticipation of potential procedures.? His last dose of rivaroxaban was in the morning on the . 7.? VTE prophylaxis: SCDs 8.? CODE STATUS: Addressed with the patient.? Patient is full CODE STATUS. Discussed with the patient's family at bedside.? Charges/Coding Visit Charges Inpatient E&M: 90976 Subs Hosp L2
[2022-01-05] MEDS: Creon 24,000 unit DR Capsule 1 CAP PO ×2 (12:13→17:02)
--- NOTE | 2022-01-05 12:27 | PCM.PN.SRG ---
Subjective Subjective Patient was seen and examined during AM rounds. Is found sitting out of bed in wheelchair talking with his . He denies any significant abdominal discomfort, but complains that he feels full with the littlest food intake. He also remarks that his colostomy has had lots of watery output. Objective Data Objective Data Vital Signs: Vital Signs Temp Pulse Resp BP Pulse Ox O2 Del Method O2 Flow Rate 98.2 F 68 18 118/54 L 96 Nasal Cannula 3 01/05/22 11:13 01/05/22 11:13 01/05/22 11:13 01/05/22 11:13 01/05/22 11:13 01/05/22 11:13 01/05/22 11:13 FiO2 100 12/29/21 17:00 Oxygen Flow Rate (L/min) 3 Oxygen Delivery Method Nasal Cannula Weight: 178 lb 9.191 oz Body Mass Index (BMI) 24.5 Intake & Output: Intake and Output for Last 24 Hours 01/03/22 01/04/22 01/05/22 23:59 23:59 23:59 Intake Total 1053.5 / 1053.5 460 / 460 Output Total 1450 / 1450 1575 / 1850 525 / 525 Balance -396.5 / -396.5 -1115 / -1390 -525 / -525 Lab / Micro Data Result Diagrams: 01/05/22 05:09 01/05/22 05:09 Labs: Laboratory Results - last 24 hr 01/05/22 05:09: WBC 20.2 H, RBC 4.66, Hgb 13.7, Hct 46.2, MCV 99.1 H D, MCH 29.4, MCHC 29.7 L D, RDW Std Deviation 53.1 H, RDW Coeff of Gladis 14.5, Plt Count 205, MPV 9.5, Immature Gran % (Auto) 2.500 H, Neut % (Auto) 86.2 H, Lymph % (Auto) 4.3 L, [place] % (Auto) 6.0, Eos % (Auto) 1.0, Baso % (Auto) 0.0, Absolute Neuts (auto) 17.4 H, Absolute Lymphs (auto) 0.87, Nucleated RBC % 0, Differential Comment SCANNED 01/05/22 05:09: Sodium 142, Potassium 3.9, Chloride 101, Carbon Dioxide 33.0 H, Anion Gap 8, BUN 19 H, Creatinine 0.47 L, Estim Creat Clear Calc 76.52, Est GFR (MDRD) Af Amer 229, Est GFR (MDRD) Non-Af 189, BUN/Creatinine Ratio 40.7 H, Glucose 73 L, Calcium 8.1 L 01/05/22 08:38: Lactate Dehydrogenase 307 H, C-React Prot Ext Range 70.00 H, Amylase 167 H, Lipase 439 H 01/05/22 08:38: Lactic Acid 1.1 Micro: Microbiology 12/29/21 10:27 Blood Culture (Wb) - Anticubital Right Blood Culture - Final No growth in 5 days. 12/29/21 10:38 Blood Culture (Wb) - Arm Right Blood Culture - Final No growth in 5 days. Radiography Diagnostic Testing: Radiology Impression MRCP 01/05/22 08:00 IMPRESSION: 1. No choledocholithiasis/biliary obstruction. 2. Cholelithiasis. 3. Pancreatitis as described on CT 01/02/2022. No walled off/focal fluid collections. Upper abdominal edema and perihepatic ascites. Electronically Signed: Juan Ordaz MD (Bro[place]) at 10:48 EDT Reading Location ID and State: / [place] , Service support , Rhythm Strip Rhythm Strip: Sinus Rhythm Physical Exam Narrative Appears frail Const oriented x3 Resp Resp Narrative: Upper airway rattling GI GI Narrative: Nondistended, soft, nontender to palpation x4 quadrants. Colostomy appliance in place with thin stool and gas in the appliance Assessment & Plan Assessment/Plan (1) Pancreatitis: (2) Cholelithiasis: PLAN: Plan Patient hospital day 8 for pancreatitis. His abdominal discomfort seems resolved, however, he complains that he gets full with very little oral intake. His most recent CT imaging is reviewed and I find it likely this is at least in part due to the considerable amount of inflammation still seen in the lesser sac. He states that he is trying to revert back to a liquid diet to see if this will improve his overall intake. At this time his abdominal exam is benign and given his eventful hospital stay to date, I would like to hold off any further talks of same admission cholecystectomy at this time. MRCP results are reviewed as well and consistent only with cholelithiasis in the gallbladder. Recommend the following: ? Full liquid diet with protein supplementation ? Consideration of probiotic ? We will continue to follow serial abdominal exams
--- NOTE | 2022-01-05 13:05 | PN.CARD_ITS ---
Subjective Subjective The patient was evaluated earlier this day. He was awake and alert. He appeared to be breathing comfortably at the time. He had no new acute cardiac complaints. Objective Data Vital Signs: Vital Signs Temp Pulse Resp BP Pulse Ox O2 Del Method O2 Flow Rate 98.2 F 68 18 118/54 L 96 Nasal Cannula 3 01/05/22 11:13 01/05/22 11:13 01/05/22 11:13 01/05/22 11:13 01/05/22 11:13 01/05/22 11:13 01/05/22 11:13 FiO2 100 12/29/21 17:00 Oxygen Flow Rate (L/min) 3 Oxygen Delivery Method Nasal Cannula Weight: 178 lb 9.191 oz Body Mass Index (BMI) 24.5 Intake & Output: Intake and Output for Last 24 Hours 01/03/22 01/04/22 01/05/22 23:59 23:59 23:59 Intake Total 1053.5 / 1053.5 460 / 460 Output Total 1450 / 1450 1575 / 1850 525 / 525 Balance -396.5 / -396.5 -1115 / -1390 -525 / -525 Lab / Micro Data Result Diagrams: 01/05/22 05:09 01/05/22 05:09 Labs: Laboratory Results - last 24 hr 01/05/22 05:09: WBC 20.2 H, RBC 4.66, Hgb 13.7, Hct 46.2, MCV 99.1 H D, MCH 29.4, MCHC 29.7 L D, RDW Std Deviation 53.1 H, RDW Coeff of Gladis 14.5, Plt Count 205, MPV 9.5, Immature Gran % (Auto) 2.500 H, Neut % (Auto) 86.2 H, Lymph % (Auto) 4.3 L, [place] % (Auto) 6.0, Eos % (Auto) 1.0, Baso % (Auto) 0.0, Absolute Neuts (auto) 17.4 H, Absolute Lymphs (auto) 0.87, Nucleated RBC % 0, Differential Comment SCANNED 01/05/22 05:09: Sodium 142, Potassium 3.9, Chloride 101, Carbon Dioxide 33.0 H, Anion Gap 8, BUN 19 H, Creatinine 0.47 L, Estim Creat Clear Calc 76.52, Est GFR (MDRD) Af Amer 229, Est GFR (MDRD) Non-Af 189, BUN/Creatinine Ratio 40.7 H, Glucose 73 L, Calcium 8.1 L 01/05/22 08:38: Lactate Dehydrogenase 307 H, C-React Prot Ext Range 70.00 H, Amylase 167 H, Lipase 439 H 01/05/22 08:38: Lactic Acid 1.1 Rhythm Strip Rhythm Strip: Sinus Rhythm Cardiology Labs/Tests 01/05/22 05:09: WBC 20.2 H, RBC 4.66, Hgb 13.7, Hct 46.2, MCV 99.1 H D, MCH 29.4, MCHC 29.7 L D, Plt Count 205, MPV 9.5, Immature Gran % (Auto) 2.500 H, Neut % (Auto) 86.2 H, Lymph % (Auto) 4.3 L, [place] % (Auto) 6.0, Eos % (Auto) 1.0, Baso % (Auto) 0.0, Absolute Neuts (auto) 17.4 H, Nucleated RBC % 0 01/05/22 05:09: Sodium 142, Potassium 3.9, Chloride 101, Carbon Dioxide 33.0 H, Anion Gap 8, BUN 19 H, Creatinine 0.47 L, Est GFR (MDRD) Af Amer 229, Est GFR (MDRD) Non-Af 189, BUN/Creatinine Ratio 40.7 H, Glucose 73 L, Calcium 8.1 L 01/05/22 08:38: Lactic Acid 1.1 Rhythm: EKG: ECHO: Stress Test: Cardiac Cath: PCI: CT Surgery: Holter monitor: EPS: PPM: CXR: Chest CT Scan: Radiography Diagnostic Testing: Radiology Impression MRCP 01/05/22 08:00 IMPRESSION: 1. No choledocholithiasis/biliary obstruction. 2. Cholelithiasis. 3. Pancreatitis as described on CT 01/02/2022. No walled off/focal fluid collections. Upper abdominal edema and perihepatic ascites. Electronically Signed: Juan Ordaz MD (Bro[place]) at 10:48 EDT Reading Location ID and State: [address] [place] [address] , Service support , Physical Exam Const alert, oriented x3 and no apparent distress HEENT normocephalic, head/scalp atraumatic and hearing grossly normal bilaterally Eyes PERRL, EOMs intact bilaterally and conjunctivae normal Neck full ROM, supple and no JVD Resp Auscultation: breath sounds absent bilateral (Less prominent than yesterday) Cardio regular rate, regular rhythm, S1 normal heart sound and S2 normal heart sound Rhythm: regular rhythm Heart Sounds: S1 normal and S2 normal GI GI Narrative: Positive bowel sounds Extremity no pedal edema Skin no rashes or lesions noted Psych mental status grossly normal Assessment & Plan Assessment/Plan (1) Atrial fibrillation: PLAN: The patient appears to to be remaining in sinus rhythm. He is continuing rate control with beta-rena. He has been transitioned to oral amiodarone therapy. He is not on anticoagulant therapy secondary to his upper GI bleed process and concerns of his underlying pancreatitis. (2) Abnormal cardiac enzyme level: PLAN: The patient does have abnormal cardiac enzymes. At the moment this appears compatible with a type II non-STEMI secondary to his atrial dysrhythmia with atrial fibrillation/flutter with RVR superimposed upon his noncardiac gastrointestinal related issues. His ECG has demonstrated T wave abnormality potentially compatible with myocardial ischemia in the anterolateral distribution. He did undergo evaluation with transthoracic echocardiogram. His overall LV wall motion/systolic function appeared to be preserved. At the moment he will continue to be monitored and continue medical management as deemed appropriate. At the moment he is not an ideal candidate, based on his multiple noncardiac comorbidities and medication limitations, to undergo additional noninvasive or invasive cardiovascular testing. This may have to be considered in the future depending upon his overall clinical course. (3) CHF (congestive heart failure): PLAN: The patient appears to have developed symptoms compatible with CHF . This may be, based on his transthoracic echocardiogram, an element of heart failure with preserved ejection fraction. He did receive IV diuresis with increased urinary output. He has been transitioned to oral diuretics. Overall, he appears to be improved based on symptoms and examination. (4) GI bleed: PLAN: The patient was noted to have concerns of an upper GI bleed. He underwent endoscopy. He was found to have esophagitis and gastritis treated with heater probe therapy and subsequently IV PPI. He will need to be monitored for any recurrent issues regarding this. Again this is another issue while he cannot initiate anticoagulant therapy at this time. (5) Acute gallstone pancreatitis: PLAN: The patient is continuing evaluation care per internal medicine, gastroenterology, and general surgery. (6) COPD (chronic obstructive pulmonary disease): PLAN: The patient will continue evaluation by internal medicine and pulmonology/critical care medicine as deemed appropriate. PLAN: Plan The patient's balance and other family members are here at this time. The above was discussed and reviewed with the patient and his other family members present. This note was generated using a voice recognition system and there may be incorrect words, spelling or punctuation that were not noted when reviewing the office note prior to saving.
[2022-01-05 15:18] LABS: Pathologist Review Reviewed
[2022-01-05 15:28] LABS: Pathologist Review Reviewed
--- NOTE | 2022-01-05 16:54 | PCM.PROGNOTE ---
Subjective Subjective Patient is still improving clinically. He underwent an MRCP today. He denies any abdominal pain. He is having bowel meds to his colostomy bag. Objective Data Objective Data Vital Signs: Vital Signs Temp Pulse Resp BP Pulse Ox O2 Del Method O2 Flow Rate 98.2 F 68 18 118/54 L 96 Nasal Cannula 3 01/05/22 11:13 01/05/22 14:44 01/05/22 11:13 01/05/22 11:13 01/05/22 11:13 01/05/22 14:30 01/05/22 14:30 FiO2 100 12/29/21 17:00 Oxygen Flow Rate (L/min) 3 Oxygen Delivery Method Nasal Cannula Weight: 178 lb 9.191 oz Body Mass Index (BMI) 24.5 Intake & Output: Intake and Output for Last 24 Hours 01/03/22 01/04/22 01/05/22 23:59 23:59 23:59 Intake Total 1053.5 / 1053.5 460 / 460 600 / 600 Output Total 1450 / 1450 1575 / 1850 1025 / 1025 Balance -396.5 / -396.5 -1115 / -1390 -425 / -425 Lab / Micro Data Result Diagrams: 01/05/22 05:09 01/05/22 05:09 Labs: Laboratory Results - last 24 hr 01/02/22 03:25: Diff Path Review Reviewed 01/03/22 05:05: Diff Path Review Reviewed 01/05/22 05:09: WBC 20.2 H, RBC 4.66, Hgb 13.7, Hct 46.2, MCV 99.1 H D, MCH 29.4, MCHC 29.7 L D, RDW Std Deviation 53.1 H, RDW Coeff of Gladis 14.5, Plt Count 205, MPV 9.5, Immature Gran % (Auto) 2.500 H, Neut % (Auto) 86.2 H, Lymph % (Auto) 4.3 L, [place] % (Auto) 6.0, Eos % (Auto) 1.0, Baso % (Auto) 0.0, Absolute Neuts (auto) 17.4 H, Absolute Lymphs (auto) 0.87, Nucleated RBC % 0, Differential Comment SCANNED 01/05/22 05:09: Sodium 142, Potassium 3.9, Chloride 101, Carbon Dioxide 33.0 H, Anion Gap 8, BUN 19 H, Creatinine 0.47 L, Estim Creat Clear Calc 76.52, Est GFR (MDRD) Af Amer 229, Est GFR (MDRD) Non-Af 189, BUN/Creatinine Ratio 40.7 H, Glucose 73 L, Calcium 8.1 L 01/05/22 08:38: Lactate Dehydrogenase 307 H, C-React Prot Ext Range 70.00 H, Amylase 167 H, Lipase 439 H 01/05/22 08:38: Lactic Acid 1.1 Micro: Microbiology 12/29/21 10:27 Blood Culture (Wb) - Anticubital Right Blood Culture - Final No growth in 5 days. 12/29/21 10:38 Blood Culture (Wb) - Arm Right Blood Culture - Final No growth in 5 days. Radiography Diagnostic Testing: Radiology Impression MRCP 01/05/22 08:00 IMPRESSION: 1. No choledocholithiasis/biliary obstruction. 2. Cholelithiasis. 3. Pancreatitis as described on CT 01/02/2022. No walled off/focal fluid collections. Upper abdominal edema and perihepatic ascites. Electronically Signed: Juan Ordaz MD ([place]) at 10:48 EDT Reading Location ID and State: [address] [place] [address] , Service support , Rhythm Strip Rhythm Strip: Sinus Rhythm Physical Exam Const alert, oriented x3 and no apparent distress HEENT normocephalic, head/scalp atraumatic and hearing grossly normal bilaterally Eyes PERRL, EOMs intact bilaterally and conjunctivae normal Neck full ROM, supple and no JVD Resp Auscultation: breath sounds absent bilateral (Less prominent than yesterday) Cardio regular rate, regular rhythm, S1 normal heart sound and S2 normal heart sound Rhythm: regular rhythm Heart Sounds: S1 normal and S2 normal GI GI Narrative: Positive bowel sounds Extremity no pedal edema Skin no rashes or lesions noted Psych mental status grossly normal Assessment & Plan Assessment/Plan (1) Pancreatitis: PLAN: Acute severe pancreatitis. I agree with continue to initiate food although his amylase lipase did go up slightly. He is not really symptomatic in regards to abdominal pain secondary to eating. I did give him pancreatic enzymes to take with each meal. He does not have any nausea. He does not have any poor response to his new blood pressure medicine regimen. Continue IV fluids. Monitor his ESR, CRP, LDH. His lactate was normal today. His white blood cell count is normal. And his hematocrit is staying low which is very good sign regarding a hemoconcentration of the pancreas in the setting of acute severe pancreatitis. Meropenem has been stopped as it is no longer indicated at this time. Assuming that his increased white blood count is mostly secondary to his acute severe pancreatitis. (2) GI bleed: PLAN: His GI bleed was identified and treated endoscopically. He is doing well and his hemoglobin is holding stable. Charges/Coding Visit Charges Inpatient E&M: 21052 Subs Hosp L2
[2022-01-05] MEDS: Metoprolol Tartrate 100 MG Tablet PO (22:45)
[2022-01-06] VITALS (15 sets, daily range): BP systolic 105–125; BP diastolic 56–67; PULSE 56–80; RESP 16–18; TEMP 36.4–36.7; O2SAT 88–99
[2022-01-06] MEDS: oxyCODONE 5 MG Tablet PO ×2 (02:47→23:01)
[2022-01-06 07:22] LABS: Absolute Lymphocyte Count 0.91 X10^3/uL (0.83-4.51); Absolute Neutrophil Count 18.8 X10^3/uL (2.0-7.7); Basophil# 0.16 X10^3/uL; Basophil% 0.7 % (0-1); Eosinophil# 0.19 X10^3/uL; Eosinophils% 0.9 % (0-5); Hemoglobin 12.7 g/dL (13.0-16.5); Lymphocyte # 0.91 X10^3/ul (0.83-4.51); Lymphocyte % 4.2 % (19-41); Mean Corp Hgb Conc 32.6 g/dL (32-36); Mean Corpuscular Hgb 29.3 pg (27.0-32.0); Mean Corpuscular Volume 90.1 fL (80-94); Mean Platelet Vol. 9.6 fl (6.2-12.0); Monocyte# 1.22 X10^3/uL; Monocyte% 5.6 % (0-10); NRBC Flagged by Analyzer 0 % (0-5); Neutrophil # 18.79 X10^3/uL (2.7-7.7); Neutrophil % 85.8 % (47-70); Platelet Count 247 K/mm3 (150-450); RBC Distribution Width CV 14.2 % (11.6-14.6); RBC Distribution Width SD 46.7 fl (35.1-43.9); Red Blood Count 4.33 M/mm3 (4.6-6.2); White Blood Count 21.9 K/mm3 (4.4-11.0)
[2022-01-06 08:10] LABS: Anion Gap 3 (5-15); BUN 18 mg/dL (7-18); BUN/Creat Ratio 29.5 RATIO (10-20); Calcium,Total 8.7 mg/dL (8.5-10.1); Chloride 99 mmol/L (98-107); Creatinine, Serum 0.61 mg/dL (0.70-1.30); EST Glomerular Filtration Rate 139 mL/min (>60); Est Glom Filt Rate - Afr Amer 168 mL/min (>60); Estimated Creatinine Clearance 76.52 ml/min; Glucose 75 mg/dL (74-106); Potassium 3.5 mmol/L (3.5-5.1); Sodium Level 138 mmol/L (136-145)
--- NOTE | 2022-01-06 08:17 | PCM.PN.SRG ---
Subjective Subjective Patient was seen and examined during AM rounds. He is position perched on the edge of his bed. He states that he is feeling better today and is interested in trying more of a diet again. He confirms that he had continued loose output from his colostomy (he estimates a total of 3 Beakers over the past 24 hours) Objective Data Objective Data Vital Signs: Vital Signs Temp Pulse Resp BP Pulse Ox O2 Del Method O2 Flow Rate 97.6 F L 70 18 112/64 97 Nasal Cannula 4 01/06/22 04:47 01/06/22 07:12 01/06/22 04:47 01/06/22 04:47 01/06/22 07:23 01/06/22 07:23 01/06/22 07:23 FiO2 100 12/29/21 17:00 Oxygen Flow Rate (L/min) 4 Oxygen Delivery Method Nasal Cannula Weight: 180 lb 12.465 oz Body Mass Index (BMI) 24.5 Intake & Output: Intake and Output for Last 24 Hours 01/04/22 01/05/22 01/06/22 23:59 23:59 23:59 Intake Total 460 / 460 1320 / 1320 Output Total 1575 / 1850 1945 / 1945 200 / 200 Balance -1115 / -1390 -625 / -625 -200 / -200 Lab / Micro Data Result Diagrams: 01/06/22 06:00 01/06/22 06:00 Labs: Laboratory Results - last 24 hr 01/02/22 03:25: Diff Path Review Reviewed 01/03/22 05:05: Diff Path Review Reviewed 01/05/22 05:09: Sodium 142, Potassium 3.9, Chloride 101, Carbon Dioxide 33.0 H, Anion Gap 8, BUN 19 H, Creatinine 0.47 L, Estim Creat Clear Calc 76.52, Est GFR (MDRD) Af Amer 229, Est GFR (MDRD) Non-Af 189, BUN/Creatinine Ratio 40.7 H, Glucose 73 L, Calcium 8.1 L 01/05/22 08:38: Lactate Dehydrogenase 307 H, C-React Prot Ext Range 70.00 H, Amylase 167 H, Lipase 439 H 01/05/22 08:38: Lactic Acid 1.1 01/06/22 06:00: WBC 21.9 H, RBC 4.33 L, Hgb 12.7 L, Hct 39.0 L, MCV 90.1 D, MCH 29.3, MCHC 32.6 D, RDW Std Deviation 46.7 H, RDW Coeff of Gladis 14.2, Plt Count 247, MPV 9.6, Immature Gran % (Auto) 2.800 H, Neut % (Auto) 85.8 H, Lymph % (Auto) 4.2 L, [place] % (Auto) 5.6, Eos % (Auto) 0.9, Baso % (Auto) 0.7, Absolute Neuts (auto) 18.8 H, Absolute Lymphs (auto) 0.91, Nucleated RBC % 0 01/06/22 06:00: Sodium 138, Potassium 3.5, Chloride 99, Carbon Dioxide 36.0 H, Anion Gap 3 L, BUN 18, Creatinine 0.61 L, Estim Creat Clear Calc 76.52, Est GFR (MDRD) Af Amer 168, Est GFR (MDRD) Non-Af 139, BUN/Creatinine Ratio 29.5 H, Glucose 75, Calcium 8.7 Micro: Microbiology 12/29/21 10:27 Blood Culture (Wb) - Anticubital Right Blood Culture - Final No growth in 5 days. 12/29/21 10:38 Blood Culture (Wb) - Arm Right Blood Culture - Final No growth in 5 days. Radiography Diagnostic Testing: Radiology Impression MRCP 01/05/22 08:00 IMPRESSION: 1. No choledocholithiasis/biliary obstruction. 2. Cholelithiasis. 3. Pancreatitis as described on CT 01/02/2022. No walled off/focal fluid collections. Upper abdominal edema and perihepatic ascites. Electronically Signed: Juan Ordaz MD ([place]) at 10:48 EDT Reading Location ID and State: / [place] , Service support , Rhythm Strip Rhythm Strip: Sinus Rhythm Physical Exam Const oriented x3 and no apparent distress GI GI Narrative: Nondistended, soft, mild tenderness to palpation in the left upper and right lower quadrants Assessment & Plan Assessment/Plan (1) Pancreatitis: (2) Cholelithiasis: PLAN: Plan Patient hospital day 9 for pancreatitis. His abdominal discomfort seems resolved and he is now requesting another chance to advance his diet. I have shared with him that I would strongly encourage him to try to boost his nutrition as his pancreatitis symptoms resolve. I also shared with him his most recent CT imaging and the inflammatory process taking place adjacent to his stomach wall. He and his express appreciation for this information. They wish to know whether I or Mr. Smith's team recommends starting a papaya supplement. I have deferred further judgment to Dr. Holley of gastroenterology as this supplement contains a number of pancreatic enzymes which I know him to be interested in initiating. Lastly I have shared with family that if Mr. Smith's leukocytosis persists we could consider stool studies for potential opportunistic pathogens given his recent use of antibiotics. Recommend the following: ? Okay to advance diet from a surgical standpoint ? Consideration of probiotic ? Consideration of stool studies if frequent loose bowel movements persist ? We will continue to follow serial abdominal exams Charges/Coding Visit Charges Inpatient E&M: 24590 Subs Hosp L2
[2022-01-06] MEDS: Metoprolol Tartrate 100 MG Tablet PO ×2 (10:14→21:10)
[2022-01-06] MEDS: ROFLUMILAST 500 MCG TABLET PO (10:15)
[2022-01-06] MEDS: Creon 24,000 unit DR Capsule 1 CAP PO ×3 (10:15→17:28)
[2022-01-06] MEDS: Furosemide 40 MG Tablet PO (10:15)
[2022-01-06] MEDS: Amiodarone 200 MG Tablet PO ×2 (10:15→21:10)
[2022-01-06] MEDS: Amox/Clavulanate 875 MG Tablet PO ×2 (10:15→21:10)
[2022-01-06] MEDS: Potassium Chloride Oral Tablet 20 MEQ PO (10:15)
[2022-01-06] MEDS: Pantoprazole Sodium 40 MG Tablet PO ×2 (10:15→22:58)
--- NOTE | 2022-01-06 11:31 | PN.HOSP_ITS ---
Documented by User: Lisa Reese NP, BIOINFORMATICIST-C 01/06/22 11:39 Subjective Subjective Patient seen and examined. Abdominal pain, nausea improved. Tolerating oral intake/full liquids. Denies new symptoms or complaints. Objective Data Objective Data Vital Signs: Vital Signs Temp Pulse Resp BP Pulse Ox O2 Del Method O2 Flow Rate 97.5 F L 80 16 105/62 96 Nasal Cannula 3 01/06/22 10:09 01/06/22 10:14 01/06/22 10:09 01/06/22 10:14 01/06/22 10:09 01/06/22 10:39 01/06/22 10:39 FiO2 100 12/29/21 17:00 Oxygen Flow Rate (L/min) 3 Oxygen Delivery Method Nasal Cannula Weight: 180 lb 12.465 oz Body Mass Index (BMI) 24.5 Intake & Output: Intake and Output for Last 24 Hours 01/04/22 01/05/22 01/06/22 23:59 23:59 23:59 Intake Total 460 / 460 1320 / 1320 Output Total 1575 / 1850 1945 / 1945 200 / 200 Balance -1115 / -1390 -625 / -625 -200 / -200 Lab / Micro Data Result Diagrams: 01/06/22 06:00 01/06/22 06:00 Labs: Laboratory Results - last 24 hr 01/02/22 03:25: Diff Path Review Reviewed 01/03/22 05:05: Diff Path Review Reviewed 01/06/22 06:00: WBC 21.9 H, RBC 4.33 L, Hgb 12.7 L, Hct 39.0 L, MCV 90.1 D, MCH 29.3, MCHC 32.6 D, RDW Std Deviation 46.7 H, RDW Coeff of Gladis 14.2, Plt Count 247, MPV 9.6, Immature Gran % (Auto) 2.800 H, Neut % (Auto) 85.8 H, Lymph % (Auto) 4.2 L, [place] % (Auto) 5.6, Eos % (Auto) 0.9, Baso % (Auto) 0.7, Absolute Neuts (auto) 18.8 H, Absolute Lymphs (auto) 0.91, Nucleated RBC % 0 01/06/22 06:00: Sodium 138, Potassium 3.5, Chloride 99, Carbon Dioxide 36.0 H, Anion Gap 3 L, BUN 18, Creatinine 0.61 L, Estim Creat Clear Calc 76.52, Est GFR (MDRD) Af Amer 168, Est GFR (MDRD) Non-Af 139, BUN/Creatinine Ratio 29.5 H, Glu cose 75, Calcium 8.7 Micro: Microbiology 12/29/21 10:27 Blood Culture (Wb) - Anticubital Right Blood Culture - Final No growth in 5 days. 12/29/21 10:38 Blood Culture (Wb) - Arm Right Blood Culture - Final No growth in 5 days. Rhythm Strip Rhythm Strip: Sinus Rhythm Physical Exam Const alert, oriented x3 and no apparent distress Constitutional Narrative: Fatigued appearing. HEENT normocephalic Mouth: dry mucous membranes Eyes PERRL, EOMs intact bilaterally and conjunctivae normal Neck no lymphadenopathy Resp Auscultation: wheezes and diminished lung sounds Cardio regular rate, regular rhythm and no murmurs Peripheral Pulses: pulses 2+ throughout GI normal to inspection, nondistended, normoactive bowel sounds, non-tender and non-distended Extremity normal to inspection Skin no rashes or lesions noted Lesions: no lesions Rashes: no rashes Trauma: no lacerations or abrasions Neuro CN's II-XII intact bilaterally, no focal motor deficits, no sensory deficits noted and deep tendon reflexes 2+ bilaterally Psych Mood & Affect: flat affect Assessment & Plan Assessment/Plan (1) Pancreatitis: PLAN: Plan 1.? Acute severe pancreatitis- surgery following. MRCP without choledocholithiasis/biliary obstruction.? Cholelithiasis.? Pancreatitis as described on CT 01/02/2022.? Upper abdominal edema and perihepatic ascites.? IV fluids. Continue diet as tolerated. Management per GI/surgery. 2. Paroxysmal atrial fibrillation/atrial flutter with RVR-cardiology following.? On metoprolol, amiodarone.? Anticoagulation on hold due to GI bleed. 3. Acute heart failure with preserved ejection fraction-initially placed on IV Lasix.? Transitioned to oral regimen.? Echocardiogram demonstrated an EF of 60%, RVSP estimated to be 61 mmHg. 4. GI bleed-GI consulted.? Underwent upper GI which demonstrated acute esophagitis, treated with heater probe.? Gastritis.? Continue PPI twice daily. 5. Adynamic ileus-resolved. 6. Chronic COPD with chronic hypoxic respiratory failure-on baseline home O2.? As needed albuterol aerosol.? Recently completed prednisone taper. 7. NTEMI-type II demand ischemia. Echo per above. DVT prophylaxis-SCDs, xarelto on hold This patient was seen by BARRY Zaidi under the supervision of Dr. Patel. Time spent examining patient, reviewing data and subsequent management of care: 12 minutes Documented by User: Dr. Sanjay Patel DO 01/06/22 14:32 Objective Data Lab / Micro Data Result Diagrams: 01/06/22 06:00 01/06/22 06:00 Assessment & Plan Assessment/Plan (1) Pancreatitis: PLAN: Plan 1.? Acute severe pancreatitis- surgery following. MRCP without choledocholithiasis/biliary obstruction.? Cholelithiasis.? Pancreatitis as landon cribed on CT 01/02/2022.? Upper abdominal edema and perihepatic ascites.? IV fluids. Continue diet as tolerated. Management per GI/surgery. 2. Paroxysmal atrial fibrillation/atrial flutter with RVR-cardiology following.? On metoprolol, amiodarone.? Anticoagulation on hold due to GI bleed. 3. Acute heart failure with preserved ejection fraction-initially placed on IV Lasix.? Transitioned to oral regimen.? Echocardiogram demonstrated an EF of 60%, RVSP estimated to be 61 mmHg. 4. GI bleed-GI consulted.? Underwent upper GI which demonstrated acute esophagitis, treated with heater probe.? Gastritis.? Continue PPI twice daily. 5. Adynamic ileus-resolved. 6. Chronic COPD with chronic hypoxic respiratory failure-on baseline home O2.? As needed albuterol aerosol.? Recently completed prednisone taper. 7. NTEMI-type II demand ischemia. Echo per above. DVT prophylaxis-SCDs, xarelto on hold This patient was seen by BARRY Zaidi under the supervision of Dr. Patel. Time spent examining patient, reviewing data and subsequent management of care: 12 minutes Patient seen and examined independently.? Data and vitals reviewed.? I agree with the above note by the nurse practitioner. Pt feeling better. Tolerated clears while taking them slowly. No acute distress and afebrile.? Heart rate regular rate and rhythm plus S1-S2 with a soft rubs.? Lungs are clear to auscultation bilaterally but diminished.? Abdomen is slightly distended tender no rebound.? Extremities are without any signs clubbing or edema. Assessment/Plan (1) Acute gallstone pancreatitis: (2) Leukocytosis: (3) COPD (chronic obstructive pulmonary disease): PLAN: Plan 1.? Acute pancreatitis Suspect gallstone but no clear evidence at this time of choledocholithiasis. Doubtful that this is alcohol but the patient and his state that he does not drink often at all. Plan: * IV fluids * Pain control, antiemetics * Dr. Bruno was contacted through the emergency room and recommended ultr asound.? Ultrasound will be ordered. * Consultations to gastroenterology as well as general surgery.? There is no acute surgical needs at this time. * MRCP showed no choledocholithiasis/biliary obstruction.? Cholelithiasis.? Pancreatitis with no walled off focal fluid collections.? Upper abdominal edema and perihepatic ascites. * Changed over to clear diet today.? Monitor 2.? Atrial flutter with RVR Currently normal sinus rhythm Status post cardioversion Plan: Continue with metoprolol and amiodarone.? Anticoagulation held for now given anemia. 3.? Type II non-STEMI Secondary to atrial fibrillation/flutter with RVR Cardiology following No additional work-up at this time ?4. GI bleed * EGD performed on the first showing esophagitis that was treated with heater probe and biopsied.? Gastritis that was also treated with heater probe. * Continue with pantoprazole4. leukocytosis Patient was treated for COPD exacerbation at [facility] and was put on Augmentin as well as 60 mg of prednisone. I suspect this is related with the steroids but will follow-up with labs.? 5.? COPD Unclear stage but patient is on chronic oxygen.? He does have dyspnea on exertion but this is his baseline.? Patient is medically stabilized from a COPD perspective to proceed with procedures.? He is certainly high risk for intubation given his COPD.? I did review his CAT scan of his abdomen pelvis and cut the lower portions of his lungs and he does have significant bleb formation due to COPD.? Patient states that he has never taken 60 mg prednisone in the past and actually reached out to his fire chief who stated that would be okay to continue. Plan: * Continue with his home meds * Prednisone completed * As needed albuterol.6.? Paroxysmal atrial fibrillation Stable Plan: * Continue with metoprolol * Hold rivaroxaban in anticipation of potential procedures.? His last dose of rivaroxaban was in the morning on the .7.? VTE prophylaxis: SCDs 8.? CODE STATUS: Addressed with the patient.? Patient is full CODE STATUS. Discussed with the patient's significant other at bedside.? Greater than 20 minutes reviewing data, documents and discussing with patient. Charges/Coding Visit Charges Inpatient E&M: 90770 Subs Hosp L2
[2022-01-06] MEDS: Acetaminophen 325 MG Tablet 650 MG PO ×2 (14:16→21:09)
[2022-01-06 16:47] LABS: Magnesium 2.1 mg/dL (1.6-2.6)
--- NOTE | 2022-01-06 16:55 | PCM.PROGNOTE ---
Subjective Subjective Patient is doing better today. He is up in chair and into a chair next to the bed with his at his bedside. He is still feeling very bloated and is not able to eat much. I had a long conversation with him and his regarding the severity of his pancreatitis and the reason why he is getting intermittent bloating with abdominal discomfort due to ascites, paralytic ileus and gastroparesis associated with pancreatitis. Objective Data Objective Data Vital Signs: Vital Signs Temp Pulse Resp BP Pulse Ox O2 Del Method O2 Flow Rate 98.1 F 65 16 106/65 98 Nasal Cannula 3 01/06/22 16:37 01/06/22 16:37 01/06/22 16:37 01/06/22 16:37 01/06/22 16:37 01/06/22 16:37 01/06/22 16:37 FiO2 100 12/29/21 17:00 Oxygen Flow Rate (L/min) 3 Oxygen Delivery Method Nasal Cannula Weight: 180 lb 12.465 oz Body Mass Index (BMI) 24.5 Intake & Output: Intake and Output for Last 24 Hours 01/04/22 01/05/22 01/06/22 23:59 23:59 23:59 Intake Total 460 / 460 1320 / 1320 800 / 800 Output Total 1575 / 1850 1945 / 1945 575 / 575 Balance -1115 / -1390 -625 / -625 225 / 225 Lab / Micro Data Result Diagrams: 01/06/22 06:00 01/06/22 06:00 Labs: Laboratory Results - last 24 hr 01/06/22 06:00: WBC 21.9 H, RBC 4.33 L, Hgb 12.7 L, Hct 39.0 L, MCV 90.1 D, MCH 29.3, MCHC 32.6 D, RDW Std Deviation 46.7 H, RDW Coeff of Gladis 14.2, Plt Count 247, MPV 9.6, Immature Gran % (Auto) 2.800 H, Neut % (Auto) 85.8 H, Lymph % (Auto) 4.2 L, [place] % (Auto) 5.6, Eos % (Auto) 0.9, Baso % (Auto) 0.7, Absolute Neuts (auto) 18.8 H, Absolute Lymphs (auto) 0.91, Nucleated RBC % 0 01/06/22 06:00: Sodium 138, Potassium 3.5, Chloride 99, Carbon Dioxide 36.0 H, Anion Gap 3 L, BUN 18, Creatinine 0.61 L, Estim Creat Clear Calc 76.52, Est GFR (MDRD) Af Amer 168, Est GFR (MDRD) Non-Af 139, BUN/Creatinine Ratio 29.5 H, Glucose 75, Calcium 8.7 01/06/22 06:00: Magnesium 2.1 Micro: Microbiology 12/29/21 10:27 Blood Culture (Wb) - Anticubital Right Blood Culture - Final No growth in 5 days. 12/29/21 10:38 Blood Culture (Wb) - Arm Right Blood Culture - Final No growth in 5 days. Rhythm Strip Rhythm Strip: Sinus Rhythm Physical Exam Const alert, oriented x3 and no apparent distress Constitutional Narrative: Fatigued appearing. HEENT normocephalic Mouth: dry mucous membranes Eyes PERRL, EOMs intact bilaterally and conjunctivae normal Neck no lymphadenopathy Resp Auscultation: wheezes and diminished lung sounds Cardio regular rate, regular rhythm and no murmurs Peripheral Pulses: pulses 2+ throughout GI normal to inspection, nondistended, normoactive bowel sounds, non-tender and non-distended Extremity normal to inspection Skin no rashes or lesions noted Lesions: no lesions Rashes: no rashes Trauma: no lacerations or abrasions Neuro CN's II-XII intact bilaterally, no focal motor deficits, no sensory deficits noted and deep tendon reflexes 2+ bilaterally Psych Mood & Affect: flat affect Assessment & Plan Assessment/Plan (1) Pancreatitis: PLAN: I told the patient refused to eat he gets only eat with pancreatic enzymes. Typically we would make him n.p.o. and initiate total parenteral nutrition since its been so long and his CT and MRI showed 9 resolving pancreatitis. I encouraged him not to eat and to take TPN but he does not want to start TPN because he does not want to go to a long term (2) GI bleed: PLAN: GI bleed treated endoscopically. He is not having any signs or symptoms of bleeding at this time. Charges/Coding Visit Charges Inpatient E&M: 44556 Subs Hosp L2
--- NOTE | 2022-01-06 20:54 | PN.CARD_ITS ---
Subjective Subjective The patient is awake and alert. He spent time in the bedside chair today. He states he ambulated in his room with assistance. He notes his abdomen is still somewhat uncomfortable. Objective Data Vital Signs: Vital Signs Temp Pulse Resp BP Pulse Ox O2 Del Method O2 Flow Rate 98.1 F 71 16 106/65 98 Nasal Cannula 3 01/06/22 16:37 01/06/22 19:00 01/06/22 16:37 01/06/22 16:37 01/06/22 16:37 01/06/22 20:45 01/06/22 16:37 FiO2 100 12/29/21 17:00 Oxygen Flow Rate (L/min) 3 Oxygen Delivery Method Nasal Cannula Weight: 180 lb 12.465 oz Body Mass Index (BMI) 24.5 Intake & Output: Intake and Output for Last 24 Hours 01/04/22 01/05/22 01/06/22 23:59 23:59 23:59 Intake Total 460 / 460 1320 / 1320 1420 / 1420 Output Total 1575 / 1850 1945 / 1945 725 / 725 Balance -1115 / -1390 -625 / -625 695 / 695 Lab / Micro Data Result Diagrams: 01/06/22 06:00 01/06/22 06:00 Labs: Laboratory Results - last 24 hr 01/06/22 06:00: WBC 21.9 H, RBC 4.33 L, Hgb 12.7 L, Hct 39.0 L, MCV 90.1 D, MCH 29.3, MCHC 32.6 D, RDW Std Deviation 46.7 H, RDW Coeff of Gladis 14.2, Plt Count 247, MPV 9.6, Immature Gran % (Auto) 2.800 H, Neut % (Auto) 85.8 H, Lymph % (Auto) 4.2 L, [place] % (Auto) 5.6, Eos % (Auto) 0.9, Baso % (Auto) 0.7, Absolute Neuts (auto) 18.8 H, Absolute Lymphs (auto) 0.91, Nucleated RBC % 0 01/06/22 06:00: Sodium 138, Potassium 3.5, Chloride 99, Carbon Dioxide 36.0 H, Anion Gap 3 L, BUN 18, Creatinine 0.61 L, Estim Creat Clear Calc 76.52, Est GFR (MDRD) Af Amer 168, Est GFR (MDRD) Non-Af 139, BUN/Creatinine Ratio 29.5 H, Glucose 75, Calcium 8.7 01/06/22 06:00: Magnesium 2.1 Rhythm Strip Rhythm Strip: Sinus Rhythm Cardiology Labs/Tests 01/06/22 06:00: WBC 21.9 H, RBC 4.33 L, Hgb 12.7 L, Hct 39.0 L, MCV 90.1 D, MCH 29.3, MCHC 32.6 D, Plt Count 247, MPV 9.6, Immature Gran % (Auto) 2.800 H, Neut % (Auto) 85.8 H, Lymph % (Auto) 4.2 L, [place] % (Auto) 5.6, Eos % (Auto) 0.9, Baso % (Auto) 0.7, Absolute Neuts (auto) 18.8 H, Nucleated RBC % 0 01/06/22 06:00: Sodium 138, Potassium 3.5, Chloride 99, Carbon Dioxide 36.0 H, Anion Gap 3 L, BUN 18, Creatinine 0.61 L, Est GFR (MDRD) Af Amer 168, Est GFR (MDRD) Non-Af 139, BUN/Creatinine Ratio 29.5 H, Glucose 75, Calcium 8.7 01/06/22 06:00: Magnesium 2.1 Rhythm: Sinus rhythm Physical Exam Const alert, oriented x3 and no apparent distress HEENT normocephalic, head/scalp atraumatic and hearing grossly normal bilaterally Eyes PERRL, EOMs intact bilaterally and conjunctivae normal Neck full ROM, supple and no JVD Resp Auscultation: breath sounds absent bilateral (Less prominent than yesterday) Cardio regular rate, regular rhythm, S1 normal heart sound and S2 normal heart sound Rhythm: regular rhythm Heart Sounds: S1 normal and S2 normal GI GI Narrative: Positive bowel sounds Extremity no pedal edema Skin no rashes or lesions noted Psych mental status grossly normal Assessment & Plan Assessment/Plan (1) Atrial fibrillation: PLAN: The patient appears to to be remaining in sinus rhythm. He is continuing rate control with beta-rena. He has been transitioned to oral amiodarone therapy. His amiodarone dose will be tapered over time. He is not on anticoagulant therapy secondary to his upper GI bleed process and concerns of his underlying pancreatitis. (2) Abnormal cardiac enzyme level: PLAN: The patient does have abnormal cardiac enzymes. At the moment this appears compatible with a type II non-STEMI secondary to his atrial dysrhythmia with atrial fibrillation/flutter with RVR superimposed upon his noncardiac gastrointestinal related issues. His ECG has demonstrated T wave abnormality potentially compatible with myocardial ischemia in the anterolateral distribution. He did undergo evaluation with transthoracic echocardiogram. His overall LV wall motion/systolic function appeared to be preserved. At the moment he will continue to be monitored and continue medical management as deemed appropriate. At the moment he is not an ideal candidate, based on his multiple noncardiac comorbidities and medication limitations, to undergo additional noninvasive or invasive cardiovascular testing. This may have to be considered in the future depending upon his overall clinical course. (3) CHF (congestive heart failure): PLAN: The patient appears to have developed symptoms compatible with CHF . This may be, based on his transthoracic echocardiogram, an element of heart failure with preserved ejection fraction. He did receive IV diuresis with increased urinary output. He has been transitioned to oral diuretics. Overall, he appears to be improved based on symptoms and examination. He will continue medical therapy with adjustment over time based upon his volume status. (4) GI bleed: PLAN: The patient was noted to have concerns of an upper GI bleed. He underwent endoscopy. He was found to have esophagitis and gastritis treated with heater probe therapy and subsequently IV PPI. He will need to be monitored for any recurrent issues regarding this. Again this is another issue while he cannot initiate anticoagulant therapy at this time. (5) Acute gallstone pancreatitis: PLAN: The patient is continuing evaluation care per internal medicine, gastroenterology, and general surgery. (6) COPD (chronic obstructive pulmonary disease): PLAN: The patient will continue evaluation by internal medicine and pulmono logy/critical care medicine as deemed appropriate. PLAN: Plan The above was discussed and reviewed with the patient with his spouse present. This note was generated using a voice recognition system and there may be incorrect words, spelling or punctuation that were not noted when reviewing the office note prior to saving.
[2022-01-06] MEDS: Ensure Clear 120 ML Liquid PO (21:08)
[2022-01-07] VITALS (13 sets, daily range): BP systolic 107–126; BP diastolic 50–64; PULSE 58–84; RESP 16–22; TEMP 36–36.8; O2SAT 93–99
[2022-01-07 07:32] LABS: ALB/GLOB Ratio 0.6 RATIO (0.9-2.4); AST(SGOT) 25 U/L (15-37); Alanine Aminotransfer ALT/SGPT 153 U/L (16-61); Alkaline Phosphatase 94 U/L (45-117); Anion Gap 2 (5-15); BUN 19 mg/dL (7-18); BUN/Creat Ratio 35.4 RATIO (10-20); Calcium,Total 8.3 mg/dL (8.5-10.1); Chloride 95 mmol/L (98-107); Creatinine, Serum 0.54 mg/dL (0.70-1.30); EST Glomerular Filtration Rate 162 mL/min (>60); Est Glom Filt Rate - Afr Amer 196 mL/min (>60); Estimated Creatinine Clearance 76.52 ml/min; Globulin 3.5 g/dL (2.2-4.2); Glucose 85 mg/dL (74-106); Potassium 3.3 mmol/L (3.5-5.1); Protein, Total 5.5 g/dL (6.4-8.2); Sodium Level 135 mmol/L (136-145)
[2022-01-07 07:52] LABS: Absolute Lymphocyte Count 0.93 X10^3/uL (0.83-4.51); Absolute Neutrophil Count 18.6 X10^3/uL (2.0-7.7); Basophil# 0.17 X10^3/uL; Basophil% 0.8 % (0-1); Eosinophil# 0.18 X10^3/uL; Eosinophils% 0.8 % (0-5); Hematocrit 38.2 % (40-54); Hemoglobin 12.4 g/dL (13.0-16.5); Lymphocyte # 0.93 X10^3/ul (0.83-4.51); Lymphocyte % 4.3 % (19-41); Mean Corp Hgb Conc 32.5 g/dL (32-36); Mean Corpuscular Hgb 29.3 pg (27.0-32.0); Mean Corpuscular Volume 90.3 fL (80-94); Mean Platelet Vol. 9.5 fl (6.2-12.0); Monocyte# 1.12 X10^3/uL; Monocyte% 5.2 % (0-10); NRBC Flagged by Analyzer 0 % (0-5); Neutrophil # 18.64 X10^3/uL (2.7-7.7); Neutrophil % 85.8 % (47-70); Platelet Count 268 K/mm3 (150-450); RBC Distribution Width CV 14.2 % (11.6-14.6); RBC Distribution Width SD 47.1 fl (35.1-43.9); Red Blood Count 4.23 M/mm3 (4.6-6.2); White Blood Count 21.7 K/mm3 (4.4-11.0)
--- NOTE | 2022-01-07 07:55 | PN.HOSP_ITS ---
Subjective Subjective Feels better. Objective Data Objective Data Vital Signs: Vital Signs Temp Pulse Resp BP Pulse Ox O2 Del Method O2 Flow Rate 36.6 C 67 18 126/64 H 97 Nasal Cannula 4 01/07/22 05:00 01/07/22 07:00 01/07/22 05:00 01/07/22 05:00 01/07/22 07:10 01/07/22 07:10 01/07/22 07:10 FiO2 100 12/29/21 17:00 Oxygen Flow Rate (L/min) 4 Oxygen Delivery Method Nasal Cannula Weight: 82 kg Body Mass Index (BMI) 24.5 Intake & Output: Intake and Output for Last 24 Hours 01/05/22 01/06/22 01/07/22 23:59 23:59 23:59 Intake Total 1320 / 1320 1420 / 1420 60 / 60 Output Total 1945 / 1945 975 / 975 300 / 300 Balance -625 / -625 445 / 445 -240 / -240 Lab / Micro Data Result Diagrams: 01/07/22 07:30 01/07/22 Unknown Labs: Laboratory Results - last 24 hr 01/06/22 06:00: Sodium 138, Potassium 3.5, Chloride 99, Carbon Dioxide 36.0 H, Anion Gap 3 L, BUN 18, Creatinine 0.61 L, Estim Creat Clear Calc 76.52, Est GFR (MDRD) Af Amer 168, Est GFR (MDRD) Non-Af 139, BUN/Creatinine Ratio 29.5 H, Glucose 75, Calcium 8.7 01/06/22 06:00: Magnesium 2.1 01/07/22 07:30: WBC 21.7 H, RBC 4.23 L, Hgb 12.4 L, Hct 38.2 L, MCV 90.3, MCH 29.3, MCHC 32.5, RDW Std Deviation 47.1 H, RDW Coeff of Gladis 14.2, Plt Count 268, MPV 9.5, Immature Gran % (Auto) 3.100 H, Neut % (Auto) 85.8 H, Lymph % (Auto) 4.3 L, [place] % (Auto) 5.2, Eos % (Auto) 0.8, Baso % (Auto) 0.8, Absolute Neuts (auto) 18.6 H, Absolute Lymphs (auto) 0.93, Nucleated RBC % 0 01/07/22 : Sodium 135 L, Potassium 3.3 L, Chloride 95 L, Carbon Dioxide 38.0 H, Anion Gap 2 L, BUN 19 H, Creatinine 0.54 L, Estim Creat Clear Calc 76.52, Est GFR (MDRD) Af Amer 196, Est GFR (MDRD) Non-Af 162, BUN/Creatinine Ratio 35.4 H, Glucose 85, Calcium 8.3 L, Total Bilirubin 0.60, AST 25, ALT 153 H, Alkaline Phosphatase 94, Total Protein 5.5 L, Albumin 2.0 L, Globulin 3.5, Albumin/Globulin Ratio 0.6 L Micro: Microbiology 12/29/21 10:27 Blood Culture (Wb) - Anticubital Right Blood Culture - Final No growth in 5 days. 12/29/21 10:38 Blood Culture (Wb) - Arm Right Blood Culture - Final No growth in 5 days. Rhythm Strip Rhythm Strip: Sinus Rhythm Physical Exam Const alert and no apparent distress HEENT head/scalp atraumatic Resp normal respiratory effort, no retractions, no use of accessory muscles and clear to auscultation bilaterally Cardio regular rate, regular rhythm, S1 normal heart sound and S2 normal heart sound GI GI Narrative: epigastric tenderness Assessment & Plan Assessment/Plan (1) Pancreatitis: PLAN: Plan Assessment/Plan (1) Acute gallstone pancreatitis: (2) Leukocytosis: (3) COPD (chronic obstructive pulmonary disease): PLAN: Plan 1.? Acute pancreatitis Suspect gallstone but no clear evidence at this time of choledocholithiasis. Doubtful that this is alcohol but the patient and his state that he does not drink often at all. Plan: * IV fluids * Pain control, antiemetics * Dr. Bruno was contacted through the emergency room and recommended ultrasound.? Ultrasound will be ordered. * Consultations to gastroenterology as well as general surgery.? There is no acute surgical needs at this time. * MRCP showed no choledocholithiasis/biliary obstruction.? Cholelithiasis.? Pancreatitis with no walled off focal fluid collections.? Upper abdominal edema and perihepatic ascites. * BRAT diet 2.? Atrial flutter with RVR Currently normal sinus rhythm Status post cardioversion Plan: Continue with metoprolol and amiodarone.? Anticoagulation held for now given anemia. 3.? Type II non-STEMI Secondary to atrial fibrillation/flutter with RVR Cardiology following No additional work-up at this time ?4. GI bleed * EGD performed on the first showing esophagitis that was treated with heater probe and biopsied.? Gastritis that was also treated with heater probe. * Continue with pantoprazole 5.? COPD Unclear stage but patient is on chronic oxygen.? He does have dyspnea on exertion but this is his baseline.? Patient is medically stabilized from a COPD perspective to proceed with procedures.? He is certainly high risk for intubation given his COPD.? I did review his CAT scan of his abdomen pelvis and cut the lower portions of his lungs and he does have significant bleb formation due to COPD.? Patient states that he has never taken 60 mg prednisone in the past and actually reached out to his campus police officer who stated that would be okay to continue. Plan: * Continue with his home meds * Prednisone completed * As needed albuterol. 8.? CODE STATUS: Addressed with the patient.? Patient is full CODE STATUS. Charges/Coding Visit Charges Inpatient E&M: 39300 Subs Hosp L2
[2022-01-07] MEDS: Ensure Clear 120 ML Liquid PO ×4 (08:18→20:57)
[2022-01-07] MEDS: Creon 24,000 unit DR Capsule 1 CAP PO ×2 (08:20→16:04)
[2022-01-07] MEDS: Potassium Chloride Oral Tablet 20 MEQ PO (08:20)
[2022-01-07] MEDS: Amox/Clavulanate 875 MG Tablet PO ×2 (08:21→20:57)
[2022-01-07] MEDS: Metoprolol Tartrate 100 MG Tablet PO ×2 (08:22→20:56)
[2022-01-07] MEDS: Furosemide 40 MG Tablet PO (08:22)
[2022-01-07] MEDS: Pantoprazole Sodium 40 MG Tablet PO ×2 (08:23→20:56)
--- NOTE | 2022-01-07 08:49 | PCM.PN.CARD ---
Subjective Subjective The patient is awake and alert. He states he slept for approximately 5 hours last night. He states he feels so much better after getting a better night sleep. He has been doing bedside exercises this morning. Objective Data Vital Signs: Vital Signs Temp Pulse Resp BP Pulse Ox O2 Del Method O2 Flow Rate 98.2 F 84 16 118/64 99 Nasal Cannula 4 01/07/22 08:12 01/07/22 08:22 01/07/22 08:12 01/07/22 08:22 01/07/22 08:12 01/07/22 08:12 01/07/22 08:12 FiO2 100 12/29/21 17:00 Oxygen Flow Rate (L/min) 4 Oxygen Delivery Method Nasal Cannula Weight: 180 lb 12.465 oz Body Mass Index (BMI) 24.5 Intake & Output: Intake and Output for Last 24 Hours 01/05/22 01/06/22 01/07/22 23:59 23:59 23:59 Intake Total 1320 / 1320 1420 / 1420 60 / 60 Output Total 1945 / 1945 975 / 975 300 / 300 Balance -625 / -625 445 / 445 -240 / -240 Lab / Micro Data Result Diagrams: 01/07/22 07:30 01/07/22 Unknown Labs: Laboratory Results - last 24 hr 01/06/22 06:00: Magnesium 2.1 01/07/22 07:30: WBC 21.7 H, RBC 4.23 L, Hgb 12.4 L, Hct 38.2 L, MCV 90.3, MCH 29.3, MCHC 32.5, RDW Std Deviation 47.1 H, RDW Coeff of Gladis 14.2, Plt Count 268, MPV 9.5, Immature Gran % (Auto) 3.100 H, Neut % (Auto) 85.8 H, Lymph % (Auto) 4.3 L, [place] % (Auto) 5.2, Eos % (Auto) 0.8, Baso % (Auto) 0.8, Absolute Neuts (auto) 18.6 H, Absolute Lymphs (auto) 0.93, Nucleated RBC % 0 01/07/22 : Sodium 135 L, Potassium 3.3 L, Chloride 95 L, Carbon Dioxide 38.0 H, Anion Gap 2 L, BUN 19 H, Creatinine 0.54 L, Estim Creat Clear Calc 76.52, Est GFR (MDRD) Af Amer 196, Est GFR (MDRD) Non-Af 162, BUN/Creatinine Ratio 35.4 H, Glucose 85, Calcium 8.3 L, Total Bilirubin 0.60, AST 25, ALT 153 H, Alkaline Phosphatase 94, Total Protein 5.5 L, Albumin 2.0 L, Globulin 3.5, Albumin/Globulin Ratio 0.6 L Rhythm Strip Rhythm Strip: Sinus Rhythm Cardiology Labs/Tests 01/06/22 06:00: Magnesium 2.1 01/07/22 07:30: WBC 21.7 H, RBC 4.23 L, Hgb 12.4 L, Hct 38.2 L, MCV 90.3, MCH 29.3, MCHC 32.5, Plt Count 268, MPV 9.5, Immature Gran % (Auto) 3.100 H, Neut % (Auto) 85.8 H, Lymph % (Auto) 4.3 L, [place] % (Auto) 5.2, Eos % (Auto) 0.8, Baso % (Auto) 0.8, Absolute Neuts (auto) 18.6 H, Nucleated RBC % 0 01/07/22 : Sodium 135 L, Potassium 3.3 L, Chloride 95 L, Carbon Dioxide 38.0 H, Anion Gap 2 L, BUN 19 H, Creatinine 0.54 L, Est GFR (MDRD) Af Amer 196, Est GFR (MDRD) Non-Af 162, BUN/Creatinine Ratio 35.4 H, Glucose 85, Calcium 8.3 L, Total Bilirubin 0.60 Rhythm: Sinus rhythm Physical Exam Const alert, oriented x3 and no apparent distress HEENT normocephalic, head/scalp atraumatic and hearing grossly normal bilaterally Eyes PERRL, EOMs intact bilaterally and conjunctivae normal Neck full ROM, supple and no JVD Resp Auscultation: wheezes scattered wheezes (Faint) and breath sounds absent bilateral (Less prominent than yesterday) Cardio regular rate, regular rhythm, S1 normal heart sound and S2 normal heart sound Rhythm: regular rhythm Heart Sounds: S1 normal and S2 normal GI GI Narrative: Positive bowel sounds Extremity no pedal edema Skin no rashes or lesions noted Psych mental status grossly normal Assessment & Plan Assessment/Plan (1) Atrial fibrillation: PLAN: The patient appears to to be remaining in sinus rhythm. He is continuing rate control with beta-rena. He has been transitioned to oral amiodarone therapy. His amiodarone dose will be tapered over time. He is not on anticoagulant therapy secondary to his upper GI bleed process and concerns of his underlying pancreatitis. (2) Abnormal cardiac enzyme level: PLAN: The patient does have abnormal cardiac enzymes. At the moment this appears compatible with a type II non-STEMI secondary to his atrial dysrhythmia with atrial fibrillation/flutter with RVR superimposed upon his noncardiac gastrointestinal related issues. His ECG has demonstrated T wave abnormality potentially compatible with myocardial ischemia in the anterolateral distribution. He did undergo evaluation with transthoracic echocardiogram. His overall LV wall motion/systolic function appeared to be preserved. At the moment he will continue to be monitored and continue medical management as deemed appropriate. At the moment he is not an ideal candidate, based on his multiple noncardiac comorbidities and medication limitations, to undergo additional noninvasive or invasive cardiovascular testing. This may have to be considered in the future depending upon his overall clinical course. (3) CHF (congestive heart failure): PLAN: The patient appears to have developed symptoms compatible with CHF . This may be, based on his transthoracic echocardiogram, an element of heart failure with preserved ejection fraction. He did receive IV diuresis with increased urinary output. He has been transitioned to oral diuretics. Overall, he appears to be improved based on symptoms and examination. He will continue medical therapy with adjustment over time based upon his volume status. (4) GI bleed: PLAN: The patient was noted to have concerns of an upper GI bleed. He underwent endoscopy. He was found to have esophagitis and gastritis treated with heater probe therapy and subsequently IV PPI. He will need to be monitored for any recurrent issues regarding this. Again this is another issue while he cannot initiate anticoagulant therapy at this time. (5) Acute gallstone pancreatitis: PLAN: The patient is continuing evaluation care per internal medicine, gastroenterology, and general surgery. (6) COPD (chronic obstructive pulmonary disease): PLAN: The patient will continue evaluation by internal medicine and pulmonology/critical care medicine as deemed appropriate. PLAN: Plan The above was discussed and reviewed with the patient. This note was generated using a voice recognition system and there may be incorrect words, spelling or punctuation that were not noted when reviewing the office note prior to saving. Addt'l Comments Overall, the patient will continue to be monitored. He will continue medical therapy with adjustment over time based upon symptoms, exam, vital signs, etc. He will continue evaluation care by internal medicine, gastroenterology, and general surgery in the interim for his gastrointestinal related disease process. He is also being evaluated in the meantime by OT/PT. This note was generated using a voice recognition system and there may be incorrect words, spelling or punctuation that were not noted when reviewing the office note prior to saving.
--- NOTE | 2022-01-07 09:08 | CASEMGMT ---
Social Work This secondary social studies teacher reviewed Dr. Holley's note, Dr. Holley recommending for patient to start TPN and transition to a assisted during TPN therapy. Per Dr. Holley's note patient is not open to assisted and this is reason for declining TPN. Met with patient in room. Patient remembering this secondary social studies teacher from prior interactions this week. This secondary social studies teacher broached conversation about assisted placement and recommendation for TPN. Patient states to be trying to eat food, but not sure this is going to work. Patient states I am just not getting better. Patient reports that goal is to return to home. This secondary social studies teacher facilitating conversation about how going to a assisted can work towards patient goal of returning to home, but maybe not a soon as patient would like. Patient voiced understanding and states if the doctors think I need to go to a assisted, I will go. Patient states I am just so weak. Patient reports the person that needs convinced is my . Patient states she just wants me to go home. This secondary social studies teacher voiced understanding. Patient request for this secondary social studies teacher to speak with patient spouse, Glory. This secondary social studies teacher provided active listening and support. Patient then inquired as to who makes decision on which assisted, if I decide to go. This secondary social studies teacher communicating to patient that patient would make decision on which facility. Patient voiced understanding. Telephone call to patient spouse, Glory. Glory to be in to see patient this morning and this secondary social studies teacher to meet with Glory when Glory comes to the hospital. PLAN: SNF vs. Home. Dom TRUONG, GINNY
--- NOTE | 2022-01-07 10:19 | CASEMGMT ---
Social Work This long term care social worker met with patient spouse, Glory. This long term care social worker broached conversation about possible prison placement for patient. Patient states I just want to take him home. Glory states to be able to take care of patient in the home he was fine last time. This long term care social worker communicating to Glory concern for patient being able to return to home due to debility and low nutritional intake. Glory voiced understanding and is open to looking over a list but we want to take him home. This long term care social worker voiced understanding and provided verbal support. This long term care social worker brought list to room. Patient then states I don't want to go to a prison. I want to go home. This long term care social worker voiced understanding and family/patient agreeable to looking over list. Plan will be to see how patient is doing tomorrow. PLAN: SNF vs. Home. Dom TRUONG, GINNY
--- NOTE | 2022-01-07 12:50 | PCM.PN.SRG ---
Subjective Subjective Patient seen and examined during AM rounds. He is sitting upright in bed, but states that he is feeling better than he has in well over a week. He proudly reports that he showered and walked about the room unassisted. He also is happy to report that his diet has been better tolerated with less feelings of fullness. Lastly he comments that his ostomy output seems to have tapered off somewhat, but does remain liquid in consistency. Objective Data Objective Data Vital Signs: Vital Signs Temp Pulse Resp BP Pulse Ox O2 Del Method O2 Flow Rate 98.2 F 84 16 118/64 99 Nasal Cannula 3 01/07/22 08:12 01/07/22 08:22 01/07/22 08:12 01/07/22 08:22 01/07/22 08:12 01/07/22 09:17 01/07/22 09:17 FiO2 100 12/29/21 17:00 Oxygen Flow Rate (L/min) 3 Oxygen Delivery Method Nasal Cannula Weight: 180 lb 12.465 oz Body Mass Index (BMI) 24.5 Intake & Output: Intake and Output for Last 24 Hours 01/05/22 01/06/22 01/07/22 23:59 23:59 23:59 Intake Total 1320 / 1320 1420 / 1420 60 / 60 Output Total 1945 / 1945 975 / 975 300 / 300 Balance -625 / -625 445 / 445 -240 / -240 Lab / Micro Data Result Diagrams: 01/07/22 07:30 01/07/22 Unknown Labs: Laboratory Results - last 24 hr 01/06/22 06:00: Magnesium 2.1 01/07/22 07:30: WBC 21.7 H, RBC 4.23 L, Hgb 12.4 L, Hct 38.2 L, MCV 90.3, MCH 29.3, MCHC 32.5, RDW Std Deviation 47.1 H, RDW Coeff of Gladis 14.2, Plt Count 268, MPV 9.5, Immature Gran % (Auto) 3.100 H, Neut % (Auto) 85.8 H, Lymph % (Auto) 4.3 L, [place] % (Auto) 5.2, Eos % (Auto) 0.8, Baso % (Auto) 0.8, Absolute Neuts (auto) 18.6 H, Absolute Lymphs (auto) 0.93, Nucleated RBC % 0 01/07/22 : Sodium 135 L, Potassium 3.3 L, Chloride 95 L, Carbon Dioxide 38.0 H, Anion Gap 2 L, BUN 19 H, Creatinine 0.54 L, Estim Creat Clear Calc 76.52, Est GFR (MDRD) Af Amer 196, Est GFR (MDRD) Non-Af 162, BUN/Creatinine Ratio 35.4 H, Glucose 85, Calcium 8.3 L, Total Bilirubin 0.60, AST 25, ALT 153 H, Alkaline Phosphatase 94, Total Protein 5.5 L, Albumin 2.0 L, Globulin 3.5, Albumin/Globulin Ratio 0.6 L Micro: Microbiology 12/29/21 10:27 Blood Culture (Wb) - Anticubital Right Blood Culture - Final No growth in 5 days. 12/29/21 10:38 Blood Culture (Wb) - Arm Right Blood Culture - Final No growth in 5 days. Rhythm Strip Rhythm Strip: Sinus Rhythm Physical Exam Const oriented x3 and no apparent distress Resp Resp Narrative: Somewhat labored breathing GI GI Narrative: Nondistended, soft, nontender to palpation, colostomy appliance with gas in bag Assessment & Plan Assessment/Plan (1) Pancreatitis: (2) Cholelithiasis: PLAN: Plan Patient hospital day 10 for pancreatitis. His abdominal discomfort is resolved and he confirms that he is now tolerating his diet better. We briefly discussed management of his gallbladder following this acute hospitalization. Mr. Reese relates that he conversation held with Dr. Mcmillan over the weekend discussing evaluation at a tertiary care center. Given the events of this hospital stay and his pre-existing comorbidities, I would concur this would be in the patient's best interest considering his perioperative risk for needing intensive care services. Recommend the following: ? Okay to advance diet as tolerated from a surgical standpoint ? We will continue to follow serial abdominal exams Charges/Coding Visit Charges Inpatient E&M: 17739 Subs Hosp L2
[2022-01-07] MEDS: oxyCODONE 5 MG Tablet PO (16:02)
[2022-01-07] MEDS: Amiodarone 200 MG Tablet PO ×2 (16:02→20:57)
--- NOTE | 2022-01-07 17:04 | PN_ITS ---
Subjective Subjective Patient is feeling better each day and he has been eating more consistently. Appetite is about the same. He has not gained any weight. He has been mostly up and walking around. He continues to be afebrile and normotensive without tachycardia Objective Data Objective Data Vital Signs: Vital Signs Temp Pulse Resp BP Pulse Ox O2 Del Method O2 Flow Rate 97.5 F L 78 22 H 107/50 L 97 Nasal Cannula 4 01/07/22 14:00 01/07/22 15:00 01/07/22 14:00 01/07/22 14:00 01/07/22 14:00 01/07/22 14:00 01/07/22 15:39 FiO2 100 12/29/21 17:00 Oxygen Flow Rate (L/min) 4 Oxygen Delivery Method Nasal Cannula Weight: 180 lb 12.465 oz Body Mass Index (BMI) 24.5 Intake & Output: Intake and Output for Last 24 Hours 01/05/22 01/06/22 01/07/22 23:59 23:59 23:59 Intake Total 1320 / 1320 1420 / 1420 360 / 360 Output Total 1945 / 1945 975 / 975 500 / 500 Balance -625 / -625 445 / 445 -140 / -140 Lab / Micro Data Result Diagrams: 01/07/22 07:30 01/07/22 Unknown Labs: Laboratory Results - last 24 hr 01/07/22 07:30: WBC 21.7 H, RBC 4.23 L, Hgb 12.4 L, Hct 38.2 L, MCV 90.3, MCH 29.3, MCHC 32.5, RDW Std Deviation 47.1 H, RDW Coeff of Gladis 14.2, Plt Count 268, MPV 9.5, Immature Gran % (Auto) 3.100 H, Neut % (Auto) 85.8 H, Lymph % (Auto) 4.3 L, [place] % (Auto) 5.2, Eos % (Auto) 0.8, Baso % (Auto) 0.8, Absolute Neuts (auto) 18.6 H, Absolute Lymphs (auto) 0.93, Nucleated RBC % 0 01/07/22 : Sodium 135 L, Potassium 3.3 L, Chloride 95 L, Carbon Dioxide 38.0 H, Anion Gap 2 L, BUN 19 H, Creatinine 0.54 L, Estim Creat Clear Calc 76.52, Est GFR (MDRD) Af Amer 196, Est GFR (MDRD) Non-Af 162, BUN/Creatinine Ratio 35.4 H, Glucose 85, Calcium 8.3 L, Total Bilirubin 0.60, AST 25, ALT 153 H, Alkaline Phosphatase 94, Total Protein 5.5 L, Albumin 2.0 L, Globulin 3.5, Albumin/Globu carline Ratio 0.6 L Micro: Microbiology 12/29/21 10:27 Blood Culture (Wb) - Anticubital Right Blood Culture - Final No growth in 5 days. 12/29/21 10:38 Blood Culture (Wb) - Arm Right Blood Culture - Final No growth in 5 days. Rhythm Strip Rhythm Strip: Sinus Rhythm Physical Exam Const oriented x3 and no apparent distress Resp Resp Narrative: Somewhat labored breathing GI GI Narrative: Nondistended, soft, nontender to palpation, colostomy appliance with gas in bag Assessment & Plan Assessment/Plan (1) Pancreatitis: PLAN: Severe acute pancreatitis thought to be secondary to gallstone pancreatitis in the setting of congestive heart failure mild pleural effusions possibly secondary to severe acute pancreatitis. Patient also had acute renal failure and rapid atrial fibrillation with RVR. His last CT scan did show inflammation consistent with acute pancreatitis. His white blood cell has been getting around the low 20s. I think is mostly reactive as there are no other signs or symptoms of pancreatic necrosis. I will continue to encourage p.o. I would not recommend any surgery for his acute severe pancreatitis at this time.
--- NOTE | 2022-01-07 21:05 | NURSING ---
This RN at bedside to give evening medications. Pt informs this RN that he is refusing vital signs checks until morning. Pt states I respectfully decline you checking my vitals so I can get some rest.
[2022-01-08] VITALS (10 sets, daily range): BP systolic 95–107; BP diastolic 56–57; PULSE 63–87; RESP 16–20; TEMP 36.5; O2SAT 86–99
[2022-01-08] MEDS: Albuterol 2.5 MG/3 ML VIAL.NEB. INHALATION ×2 (01:45→10:36)
[2022-01-08 06:55] LABS: Absolute Lymphocyte Count 0.93 X10^3/uL (0.83-4.51); Basophil# 0.12 X10^3/uL; Basophil% 0.6 % (0-1); Eosinophil# 0.15 X10^3/uL; Eosinophils% 0.7 % (0-5); Hematocrit 35.6 % (40-54); Hemoglobin 11.9 g/dL (13.0-16.5); Lymphocyte # 0.93 X10^3/ul (0.83-4.51); Lymphocyte % 4.4 % (19-41); Mean Corp Hgb Conc 33.4 g/dL (32-36); Mean Corpuscular Volume 86.8 fL (80-94); Mean Platelet Vol. 9.6 fl (6.2-12.0); Monocyte# 1.21 X10^3/uL; Monocyte% 5.8 % (0-10); NRBC Flagged by Analyzer 0 % (0-5); Neutrophil # 17.97 X10^3/uL (2.7-7.7); Neutrophil % 85.9 % (47-70); Platelet Count 264 K/mm3 (150-450); RBC Distribution Width CV 14.2 % (11.6-14.6); RBC Distribution Width SD 44.8 fl (35.1-43.9); White Blood Count 20.9 K/mm3 (4.4-11.0)
[2022-01-08 07:46] LABS: ALB/GLOB Ratio 0.6 RATIO (0.9-2.4); AST(SGOT) 27 U/L (15-37); Alanine Aminotransfer ALT/SGPT 119 U/L (16-61); Albumin, Serum 2.1 g/dL (3.2-5.0); Alkaline Phosphatase 91 U/L (45-117); Anion Gap 3 (5-15); BUN 17 mg/dL (7-18); BUN/Creat Ratio 23.1 RATIO (10-20); Calcium,Total 8.7 mg/dL (8.5-10.1); Chloride 96 mmol/L (98-107); Creatinine, Serum 0.74 mg/dL (0.70-1.30); EST Glomerular Filtration Rate 112 mL/min (>60); Est Glom Filt Rate - Afr Amer 136 mL/min (>60); Estimated Creatinine Clearance 76.52 ml/min; Globulin 3.5 g/dL (2.2-4.2); Glucose 90 mg/dL (74-106); Potassium 3.5 mmol/L (3.5-5.1); Protein, Total 5.6 g/dL (6.4-8.2); Sodium Level 135 mmol/L (136-145)
--- NOTE | 2022-01-08 08:05 | PN.HOSP_ITS ---
Subjective Subjective Feels well. Tolerating PO without abdominal pain. Had some aerosols last night w/o tachyarrhythmias. Objective Data Objective Data Vital Signs: Vital Signs Temp Pulse Resp BP Pulse Ox O2 Del Method O2 Flow Rate 36.0 C L 63 18 114/59 L 96 Nasal Cannula 3 01/07/22 20:00 01/08/22 04:30 01/08/22 01:46 01/07/22 20:56 01/08/22 07:12 01/08/22 07:12 01/08/22 07:12 FiO2 100 12/29/21 17:00 Oxygen Flow Rate (L/min) 3 Oxygen Delivery Method Nasal Cannula Weight: 82.6 kg Body Mass Index (BMI) 24.5 Intake & Output: Intake and Output for Last 24 Hours 01/06/22 01/07/22 01/08/22 23:59 23:59 23:59 Intake Total 1420 / 1420 360 / 360 Output Total 975 / 975 500 / 500 Balance 445 / 445 -140 / -140 Lab / Micro Data Result Diagrams: 01/08/22 06:15 01/08/22 06:15 Labs: Laboratory Results - last 24 hr 01/08/22 06:15: WBC 20.9 H, RBC 4.10 L, Hgb 11.9 L, Hct 35.6 L, MCV 86.8, MCH 29.0, MCHC 33.4, RDW Std Deviation 44.8 H, RDW Coeff of Gladis 14.2, Plt Count 264, MPV 9.6, Immature Gran % (Auto) 2.600 H, Neut % (Auto) 85.9 H, Lymph % (Auto) 4.4 L, [place] % (Auto) 5.8, Eos % (Auto) 0.7, Baso % (Auto) 0.6, Absolute Neuts (auto) 18.0 H, Absolute Lymphs (auto) 0.93, Nucleated RBC % 0 01/08/22 06:15: Sodium 135 L, Potassium 3.5, Chloride 96 L, Carbon Dioxide 36.0 H, Anion Gap 3 L, BUN 17, Creatinine 0.74, Estim Creat Clear Calc 76.52, Est GFR (MDRD) Af Amer 136, Est GFR (MDRD) Non-Af 112, BUN/Creatinine Ratio 23.1 H, Glucose 90, Calcium 8.7, Total Bilirubin 0.60, AST 27, ALT 119 H, Alkaline Phosphatase 91, Total Protein 5.6 L, Albumin 2.1 L, Globulin 3.5, Albumin/Globulin Ratio 0.6 L Micro: Microbiology 12/29/21 10:27 Blood Culture (Wb) - Anticubital Right Blood Culture - Final No growth in 5 days. 12/29/21 10:38 Blood Culture (Wb) - Arm Right Blood Culture - Final No growth in 5 days. Rhythm Strip Rhythm Strip: Sinus Rhythm Physical Exam Const alert and no apparent distress Resp Resp Narrative: diminished throughout, but clear Cardio regular rate, regular rhythm, S1 normal heart sound and S2 normal heart sound GI normal to inspection, nondistended, normoactive bowel sounds and soft to palpation Assessment & Plan Assessment/Plan (1) Pancreatitis: PLAN: Plan Assessment/Plan (1) Acute gallstone pancreatitis: (2) Leukocytosis: (3) COPD (chronic obstructive pulmonary disease): PLAN: Plan 1.? Acute pancreatitis Suspect gallstone but no clear evidence at this time of choledocholithiasis. Doubtful that this is alcohol but the patient and his state that he does not drink often at all. Plan: * IV fluids * Pain control, antiemetics * Dr. Bruno was contacted through the emergency room and recommended ultrasound.? Ultrasound will be ordered. * Consultations to gastroenterology as well as general surgery.? There is no acute surgical needs at this time. * MRCP showed no choledocholithiasis/biliary obstruction.? Cholelithiasis.? Pancreatitis with no walled off focal fluid collections.? Upper abdominal cathy ma and perihepatic ascites. * BRAT diet 2.? Atrial flutter with RVR Currently normal sinus rhythm Status post cardioversion Plan: Continue with metoprolol and amiodarone.? Initiate anticoagulation with apixaban 3.? Type II non-STEMI Secondary to atrial fibrillation/flutter with RVR Cardiology following No additional work-up at this time ?4. GI bleed * EGD performed on the first showing esophagitis that was treated with heater probe and biopsied.? Gastritis that was also treated with heater probe. * Continue with pantoprazole 5.? COPD Unclear stage but patient is on chronic oxygen.? He does have dyspnea on exertion but this is his baseline.? Patient is medically stabilized from a COPD perspective to proceed with proced ures.? He is certainly high risk for intubation given his COPD.? I did review his CAT scan of his abdomen pelvis and cut the lower portions of his lungs and he does have significant bleb formation due to COPD.? Patient states that he has never taken 60 mg prednisone in the past and actually reached out to his executive chef who stated that would be okay to continue. Plan: * Continue with his home meds * Prednisone completed * As needed albuterol. 8.? CODE STATUS: Addressed with the patient.? Patient is full CODE STATUS. 9. Debility: home w [facility]
[2022-01-08] MEDS: Pantoprazole Sodium 40 MG Tablet PO (08:25)
[2022-01-08] MEDS: Creon 24,000 unit DR Capsule 1 CAP PO ×2 (08:25→12:00)
[2022-01-08] MEDS: Amox/Clavulanate 875 MG Tablet PO (08:25)
[2022-01-08] MEDS: Furosemide 40 MG Tablet PO (08:25)
[2022-01-08] MEDS: Potassium Chloride Oral Tablet 20 MEQ PO (08:25)
[2022-01-08] MEDS: ROFLUMILAST 500 MCG TABLET PO (08:26)
[2022-01-08] MEDS: Amiodarone 200 MG Tablet PO (08:28)
--- NOTE | 2022-01-08 09:41 | DCINST_ITS ---
Discharge Instructions Diet Discharge Diet: Low fat / Low cholesterol Dressing / Incision Call your doctor if you observe: Shortness of breath, Increased palpitations (irregular heartbeat) and - (blood in stool. ) Follow Up Care Test Results: Test results from this visit will be discussed in further detail at your follow- up appointment, if applicable. Discharge Plan Admission Admit Date/Time: 12/28/21 01:46 Primary Reason for Your Visit: pancreatitis. atrial fibrillation with RVR Attending Provider: Sanjay Patel Primary Care Provider: London Lott Consulting Providers: Sanjay Patel ; Federico Jimenez ; Marcos David ; Tanner Bruno ; Mingo Ruiz Discharge Orders/Prescriptions Prescriptions: New furosemide 40 mg Tablet 40 mg PO DAILY Qty: 30 0RF amiodarone 200 mg Tablet 200 mg PO DAILY Qty: 30 0RF Rx Instructions: take twice daily through 01/11/2022, then on 01/12/2022 take only daily alum-mag hydroxide-simeth [Mag-Al Plus Extra Strength] 400-400-40 mg/5 mL Suspension 30 ml PO Q6H PRN PRN (Reason: Gas or Bloating) Qty: 0 0RF Ensure Clear Liquid 120 ml PO 4X/DAY Qty: 30 0RF acidophilus-pectin, citrus 25 million cell -100 mg Tablet 1 tab PO 4X/DAY Qty: 30 0RF Creon 24,000-76,000 -120,000 unit Capsule,Delayed Release(Dr/Ec) 1 cap PO TIDCM Qty: 90 0RF metoprolol tartrate 100 mg Tablet 100 mg PO BID Qty: 60 0RF oxycodone 5 mg Tablet 5 mg PO Q6H PRN (Reason: pain (scale score 7-10)) 3 Days Qty: 12 0RF acetaminophen [Tylenol] 325 mg Tablet 650 mg PO Q6H PRN PRN (Reason: Pain Score 1-10/Temp > 100.7 F) Qty: 0 0RF albuterol sulfate 2.5 mg /3 mL (0.083 %) Solution For Nebulization 2.5 mg inhalation Q4H PRN (Reason: SOB &/OR WHEEZING) Qty: 90 0RF potassium chloride [Klor-Con M20] 20 mEq Tablet,Er Particles/Crystals 20 meq PO DAILYCM Qty: 60 0RF pantoprazole 40 mg Tablet,Delayed Release (Dr/Ec) 40 mg PO BID Qty: 60 0RF Continued multivitamin capsule capsule 1 cap PO DAILY Daliresp 500 mcg Tablet 500 mcg PO DAILY Xarelto 20 mg Tablet 20 mg PO DAILY Breztri Aerosphere 160-9-4.8 mcg/actuation Hfa Aerosol Inhaler 2 inh INHALATION BID Discontinued metoprolol succinate 50 mg Capsule,Sprinkle,Er 24hr 50 mg PO DAILY prednisone 10 mg tablet 60 mg PO DAILY Label Comments: take 60 mg daily x 4 days amoxicillin-pot clavulanate 875-125 mg tablet 1 tab PO BID Label Comments: TAKE 1 TABLET BY MOUTH TWICE A DAY FOR 10 DAYS Rx Instructions: started 12/25 for 5 days Referrals / Follow Up: [facility] [Provider Group] - Within 1 Month (atrial fibrillation. ) Uriel Davalos DO [STAFF PHYSICIAN] - 01/13/22 11:15 am London Lott MD [Primary Care Provider] - Within 2 Weeks Blaine Holley DO [STAFF PHYSICIAN] - Within 1 Month (pancreatitis follow up) Disposition Disposition (needs filled in before D/C Order can be placed): Home Health Service
--- NOTE | 2022-01-08 09:53 | DS.PCM_ITS ---
Providers Date of Admission: 12/28/21 Primary Care Physician: Dr. London Lott MD Consultations 12/28/21 02:03 Consult: Gastroenterology Routine Consulting Provider: [facility] Reason for Consult: pancreatitis EMERGENT Consult: No Notified: Yes Date Notified: 12/28/21 Time Notified: 06:20 Method of Notification: Text Consult: General Surgery Routine Consulting Provider: Tanner Bruno Reason for Consult: suspected gallstone pancreatitis EMERGENT Consult: No Notified: Yes Date Notified: 12/28/21 Time Notified: 01:55 Method of Notification: ED Physician Initiated 12/29/21 17:01 Consult: Cardiology Routine Consulting Provider: Marcos David Reason for Consult: Afib with RVR EMERGENT Consult: No Notified: Yes Date Notified: 12/29/21 Time Notified: 16:47 Method of Notification: Verbal Reason For Visit: pancreatitis Diagnosis Discharge Diagnosis (1) Pancreatitis: Status: Acute Code(s): K85.90 - Acute pancreatitis without necrosis or infection, unspecified Plan Assessment/Plan (1) Acute gallstone pancreatitis: (2) Leukocytosis: (3) COPD (chronic obstructive pulmonary disease): PLAN: Plan 1.? Acute pancreatitis Suspect gallstone but no clear evidence at this time of choledocholithiasis. Doubtful that this is alcohol but the patient and his state that he does not drink often at all. Plan: * IV fluids * Pain control, antiemetics * Dr. Bruno was contacted through the emergency room and recommended ultrasoun d.? Ultrasound will be ordered. * Consultations to gastroenterology as well as general surgery.? There is no acute surgical needs at this time. * MRCP showed no choledocholithiasis/biliary obstruction.? Cholelithiasis.? Pancreatitis with no walled off focal fluid collections.? Upper abdominal edema and perihepatic ascites. * BRAT diet 2.? Atrial flutter with RVR Currently normal sinus rhythm Status post cardioversion Plan: Continue with metoprolol and amiodarone.? Initiate anticoagulation with apixaban 3.? Type II non-STEMI Secondary to atrial fibrillation/flutter with RVR Cardiology following No additional work-up at this time ?4. GI bleed * EGD performed on the first showing esophagitis that was treated with heater probe and biopsied.? Gastritis that was also treated with heater probe. * Continue with pantoprazole 5.? COPD Unclear stage but patient is on chronic oxygen.? He does have dyspnea on exertion but this is his baseline.? Patient is medically stabilized from a COPD perspective to proceed with procedures.? He is certainly high risk for intubation given his COPD.? I did review his CAT scan of his abdomen pelvis and cut the lower portions of his lungs and he does have significant bleb formation due to COPD.? Patient states that he has never taken 60 mg prednisone in the past and actually reached out to his disability manager who stated that would be okay to continue. Plan: * Continue with his home meds * Prednisone completed * As needed albuterol. 8.? CODE STATUS: Addressed with the patient.? Patient is full CODE STATUS. 9. Debility: home w [facility] Medications at Discharge Home Medications multivitamin 1 cap PO DAILY vitamin 03/22/19 budesonide 160 mcg-glycopyr 9 mcg-formot 4.8 mcg/actuation HFA inhaler (Breztri Aerosphere) 2 inh inhalation BID copd 08/15/21 rivaroxaban 20 mg tablet (Xarelto) 20 mg PO DAILY blood thinner 08/15/21 roflumilast 500 mcg tablet (Daliresp) 500 mcg PO DAILY Check with primary doctor 08/15/21 acetaminophen 325 mg tablet (Tylenol) 650 mg PO Q6H PRN PRN Pain Score 1-10/Temp > 100.7 F #0 tabs 01/08/22 acidophilus 25 million cell-pectin, citrus 100 mg tablet 1 tab PO 4X/DAY #30 tabs 01/08/22 albuterol sulfate 2.5 mg (3 mL) inhalation Q4H PRN SOB &/OR WHEEZING #90 mL 01/08/22 aluminum-mag hydroxide-simethicone 400 mg-400 mg-40 mg/5 mL oral susp (Mag-Al Plus Extra Strength) 30 ml PO Q6H PRN PRN Gas or Bloating #0 mL 01/08/22 amiodarone 200 mg tablet 200 mg PO DAILY #30 tabs 01/08/22 food supplemt, lactose-reduced (Ensure Clear) 120 ml PO 4X/DAY #30 mL 01/08/22 furosemide 40 mg tablet 40 mg PO DAILY #30 tabs 01/08/22 [id number] 24,000-76,000-120,000 unit capsule,delayed rel (Creon) 1 cap PO TIDCM #90 caps 01/08/22 metoprolol tartrate 100 mg tablet 100 mg PO BID #60 tabs 01/08/22 oxycodone 5 mg tablet 5 mg PO Q6H PRN pain (scale score 7-10) 3 days #12 tabs 01/08/22 pantoprazole 40 mg tablet,delayed release 40 mg PO BID #60 tabs 01/08/22 potassium chloride 20 mEq tablet,extended release(part/cryst) (Klor-Con M) 20 meq PO DAILYCM #60 tabs 01/08/22 Hospital Course Operations None Procedures 2-D Echocardiogram and EGD Summary of Care Provided Minutes Spent on Discharge: 40 Weight / BMI Weight Weight: 82.6 kg Body Mass Index (BMI) 24.5 ABG / Lab / Microbiology Data Result Diagrams: 01/08/22 06:15 01/08/22 06:15 Laboratory: Laboratory Results - last 24 hr 01/08/22 06:15: WBC 20.9 H, RBC 4.10 L, Hgb 11.9 L, Hct 35.6 L, MCV 86.8, MCH 29.0, MCHC 33.4, RDW Std Deviation 44.8 H, RDW Coeff of Gladis 14.2, Plt Count 264, MPV 9.6, Immature Gran % (Auto) 2.600 H, Neut % (Auto) 85.9 H, Lymph % (Auto) 4.4 L, [place] % (Auto) 5.8, Eos % (Auto) 0.7, Baso % (Auto) 0.6, Absolute Neuts (auto) 18.0 H, Absolute Lymphs (auto) 0.93, Nucleated RBC % 0 01/08/22 06:15: Sodium 135 L, Potassium 3.5, Chloride 96 L, Carbon Dioxide 36.0 H, Anion Gap 3 L, BUN 17, Creatinine 0.74, Estim Creat Clear Calc 76.52, Est GFR (MDRD) Af Amer 136, Est GFR (MDRD) Non-Af 112, BUN/Creatinine Ratio 23.1 H, Glucose 90, Calcium 8.7, Total Bilirubin 0.60, AST 27, ALT 119 H, Alkaline Phosphatase 91, Total Protein 5.6 L, Albumin 2.1 L, Globulin 3.5, Albumin/Globulin Ratio 0.6 L Microbiology: Microbiology 12/29/21 10:27 Blood Culture (Wb) - Anticubital Right Blood Culture - Final No growth in 5 days. 12/29/21 10:38 Blood Culture (Wb) - Arm Right Blood Culture - Final No growth in 5 days. D/C Instructions Discharge Diet: Low fat / Low cholesterol Call your doctor if you observe: Shortness of breath, Increased palpitations (irregular heartbeat) and - (blood in stool. ) Meaningful Use Info Meaningful Use Diagnoses (Choose all that apply): None applicable Discharge Plan Admission Admit Date/Time: 12/28/21 01:46 Primary Reason for Your Visit: pancreatitis. atrial fibrillation with RVR Attending Provider: Sanjay Patel Primary Care Provider: London Lott Consulting Providers: Sanjay Patel ; Federico Jimenez ; Marcos David ; Tanner Bruno ; Mingo Ruiz Discharge Orders/Prescriptions Prescriptions: New furosemide 40 mg Tablet 40 mg PO DAILY Qty: 30 0RF amiodarone 200 mg Tablet 200 mg PO DAILY Qty: 30 0RF Rx Instructions: take twice daily through 01/11/2022, then on 01/12/2022 take only daily alum-mag hydroxide-simeth [Mag-Al Plus Extra Strength] 400-400-40 mg/5 mL Suspension 30 ml PO Q6H PRN PRN (Reason: Gas or Bloating) Qty: 0 0RF Ensure Clear Liquid 120 ml PO 4X/DAY Qty: 30 0RF acidophilus-pectin, citrus 25 million cell -100 mg Tablet 1 tab PO 4X/DAY Qty: 30 0RF Creon 24,000-76,000 -120,000 unit Capsule,Delayed Release(Dr/Ec) 1 cap PO TIDCM Qty: 90 0RF metoprolol tartrate 100 mg Tablet 100 mg PO BID Qty: 60 0RF oxycodone 5 mg Tablet 5 mg PO Q6H PRN (Reason: pain (scale score 7-10)) 3 Days Qty: 12 0RF acetaminophen [Tylenol] 325 mg Tablet 650 mg PO Q6H PRN PRN (Reason: Pain Score 1-10/Temp > 100.7 F) Qty: 0 0RF albuterol sulfate 2.5 mg /3 mL (0.083 %) Solution For Nebulization 2.5 mg inhalation Q4H PRN (Reason: SOB &/OR WHEEZING) Qty: 90 0RF potassium chloride [Klor-Con M20] 20 mEq Tablet,Er Particles/Crystals 20 meq PO DAILYCM Qty: 60 0RF pantoprazole 40 mg Tablet,Delayed Release (Dr/Ec) 40 mg PO BID Qty: 60 0RF Continued multivitamin capsule capsule 1 cap PO DAILY Daliresp 500 mcg Tablet 500 mcg PO DAILY Xarelto 20 mg Tablet 20 mg PO DAILY Breztri Aerosphere 160-9-4.8 mcg/actuation Hfa Aerosol Inhaler 2 inh INHALATION BID Discontinued metoprolol succinate 50 mg Capsule,Sprinkle,Er 24hr 50 mg PO DAILY prednisone 10 mg tablet 60 mg PO DAILY Label Comments: take 60 mg daily x 4 days amoxicillin-pot clavulanate 875-125 mg tablet 1 tab PO BID Label Comments: TAKE 1 TABLET BY MOUTH TWICE A DAY FOR 10 DAYS Rx Instructions: started 12/25 for 5 days Referrals / Follow Up: [facility] [Provider Group] - Within 1 Month (atrial fibrillation. ) Uriel Davalos DO [STAFF PHYSICIAN] - 01/13/22 11:15 am London Lott MD [Primary Care Provider] - Within 2 Weeks Blaine Holley DO [STAFF PHYSICIAN] - Within 1 Month (pancreatitis follow up) Disposition Disposition (needs filled in before D/C Order can be placed): Home Health Service Charges/Coding Visit Charges Inpatient E&M: 74737 Disch Hosp
--- NOTE | 2022-01-08 10:20 | CASEMGMT ---
Addendum entered by Fide Garibay 01/08/22 12:57: Pt qualified for 2L w/ exertion home oxygen and new order faxed to [facility]. Pt has portable tank/concentrator for discharge. Jessenia PARIKH CM Original Note: This RN CM to room to discuss discharge plan. Pt declines need for HHC or OP therapy at discharge and states Lgory will take care of me. Pt initially wanted 'a few' meds filled here for the next couple days but [facility] retail is not in-network and meds will need filled for the month not for a couple days. Pt aware and states would like them filled at [facility] now instead. Call to [facility], voices understanding. Pt is aware that order at [facility] is for 2L at bedtime and he gets angry and states has been on 3L continuous for last year or so. Pt aware that he can be tested and new order sent to [facility] but pt states I don't care what you think you need to do.' Pt states has concentrator, portable concentrator and portable tanks. Call to [facility] again as pt should not have portable tanks(except for power outage back up) if only supposed to be 2L at bedtime. Per [facility] again, pt's only order is for 2L at bedtime. CM to follow to see if pt will allow testing for new order. Cathy PARIKH updated on all, voices understanding. Jessenia PARIKH CM
--- NOTE | 2022-01-08 11:36 | PHA.DC.MC ---
Addendum entered and electronically signed by Alanna Campbell 01/08/22 11:59: Medications transferred to [facility], but oxycodone can not be transferred. Contacted Dr. Patel, he will send new prescription to [facility]. Original Note: Pharmacy Service has performed discharge medication reconciliation and counseling for this patient. 1. AMIODARONE 200MG PO BID THRU 01/11/22, THEN 200MG PO DAILY THEREAFTER 2. CREON 24,000UNITS PO TIDCM 3. FUROSEMIDE 40MG PO DAILY 4. METOPROLOL TARTRATE 100MG PO BID 5. OXYCODONE 5MG PO Q6H PRN PAIN 6. PANTOPRAZOLE 40MG PO BID 7. POTASSIUM CHLORIDE 20MEQ PO DAILYCM The patient's discharge medication list was reviewed for discrepancies and discrepancies were resolved. Home Medications multivitamin 1 cap PO DAILY vitamin 03/22/19 budesonide 160 mcg-glycopyr 9 mcg-formot 4.8 mcg/actuation HFA inhaler (Breztri Aerosphere) 2 inh inhalation BID copd 08/15/21 rivaroxaban 20 mg tablet (Xarelto) 20 mg PO DAILY blood thinner 08/15/21 roflumilast 500 mcg tablet (Daliresp) 500 mcg PO DAILY Check with primary doctor 08/15/21 acetaminophen 325 mg tablet (Tylenol) 650 mg PO Q6H PRN PRN Pain Score 1-10/Temp > 100.7 F #0 tabs 01/08/22 acidophilus 25 million cell-pectin, citrus 100 mg tablet 1 tab PO 4X/DAY #30 tabs 01/08/22 albuterol sulfate 2.5 mg (3 mL) inhalation Q4H PRN SOB &/OR WHEEZING #90 mL 01/08/22 aluminum-mag hydroxide-simethicone 400 mg-400 mg-40 mg/5 mL oral susp (Mag-Al Plus Extra Strength) 30 ml PO Q6H PRN PRN Gas or Bloating #0 mL 01/08/22 amiodarone 200 mg tablet 200 mg PO DAILY #30 tabs 01/08/22 food supplemt, lactose-reduced (Ensure Clear) 120 ml PO 4X/DAY #30 mL 01/08/22 furosemide 40 mg tablet 40 mg PO DAILY #30 tabs 01/08/22 qrphkr-qigtfnev-cpgluyb 24,000-76,000-120,000 unit capsule,delayed rel (Creon) 1 cap PO TIDCM #90 caps 01/08/22 metoprolol tartrate 100 mg tablet 100 mg PO BID #60 tabs 01/08/22 oxycodone 5 mg tablet 5 mg PO Q6H PRN pain (scale score 7-10) 3 days #12 tabs 01/08/22 pantoprazole 40 mg tablet,delayed release 40 mg PO BID #60 tabs 01/08/22 potassium chloride 20 mEq tablet,extended release(part/cryst) (Klor-Con M) 20 meq PO DAILYCM #60 tabs 01/08/22 The patient was counseled on the following discharge medications and changes in medications for homegoing were reviewed. The Reason for Use, instructions for use, and potential side effects were reviewed for all new medications. The patient's questions regarding all of their medications were answered. The patient was able to verbally demonstrate an understanding of their discharge medications.
--- NOTE | 2022-01-13 11:09 | CASEMGMT ---
Late entry for 01/12/22 at 1645: Pt called this RN CM with the following concerns following his appointment with Dr. Lott. States that the information sent from [facility] to Dr. Lott was gibberish and was unable to be deciphered by Dr. Lott. Pt states he is unclear if he has a GI doctor and what this follow-up looks like since the appointment is not until February 24. Stated he had labs obtained and wondered if his GI DR should have access to them. Pt also with concerns about his diet specifically his intake of milk. This RN CM stated she would investigate his concerns and follow-up with him the next AM d/t offices being closed at the time of the call. Pt agreeable to this plan. Entry for 01/13/22 at 1115: This RN CM reached out to Dr. Holley's office this AM and spoke with his RN Alisia who states there is not a sooner appointment available but the pt is Dr. Holley's patient. Alisia was able to obtain pt's lab results from [facility] emergency department and stated she would f/u with the pt later this afternoon to confirm and reassure that Dr. Holley is his GI DR and available if pt is having any concerns. This RN CM reached out to Dr. Lott's office and spoke with his RN who states that Dr. Lott's documentation reflects an understanding of pt's hospital stay and does not note any concerns with communication. Message was sent to Dr. Lott to notify this RN CM if there are questions. This RN CM reached out to the dietitian who provided pt with diet instructions and obtained a copy of the instructions provided to the patient. Clarification of including milk in pt's diet was obtained. This RN CM phoned the patient who also had his listening to the conversation. Explained the above: Dr. Holley is his GI DR, Alisia will be contacting him later today; Dr. Lott to contact this RN CM if he has questions regarding pt's hospital stay and/or the summary; and pt may consume milk and milk products but needs to ensure that he chooses low fat options. Pt expressed appreciation of the information and expressed understanding of his follow-up and diet. Pt denied any further questions or concerns. [place] Jade RN CM
== END 2022-01-08 13:30 | disposition home health service (06) | DRG 438 ==
LOC: ED 12-28 01:32 → MS3 12-28 01:45 → PCU 12-29 16:40 → ICU 12-29 22:54 → PCU 01-03 17:24
PROVIDERS: Family Medicine; Internal Medicine; Internal Medicine Cardiovascular Disease; Internal Medicine Gastroenterology; Nurse Practitioner Family; Physician Assistant; Emergency Provider Emergency Medicine; PCP Family Medicine
PROC: 0DJ08ZZ Inspection of Upper Intestinal Tract, Via Natural or Artificial Opening Endoscopic (ICD-10-PCS; CPT 43235; principal; 2022-01-01 17:40)
DX: K85.10 Biliary acute pancreatitis without necrosis or infection (principal); I21.A1 Myocardial infarction type 2; K72.00 Acute and subacute hepatic failure without coma; I50.31 Acute diastolic (congestive) heart failure; K29.71 Gastritis, unspecified, with bleeding; K20.81 Other esophagitis with bleeding; E87.0 Hyperosmolality and hypernatremia; I47.1 Supraventricular tachycardia; J96.11 Chronic respiratory failure with hypoxia; I48.92 Unspecified atrial flutter; N17.9 Acute kidney failure, unspecified; K56.0 Paralytic ileus; R18.8 Other ascites; J44.9 Chronic obstructive pulmonary disease, unspecified; I48.0 Paroxysmal atrial fibrillation; N18.32 Chronic kidney disease, stage 3b; Z93.3 Colostomy status; I25.10 Atherosclerotic heart disease of native coronary artery without angina pectoris; K31.84 Gastroparesis; K22.70 Barrett's esophagus without dysplasia; R53.81 Other malaise; Z90.49 Acquired absence of other specified parts of digestive tract; Z99.81 Dependence on supplemental oxygen; Z79.01 Long term (current) use of anticoagulants; Z79.899 Other long term (current) drug therapy; Z87.891 Personal history of nicotine dependence
CPT/HCPCS: 36415; 71045; 71046; 74018; 74177; 74181; 76705; 80048; 80053; 81001; 82150; 83605; 83615; 83690; 83735; 84100; 84443; 84484; 85014; 85018; 85025; 85652; 86140; 87040; 88305; 88313; 88341; 88342; 93005; 93306; 94640; 97116; 97162; 97530; 99251; 99284; J2185; J7030; J7050; Q9957; Q9967; A4216; C8929; G0463; J0153; J0295; J0610; J1940; J2405

== ENCOUNTER → 2022-01-18 | Outpatient (CLI) | payer MEDICARE, OTHER, SELFPAY ==
[2022-01-18 15:04] LABS: Hematocrit 34.7 % (40-54); Hemoglobin 11.4 g/dL (13.0-16.5); Mean Corp Hgb Conc 32.9 g/dL (32-36); Mean Corpuscular Hgb 28.9 pg (27.0-32.0); Mean Corpuscular Volume 87.8 fL (80-94); Mean Platelet Vol. 8.7 fl (6.2-12.0); Platelet Count 484 K/mm3 (150-450); RBC Distribution Width CV 14.3 % (11.6-14.6); RBC Distribution Width SD 46.1 fl (35.1-43.9); Red Blood Count 3.95 M/mm3 (4.6-6.2)
[2022-01-18 16:01] LABS: Anion Gap 8 (5-15); BUN 21 mg/dL (7-18); BUN/Creat Ratio 24.9 RATIO (10-20); Calcium,Total 9.2 mg/dL (8.5-10.1); Chloride 97 mmol/L (98-107); Creatinine, Serum 0.84 mg/dL (0.70-1.30); EST Glomerular Filtration Rate 96 mL/min (>60); Est Glom Filt Rate - Afr Amer 116 mL/min (>60); Glucose 118 mg/dL (74-106); Magnesium 1.8 mg/dL (1.6-2.6); Potassium 3.6 mmol/L (3.5-5.1); Sodium Level 137 mmol/L (136-145)
== END | disposition home or self-care (01) ==
PROVIDERS: PCP Family Medicine; Referring Provider Internal Medicine Cardiovascular Disease; Visit Provider Internal Medicine Cardiovascular Disease
DX: R53.81 Other malaise (principal); I48.0 Paroxysmal atrial fibrillation; R06.02 Shortness of breath; D64.9 Anemia, unspecified; D72.829 Elevated white blood cell count, unspecified; Z87.19 Personal history of other diseases of the digestive system
CPT/HCPCS: 36415; 80048; 83735; 85027